=== PATIENT | female | born 1935 | race Caucasian/White ===

== ENCOUNTER 2016-06-10 08:15 | Outpatient (RCR) | payer MEDICARE, OTHER, MEDICAID ==
[2016-06-09 17:21] LABS: BASOPHILS # (AUTO) 0.1 10^3/uL (0.0-0.1); BASOPHILS % (AUTO) 1 % (0-10); EOSINOPHILS # (AUTO) 0.3 10^3/uL (0.0-0.3); EOSINOPHILS % (AUTO) 3 % (0-10); LYMPHOCYTES # (AUTO) 2.1 X 10^3 (1.0-4.0); LYMPHOCYTES % (AUTO) 23 % (12-44); MEAN CORPUSCULAR HEMOGLOBIN 28 PG (25-34); MEAN CORPUSCULAR HGB CONC 32 G/DL (32-36); MEAN CORPUSCULAR VOLUME 88 FL (80-99); MEAN PLATELET VOLUME 8.9 FL (7.4-10.4); MONOCYTES # (AUTO) 0.8 X 10^3 (0.0-1.0); MONOCYTES % (AUTO) 9 % (0-12); NEUTROPHILS % (AUTO) 65 % (42-75); PLATELET COUNT 265 10^3/uL (130-400); RED BLOOD COUNT 4.13 10^6/uL (4.35-5.85); RED CELL DISTRIBUTION WIDTH 15.7 % (10.0-14.5); WHITE BLOOD COUNT 9.3 10^3/uL (4.3-11.0)
[2016-06-09 17:41] LABS: ALBUMIN 4.2 G/DL (3.2-4.5); BILIRUBIN,TOTAL 0.3 MG/DL (0.1-1.0); CALCIUM 10.3 MG/DL (8.5-10.1); CREATININE SERUM 1.36 MG/DL (0.60-1.30); POTASSIUM 4.1 MMOL/L (3.6-5.0)
--- NOTE | 2016-06-09 18:28 | Diagnostic Imaging Report ---
Portable AP and lateral views of the chest. INDICATION: Cough and fever. COMPARISON: 04/25/2016. FINDINGS: Compared to 04/25/2016 exam, there is resolution of right perihilar infiltrate. There is however infiltrate along the lingula obscuring portion of the left cardiac border with associated small left effusion. The heart size is borderline enlarged. No pneumothorax. IMPRESSION: There is a small left pleural effusion with mild infiltrate along the lingula. Dictated by: Dictated on workstation # [id number]
[~2016-06-10 08:15] MED LIST: ACET325T49 PO; ALBU2.5V4 NEB; AMBIEN 12.5 MG; AMLO10TA2 PO; AMLO10TA4 PO; ATOR10TA66 PO; B CO PO; B&C/1TAB2 PO; BENZ100C23 PO; BETH25TA PO; BUDE10.2 IH; CALC-654 PO; CALC-80 PO; CALC1TAB PO; CARB1TAB44 PO; CARBIDOPA; CETI10TA17 PO; CLOP75TA28 PO; CLOP75TA69 PO; CLPD75T; CMBV14.7IN; CTRZ10T; CYAN10006 PO; DABI150C5 PO; DABI75CA3 PO; DCS100C PO; DGX.125T; DIAZ-345 PO; DIAZ5TAB3 PO; DIAZ5TAB49; DIGO125T PO; DIGO125T6 PO; DIGO250T96 PO; DULO30CA48 PO; EZET10TA5; FISH1200; FLUT16SP22 NS; FLUT16SP22 NSEACH; FRSM40T; FURO40TA4 PO; GABA-488 PO; GBPN100C PO; GBPN300C; GFN600TCR; GLIM4TAB PO; HYDR1TAB; INSA10V; INSASP10V; INSU100I13 SQ; INSU100I29 SQ; INSU100V16 SQ; INSU3CAR SQ; IPRA3AMP IH; ISOS30TA3 PO; KCL10CCR; LACT20SO2 PO; LANOXIN; LEVADOPA; LEVO500T69 PO; LEVO750T39 PO; LEVO750T9 PO; LEVO75TA6 PO; LISI-556 PO; LVT.1T; LVT.1T PO; METF500T4 PO; METFOR850T PO; METO-272 PO; METO-274 PO; MMT17NA NS; MNTL10T; MNTL10T PO; MONT10TA24 PO; MTF500T PO; MTP25TSR; MULT-974 PO; NITR-65 PO; NITR1PAT62 TD; NORVASC; OMEG-160 PO; OMEG1CAP2 PO; ONDA8TAB12 PO; OX05NA15; OXC10TCR PO; PANT40SU PO; PANT40TA3 PO; PEG250PW PO; PGLT30T; PNT40TEC; PNT40TEC PO; POLY1DRO OP; POTA10CA43 PO; PROP15DR OU; PROSTAT PO; ROPI1TAB; ROPI1TAB PO; ROSU10TA12; ROSU5TAB PO; ROTI1PAT11 TD; ROTI1PAT12 TD; RPGL2T; RPN.25T; SENN-75 PO; SENN1TAB66 PO; SITA100T; SODI30SP2 NS; SUVO10TA2 PO; TRAM50TA2 PO; TRM50T PO; WHEA730P PO; WRF3T; ZLP10T PO; ZOLP12.5 PO; ZOLP12.546 PO; ZOLP5TAB7 PO; [UNRECOGNIZED DRUG - CODE]; [UNRECOGNIZED DRUG - CODE] PO
[2016-06-10 08:20] LABS: BILIRUBIN,URINE NEGATIVE (NEGATIVE); KETONES,URINE NEGATIVE (NEGATIVE); LEUKOCYTE ESTERASE ,URINE NEGATIVE (NEGATIVE); NITRITE,URINE NEGATIVE (NEGATIVE); PH,URINE 8 (5-9); PROTEIN,URINE NEGATIVE (NEGATIVE); UROBILINOGEN,URINE NORMAL (NORMAL)
[2016-06-10 08:39] LABS: SQUAMOUS EPITHELIAL CELL,UR 0-2 /HPF
[2016-06-11] MEDS ORDERED: METO-272 PO (12:44)
[2016-06-11] MEDS ORDERED: MULT1TAB69 PO (12:44)
[2016-06-11] MEDS ORDERED: PANT40TA3 PO (12:44)
[2016-06-11] MEDS ORDERED: DIAZ5TAB3 PO (12:44)
[2016-06-11] MEDS ORDERED: ZOLP5TAB7 PO (12:44)
[2016-06-11] MEDS ORDERED: MONT10TA24 PO (12:44)
[2016-06-11] MEDS ORDERED: SENN1TAB6 PO (12:44)
[2016-06-11] MEDS ORDERED: DOXY100C2 PO (12:44)
[2016-06-11] MEDS ORDERED: POTA10CA68 PO (12:44)
[2016-06-11] MEDS ORDERED: INSU100I23 SQ (12:44)
[2016-06-11] MEDS ORDERED: DOCU100C37 PO (12:44)
[2016-06-16] MEDS ORDERED: LISI10TA2 PO (08:26)
[2016-06-16] MEDS ORDERED: HYDR-3812 PO (09:08)
[2016-06-16] MEDS ORDERED: DIAZ5TAB3 PO (09:08)
[2016-06-16] MEDS ORDERED: CITA10TA7 PO (09:08)
[2016-06-16] MEDS ORDERED: ZOLP5TAB7 PO (09:08)
[2016-06-16] MEDS ORDERED: NYST1000 PO (09:08)
[2016-07-05] MEDS ORDERED: DIAZ5TAB3 PO ×2 (10:25)
[2016-07-05] MEDS ORDERED: ZOLP5TAB PO ×2 (10:25)
[2016-07-06] MEDS ORDERED: ZOLP5TAB7 PO (09:06)
[2016-07-06] MEDS ORDERED: METF1000 PO (09:06)
[2016-07-06] MEDS ORDERED: OMEG-160 PO (09:06)
[2016-07-06] MEDS ORDERED: LISI10TA2 PO (09:06)
[2016-07-06] MEDS ORDERED: SENN-140 PO (09:06)
[2016-07-06] MEDS ORDERED: CITA10TA7 PO (09:06)
[2016-07-08] MEDS ORDERED: ALBU1.25 IH (10:39)
[2016-07-08] MEDS ORDERED: ZOLP5TAB PO (10:39)
[2016-07-08] MEDS ORDERED: DIAZ5TAB3 PO (10:39)
[2016-07-08] MEDS ORDERED: LEVO500T2 PO (10:43)
[2016-09-15] MEDS ORDERED: INSU100V SQ (09:15)
[2016-09-15] MEDS ORDERED: DIAZ5TAB3 PO (09:15)
[2016-09-15] MEDS ORDERED: CALC-1 PO (09:15)
[2016-09-15] MEDS ORDERED: INSU100V5 SQ (09:15)
[2016-09-15] MEDS ORDERED: MULT-619 PO (09:15)
[2016-09-15] MEDS ORDERED: FLUT16SP22 NSEACH (09:15)
[2016-09-15] MEDS ORDERED: AMLO10TA2 PO (09:15)
[2016-09-15] MEDS ORDERED: ZOLP5TAB7 PO (09:15)
[2016-09-15] MEDS ORDERED: POTA10TA10 PO (09:15)
[2016-09-17] MEDS ORDERED: LEVO750T9 PO (10:46)
== END 2016-09-07 | disposition home or self-care (01) ==
LOC: LAB 08:15 → EDSTATUS 06-11 22:39
PROVIDERS: ATTEND Family Medicine
DX: R50.9 Fever, unspecified (principal); R05 Cough
CPT/HCPCS: 36415; 71020; 80053; 81000; 83880; 85025; 86308

== ENCOUNTER 2016-06-11 08:43 | Inpatient (IN) | payer MEDICARE, OTHER, MEDICAID ==
[~2016-06-11] VITALS: Ht 165.1 cm; Wt 81.2 kg
[2016-06-11] MEDS ORDERED: ACETAMINOPHEN 500 MG TAB (TYLENOL) PO ONE (09:15)
[2016-06-11 09:25] LABS: BASOPHILS # (AUTO) 0.1 10^3/uL (0.0-0.1); BASOPHILS % (AUTO) 0 % (0-10); EOSINOPHILS # (AUTO) 0.2 10^3/uL (0.0-0.3); EOSINOPHILS % (AUTO) 2 % (0-10); LYMPHOCYTES # (AUTO) 1.4 X 10^3 (1.0-4.0); LYMPHOCYTES % (AUTO) 11 % (12-44); MEAN CORPUSCULAR HEMOGLOBIN 28 PG (25-34); MEAN CORPUSCULAR HGB CONC 32 G/DL (32-36); MEAN CORPUSCULAR VOLUME 87 FL (80-99); MEAN PLATELET VOLUME 9.6 FL (7.4-10.4); MONOCYTES % (AUTO) 8 % (0-12); NEUTROPHILS # (AUTO) 9.8 X 10^3 (1.8-7.8); NEUTROPHILS % (AUTO) 79 % (42-75); PLATELET COUNT 222 10^3/uL (130-400); RED BLOOD COUNT 3.57 10^6/uL (4.35-5.85); RED CELL DISTRIBUTION WIDTH 15.8 % (10.0-14.5); WHITE BLOOD COUNT 12.4 10^3/uL (4.3-11.0)
[2016-06-11 09:38] LABS: ALBUMIN 3.5 G/DL (3.2-4.5); BILIRUBIN,TOTAL 0.9 MG/DL (0.1-1.0); CALCIUM 9.8 MG/DL (8.5-10.1); CREATININE SERUM 1.5 MG/DL (0.60-1.30); POTASSIUM 3.9 MMOL/L (3.6-5.0); TOTAL PROTEIN 6.3 G/DL (6.4-8.2)
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
--- NOTE | 2016-06-11 10:02 | Diagnostic Imaging Report ---
Indication: Cough. Comparison: 06/09/16. Findings: Allowing for differences in technique (portable versus PA and lateral on prior exam) there appears to be increased hazy opacities in the right medial lung base. Left basilar opacities are similar. Probable trace left pleural effusion is unchanged. No pneumothorax. Stable cardiomegaly with atherosclerotic aorta. IMPRESSION: 1. Increased right perihilar opacities with persistent left basilar opacities. Findings may relate to infectious process in appropriate setting. Alternatively aspiration may have a similar appearance. 2. Trace left pleural effusion is stable. Dictated by: Dictated on workstation # [id number]
[2016-06-11] MEDS ORDERED: cefTRIAXone INJECTION 1,000 MG in NORMAL SALINE (BAXTER MINI) 50 ML IV ONE (10:45)
[2016-06-11] MEDS ORDERED: BISACODYL 10 MG SUPP (DULCOLAX) PR PRN (11:15)
[2016-06-11] MEDS ORDERED: ONDANSETRON 4 MG/2 ML (SDV) Z0FRAN IVP PRN (11:15)
[2016-06-11] MEDS ORDERED: HYDROcodone/APAP 5 MG/325 MG (LORTAB) TAB PO PRN (11:15)
[2016-06-11] MEDS ORDERED: ONDANSETRON 4 MG (ZOFRAN) ORAL DISSOLVE TAB PO PRN (11:15)
[2016-06-11] MEDS ORDERED: ALPRAZolam 0.25 MG (XANAX) TAB PO PRN (11:15)
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
[2016-06-11] MEDS ORDERED: RT-ALBUTEROL/IPRATROPIUM 3 ML (DUONEB) VIAL INH PRN (12:15)
[2016-06-11] MEDS: MEROPENEM 500 MG in NORMAL SALINE (BAXTER MINI) 100 ML IV SCH ×2 (12:24→17:43)
[2016-06-11] MEDS ORDERED: POTA10CA68 PO (12:44)
[2016-06-11] MEDS ORDERED: DOXY100C2 PO (12:44)
[2016-06-11] MEDS ORDERED: INSU100I23 SQ (12:44)
[2016-06-11] MEDS ORDERED: DIAZ5TAB3 PO (12:44)
[2016-06-11] MEDS ORDERED: MONT10TA24 PO (12:44)
[2016-06-11] MEDS ORDERED: DOCU100C37 PO (12:44)
[2016-06-11] MEDS ORDERED: SENN1TAB6 PO (12:44)
[2016-06-11] MEDS ORDERED: ZOLP5TAB7 PO (12:44)
[2016-06-11] MEDS ORDERED: PANT40TA3 PO (12:44)
[2016-06-11] MEDS ORDERED: METO-272 PO (12:44)
[2016-06-11] MEDS ORDERED: MULT1TAB69 PO (12:44)
[2016-06-11] MEDS: GABAPENTIN 300 MG (NEURONTIN) CAP PO SCH ×2 (14:52→22:44)
[2016-06-11] MEDS: BENZONATATE 100 MG (TESSALON) CAPSULE PO SCH ×2 (14:52→22:44)
[2016-06-11] MEDS: inSUlin ASPART (NovoLOG) 1 UNIT/0.01 ML (CHARGE PER UNIT) SC SCH ×2 (15:01→22:48)
[2016-06-11] MEDS ORDERED: CATHETER FLUSH 10 ML SYR IV PRN (15:15)
[2016-06-11] MEDS: ACETAMINOPHEN 500 MG TAB (TYLENOL) PO PRN ×2 (15:27→19:20)
[2016-06-11 16:02] VITALS: BP 106/64
[2016-06-11] MEDS ORDERED: OMEGA PO SCH (17:00)
[2016-06-11] MEDS ORDERED: FATTY ACIDS PO SCH (17:00)
[2016-06-11] MEDS ORDERED: FISH OIL CA PO SCH (17:00)
[2016-06-11] MEDS ORDERED: [UNRECOGNIZED DRUG - OTHER] PO SCH (17:00)
[2016-06-11] MEDS: DOCUSATE SODIUM 100 MG (COLACE) CAP PO SCH (17:42)
[2016-06-11] MEDS: metFORMIN 500 MG (GLUCOPHAGE) TAB PO SCH (17:42)
[2016-06-11] MEDS: CALCIUM CARB + VIT D 600 MG (CALCARB + D) TAB PO SCH (17:42)
[2016-06-11] MEDS: OMEGA 3 (FISH OIL) 1000 MG CAP PO SCH ×2 (17:42→22:44)
[2016-06-11] MEDS: KCL 10 MEQ TAB (MICRO K) PO SCH (17:42)
[2016-06-11] MEDS ORDERED: PATIENT MAY USE OWN MED,SINGLE MED PO SCH (18:45)
[2016-06-11 20:10] LABS: BILIRUBIN,URINE NEGATIVE (NEGATIVE); KETONES,URINE NEGATIVE (NEGATIVE); LEUKOCYTE ESTERASE ,URINE 2+ (NEGATIVE); NITRITE,URINE NEGATIVE (NEGATIVE); PH,URINE 5 (5-9); PROTEIN,URINE 2+ (NEGATIVE); UROBILINOGEN,URINE NORMAL (NORMAL)
[2016-06-11] MEDS ORDERED: inSUlin DETERMIR 1 UNIT/0.01 ML (LEVEMIR) CHARGE PER UNIT SQ SCH (21:00)
[2016-06-11] MEDS ORDERED: NON-FORMULARY MEDICATION 1 EA EA (Cetirizine HCl 10 MG) PO SCH (21:00)
[2016-06-11] MEDS ORDERED: NON-FORMULARY MEDICATION 1 EA EA (Zolpidem Tartrate 5 MG) PO SCH (21:00)
[2016-06-11] MEDS ORDERED: metFORMIN 500 MG (GLUCOPHAGE) TAB PO SCH (21:00)
[2016-06-11] MEDS ORDERED: NON-FORMULARY MEDICATION 1 EA EA (Potassium Chloride (Klor-Con Sprinkle) 10 MEQ) PO SCH (21:00)
[2016-06-11] MEDS: DABIGATRAN 75 MG (PRADAXA) CAPSULE PO SCH (22:44)
[2016-06-11] MEDS: CLOPIDOGREL 75 MG (PLAVIX) TABLET PO SCH (22:44)
[2016-06-11] MEDS: LORATADINE (CLARITIN) 10 MG TAB PO SCH (22:44)
[2016-06-11] MEDS: DIAZEPAM 5 MG (VALIUM) TABLET PO SCH (22:44)
[2016-06-11] MEDS: ZOLPIDEM 5 MG (AMBIEN) TAB PO SCH (22:44)
[2016-06-11] MEDS: NEUPRO 6 MG/24 HR TP SCH (22:50)
[2016-06-11] MEDS: [UNRECOGNIZED DRUG - REMARK] TP SCH (22:50)
[2016-06-11] MEDS: CATHETER FLUSH 10 ML SYR IV SCH (22:54)
[2016-06-12] VITALS: BP 166/56
[2016-06-12] MEDS: MEROPENEM 500 MG in NORMAL SALINE (BAXTER MINI) 100 ML IV SCH ×4 (00:27→21:46)
[2016-06-12 03:48] VITALS: BP 145/65
[2016-06-12 04:40] LABS: BASOPHILS # (AUTO) 0.1 10^3/uL (0.0-0.1); BASOPHILS % (AUTO) 0 % (0-10); EOSINOPHILS # (AUTO) 0.6 10^3/uL (0.0-0.3); EOSINOPHILS % (AUTO) 5 % (0-10); LYMPHOCYTES # (AUTO) 1.2 X 10^3 (1.0-4.0); LYMPHOCYTES % (AUTO) 10 % (12-44); MEAN CORPUSCULAR HEMOGLOBIN 28 PG (25-34); MEAN CORPUSCULAR HGB CONC 32 G/DL (32-36); MEAN CORPUSCULAR VOLUME 88 FL (80-99); MEAN PLATELET VOLUME 9.7 FL (7.4-10.4); MONOCYTES # (AUTO) 0.8 X 10^3 (0.0-1.0); MONOCYTES % (AUTO) 6 % (0-12); NEUTROPHILS # (AUTO) 9.5 X 10^3 (1.8-7.8); NEUTROPHILS % (AUTO) 79 % (42-75); PLATELET COUNT 222 10^3/uL (130-400); RED BLOOD COUNT 3.69 10^6/uL (4.35-5.85); RED CELL DISTRIBUTION WIDTH 16.2 % (10.0-14.5); WHITE BLOOD COUNT 12.1 10^3/uL (4.3-11.0)
[2016-06-12 05:03] LABS: ALBUMIN 3.4 G/DL (3.2-4.5); BILIRUBIN,TOTAL 0.7 MG/DL (0.1-1.0); CALCIUM 10.1 MG/DL (8.5-10.1); CREATININE SERUM 1.5 MG/DL (0.60-1.30); TOTAL PROTEIN 6.7 G/DL (6.4-8.2)
[2016-06-12] MEDS: inSUlin ASPART (NovoLOG) 1 UNIT/0.01 ML (CHARGE PER UNIT) SC SCH ×4 (06:31→21:00)
[2016-06-12] MEDS: CATHETER FLUSH 10 ML SYR IV SCH ×3 (06:31→21:49)
[2016-06-12] MEDS: BENZONATATE 100 MG (TESSALON) CAPSULE PO SCH ×3 (06:32→21:53)
[2016-06-12] MEDS: amLODIPine 10 MG (NORVASC) TAB PO SCH (06:32)
[2016-06-12] MEDS: lisINopril 5 MG (PRINIVIL) TABLET PO SCH (06:32)
[2016-06-12] MEDS: DIGOXIN 0.125 MG (LANOXIN) TAB PO SCH (06:32)
[2016-06-12] MEDS: GLIMEPIRIDE 4 MG (AMARYL) TAB PO SCH (06:32)
[2016-06-12] MEDS: metFORMIN 500 MG (GLUCOPHAGE) TAB PO SCH ×2 (06:32→17:38)
[2016-06-12] MEDS: LEVOTHYROXINE 75 MCG (LEVOTHROID) TABLET PO SCH (06:32)
[2016-06-12] MEDS: KCL 10 MEQ TAB (MICRO K) PO SCH ×3 (06:32→17:38)
[2016-06-12 08:00] VITALS: BP 122/57
[2016-06-12] MEDS: FUROSEMIDE 40 MG (LASIX) TAB PO SCH ×2 (08:14→12:19)
[2016-06-12] MEDS: DABIGATRAN 75 MG (PRADAXA) CAPSULE PO SCH ×2 (08:14→21:53)
[2016-06-12] MEDS: CYANOCOBALAMIN 500 MCG TAB (VITAMIN B-12) PO SCH (08:14)
[2016-06-12] MEDS: meTOproloL SUCCINATE 50 MG (TOPROL XL) TAB PO SCH (08:14)
[2016-06-12] MEDS: SENNA W/DOCUSATE (SENOKOT S) TABLET PO SCH (08:15)
[2016-06-12] MEDS ORDERED: NON-FORMULARY MEDICATION 1 EA EA (Insulin Detemir (Levemir Flextouch) 10 UNIT) SQ SCH (09:00)
[2016-06-12] MEDS ORDERED: NON-FORMULARY MEDICATION 1 EA EA (Cyanocobalamin (Vitamin B-12) (Vitamin B-12) 1,000 MCG) PO SCH (09:00)
--- NOTE | 2016-06-12 10:44 | Physician Query-Sepsis ---
Physician Query-Sepsis Query to Physician: The documentation in this patient's medical record requires additional clarification to accurately capture the patient's diagnosis (es), treatment, acuity, and/or severity of illness per CMS guidelines. Criteria, any TWO of the following with an infectious OR noninfectious etiology: * Temp= <96.8 or >100.4 * HR= >90 bpm * RR= >20/min or PaCO2<32 mmHG * WBC= <4000 or >12,000; or >10% bands PATIENT DATA: DATE/TIME: 06/11/16 TEMP: 101.2 PULSE: 94 RESP: 18 B/P: 121/53 WBC: 12.4 LACTIC ACID: 2.0 OTHER: Blood Culture Organism: (Negative or inconclusive blood cultures do not preclude a diagnosis of septicemia or Sepsis in patients with clinical evidence of the condition.) Choose one of the below Dx: Sepsis=2 or more SIRS criteria with an identified source or suspected source of infection Severe Sepsis=Sepsis associated with organ dysfunction, hypoperfusion or hypotension. (Manifestations may include lactic acidosis, oliguria, and acute alteration in mental status.) Septic Shock=Acute circulatory failure unexplained by other cause: SBP <90 or MAP <65 or reduction in SBP 40 mmHg from baseline despite adequate volume resuscitation or Lactate Level >=4 mmol/L. Patients who require inotropic or vasopressor support despite adequate fluid replacement are in septic shock. Septicemia=Systemic disease associated with the presence of pathological microorganisms or toxins in the blood. Bacteremia=Per ICD-9 guidelines, Bacteremia indicates the presence of bacteria in the blood, but DOES NOT infer the bacterium are pathological or has resulted in any systemic illness needing treatment Please indicate if no sepsis, none of the above, not correct physician/provider. PHYSICIAN RESPONSE: Choose one of the diagnosis: Sepsis Physician Note: If you have questions please contact: Dental Coordinator:Mackenzie Arrington CCS,CCDS Ext:[phone] Thank you for your time and cooperation. Clinical Eeo Officer/Dental Coordinator This is a permanent part of the medical record MACKENZIE ARRINGTON Jun 12, 2016 10:44 DARNELL HIRSCH DO Jun 12, 2016 12:04
--- NOTE | 2016-06-12 10:47 | Physician Query-General Query ---
Physician Query-General Query to Physician: Is patient's acute renal failure related to sepsis, unspecified or other etiology? PHYSICIAN RESPONSE: Based on the clinical findings in the record, please respond to the query above on this document as an addendum. Possible, probable, or questionable diagnosis can be coded for INPATIENTS ONLY. Physician Response: Physician Response due to sepsis If you have questions please contact: Official Court Reporter:Mackenzie Arrington [facility],CCDS Ext:[phone] Thank you for your time and cooperation. Clinical Probation Officer/Official Court Reporter This is a permanent part of the medical record MACKENZIE ARRINGTON Jun 12, 2016 10:47 DARNELL HIRSCH DO Jun 12, 2016 12:04
--- NOTE | 2016-06-12 11:19 | Progress Note-Hospitalist ---
Progress Note HPI/CC on Admission CC: Fever w/weakness HPI: This is an 81-year-old white female with a past medical history of multiple cardiac events requiring resuscitation and subsequent multiple cardiac stent placements by Dr. Gandara the presents to the emergency room after failed doxycycline empiric antibiotic for bronchitis given by Dr. Martell her primary care provider. She began running a fever up to 102 at home prompting the ER visit due to shortness of breath. Chest x-ray did show fullness of the hilar region consistent with infiltrate. 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 Her creatinine is 1.5 increased from her usual baseline of 1.3 and elevated BNP will require consultation with cardiology Dr. Gandara. Currently she reports "everything hurts" and "everything is just going terribly for her" and I will try to support her in anyway possible. Progress Notes/Assess & Plan Date Seen 06/12/16 Admission Dx/Process Facility acquired pneumonia high risk for gram-negative resistant organism in a patient with ESBL positive status requiring meropenem empiric tx Severe CAD with prior cardiac resuscitation and multiple cardiac stents placed by Dr. Gandara Overall debility with poor prognosis long-term palliative care consultation multiple times Acute renal failure on chronic renal insufficiency Leukocytosis Fever Depression Atrial fibrillation on anticoagulation of Pradaxa Diagonsis/Assessment & Plan Pt doing well but very debilitated overall Multiple hospitalizations indicated end stage organ failure Checked meds and labs Very weak and frail AFVSS, Pleasant, O x 3, frail, vidal, weak Irr Irr, CTAB no rales noted No edema Laboratory Tests 06/12/16 04:10 Assessment: Facility acquired pneumonia w/sepsis high risk for gram-negative resistant organism in a patient with ESBL positive status requiring Meropenem empiric tx Severe CAD with prior cardiac resuscitation and multiple cardiac stents placed by Dr. Gandara Overall debility with poor prognosis long-term palliative care consultation multiple times Acute renal failure on chronic renal insufficiency Leukocytosis Fever Depression Atrial fibrillation on anticoagulation of Pradaxa Plan: Meropenem empirically Nebs treatments Check labs Consult cardiology Reconcile all home meds and resume Palliative care consult Prognosis poor long-term so palliative care consultation will ensue [place] on Wednesday DARNELL HIRSCH DO Jun 12, 2016 11:19
[2016-06-12] MEDS: OMEGA 3 (FISH OIL) 1000 MG CAP PO SCH ×3 (12:19→21:54)
[2016-06-12] MEDS: MULTIVIT W/MINERALS TAB (THERAGRAN M) PO SCH (12:19)
[2016-06-12] MEDS: CALCIUM CARB + VIT D 600 MG (CALCARB + D) TAB PO SCH ×2 (12:19→17:38)
[2016-06-12] MEDS: DOCUSATE SODIUM 100 MG (COLACE) CAP PO SCH ×2 (12:19→17:38)
[2016-06-12 12:39] VITALS: BP 132/71
[2016-06-12] MEDS: GABAPENTIN 300 MG (NEURONTIN) CAP PO SCH ×2 (13:47→21:54)
[2016-06-12 16:06] VITALS: BP 129/73
[2016-06-12 20:24] VITALS: BP 153/69
[2016-06-12] MEDS ORDERED: inSUlin ASPART (NovoLOG) 1 UNIT/0.01 ML (CHARGE PER UNIT) SC ONE (21:00)
[2016-06-12] MEDS: LORATADINE (CLARITIN) 10 MG TAB PO SCH (21:53)
[2016-06-12] MEDS: ZOLPIDEM 5 MG (AMBIEN) TAB PO SCH (21:54)
[2016-06-12] MEDS: CLOPIDOGREL 75 MG (PLAVIX) TABLET PO SCH (21:54)
[2016-06-12] MEDS: DIAZEPAM 5 MG (VALIUM) TABLET PO SCH (21:54)
[2016-06-12] MEDS: inSUlin DETERMIR 1 UNIT/0.01 ML (LEVEMIR) CHARGE PER UNIT SQ SCH (21:56)
[2016-06-12] MEDS: NEUPRO 6 MG/24 HR TP SCH (21:57)
[2016-06-12] MEDS: [UNRECOGNIZED DRUG - REMARK] TP SCH (22:07)
[2016-06-13] VITALS: BP 144/69
[2016-06-13 06:07] VITALS: BP 191/77
[2016-06-13] MEDS: MEROPENEM 500 MG in NORMAL SALINE (BAXTER MINI) 100 ML IV SCH ×3 (06:48→21:28)
[2016-06-13] MEDS: amLODIPine 10 MG (NORVASC) TAB PO SCH (06:51)
[2016-06-13] MEDS: inSUlin ASPART (NovoLOG) 1 UNIT/0.01 ML (CHARGE PER UNIT) SC SCH ×4 (06:52→21:28)
[2016-06-13] MEDS: KCL 10 MEQ TAB (MICRO K) PO SCH ×3 (06:52→17:44)
[2016-06-13] MEDS: GLIMEPIRIDE 4 MG (AMARYL) TAB PO SCH (06:52)
[2016-06-13] MEDS: metFORMIN 500 MG (GLUCOPHAGE) TAB PO SCH ×2 (06:52→17:44)
[2016-06-13] MEDS: lisINopril 5 MG (PRINIVIL) TABLET PO SCH (06:52)
[2016-06-13] MEDS: LEVOTHYROXINE 75 MCG (LEVOTHROID) TABLET PO SCH (06:52)
[2016-06-13] MEDS: BENZONATATE 100 MG (TESSALON) CAPSULE PO SCH ×3 (06:52→20:59)
[2016-06-13] MEDS: DIGOXIN 0.125 MG (LANOXIN) TAB PO SCH (06:52)
[2016-06-13] MEDS: CATHETER FLUSH 10 ML SYR IV SCH ×3 (06:53→21:28)
[2016-06-13 08:01] VITALS: BP 136/82
[2016-06-13] MEDS: SENNA W/DOCUSATE (SENOKOT S) TABLET PO SCH (08:35)
[2016-06-13] MEDS: FUROSEMIDE 40 MG (LASIX) TAB PO SCH ×2 (08:35→12:20)
[2016-06-13] MEDS: CYANOCOBALAMIN 500 MCG TAB (VITAMIN B-12) PO SCH (08:35)
[2016-06-13] MEDS: DABIGATRAN 75 MG (PRADAXA) CAPSULE PO SCH ×2 (08:36→20:59)
[2016-06-13] MEDS: meTOproloL SUCCINATE 50 MG (TOPROL XL) TAB PO SCH (08:36)
[2016-06-13 11:34] VITALS: BP 168/74
--- NOTE | 2016-06-13 11:55 | Consultation-Cardiology ---
HPI-Cardiology Cardiology Consultation Date of Consultation 06/13/16 Date of Admission Indication: coronary artery disease HPI 81-year-old lady with history of coronary artery disease, had sudden cardiac with ventricular tachycardia after ST elevation myocardial infarction in May 2015. Patient failed outpatient antibiotic treatment, continue to have fever. Admitted for pneumonia, started on aggressive antibiotic. She has extensive cardiac history I was called for evaluation. She has been seeing and followed by Dr. Gandara, denied any chest pain, admit having debilities generalized weakness and shortness of breath. No palpitation, no syncope or near syncopal episodes. No claudications. Home Medications & Allergies Allergies: Coded Allergies: iodine (Verified Allergy, Severe, BLISTERS, 12/13/13) neomycin (Verified Allergy, Severe, SWELLING, PAIN, RASH, ITCHING, 12/13/13 ) THIS WAS ADMINISTERED AN EAR DROP, EARS AND HEAD SWELLED AND TURNED RED CAUSING PAIN AND RASH WITH ITCHING cephalexin (Unverified Allergy, Mild, 08/19/08) phenylalanine (Verified Allergy, Mild, 04/25/16) pregabalin (Verified Allergy, Mild, SWELLING AND WEIGHT GAIN, 12/13/13) brompheniramine (Verified Allergy, Unknown, VISION PROBLEMS, 12/13/13) dextromethorphan (Verified Allergy, Unknown, 03/30/06) penicillin G (Verified Allergy, Unknown, RASH, 12/13/13) phenylpropanolamine (Verified Allergy, Unknown, 03/30/06) pseudoephedrine (Verified Allergy, Unknown, 03/30/06) simvastatin (Verified Allergy, Unknown, EXTREME WEAKNESS AND PAIN IN LEGS , 12/13/13) sulfamethoxazole (Verified Allergy, Unknown, 03/03/16) thimerosal (Verified Allergy, Unknown, RASH WITH PAIN AND ITCHING, 12/13/13 ) trimethoprim (Verified Allergy, Unknown, 03/03/16) codeine (Verified Adverse Reaction, Mild, TRIPLE VISION, 06/05/15) hydrocodone (Verified Adverse Reaction, Mild, VISION PROBLEMS, 06/05/15) Uncoded Allergies: TAPE (Allergy, Unknown, RASH, 12/13/13) Home Medication List Reviewed: Yes [id number] Hx Patient Social History Marital Status: Employed/Student: retired Alcohol Use: Denies Use Recreational Drug Use: No Smoking Status: Never a Smoker Recent Foreign Travel: No Recent Infectious Disease Expo: No Recent Hopitalizations: No Physical Abuse Screen: No Sexual Abuse: No (t) Immunizations Up To Date Tetanus Booster (TDap): Unknown Date of Pneumonia Vaccine: Mar 06, 2016 Date of Influenza Vaccine: Mar 06, 2016 Past Medical History past medical history as discussed below Family Medical History Family History: 19 FATHER Alcoholism Arthritis Cardiovascular disease Completed stroke Myocardial infarction 19 MOTHER FH: cancer (MOTHER WAS 1 OF 7 ALL DIAGNOSED WITH CANCER EXCEPT FOR MOTHER) Arthritis (AUNTS AND UNCLES WELL) Dementia G8 BROTHER Alcoholism (2 OF HER 4 BROTHERS) Cardiovascular disease Cataracts Colon cancer Deafness or hearing loss Glaucoma Hypercholesterolemia Hypertension Infertility Prostate cancer Thyroid disease Relation not specified for: FH: alcohol abuse Kidney disease Neoplasm Constitutional: see HPI fever malaise weakness EENTM: no symptoms reported see HPI Respiratory: see HPI cough dyspnea on exertion orthopnea short of breath Cardiovascular: No no symptoms reported, see HPINo chest pain, edemaNo Hx of Intervention, No palpitations, No syncope, No vascular heart diseas, No other Gastrointestinal: no symptoms reported see HPI Genitourinary: no symptoms reported see HPI Musculoskeletal: see HPI joint pain muscle stiffness muscle weakness Skin: no symptoms reported see HPI Psychiatric/Neurological: No Symptoms Reported See HPI Depressed Reviewed Test Results Reviewed Test Results Lab Laboratory Tests Test 06/12/16 12:02 06/12/16 15:19 06/12/16 20:38 06/13/16 05:39 Range/Units Glucometer 254 H 283 H 423 *H 395 H 70-110 MG/DL Test 06/13/16 10:30 Range/Units Glucometer 230 H 70-110 MG/DL Physical Exam Vital Signs Vital Sign - Last 12Hours 06/11/16 08:45 Temp 101.2 Pulse 94 Resp 18 B/P 121/53 Pulse Ox 94 O2 Delivery Nasal Cannula O2 Flow Rate 3 Capillary Refill : Less Than 3 Seconds General Appearance: WD/WN Moderate Distress Eyes: Bilateral Eye EOMI, Bilateral Eye Normal Inspection, Bilateral Eye PERRL HEENT: PERRL/EOMI TMs Normal Normal ENT Inspection Pharynx Normal Neck: Full Range of Motion Normal Inspection Non Tender Supple Respiratory: Chest Non Tender Crackles Decreased Breath Sounds Inspiration Cardiovascular: Normal Peripheral Pulses Systolic Murmur Gallop/S3 Irregularly Irregular Gastrointestinal: Normal Bowel Sounds No Organomegaly No Pulsatile Mass Non Tender Soft Back: Normal Inspection No CVA Tenderness No Vertebral Tenderness Extremity: Normal Inspection Normal Range of Motion Non Tender No Calf Tenderness Pedal Edema Neurologic/Psychiatric: Alert Oriented x3 No Motor/Sensory Deficits Skin: Normal Color Warm/Dry Lymphatic: No Adenopathy A/P-Cardiology Admission Diagnosis Pneumonia Sepsis Coronary artery disease Hypertension Hyperlipidemia Diabetes mellitus Assessment/Plan Pneumonia with gram-negative resistant organism, started on meropenem, managed by primary care physician Sepsis, secondary to above. Treated with meropenem. Generalized weakness and debility CAD. Last card cath on 06-03-[address] Lucero: MARYANA done to the mid LAD with a Resolute 2.25 x 26mm stent; left cx without significant disease; RCA - severe prox stenosis with ROMA 3 flow; LVEF 10-15%. Prior cardiac catheterization was in August 2007 and it showed that previous sites of cutting balloon angioplasty in the mid and distal left anterior descending artery were widely patent and free of significant disease; a new 70% stenosis in a terminal obtuse marginal artery which was successfully stented with Taxus 3 x 12-mm stent; severe mid- vessel disease of the right coronary, but right coronary artery is not ideally suited to intervention because of a small vessel caliber. has been managed by Dr. Gandara. History of sudden cardiac with ventricular tachycardia during her myocardial infarction, resuscitated. Persistent atrial fibrillation, rate is controlled. Maintained on Pradaxa and Plavix. Followed and managed by Dr. Gandara History of intermittent gastrointestinal bleeding. She has had removal of a polyp and hemorrhoidectomy by Dr. Mo in 2011 with cessation of bleeding since. Currently tolerating Plavix and Pradaxa. Multiple cerebrovascular accidents in the past, generalized weakness. Multiple medication intolerances. History of hypertension. Continue current medication monitor blood pressure History of hyperlipidemia, intolerant to statin in the past. Diabetes mellitus, followed and managed by primary care physician Hypothyroidism, followed and managed by primary care physician Degenerative joint disease and backache. Clinical Quality Measures DVT/VTE Risk/Contraindication: Risk Factor Score Per Nursin RFS Level Per Nursing on Admit: 4+=Very High KAITLIN GREWAL MD Jun 13, 2016 11:55
[2016-06-13] MEDS: DOCUSATE SODIUM 100 MG (COLACE) CAP PO SCH ×2 (12:20→18:07)
[2016-06-13] MEDS: CALCIUM CARB + VIT D 600 MG (CALCARB + D) TAB PO SCH ×2 (12:20→17:43)
[2016-06-13] MEDS: MULTIVIT W/MINERALS TAB (THERAGRAN M) PO SCH (12:20)
[2016-06-13] MEDS: OMEGA 3 (FISH OIL) 1000 MG CAP PO SCH ×3 (12:20→20:59)
--- NOTE | 2016-06-13 12:23 | Progress Note-Hospitalist ---
Subjective HPI/CC On Admission CC: Fever w/weakness HPI: This is an 81-year-old white female with a past medical history of multiple cardiac events requiring resuscitation and subsequent multiple cardiac stent placements by Dr. Gandara the presents to the emergency room after failed doxycycline empiric antibiotic for bronchitis given by Dr. Martell her primary care provider. She began running a fever up to 102 at home prompting the ER visit due to shortness of breath. Chest x-ray did show fullness of the hilar region consistent with infiltrate. 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 Her creatinine is 1.5 increased from her usual baseline of 1.3 and elevated BNP will require consultation with cardiology Dr. Gandara. Currently she reports "everything hurts" and "everything is just going terribly for her" and I will try to support her in anyway possible. Date Seen 06/13/16 Subjective/Events-last exam Gracy is very tearful today. Not eating well complains of a sore throat. On exam she does have oral thrush. sHe just seems tired Review of Systems Pulmonary: Dyspnea Neurological: : Weakness Objective Exam Vital Signs Vital Sign - Last 12Hours 06/11/16 08:45 Temp 101.2 Pulse 94 Resp 18 B/P 121/53 Pulse Ox 94 O2 Delivery Nasal Cannula O2 Flow Rate 3 Capillary Refill : Less Than 3 Seconds General Appearance: Anxious Neck: Supple Respiratory: Lungs Clear Cardiovascular: Systolic Murmur Irregularly Irregular Gastrointestinal: Soft Extremity: No Calf Tenderness Neurologic/Psychiatric: Alert Depressed Affect Assessment/Plan Assessment and Plan Assess & Plan/Chief Complaint Facility acquired pneumonia w/sepsis high risk for gram-negative resistant organism in a patient with ESBL positive status requiring Meropenem empiric tx- no sputum available Severe CAD with prior cardiac resuscitation and multiple cardiac stents placed by Dr. Gandara-on Plavix Overall debility with poor prognosis long-term palliative care consultation multiple times Acute renal failure on chronic renal insufficiency Leukocytosis Fever Depression-consider low-dose Celexa Atrial fibrillation on anticoagulation of Pradaxa oral thrush type II diabetes out of controll Plan: Meropenem empirically Nebs treatments Check labs Consult cardiology Reconcile all home meds and resume Palliative care consult Prognosis poor long-term so palliative care consultation will ensue [place] on Wednesday start NURYS Sharpe MD Jun 13, 2016 12:22
[2016-06-13] MEDS: NYSTATIN ORAL SUSP 5 ML UDC PO SCH ×3 (13:11→23:57)
[2016-06-13] MEDS: GABAPENTIN 300 MG (NEURONTIN) CAP PO SCH ×2 (13:11→20:59)
[2016-06-13 16:05] VITALS: BP 133/77
[2016-06-13 19:52] VITALS: BP 166/65
[2016-06-13] MEDS: LORATADINE (CLARITIN) 10 MG TAB PO SCH (20:59)
[2016-06-13] MEDS: inSUlin DETERMIR 1 UNIT/0.01 ML (LEVEMIR) CHARGE PER UNIT SQ SCH (20:59)
[2016-06-13] MEDS: CLOPIDOGREL 75 MG (PLAVIX) TABLET PO SCH (20:59)
[2016-06-13] MEDS: NEUPRO 6 MG/24 HR TP SCH (20:59)
[2016-06-13] MEDS: ZOLPIDEM 5 MG (AMBIEN) TAB PO SCH (20:59)
[2016-06-13] MEDS: DIAZEPAM 5 MG (VALIUM) TABLET PO SCH (20:59)
[2016-06-13] MEDS: [UNRECOGNIZED DRUG - REMARK] TP SCH (21:00)
[2016-06-14] VITALS: BP 172/74
[2016-06-14 04:49] LABS: BASOPHILS % (AUTO) 1 % (0-10); EOSINOPHILS # (AUTO) 0.6 10^3/uL (0.0-0.3); EOSINOPHILS % (AUTO) 9 % (0-10); LYMPHOCYTES # (AUTO) 1.3 X 10^3 (1.0-4.0); LYMPHOCYTES % (AUTO) 19 % (12-44); MEAN CORPUSCULAR HEMOGLOBIN 28 PG (25-34); MEAN CORPUSCULAR HGB CONC 32 G/DL (32-36); MEAN CORPUSCULAR VOLUME 88 FL (80-99); MEAN PLATELET VOLUME 9.3 FL (7.4-10.4); MONOCYTES # (AUTO) 0.5 X 10^3 (0.0-1.0); MONOCYTES % (AUTO) 8 % (0-12); NEUTROPHILS # (AUTO) 4.1 X 10^3 (1.8-7.8); NEUTROPHILS % (AUTO) 63 % (42-75); PLATELET COUNT 248 10^3/uL (130-400); RED BLOOD COUNT 3.35 10^6/uL (4.35-5.85); RED CELL DISTRIBUTION WIDTH 15.6 % (10.0-14.5); WHITE BLOOD COUNT 6.5 10^3/uL (4.3-11.0)
[2016-06-14 04:50] VITALS: BP 145/63
[2016-06-14] MEDS: NYSTATIN ORAL SUSP 5 ML UDC PO SCH ×3 (05:10→18:30)
[2016-06-14] MEDS: DIGOXIN 0.125 MG (LANOXIN) TAB PO SCH (05:10)
[2016-06-14] MEDS: MEROPENEM 500 MG in NORMAL SALINE (BAXTER MINI) 100 ML IV SCH ×3 (05:10→22:03)
[2016-06-14] MEDS: lisINopril 5 MG (PRINIVIL) TABLET PO SCH (05:10)
[2016-06-14] MEDS: BENZONATATE 100 MG (TESSALON) CAPSULE PO SCH ×3 (05:10→21:13)
[2016-06-14] MEDS: LEVOTHYROXINE 75 MCG (LEVOTHROID) TABLET PO SCH (05:10)
[2016-06-14] MEDS: amLODIPine 10 MG (NORVASC) TAB PO SCH (05:10)
[2016-06-14 05:12] LABS: ALBUMIN 2.9 G/DL (3.2-4.5); BILIRUBIN,TOTAL 0.4 MG/DL (0.1-1.0); CALCIUM 9.3 MG/DL (8.5-10.1); CREATININE SERUM 1.01 MG/DL (0.60-1.30); POTASSIUM 4.4 MMOL/L (3.6-5.0); TOTAL PROTEIN 5.8 G/DL (6.4-8.2)
[2016-06-14] MEDS: inSUlin ASPART (NovoLOG) 1 UNIT/0.01 ML (CHARGE PER UNIT) SC SCH ×4 (06:00→21:13)
[2016-06-14] MEDS: CATHETER FLUSH 10 ML SYR IV SCH ×3 (06:15→22:03)
[2016-06-14] MEDS: GLIMEPIRIDE 4 MG (AMARYL) TAB PO SCH (06:15)
[2016-06-14] MEDS: KCL 10 MEQ TAB (MICRO K) PO SCH ×3 (06:15→16:17)
[2016-06-14] MEDS: metFORMIN 500 MG (GLUCOPHAGE) TAB PO SCH ×2 (06:15→16:17)
[2016-06-14 08:00] VITALS: BP 175/70
[2016-06-14] MEDS: DABIGATRAN 75 MG (PRADAXA) CAPSULE PO SCH ×2 (08:41→21:14)
[2016-06-14] MEDS: SENNA W/DOCUSATE (SENOKOT S) TABLET PO SCH (08:41)
[2016-06-14] MEDS: FUROSEMIDE 40 MG (LASIX) TAB PO SCH ×2 (08:41→13:00)
[2016-06-14] MEDS: CYANOCOBALAMIN 500 MCG TAB (VITAMIN B-12) PO SCH (08:42)
[2016-06-14] MEDS: meTOproloL SUCCINATE 50 MG (TOPROL XL) TAB PO SCH (08:42)
--- NOTE | 2016-06-14 10:11 | Cardiology Progress Note ---
Subjective Subjective/Events-last exam patient is sitting in a chair, feeling better, denied any chest pain Review of Systems General: No Chills, No Night Sweats, No Fatigue, No Malaise, No Appetite, No Other HEENT: No Head Aches, No Visual Changes, No Eye Pain, No Ear Pain, No Dysphasia , No Sinus Congestion, No Post Nasal Drip, No Sore Throat, No Other Pulmonary: DyspneaNo Cough, No Pleuritic Chest Pain, No Other Cardiovascular: No: Chest Pain, Edema, Lt Headedness, Orthopnea, Other, Palpitations, Paroxysmal Noc. Dyspnea Objective-Cardiology Exam Last Set of Vital Signs Vital Signs 06/14/16 08:00 Temp 97.2 Pulse 73 Resp 20 B/P 175/70 O2 Delivery NIV/CPAP Capillary Refill : Less Than 3 Seconds I&O Intake and Output 06/14/16 00:00 Intake Total 2720 ml Output Total 950 ml Balance 1770 ml Intake Oral 2420 ml IV Total 300 ml Output Urine Total 950 ml # Voids 4 # Urine Diapers 3 # Bowel Movements 1 General: Alert, Oriented X3, Cooperative, No Acute Distress HEENT: Atraumatic, PERRLA Neck: Supple, No JVD, No Thyromegaly Lungs: Clear to Auscultation, Normal Air Movement Heart: Regular Rate, Normal S1, Normal S2, No Murmurs Abdomen: Normal Bowel Sounds, Soft, No Tenderness, No Hepatosplenomegaly, No Masses Extremities: No Clubbing, No Cyanosis, No Edema, Normal Pulses, No Tenderness/ Swelling Skin: No Rashes, No Breakdown, No Significant Lesion Neuro: Normal Gait, Normal Speech, Strength at 5/5 X4 Ext, Normal Tone, Sensation Intact Psych/Mental Status: Mental Status NL, Mood NL Results Lab Laboratory Tests 06/14/16 04:15 A/P-Cardiology Admission Diagnosis Pneumonia Sepsis Coronary artery disease Hypertension Hyperlipidemia Diabetes mellitus Assessment/Plan Pneumonia with gram-negative resistant organism, started on meropenem, managed by primary care physician Generalized weakness and debility CAD. Last card cath on 06-03-[address] Lucero: MARYANA done to the mid LAD with a Resolute 2.25 x 26mm stent; left cx without significant disease; RCA - severe prox stenosis with ROMA 3 flow; LVEF 10-15%. Prior cardiac catheterization was in August 2007 and it showed that previous sites of cutting balloon angioplasty in the mid and distal left anterior descending artery were widely patent and free of significant disease; a new 70% stenosis in a terminal obtuse marginal artery which was successfully stented with Taxus 3 x 12-mm stent; severe mid- vessel disease of the right coronary, but right coronary artery is not ideally suited to intervention because of a small vessel caliber. has been managed by Dr. Gandara. History of sudden cardiac with ventricular tachycardia during her myocardial infarction, resuscitated. Persistent atrial fibrillation, rate is controlled. Maintained on Pradaxa and Plavix. Followed and managed by Dr. Gandara History of intermittent gastrointestinal bleeding. She has had removal of a polyp and hemorrhoidectomy by Dr. Mo in 2011 with cessation of bleeding since. Currently tolerating Plavix and Pradaxa. Multiple cerebrovascular accidents in the past, generalized weakness. Multiple medication intolerances. History of hypertension. Continue current medication monitor blood pressure History of hyperlipidemia, intolerant to statin in the past. Diabetes mellitus, followed and managed by primary care physician Hypothyroidism, followed and managed by primary care physician Degenerative joint disease and backache. Clinical Quality Measures DVT/VTE Risk/Contraindication: Risk Factor Score Per Nursin RFS Level Per Nursing on Admit: 4+=Very High KAITLIN GREWAL MD Jun 14, 2016 10:11
[2016-06-14 12:00] VITALS: BP 147/69
[2016-06-14] MEDS: DOCUSATE SODIUM 100 MG (COLACE) CAP PO SCH ×2 (12:59→17:30)
[2016-06-14] MEDS: MULTIVIT W/MINERALS TAB (THERAGRAN M) PO SCH (13:00)
[2016-06-14] MEDS: CALCIUM CARB + VIT D 600 MG (CALCARB + D) TAB PO SCH ×2 (13:00→16:17)
[2016-06-14] MEDS: OMEGA 3 (FISH OIL) 1000 MG CAP PO SCH ×3 (13:01→21:15)
--- NOTE | 2016-06-14 13:05 | Progress Note-Hospitalist ---
Subjective HPI/CC On Admission CC: Fever w/weakness HPI: This is an 81-year-old white female with a past medical history of multiple cardiac events requiring resuscitation and subsequent multiple cardiac stent placements by Dr. Gandara the presents to the emergency room after failed doxycycline empiric antibiotic for bronchitis given by Dr. Martell her primary care provider. She began running a fever up to 102 at home prompting the ER visit due to shortness of breath. Chest x-ray did show fullness of the hilar region consistent with infiltrate. 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 Her creatinine is 1.5 increased from her usual baseline of 1.3 and elevated BNP will require consultation with cardiology Dr. Gandara. Currently she reports "everything hurts" and "everything is just going terribly for her" and I will try to support her in anyway possible. Date Seen 06/14/16 Subjective/Events-last exam patient is much more cheerful today. she ate a good breakfast. family is visiting and I suspect that that has helped her a lot. We discussed going to the skilled nursing to continue physical therapy and getting stronger. She is looking forward to walking with her walker today. Review of Systems Pulmonary: Dyspnea Neurological: : Weakness Objective Exam Vital Signs Vital Sign - Last 12Hours 06/11/16 08:45 Temp 101.2 Pulse 94 Resp 18 B/P 121/53 Pulse Ox 94 O2 Delivery Nasal Cannula O2 Flow Rate 3 Capillary Refill : Less Than 3 Seconds General Appearance: Chronically ill HEENT: Normal ENT Inspection Respiratory: Lungs Clear Normal Breath Sounds No Accessory Muscle Use Cardiovascular: Regular Rate, Rhythm Systolic Murmur Gastrointestinal: No Organomegaly Non Tender Soft Results/Procedures Lab Laboratory Tests 06/14/16 04:15 Assessment/Plan Assessment and Plan Assess & Plan/Chief Complaint Facility acquired pneumonia w/sepsis high risk for gram-negative resistant organism in a patient with ESBL positive status requiring Meropenem empiric tx- no sputum available Severe CAD with prior cardiac resuscitation and multiple cardiac stents placed by Dr. Gandara-on Plavix Overall debility with poor prognosis long-term palliative care consultation multiple times Acute renal failure on chronic renal insufficiency Leukocytosis Fever Depression-started on low-dose Celexa Atrial fibrillation on anticoagulation of Pradaxa oral thrush type II diabetes out of control insomnia anemia-stable Plan: Meropenem empirically-recheck chest x-ray today Nebs treatments Check labs Consult cardiology Reconcile all home meds and resume Palliative care consult Prognosis poor long-term so palliative care consultation will ensue [place] on Wednesday start nystatin Will stop the combination of Ambien and Valium to decrease fall risk at night- and decrease the Valium to 2.5 mg. Would be optimal to discontinue this completely and hopefully after starting Celexa her sleep patterns will improve NURYS AMEZQUITA MD Jun 14, 2016 1:04 pm
--- NOTE | 2016-06-14 13:54 | Diagnostic Imaging Report ---
Indication: Followup pneumonia Comparison: 06/11/2016 Findings: Two views of the chest are obtained. The heart size is enlarged but unchanged. There is no pulmonary vascular congestion. There is no pneumothorax or pleural fluid suspected. There is patchy increased density in the medial right lung base concerning for residual right infrahilar infiltrate. There is minimal airspace disease also again seen at the left lung base, similar to the prior study. The upper lungs remain clear. Impression: Improved right perihilar infiltrate. There is minimal persistent infiltrate within the medial right middle lobe. Minimal persistent left basilar infiltrate, as well. No significant new abnormality is demonstrated. Dictated by: Dictated on workstation # [id number]
[2016-06-14] MEDS: GABAPENTIN 300 MG (NEURONTIN) CAP PO SCH ×2 (14:40→21:15)
[2016-06-14 16:00] VITALS: BP 145/63
[2016-06-14 20:00] VITALS: BP 179/74
[2016-06-14] MEDS: [UNRECOGNIZED DRUG - REMARK] TP SCH (21:10)
[2016-06-14] MEDS: inSUlin DETERMIR 1 UNIT/0.01 ML (LEVEMIR) CHARGE PER UNIT SQ SCH (21:12)
[2016-06-14] MEDS: LORATADINE (CLARITIN) 10 MG TAB PO SCH (21:13)
[2016-06-14] MEDS: DIAZEPAM 5 MG (VALIUM) TABLET PO SCH (21:14)
[2016-06-14] MEDS: CLOPIDOGREL 75 MG (PLAVIX) TABLET PO SCH (21:16)
[2016-06-14] MEDS: NEUPRO 6 MG/24 HR TP SCH (21:17)
[2016-06-15] VITALS: BP 179/77
[2016-06-15] MEDS: NYSTATIN ORAL SUSP 5 ML UDC PO SCH ×5 (00:37→23:41)
[2016-06-15 04:00] VITALS: BP 187/80
[2016-06-15] MEDS: inSUlin ASPART (NovoLOG) 1 UNIT/0.01 ML (CHARGE PER UNIT) SC SCH ×4 (06:00→21:56)
[2016-06-15] MEDS: amLODIPine 10 MG (NORVASC) TAB PO SCH (06:41)
[2016-06-15] MEDS: CATHETER FLUSH 10 ML SYR IV SCH ×3 (06:41→21:57)
[2016-06-15] MEDS: MEROPENEM 500 MG in NORMAL SALINE (BAXTER MINI) 100 ML IV SCH ×3 (06:41→21:57)
[2016-06-15] MEDS: KCL 10 MEQ TAB (MICRO K) PO SCH ×3 (06:41→17:25)
[2016-06-15] MEDS: LEVOTHYROXINE 75 MCG (LEVOTHROID) TABLET PO SCH (06:41)
[2016-06-15] MEDS: DIGOXIN 0.125 MG (LANOXIN) TAB PO SCH (06:42)
[2016-06-15] MEDS: lisINopril 5 MG (PRINIVIL) TABLET PO SCH (06:42)
[2016-06-15] MEDS: BENZONATATE 100 MG (TESSALON) CAPSULE PO SCH ×3 (06:42→21:54)
--- NOTE | 2016-06-15 07:44 | Physician Query-Heart Failure ---
Physician Query-Heart Failure Query to Physician: Provider's Document Request-Please contact veneer jointer returner listed on document for more information. Dear Provider, We need your assistance to accurately capture the severity of the patients heart failure. Physician participation is requested in all cases of juvenile detention officer uncertainty to minimize errors in code assignment and to avoid compliance issues. Please select the type of heart failure the patient has below. Clinical Findings: Pro-BNP 967.1 Treatment given: 40mg Lasix PHYSICIAN RESPONSE: Please refer to Dr Gandara Type of Heart Failure: Type of Heart Failure: Not correct physician (*Indicated correct physician*) If you have questions please contact: International Sales Representative:Mackenzie Arrington CCS,CCDS Ext:[phone] Thank you for your time and cooperation. Clinical Brush Fabrication Supervisor/International Sales Representative This is a permanent part of the medical record MACKENZIE ARRINGTON Jun 15, 2016 07:44 KAITLIN GREWAL MD Jun 15, 2016 09:40
--- NOTE | 2016-06-15 08:22 | Progress Note-Cardiology ---
Cardiology SOAP Progress Note Subjective: In bed. Family x1 at the bedside. She states she feels better this morning, but reports she did not sleep well last night. No c/o CP, palpitations, syncope or near syncope. Feels breathing has improved. Reports occ productive cough. Objective: I&O/Vital Signs Vital Sign - Last 12Hours 06/15/16 06/15/16 06/15/16 06/15/16 00:00 01:00 04:00 07:00 Temp 96.6 97.5 Pulse 62 64 62 55 Resp 18 18 B/P 179/77 187/80 Pulse Ox 94 95 O2 Delivery NIV/CPAP NIV/CPAP 06/15/16 06/15/16 08:13 08:43 Temp 97.8 Pulse 53 Resp 16 B/P 166/72 Pulse Ox 94 94 O2 Delivery NIV/CPAP O2 Flow Rate 3.00 Intake and Output 06/15/16 00:00 Intake Total 2055 ml Output Total 1200 ml Balance 855 ml Weight (Pounds): 179 Weight (Ounces): 0.0 Weight (Calculated Kilograms): 81.971507 Constitutional: AAO x 3 Respiratory: chest expansion is symmetric chest is bilaterally symmetric other (diminished bases bilat) Cardiovascular: irregularly irregularNo JVD, S1 and S2 systolic murmur Gastrointestional: No tender, soft round Extremities: No significant edema Neurologic/Psychiatric: grossly intact Results/Procedures: Labs Laboratory Tests 06/14/16 11:51: Glucometer 196H 06/14/16 15:46: Glucometer 313H 06/14/16 20:46: Glucometer 320H 06/15/16 06:21: Glucometer 130H Microbiology 06/11/16 Blood Culture - Preliminary, Resulted No growth 06/11/16 Influenza Types A,B Antigen (LUCHO) - Final, Complete 06/11/16 Urine Culture - Final, Complete Staph, Coag Neg (Contemporary Or Modern Dancer) A/P: Assessment: Pneumonia with gram-negative resistant organism, started on meropenem, managed by primary care physician Generalized weakness and debility CAD. Last card cath on 06-03-[address] Lucero: MARYANA done to the mid LAD with a Resolute 2.25 x 26mm stent; left cx without significant disease; RCA - severe prox stenosis with ROMA 3 flow; LVEF 10-15%. Prior cardiac catheterization was in August 2007 and it showed that previous sites of cutting balloon angioplasty in the mid and distal left anterior descending artery were widely patent and free of significant disease; a new 70% stenosis in a terminal obtuse marginal artery which was successfully stented with Taxus 3 x 12-mm stent; severe mid- vessel disease of the right coronary, but right coronary artery is not ideally suited to intervention because of a small vessel caliber. 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 Persistent atrial fibrillation, rate is controlled Chronic anticoagulation with Pradaxa History of intermittent gastrointestinal bleeding. She has had removal of a polyp and hemorrhoidectomy by Dr. Mo in 2011 with cessation of bleeding since. Currently tolerating Plavix and Pradaxa. Multiple cerebrovascular accidents in the past, generalized weakness. Multiple medication intolerances. History of hypertension History of hyperlipidemia, intolerant to statin in the past. Diabetes mellitus, followed and managed by primary care physician Hypothyroidism, followed and managed by primary care physician Degenerative joint disease and backache. Plan: Continue current regimen Cardiac status clinically stable Monitor lab Blood pressure not well controlled - increase Lisinopril to 10mg daily Will defer her request for sleeping pill to medical services Physician Assessment Physician Assessment Lungs: good bilat air entry Cor: reg A&R * As documented in our note above * Complex management due to multiple comorbidities * I spoke with her and answered questions JEÚSS HUTCHINSON Jun 15, 2016 08:22 DERRICK CASTILLO MD FACP [facility] CCDS Jun 15, 2016 09:52
[2016-06-15] MEDS ORDERED: lisINopril 5 MG (PRINIVIL) TABLET PO NR (08:30)
[2016-06-15 08:43] VITALS: BP 166/72
[2016-06-15] MEDS: FUROSEMIDE 40 MG (LASIX) TAB PO SCH ×2 (08:53→11:31)
[2016-06-15] MEDS: GLIMEPIRIDE 4 MG (AMARYL) TAB PO SCH (08:53)
[2016-06-15] MEDS: CYANOCOBALAMIN 500 MCG TAB (VITAMIN B-12) PO SCH (08:53)
[2016-06-15] MEDS: DABIGATRAN 75 MG (PRADAXA) CAPSULE PO SCH ×2 (08:53→21:53)
[2016-06-15] MEDS: SENNA W/DOCUSATE (SENOKOT S) TABLET PO SCH (08:53)
[2016-06-15] MEDS: meTOproloL SUCCINATE 50 MG (TOPROL XL) TAB PO SCH (08:53)
[2016-06-15] MEDS: metFORMIN 500 MG (GLUCOPHAGE) TAB PO SCH ×2 (08:53→17:30)
--- NOTE | 2016-06-15 09:36 | Progress Note-Hospitalist ---
Progress Note HPI/CC on Admission CC: Fever w/weakness HPI: This is an 81-year-old white female with a past medical history of multiple cardiac events requiring resuscitation and subsequent multiple cardiac stent placements by Dr. Gandara the presents to the emergency room after failed doxycycline empiric antibiotic for bronchitis given by Dr. Martell her primary care provider. She began running a fever up to 102 at home prompting the ER visit due to shortness of breath. Chest x-ray did show fullness of the hilar region consistent with infiltrate. 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 Her creatinine is 1.5 increased from her usual baseline of 1.3 and elevated BNP will require consultation with cardiology Dr. Gandara. Currently she reports "everything hurts" and "everything is just going terribly for her" and I will try to support her in anyway possible. Progress Notes/Assess & Plan Date Seen 06/15/16 Admission Dx/Process Facility acquired pneumonia high risk for gram-negative resistant organism in a patient with ESBL positive status requiring meropenem empiric tx Severe CAD with prior cardiac resuscitation and multiple cardiac stents placed by Dr. Gandara Overall debility with poor prognosis long-term palliative care consultation multiple times Acute renal failure on chronic renal insufficiency Leukocytosis Fever Depression Atrial fibrillation on anticoagulation of Pradaxa Diagonsis/Assessment & Plan Pt doing well but very debilitated overall Multiple hospitalizations indicated end stage organ failure Checked meds and labs Very weak and frail Wants her sleeping pills back since Dr Whittington stopped due to falls at night at high risk for hip fx AFVSS, Pleasant, O x 3, frail, vidal, weak, slightly improved from previous Irr Irr, CTAB no rales noted No edema Assessment: Facility acquired pneumonia w/sepsis high risk for gram-negative resistant organism in a patient with ESBL positive status requiring Meropenem empiric tx Severe CAD with prior cardiac resuscitation and multiple cardiac stents placed by Dr. Gandara Overall debility with poor prognosis long-term palliative care consultation multiple times Acute renal failure on chronic renal insufficiency Leukocytosis Fever Depression Atrial fibrillation on anticoagulation of Pradaxa Plan: Meropenem empirically Neb treatments Check labs Consult cardiology Reconciled all home meds and resume Palliative care consult Prognosis poor long-term so palliative care consultation will ensue [facility] on Wednesday DARNELL HIRSCH DO Jun 15, 2016 09:36
--- NOTE | 2016-06-15 10:33 | Physician Query-Heart Failure ---
Physician Query-Heart Failure Query to Physician: Provider's Document Request-Please contact senior grant writer listed on document for more information. Dear Provider, We need your assistance to accurately capture the severity of the patients heart failure. Physician participation is requested in all cases of armature balancer uncertainty to minimize errors in code assignment and to avoid compliance issues. Please select the type of heart failure the patient has below. Clinical Findings: Pro-BNP 967.1 Treatment given: 40 mg lasix Type of Heart Failure: Type of Heart Failure: Diastolic HF Status: Chronic If you have questions please contact: Pie Maker:Mackenzie Arrington [facility],CCDS Ext:[phone] Thank you for your time and cooperation. Clinical Order Editor/Pie Maker This is a permanent part of the medical record MACKENZIE ARRINGTON Jun 15, 2016 10:33 DERRICK CASTILLO MD [facility]S Jun 16, 2016 15:14
[2016-06-15] MEDS: OMEGA 3 (FISH OIL) 1000 MG CAP PO SCH ×3 (11:31→21:54)
[2016-06-15] MEDS: CALCIUM CARB + VIT D 600 MG (CALCARB + D) TAB PO SCH ×2 (11:31→17:25)
[2016-06-15] MEDS: DOCUSATE SODIUM 100 MG (COLACE) CAP PO SCH ×2 (11:31→17:25)
[2016-06-15] MEDS: MULTIVIT W/MINERALS TAB (THERAGRAN M) PO SCH (11:31)
[2016-06-15 12:24] VITALS: BP 132/92
[2016-06-15] MEDS: GABAPENTIN 300 MG (NEURONTIN) CAP PO SCH ×2 (14:43→21:54)
[2016-06-15 16:55] VITALS: BP 137/69
[2016-06-15 20:00] VITALS: BP 175/85
[2016-06-15] MEDS: LORATADINE (CLARITIN) 10 MG TAB PO SCH (21:54)
[2016-06-15] MEDS: NEUPRO 6 MG/24 HR TP SCH (21:55)
[2016-06-15] MEDS: [UNRECOGNIZED DRUG - REMARK] TP SCH (21:55)
[2016-06-15] MEDS: DIAZEPAM 5 MG (VALIUM) TABLET PO SCH (21:55)
[2016-06-15] MEDS: CLOPIDOGREL 75 MG (PLAVIX) TABLET PO SCH (21:55)
[2016-06-15] MEDS: inSUlin DETERMIR 1 UNIT/0.01 ML (LEVEMIR) CHARGE PER UNIT SQ SCH (21:57)
[2016-06-16 00:05] VITALS: BP 127/62
[2016-06-16 04:05] VITALS: BP 131/57
[2016-06-16] MEDS ORDERED: lisINopril 10 MG (PRINIVIL) TAB PO SCH (06:00)
[2016-06-16] MEDS: inSUlin ASPART (NovoLOG) 1 UNIT/0.01 ML (CHARGE PER UNIT) SC SCH ×2 (06:00→11:47)
[2016-06-16] MEDS: BENZONATATE 100 MG (TESSALON) CAPSULE PO SCH (06:22)
[2016-06-16] MEDS: amLODIPine 10 MG (NORVASC) TAB PO SCH (06:22)
[2016-06-16] MEDS: NYSTATIN ORAL SUSP 5 ML UDC PO SCH (06:22)
[2016-06-16] MEDS: CATHETER FLUSH 10 ML SYR IV SCH (06:22)
[2016-06-16] MEDS: KCL 10 MEQ TAB (MICRO K) PO SCH (06:22)
[2016-06-16] MEDS: DIGOXIN 0.125 MG (LANOXIN) TAB PO SCH (06:22)
[2016-06-16] MEDS: MEROPENEM 500 MG in NORMAL SALINE (BAXTER MINI) 100 ML IV SCH (06:22)
[2016-06-16] MEDS: LEVOTHYROXINE 75 MCG (LEVOTHROID) TABLET PO SCH (06:23)
[2016-06-16 06:30] LABS: RED BLOOD COUNT 3.27 10^6/uL (4.35-5.85); RED CELL DISTRIBUTION WIDTH 15.3 % (10.0-14.5)
[2016-06-16 06:44] LABS: CALCIUM 9.9 MG/DL (8.5-10.1); CREATININE SERUM 1.16 MG/DL (0.60-1.30); POTASSIUM 4.5 MMOL/L (3.6-5.0)
[2016-06-16 08:02] VITALS: BP 153/70
--- NOTE | 2016-06-16 08:23 | Progress Note-Cardiology ---
Cardiology SOAP Progress Note Subjective: No new c/o. CPAP in place. Objective: I&O/Vital Signs Vital Sign - Last 12Hours 06/16/16 06/16/16 06/16/16 06/16/16 04:05 07:10 08:02 09:00 Temp 98.1 95.8 Pulse 57 50 Resp 18 16 B/P 131/57 153/70 Pulse Ox 98 92 99 95 O2 Delivery NIV/CPAP NIV/CPAP Room Air O2 Flow Rate 3.50 3.50 3.50 06/16/16 11:57 Pulse 50 Resp 16 B/P 153/70 Pulse Ox 95 O2 Flow Rate 3.50 Intake and Output 06/16/16 00:00 Intake Total 1470 ml Output Total 1875 ml Balance -405 ml Weight (Pounds): 179 Weight (Ounces): 0.0 Weight (Calculated Kilograms): 81.437057 Constitutional: AAO x 3 Respiratory: chest expansion is symmetric chest is bilaterally symmetric other (diminished bases bilat) Cardiovascular: irregularly irregularNo JVD, S1 and S2 systolic murmur Gastrointestional: No tender, soft round Extremities: No significant edema Neurologic/Psychiatric: grossly intact Results/Procedures: Labs Laboratory Tests 06/15/16 16:41: Glucometer 416*H 06/15/16 21:17: Glucometer 272H 06/16/16 05:57: Anion Gap 8, BUN/Creatinine Ratio 22, Blood Urea Nitrogen 26H, Calcium Level 9.9 , Carbon Dioxide Level 30, Chloride Level 104, Creatinine 1.16, Estimat Glomerular Filtration Rate 45, Glucose Level 112H, Hematocrit 29L, Hemoglobin 9.0L, Mean Corpuscular Hemoglobin 28, Mean Corpuscular Hemoglobin Concent 31L, Mean Corpuscular Volume 88, Mean Platelet Volume 9.0, Platelet Count 318, Potassium Level 4.5, Red Blood Count 3.27L, Red Cell Distribution Width 15.3H, Sodium Level 142, White Blood Count 6.0 Microbiology 06/11/16 Blood Culture - Preliminary, Resulted No growth 06/11/16 Influenza Types A,B Antigen (LUCHO) - Final, Complete 06/11/16 Urine Culture - Final, Complete Staph, Coag Neg (Siderographist) A/P: Assessment: Pneumonia with gram-negative resistant organism, started on meropenem, managed by primary care physician Generalized weakness and debility CAD. Last card cath on 06-03-[address] Lucero: MARYANA done to the mid LAD with a Resolute 2.25 x 26mm stent; left cx without significant disease; RCA - severe prox stenosis with ROMA 3 flow; LVEF 10-15%. Prior cardiac catheterization was in August 2007 and it showed that previous sites of cutting balloon angioplasty in the mid and distal left anterior descending artery were widely patent and free of significant disease; a new 70% stenosis in a terminal obtuse marginal artery which was successfully stented with Taxus 3 x 12-mm stent; severe mid- vessel disease of the right coronary, but right coronary artery is not ideally suited to intervention because of a small vessel caliber. 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 Persistent atrial fibrillation, rate is controlled Chronic anticoagulation with Pradaxa History of intermittent gastrointestinal bleeding. She has had removal of a polyp and hemorrhoidectomy by Dr. Mo in 2011 with cessation of bleeding since. Currently tolerating Plavix and Pradaxa. Multiple cerebrovascular accidents in the past, generalized weakness. Multiple medication intolerances. History of hypertension History of hyperlipidemia, intolerant to statin in the past. Diabetes mellitus, followed and managed by primary care physician Hypothyroidism, followed and managed by primary care physician Degenerative joint disease and backache. Chronic diastolic CHF; EF 60% on echo of Feb 2016 Plan: Continue current regimen Cardiac status clinically stable Plan is to discharge to [facility] today Out pt f/u JESÚS HUTCHINSON Jun 16, 2016 08:23 DERRICK CASTILLO MD FACP [facility] CCDS Jun 16, 2016 15:19 Cardiac status clinically stable Plan is to discharge to [facility] today Out pt f/u JESÚS HUTCHINSON Jun 16, 2016 08:23
[2016-06-16] MEDS ORDERED: LISI10TA2 PO (08:26)
[2016-06-16] MEDS: GLIMEPIRIDE 4 MG (AMARYL) TAB PO SCH (09:01)
[2016-06-16] MEDS: metFORMIN 500 MG (GLUCOPHAGE) TAB PO SCH (09:01)
[2016-06-16] MEDS: FUROSEMIDE 40 MG (LASIX) TAB PO SCH (09:02)
[2016-06-16] MEDS: meTOproloL SUCCINATE 50 MG (TOPROL XL) TAB PO SCH (09:02)
[2016-06-16] MEDS: SENNA W/DOCUSATE (SENOKOT S) TABLET PO SCH (09:02)
[2016-06-16] MEDS ORDERED: HYDR-3812 PO (09:08)
[2016-06-16] MEDS ORDERED: DIAZ5TAB3 PO (09:08)
[2016-06-16] MEDS ORDERED: NYST1000 PO (09:08)
[2016-06-16] MEDS ORDERED: ZOLP5TAB7 PO (09:08)
[2016-06-16] MEDS ORDERED: CITA10TA7 PO (09:08)
--- NOTE | 2016-06-16 09:10 | Discharge Inst-Skilled Nursing ---
Discharge Inst-Skilled NF Patient Instructions Patient Problems: Debility Pneumonia s/p Meropenem treatment CAD Goal: Strengthen and return to independent living Consult/Follow Up/Orders Follow Up Appt.: Dr Martell in 2 weeks Skilled NF Admit to: [facility] Certification ([facility]) I certify that SNF services are required to be given on an inpatient basis because of the above named patient's need for shelter care on a continuing basis for the conditions(s) for which he/she was receiving inpatient hospital services prior to his/her transfer to the SNF. Snf Facility Order: Nursing Services, Chemical Process Project Engineer-Evaluate & Treat, Physical Therapy-Evaluate & Treat, Speech Language-Evaluate & Treat Discharge Diet: Low Sodium Diet, ADA Diet, Cardiac Diet Daily Activity as Tolerated: Yes New & Resume Previous Orders Sarahi Mcclelland Jun 16, 2016 09:09 SARAHI MCCLELLAND DO Jun 16, 2016 09:10
--- NOTE | 2016-06-16 09:11 | Discharge Summary-Hospitalist ---
Diagnosis/Chief Complaint Date of Admission Jun 11, 2016 at 10:46 Date of Discharge Discharge Date: Jun 16, 2016 Admission Diagnosis Facility acquired pneumonia high risk for gram-negative resistant organism in a patient with ESBL positive status requiring meropenem empiric tx Severe CAD with prior cardiac resuscitation and multiple cardiac stents placed by Dr. Gandara Overall debility with poor prognosis long-term palliative care consultation multiple times Acute renal failure on chronic renal insufficiency Leukocytosis Fever Depression Atrial fibrillation on anticoagulation of Pradaxa Discharge Diagnosis Assessment: Facility acquired pneumonia w/sepsis high risk for gram-negative resistant organism in a patient with ESBL positive status requiring Meropenem empiric tx Severe CAD with prior cardiac resuscitation and multiple cardiac stents placed by Dr. Gandara Overall debility with poor prognosis long-term palliative care consultation multiple times Acute renal failure on chronic renal insufficiency Leukocytosis Fever Depression Atrial fibrillation on anticoagulation of Pradaxa Pt doing well but very debilitated overall Multiple hospitalizations indicated end stage organ failure Checked meds and labs Very weak and frail Wants her sleeping pills back since Dr Whittington stopped due to falls at night at high risk for hip fx AFVSS, Pleasant, O x 3, frail, vidal, weak, slightly improved from previous Irr Irr, CTAB no rales noted No edema Assessment: Facility acquired pneumonia w/sepsis high risk for gram-negative resistant organism in a patient with ESBL positive status requiring Meropenem empiric tx Severe CAD with prior cardiac resuscitation and multiple cardiac stents placed by Dr. Gandara Overall debility with poor prognosis long-term palliative care consultation multiple times Acute renal failure on chronic renal insufficiency Leukocytosis Fever Depression Atrial fibrillation on anticoagulation of Pradaxa Plan: Meropenem empirically Neb treatments Check labs Consult cardiology Reconciled all home meds and resume Palliative care consult Prognosis poor long-term so palliative care consultation will ensue NH on Wednesday Reason Hospital Visit/Course CC: Fever w/weakness HPI: This is an 81-year-old white female with a past medical history of multiple cardiac events requiring resuscitation and subsequent multiple cardiac stent placements by Dr. Gandara the presents to the emergency room after failed doxycycline empiric antibiotic for bronchitis given by Dr. Martell her primary care provider. She began running a fever up to 102 at home prompting the ER visit due to shortness of breath. Chest x-ray did show fullness of the hilar region consistent with infiltrate. 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 Her creatinine is 1.5 increased from her usual baseline of 1.3 and elevated BNP will require consultation with cardiology Dr. Gandara. Currently she reports "everything hurts" and "everything is just going terribly for her" and I will try to support her in anyway possible. Hospital course: Patient had a uneventful hospital course and she was admitted from the emergency room due to fever and shortness of breath found to have findings consistent with pneumonia and due to her multiple allergies listed in severe comorbidities she required meropenem empirically and did not obtain a sputum due to lack of production. Overall her prognosis is remained very poor for the past one year since multiple hospitalizations due to end-stage coronary artery disease prior resuscitation 2 and overall debility that is required retirement placement multiple times over last 6 months and she always regains enough strength to return home then has another hospitalization in the cycle begins again. She was found to have completed the meropenem treatment and was reluctant but agreed to go to retirement via [facility] and all home medications were evaluated by cardiology and internal medicine adjustments were made and she insisted on maintaining on Ambien and Valium due to the severity of her sleep difficulties and considering her poor prognosis and she is a hospice candidate I felt the benefits outweighed the risk and will place patient on fall risk but help her rest at night with the request was granted and follow-up with Dr. Martell her primary care provider in one week was prudent. Overall her prognosis is extremely poor I recommend hospice but she had declined once again even though palliative care consultation was performed. Discharge Summary Discharge Physical Examination Allergies: Coded Allergies: iodine (Verified Allergy, Severe, BLISTERS, 12/13/13) neomycin (Verified Allergy, Severe, SWELLING, PAIN, RASH, ITCHING, 12/13/13 ) THIS WAS ADMINISTERED AN EAR DROP, EARS AND HEAD SWELLED AND TURNED RED CAUSING PAIN AND RASH WITH ITCHING cephalexin (Unverified Allergy, Mild, 08/19/08) phenylalanine (Verified Allergy, Mild, 04/25/16) pregabalin (Verified Allergy, Mild, SWELLING AND WEIGHT GAIN, 12/13/13) brompheniramine (Verified Allergy, Unknown, VISION PROBLEMS, 12/13/13) dextromethorphan (Verified Allergy, Unknown, 03/30/06) penicillin G (Verified Allergy, Unknown, RASH, 12/13/13) phenylpropanolamine (Verified Allergy, Unknown, 03/30/06) pseudoephedrine (Verified Allergy, Unknown, 03/30/06) simvastatin (Verified Allergy, Unknown, EXTREME WEAKNESS AND PAIN IN LEGS , 12/13/13) sulfamethoxazole (Verified Allergy, Unknown, 03/03/16) thimerosal (Verified Allergy, Unknown, RASH WITH PAIN AND ITCHING, 12/13/13 ) trimethoprim (Verified Allergy, Unknown, 03/03/16) codeine (Verified Adverse Reaction, Mild, TRIPLE VISION, 06/05/15) hydrocodone (Verified Adverse Reaction, Mild, VISION PROBLEMS, 06/05/15) Uncoded Allergies: TAPE (Allergy, Unknown, RASH, 12/13/13) Vitals & I&Os Vital Signs Date Time Temp Pulse Resp B/P Pulse Ox O2 Delivery O2 Flow Rate FiO2 06/16/16 11:57 50 16 153/70 95 3.50 06/16/16 09:00 Room Air 06/16/16 08:02 95.8 Hospital Course Labs (last 24 hrs) Microbiology 06/11/16 Blood Culture - Final, Complete No growth 06/11/16 Influenza Types A,B Antigen (LUCHO) - Final, Complete 06/11/16 Urine Culture - Final, Complete Staph, Coag Neg (Ice Cream Van Vendor) Pending Labs Discharge Home Medications: Active Scripts Active Citalopram HBr (Citalopram Hydrobromide) 10 Mg Tablet 10 Mg PO DAILY 30 Days Hydrocodon -Acetaminophen 5-325 (Hydrocodone/Acetaminophen) 1 Each Tablet 1 Tab PO Q4H PRN Nystatin 100,000 Unit/1 Ml Oral.susp 5 Ml PO Q6HR 7 Days Zolpidem Tartrate 5 Mg Tablet 5 Mg PO HS MAY TAKE AN ADDITIONAL TABLET IF NEEDED Diazepam 5 Mg Tablet 5 Mg PO HS MAY TAKE 1 ADDITIONAL TABLET NEEDED THROUGHOUT THE DAY Lisinopril 10 Mg Tablet 10 Mg PO DAILY@0600 Reported Humalog Kwikpen (Insulin Lispro) 100 Unit/1 Ml Insuln.pen SQ SLIDING/SCALE DOES NOT INJECT IF BLOOD SUGAR IS BELOW 200 201-250 3 UNITS 251-300 5 UNITS 301-350 7 UNITS 351-400 9 UNITS Multivitamins (Multivitamin) 1 Each Tablet 1 Tab PO DAILY@1200 Docusate Sodium 100 Mg Capsule 100 Mg PO BID@1200,1730 Metoprolol Succinate 50 Mg Tab.er.24h 100 Mg PO DAILY TAKES 2 (50 MG) TABLETS Klor-Con Sprinkle (Potassium Chloride) 10 Meq Capsule.er 10 Meq PO TID Docusate Sodium-Senna Tablet (Sennosides/Docusate Sodium) 1 Each Tablet 1 Tab PO DAILY Acetaminophen 325 Mg Tablet 650 Mg PO Q6H PRN Benzonatate 100 Mg Capsule 100 Mg PO TID@0600,1400,2000 Norvasc (Amlodipine Besylate) 10 Mg Tablet 10 Mg PO DAILY@0600 Levemir Flextouch (Insulin Detemir) 100 Unit/1 Ml Insuln.pen 10 Unit SQ DAILY Calcium 500 + D Tablet (Calcium Carbonate/Vitamin D3) 1 Each Tablet 1 Tab PO 1200,1700 Digoxin 125 Mcg Tablet 125 Mcg PO DAILY@0600 [place] 30 Capsule ([place]-3 Fatty Acids/Fish Oil) 1 Each Capsule 1 Cap PO TID@ 1200,1700,2000 Pradaxa (Dabigatran Etexilate Mesylate) 75 Mg Capsule 75 Mg PO BID Clopidogrel (Clopidogrel Bisulfate) 75 Mg Tablet 75 Mg PO HS Metformin HCl 500 Mg Tablet 1,000 Mg PO BID TAKES 2 (500MG) TABLETS Gabapentin 300 Mg Capsule 300 Mg PO 1400,2000 Vitamin B-12 (Cyanocobalamin (Vitamin B-12)) 1,000 Mcg Tablet 1,000 Mcg PO DAILY Neupro (Rotigotine) 1 Each Patch.td24 1 Patch TD HS Glimepiride 4 Mg Tablet 8 Mg PO DAILY TAKES 2 (4MG) TABLETS Levothyroxine Sodium 75 Mcg Tablet 75 Mcg PO DAILY@0600 Cetirizine HCl 10 Mg Tablet 10 Mg PO HS Furosemide 40 Mg Tablet 40 Mg PO 0800,1200 Instructions to patient/family Please see electonic discharge instructions given to patient. Clinical Quality Measures DVT/VTE Risk/Contraindication: Risk Factor Score Per Nursin RFS Level Per Nursing on Admit: 4+=Very High Copy Copies To 1: NISHI MARTELL MD, MINDI DO Jun 16, 2016 09:11
[2016-06-16] MEDS: DABIGATRAN 75 MG (PRADAXA) CAPSULE PO SCH (09:14)
[2016-06-16] MEDS: CYANOCOBALAMIN 500 MCG TAB (VITAMIN B-12) PO SCH (09:18)
[2016-06-16 11:57] VITALS: BP 153/70
[2016-07-08] MEDS ORDERED: DIAZ5TAB3 PO (10:39)
[2016-07-08] MEDS ORDERED: ALBU1.25 IH (10:39)
[2016-07-08] MEDS ORDERED: ZOLP5TAB PO (10:39)
[2016-07-08] MEDS ORDERED: LEVO500T2 PO (10:43)
[2016-09-15] MEDS ORDERED: ZOLP5TAB7 PO (09:15)
[2016-09-15] MEDS ORDERED: MULT-619 PO (09:15)
[2016-09-15] MEDS ORDERED: INSU100V5 SQ (09:15)
[2016-09-15] MEDS ORDERED: AMLO10TA2 PO (09:15)
[2016-09-15] MEDS ORDERED: INSU100V SQ (09:15)
[2016-09-15] MEDS ORDERED: FLUT16SP22 NSEACH (09:15)
[2016-09-15] MEDS ORDERED: CALC-1 PO (09:15)
[2016-09-15] MEDS ORDERED: POTA10TA10 PO (09:15)
[2016-09-15] MEDS ORDERED: DIAZ5TAB3 PO (09:15)
[2016-09-17] MEDS ORDERED: LEVO750T9 PO (10:46)
== END 2016-06-16 13:09 | DRG 871 ==
LOC: EDUNIT# 08:43 → ER 08:45 → 4TH 10:46
PROVIDERS: ADMIT Internal Medicine; ATTEND Internal Medicine
DX: A41.9 Sepsis, unspecified organism (principal); R65.20 Severe sepsis without septic shock; J44.0 Chronic obstructive pulmonary disease with (acute) lower respiratory infection; J15.6 Pneumonia due to other Gram-negative bacteria; N17.9 Acute kidney failure, unspecified; I25.5 Ischemic cardiomyopathy; I25.10 Atherosclerotic heart disease of native coronary artery without angina pectoris; Z66 Do not resuscitate; I13.0 Hypertensive heart and chronic kidney disease with heart failure and stage 1 through stage 4 chronic kidney disease, or unspecified chronic kidney disease; I50.32 Chronic diastolic (congestive) heart failure; B37.0 Candidal stomatitis; N18.9 Chronic kidney disease, unspecified; I48.1 Persistent atrial fibrillation; E11.40 Type 2 diabetes mellitus with diabetic neuropathy, unspecified; E11.51 Type 2 diabetes mellitus with diabetic peripheral angiopathy without gangrene; E11.649 Type 2 diabetes mellitus with hypoglycemia without coma; F32.9 Major depressive disorder, single episode, unspecified; F41.9 Anxiety disorder, unspecified; J45.909 Unspecified asthma, uncomplicated; G47.30 Sleep apnea, unspecified; I25.2 Old myocardial infarction; I27.2 Other secondary pulmonary hypertension; E03.9 Hypothyroidism, unspecified; G20 Parkinson's disease; I69.398 Other sequelae of cerebral infarction; R26.89 Other abnormalities of gait and mobility; E78.5 Hyperlipidemia, unspecified; Z95.5 Presence of coronary angioplasty implant and graft; Z79.01 Long term (current) use of anticoagulants; Z79.84 Long term (current) use of oral hypoglycemic drugs
CPT/HCPCS: 36415; 71010; 71020; 80048; 80053; 81000; 82962; 83605; 83880; 85025; 85027; 87040; 87088; 87804; 94760; 96365

== ENCOUNTER 2016-07-04 16:03 | Inpatient (IN) | payer MEDICARE, OTHER, MEDICAID ==
[~2016-07-04] VITALS: Ht 165.1 cm; Wt 84.6 kg
[~2016-07-04 16:03] MED LIST changes: +CITA10TA7 PO; +DOCU100C37 PO; +DOXY100C2 PO; +HYDR-3812 PO; +INSU100I23 SQ; +LISI10TA2 PO; +MULT1TAB69 PO; +NYST1000 PO; +POTA10CA68 PO; +SENN1TAB6 PO
[2016-07-04] MEDS ORDERED: RT-ALBUTEROL SULF 2.5 MG/3 ML PRE-MIX VIAL INH STA (16:12)
[2016-07-04] MEDS ORDERED: RT-ALBUTEROL/IPRATROPIUM 3 ML (DUONEB) VIAL ONE (16:13)
[2016-07-04] MEDS ORDERED: RT-ALBUTEROL SULF 2.5 MG/3 ML PRE-MIX VIAL ONE (16:13)
[2016-07-04] MEDS ORDERED: ACETAMINOPHEN 500 MG TAB (TYLENOL) PO PRN (16:15)
[2016-07-04] MEDS ORDERED: RT-ALBUTEROL/IPRATROPIUM 3 ML (DUONEB) VIAL INH ONE (16:15)
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
[2016-07-04 16:26] LABS: BASOPHILS # (AUTO) 0.1 10^3/uL (0.0-0.1); BASOPHILS % (AUTO) 1 % (0-10); EOSINOPHILS # (AUTO) 0.8 10^3/uL (0.0-0.3); EOSINOPHILS % (AUTO) 8 % (0-10); LYMPHOCYTES # (AUTO) 1.7 X 10^3 (1.0-4.0); LYMPHOCYTES % (AUTO) 16 % (12-44); MEAN CORPUSCULAR HEMOGLOBIN 28 PG (25-34); MEAN CORPUSCULAR HGB CONC 31 G/DL (32-36); MEAN CORPUSCULAR VOLUME 88 FL (80-99); MEAN PLATELET VOLUME 8.9 FL (7.4-10.4); MONOCYTES % (AUTO) 10 % (0-12); NEUTROPHILS % (AUTO) 66 % (42-75); PLATELET COUNT 237 10^3/uL (130-400); RED BLOOD COUNT 3.41 10^6/uL (4.35-5.85); RED CELL DISTRIBUTION WIDTH 16.4 % (10.0-14.5); WHITE BLOOD COUNT 10.5 10^3/uL (4.3-11.0)
[2016-07-04 16:36] LABS: INR 1.3 (0.8-1.4); PROTHROMBIN TIME PATIENT 15.5 SEC (12.2-14.7)
[2016-07-04 16:39] LABS: ABG BASE EXCESS 4.9 MMOL/L (-2.5-2.5); ABG HCO3 30 MMOL/L (23-27); ABG OXYGEN SATURATION 100 % (94-100); ABG PCO2 50 MMHG (35-45); ABG PO2 205 MMHG (79-93); ABG TCO2 31.3 MMOL/L (21.0-31.0)
[2016-07-04 16:40] LABS: ALLENS TEST YES-POS; PATIENT TEMP 101.5
[2016-07-04 16:46] LABS: ALBUMIN 3.5 G/DL (3.2-4.5); BILIRUBIN,TOTAL 0.4 MG/DL (0.1-1.0); CALCIUM 9.5 MG/DL (8.5-10.1); CREATININE SERUM 1.34 MG/DL (0.60-1.30); POTASSIUM 4.1 MMOL/L (3.6-5.0); TOTAL PROTEIN 6.3 G/DL (6.4-8.2)
[2016-07-04 16:52] LABS: BILIRUBIN,URINE NEGATIVE (NEGATIVE); KETONES,URINE NEGATIVE (NEGATIVE); LEUKOCYTE ESTERASE ,URINE NEGATIVE (NEGATIVE); NITRITE,URINE NEGATIVE (NEGATIVE); PH,URINE 8 (5-9); PROTEIN,URINE NEGATIVE (NEGATIVE); UROBILINOGEN,URINE NORMAL (NORMAL)
--- NOTE | 2016-07-04 16:56 | Diagnostic Imaging Report ---
EXAM: CHEST 1 VIEW, AP/PA ONLY INDICATION: Respiratory distress. COMPARISON: Chest radiographs, 06/14/2016. FINDINGS: Diffuse interstitial airspace opacities throughout the right lung. Left lung is relatively clear. Heart size upper limits of normal. Normal pulmonary vascularity. Calcified aorta. Probable small right pleural effusion. IMPRESSION: Interval progression of diffuse interstitial and airspace opacities throughout the right lung. Probable small right pleural effusion. Dictated by: Dictated on workstation # [id number]
[2016-07-04 16:58] LABS: SQUAMOUS EPITHELIAL CELL,UR RARE /HPF
[2016-07-04] MEDS ORDERED: LEVOFLOXACIN 750 MG/150 ML IV 150 ML IV STA (18:08)
[2016-07-04 19:00] VITALS: BP 124/58
[2016-07-04] MEDS: NS IV 1000 ML 1,000 ML IV SCH (19:30)
[2016-07-04] MEDS ORDERED: NS IV 1000 ML 1,000 ML ONE (20:09)
[2016-07-04] MEDS ORDERED: ZOLPIDEM 5 MG (AMBIEN) TAB PO PRN (20:15)
[2016-07-04] MEDS ORDERED: LEVOTHYROXINE 75 MCG (LEVOTHROID) TABLET PO ONE (20:15)
[2016-07-04] MEDS: RT-ALBUTEROL/IPRATROPIUM 3 ML (DUONEB) VIAL INH SCH (20:43)
[2016-07-04] MEDS ORDERED: inSUlin DETERMIR 1 UNIT/0.01 ML (LEVEMIR) CHARGE PER UNIT SQ SCH (21:00)
[2016-07-04] MEDS ORDERED: VANCOMYCIN 1 GM/NS 250 ML IVPB IV SCH ×2 (21:45)
[2016-07-04] MEDS ORDERED: LEVOFLOXACIN 750 MG/150 ML D5W (PRE-MIX) IV SCH (22:00)
[2016-07-04] MEDS ORDERED: MEROPENEM 500 MG/NS 100 ML IVPB IV SCH ×2 (22:00)
[2016-07-04] MEDS: DABIGATRAN 75 MG (PRADAXA) CAPSULE PO SCH (22:17)
[2016-07-04] MEDS ORDERED: NS (IVPB) 100 ML ONE (23:17)
[2016-07-04] MEDS ORDERED: MEROPENEM 500 MG VIAL (MERREM) IV ONE (23:17)
[2016-07-04] MEDS: MEROPENEM 500 MG/NS 100 ML IVPB IV SCH ×2 (23:26)
[2016-07-05] VITALS: BP 127/75
[2016-07-05] MEDS: RT-ALBUTEROL/IPRATROPIUM 3 ML (DUONEB) VIAL INH SCH ×4 (01:50→20:12)
[2016-07-05 04:00] VITALS: BP 134/65
[2016-07-05] MEDS ORDERED: NS (IVPB) 100 ML ONE (04:33)
[2016-07-05] MEDS ORDERED: MEROPENEM 500 MG VIAL (MERREM) IV ONE (04:33)
[2016-07-05] MEDS: MEROPENEM 500 MG/NS 100 ML IVPB IV SCH ×2 (04:37)
[2016-07-05 04:39] LABS: BASOPHILS % (AUTO) 0 % (0-10); EOSINOPHILS # (AUTO) 0.8 10^3/uL (0.0-0.3); EOSINOPHILS % (AUTO) 11 % (0-10); LYMPHOCYTES # (AUTO) 1.3 X 10^3 (1.0-4.0); LYMPHOCYTES % (AUTO) 16 % (12-44); MEAN CORPUSCULAR HEMOGLOBIN 27 PG (25-34); MEAN CORPUSCULAR HGB CONC 31 G/DL (32-36); MEAN CORPUSCULAR VOLUME 88 FL (80-99); MEAN PLATELET VOLUME 9.2 FL (7.4-10.4); MONOCYTES # (AUTO) 0.8 X 10^3 (0.0-1.0); MONOCYTES % (AUTO) 10 % (0-12); NEUTROPHILS # (AUTO) 4.9 X 10^3 (1.8-7.8); NEUTROPHILS % (AUTO) 63 % (42-75); PLATELET COUNT 209 10^3/uL (130-400); RED BLOOD COUNT 3.18 10^6/uL (4.35-5.85); RED CELL DISTRIBUTION WIDTH 16.3 % (10.0-14.5); WHITE BLOOD COUNT 7.8 10^3/uL (4.3-11.0)
[2016-07-05 05:03] LABS: BILIRUBIN,TOTAL 0.5 MG/DL (0.1-1.0); CALCIUM 8.8 MG/DL (8.5-10.1); CREATININE SERUM 1.15 MG/DL (0.60-1.30); TOTAL PROTEIN 5.6 G/DL (6.4-8.2)
[2016-07-05] MEDS: inSUlin (REGULAR) HUMAN 1 UNIT/0.01 ML (CHARGE PER UNIT) SC SCH ×4 (06:00→22:09)
[2016-07-05] MEDS: PANTOPRAZOLE 40 MG (PROTONIX) TAB PO SCH (06:11)
[2016-07-05] MEDS ORDERED: GLIMEPIRIDE 4 MG (AMARYL) TAB PO SCH (06:30)
[2016-07-05] MEDS ORDERED: CATHETER FLUSH 10 ML SYR IV PRN (07:45)
[2016-07-05 08:00] VITALS: BP 136/74
[2016-07-05] MEDS ORDERED: lisINopril 10 MG (PRINIVIL) TAB PO SCH (09:00)
[2016-07-05] MEDS: CLOPIDOGREL 75 MG (PLAVIX) TABLET PO SCH (10:15)
[2016-07-05] MEDS: DABIGATRAN 75 MG (PRADAXA) CAPSULE PO SCH ×2 (10:15→21:03)
[2016-07-05] MEDS: VANCOMYCIN INJECTION 1,250 MG in NS (IVPB) 250 ML IV SCH (10:16)
[2016-07-05] MEDS ORDERED: DIAZ5TAB3 PO ×2 (10:25)
[2016-07-05] MEDS ORDERED: ZOLP5TAB PO ×2 (10:25)
[2016-07-05 12:00] VITALS: BP 167/85
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
[2016-07-05] MEDS: MEROPENEM 500 MG in NS (IVPB) 100 ML IV SCH ×2 (13:30→21:03)
[2016-07-05] MEDS: ACETAMINOPHEN 325 MG TABLET/CAPLET (TYLENOL) PO PRN (15:03)
[2016-07-05] MEDS ORDERED: PATIENT MAY USE OWN MED,SINGLE MED PO SCH (16:00)
[2016-07-05] MEDS: DOCUSATE SODIUM 100 MG (COLACE) CAP PO SCH (16:36)
[2016-07-05] MEDS: metFORMIN 500 MG (GLUCOPHAGE) TAB PO SCH (16:36)
[2016-07-05] MEDS: ROTIGOTINE 6 MG TP SCH (16:38)
[2016-07-05] MEDS: [UNRECOGNIZED DRUG - REMARK] TP SCH (16:41)
[2016-07-05 16:50] VITALS: BP 154/69
[2016-07-05 20:00] VITALS: BP 156/69
[2016-07-05] MEDS ORDERED: CLOPIDOGREL 75 MG (PLAVIX) TABLET PO SCH (21:00)
[2016-07-05] MEDS: ZOLPIDEM 5 MG (AMBIEN) TAB PO SCH (21:03)
[2016-07-05] MEDS: NS IV 1000 ML 1,000 ML IV SCH (21:06)
[2016-07-05] MEDS: inSUlin DETERMIR 1 UNIT/0.01 ML (LEVEMIR) CHARGE PER UNIT SQ SCH (22:09)
[2016-07-06] VITALS (7 sets, daily range): BP systolic 131–176; BP diastolic 54–77
[2016-07-06] MEDS: ACETAMINOPHEN 325 MG TABLET/CAPLET (TYLENOL) PO PRN ×4 (00:55→23:45)
[2016-07-06] MEDS: RT-ALBUTEROL/IPRATROPIUM 3 ML (DUONEB) VIAL INH SCH ×4 (03:01→21:11)
[2016-07-06] MEDS: MEROPENEM 500 MG in NS (IVPB) 100 ML IV SCH ×3 (05:00→20:30)
[2016-07-06] MEDS: inSUlin (REGULAR) HUMAN 1 UNIT/0.01 ML (CHARGE PER UNIT) SC SCH ×4 (06:00→21:03)
[2016-07-06] MEDS: GLIMEPIRIDE 4 MG (AMARYL) TAB PO SCH (06:42)
[2016-07-06] MEDS: lisINopril 10 MG (PRINIVIL) TAB PO SCH (06:42)
[2016-07-06] MEDS: PANTOPRAZOLE 40 MG (PROTONIX) TAB PO SCH (06:43)
[2016-07-06] MEDS: metFORMIN 500 MG (GLUCOPHAGE) TAB PO SCH ×2 (06:43→16:31)
[2016-07-06] MEDS: CLOPIDOGREL 75 MG (PLAVIX) TABLET PO SCH (08:23)
[2016-07-06] MEDS: amLODIPine 10 MG (NORVASC) TAB PO SCH (08:23)
[2016-07-06] MEDS: DABIGATRAN 75 MG (PRADAXA) CAPSULE PO SCH ×2 (08:23→20:30)
[2016-07-06] MEDS: DIGOXIN 0.125 MG (LANOXIN) TAB PO SCH (08:23)
[2016-07-06] MEDS: meTOprolol SUCCINATE 100 MG (TOPROL XL) TAB PO SCH (08:23)
[2016-07-06] MEDS: FUROSEMIDE 40 MG (LASIX) TAB PO SCH ×2 (08:23→12:39)
[2016-07-06] MEDS ORDERED: TROUGH ORDER-PHARMACY XX NR (09:00)
[2016-07-06] MEDS ORDERED: SENNA W/DOCUSATE (SENOKOT S) TABLET PO SCH (09:00)
[2016-07-06] MEDS ORDERED: ZOLP5TAB7 PO (09:06)
[2016-07-06] MEDS ORDERED: CITA10TA7 PO (09:06)
[2016-07-06] MEDS ORDERED: OMEG-160 PO (09:06)
[2016-07-06] MEDS ORDERED: SENN-140 PO (09:06)
[2016-07-06] MEDS ORDERED: LISI10TA2 PO (09:06)
[2016-07-06] MEDS ORDERED: METF1000 PO (09:06)
--- NOTE | 2016-07-06 09:36 | Progress Note-Hospitalist ---
Progress Note HPI/CC on Admission the patient is a frail 81-year-old white female snf resident transferred due to reported low oxygen levels and reports of increased shortness of breath. She has low voice volume due to her frailty Parkinson's disease and multiple medical problems. She is wearing BiPAP and history was difficult to obtain. She currently denies pain is feeling less short of breath. She is maintaining sats reporting no shortness of breath as long as she is on BiPAP. She has had a nonproductive cough too weak to produce sputum. She has had some chills denies night sweats and has felt feverish. She had had a recent admission for pneumonia. There is a past history for ESBL positivity and history of multiple medication including antibiotic allergies. She does tolerate meropenem which is been initiated on this admission as well as past admissions. She was discharged roughly 3 weeks ago from our institution for an admission for right sided pneumonia. X-ray in our emergency room revealed a dense right-sided infiltrate. Past medical history is significant for ischemic heart disease multiple drug-eluting stents the last over a year ago per Dr. GANDARA and a history of sudden cardiac around ST elevation [place]. She has a history of Parkinson's disease and her primary Care providers Dr. Malika Martell. Progress Notes/Assess & Plan Date Seen 07/06/16 Diagonsis/Assessment & Plan Patient not feeling well overall that this is been an ongoing issue for the patient Complains of lower back pain and only has Tylenol for the pain so will start hydrocodone Patient becoming more more debilitated each and every hospital admission Will place palliative consultation since she in reality is definitely a hospice patient No fever, vital signs stable, frail, more debilitated than previous in a chronically ill debilitated woman Irregular irregular rhythm, clear to auscultation bilaterally but distant breath sounds in the bases Trace edema lower extremities Assessment: Facility acquired pneumonia right sided w/sepsis high risk for gram-negative resistant organism in a patient with ESBL positive status requiring Meropenem empiric tx Severe CAD with prior cardiac resuscitation and multiple cardiac stents placed by Dr. Gandara Overall debility with poor prognosis long-term palliative care consultation multiple times Acute renal failure on chronic renal insufficiency Leukocytosis Fever Depression Atrial fibrillation on anticoagulation of Pradaxa Plan: Continue IV antibiotics Palliative care consult due to the poor prognosis and recurrent hospitalizations Hydrocodone for pain Oxygen Nebulizers DARNELL HIRSCH DO Jul 06, 2016 09:36
[2016-07-06] MEDS ORDERED: HYDROcodone/APAP 5 MG/325 MG (LORTAB) TAB PO PRN (09:45)
[2016-07-06] MEDS: VANCOMYCIN INJECTION 1,250 MG in NS (IVPB) 250 ML IV SCH (10:35)
[2016-07-06] MEDS: MULTIVIT W/MINERALS TAB (THERAGRAN M) PO SCH (12:39)
[2016-07-06] MEDS: DOCUSATE SODIUM 100 MG (COLACE) CAP PO SCH ×2 (12:39→16:31)
[2016-07-06] MEDS: NS IV 1000 ML 1,000 ML IV SCH (13:45)
[2016-07-06] MEDS: ZOLPIDEM 5 MG (AMBIEN) TAB PO SCH (20:30)
[2016-07-06] MEDS: ROTIGOTINE 6 MG TP SCH (20:32)
[2016-07-06] MEDS: [UNRECOGNIZED DRUG - REMARK] TP SCH (20:33)
[2016-07-06] MEDS ORDERED: LEVOFLOXACIN 750 MG/150 ML D5W (PRE-MIX) IV SCH (21:00)
[2016-07-06] MEDS: inSUlin DETERMIR 1 UNIT/0.01 ML (LEVEMIR) CHARGE PER UNIT SQ SCH (21:06)
[2016-07-07] MEDS: ONDANSETRON 4 MG/2 ML (SDV) Z0FRAN IVP PRN ×2 (00:27→10:27)
[2016-07-07] MEDS: NS IV 1000 ML 1,000 ML IV SCH (01:04)
[2016-07-07] MEDS: RT-ALBUTEROL/IPRATROPIUM 3 ML (DUONEB) VIAL INH SCH ×4 (02:55→21:19)
[2016-07-07] MEDS: MEROPENEM 500 MG in NS (IVPB) 100 ML IV SCH ×3 (04:11→20:05)
[2016-07-07 05:37] VITALS: BP 150/62
[2016-07-07] MEDS: GLIMEPIRIDE 4 MG (AMARYL) TAB PO SCH (05:41)
[2016-07-07] MEDS: metFORMIN 500 MG (GLUCOPHAGE) TAB PO SCH ×2 (05:42→17:28)
[2016-07-07] MEDS: lisINopril 10 MG (PRINIVIL) TAB PO SCH (05:42)
[2016-07-07] MEDS: PANTOPRAZOLE 40 MG (PROTONIX) TAB PO SCH (05:42)
[2016-07-07] MEDS: inSUlin (REGULAR) HUMAN 1 UNIT/0.01 ML (CHARGE PER UNIT) SC SCH ×4 (05:48→20:06)
[2016-07-07 08:00] VITALS: BP 153/52
[2016-07-07] MEDS: meTOprolol SUCCINATE 100 MG (TOPROL XL) TAB PO SCH (09:10)
[2016-07-07] MEDS: DABIGATRAN 75 MG (PRADAXA) CAPSULE PO SCH ×2 (09:10→20:04)
[2016-07-07] MEDS: DIGOXIN 0.125 MG (LANOXIN) TAB PO SCH (09:10)
[2016-07-07] MEDS: amLODIPine 10 MG (NORVASC) TAB PO SCH (09:10)
[2016-07-07] MEDS: CLOPIDOGREL 75 MG (PLAVIX) TABLET PO SCH (09:10)
[2016-07-07] MEDS: FUROSEMIDE 40 MG (LASIX) TAB PO SCH ×2 (09:10→11:58)
[2016-07-07] MEDS: SENNOSIDES 8.6 MG (SENOKOT) TAB PO SCH (09:10)
[2016-07-07] MEDS: VANCOMYCIN INJECTION 1,250 MG in NS (IVPB) 250 ML IV SCH (10:02)
--- NOTE | 2016-07-07 10:19 | Progress Note-Hospitalist ---
Subjective HPI/CC On Admission the patient is a frail 81-year-old white female residential resident transferred due to reported low oxygen levels and reports of increased shortness of breath. She has low voice volume due to her frailty Parkinson's disease and multiple medical problems. She is wearing BiPAP and history was difficult to obtain. She currently denies pain is feeling less short of breath. She is maintaining sats reporting no shortness of breath as long as she is on BiPAP. She has had a nonproductive cough too weak to produce sputum. She has had some chills denies night sweats and has felt feverish. She had had a recent admission for pneumonia. There is a past history for ESBL positivity and history of multiple medication including antibiotic allergies. She does tolerate meropenem which is been initiated on this admission as well as past admissions. She was discharged roughly 3 weeks ago from our institution for an admission for right sided pneumonia. X-ray in our emergency room revealed a dense right-sided infiltrate. Past medical history is significant for ischemic heart disease multiple drug-eluting stents the last over a year ago per Dr. CASTILLO and a history of sudden cardiac around ST elevation [place]. She has a history of Parkinson's disease and her primary Care providers Dr. Malika Martell. Date Seen 07/07/16 Subjective/Events-last exam patient is awake and alert requested diazepam the resumed for her restless legs that she had difficulty with last night. She reports mild nonproductive cough and denies pain currently. Objective Exam Vital Signs Vital Sign - Last 12Hours 07/04/16 16:37 FiO2 40 Capillary Refill : Less Than 3 Seconds General Appearance: No Apparent Distress Chronically ill Respiratory: Chest Non Tender Other (chest surprisingly clear anteriorly she has diminished breath sounds on the right posteriorly with rales and scattered rhonchi bilaterally. No wheezing is noted.) Cardiovascular: No JVD Irregularly Irregular Other (soft apical murmur is noted.) Extremity: Other (3+ bilateral lower extremity edema is noted there is no erythema or ulceration noted. Calves are nontender.) Neurologic/Psychiatric: Alert Depressed Affect Assessment/Plan Assessment and Plan Assess & Plan/Chief Complaint 1. Dense right lobar pneumonia will continue meropenem but discontinue vancomycin patient is clinically improving. 2. Ischemic cardiomyopathy BUN/creatinine ratio is decreasing and she is developing increasing peripheral edema with increased oral intake will DC IV fluids and continue diuretic therapy. There is no evidence to suggest decompensating heart failure but will continue to monitor. 3. Anemia of chronic disease BERTRAND IBARRA MD Jul 07, 2016 10:19
[2016-07-07] MEDS: MULTIVIT W/MINERALS TAB (THERAGRAN M) PO SCH (11:58)
[2016-07-07] MEDS: DOCUSATE SODIUM 100 MG (COLACE) CAP PO SCH ×2 (11:58→17:28)
[2016-07-07 16:00] VITALS: BP 148/72
[2016-07-07] MEDS: inSUlin DETERMIR 1 UNIT/0.01 ML (LEVEMIR) CHARGE PER UNIT SQ SCH (20:05)
[2016-07-07] MEDS: [UNRECOGNIZED DRUG - REMARK] TP SCH (20:05)
[2016-07-07] MEDS: ROTIGOTINE 6 MG TP SCH (20:05)
[2016-07-07] MEDS ORDERED: DIAZEPAM 5 MG (VALIUM) TABLET PO SCH (21:00)
[2016-07-08] VITALS: BP 168/71
[2016-07-08] MEDS: ACETAMINOPHEN 325 MG TABLET/CAPLET (TYLENOL) PO PRN (00:17)
[2016-07-08] MEDS: RT-ALBUTEROL/IPRATROPIUM 3 ML (DUONEB) VIAL INH SCH ×3 (03:02→15:01)
[2016-07-08] MEDS: MEROPENEM 500 MG in NS (IVPB) 100 ML IV SCH ×2 (04:42→13:13)
[2016-07-08] MEDS: inSUlin (REGULAR) HUMAN 1 UNIT/0.01 ML (CHARGE PER UNIT) SC SCH ×3 (05:51→14:30)
[2016-07-08] MEDS: lisINopril 10 MG (PRINIVIL) TAB PO SCH (06:12)
[2016-07-08] MEDS: GLIMEPIRIDE 4 MG (AMARYL) TAB PO SCH (06:12)
[2016-07-08] MEDS: metFORMIN 500 MG (GLUCOPHAGE) TAB PO SCH (06:12)
[2016-07-08] MEDS: PANTOPRAZOLE 40 MG (PROTONIX) TAB PO SCH (06:12)
[2016-07-08 06:16] VITALS: BP 182/76
[2016-07-08 08:00] VITALS: BP 144/62
[2016-07-08] MEDS: DABIGATRAN 75 MG (PRADAXA) CAPSULE PO SCH (09:45)
[2016-07-08] MEDS: DIGOXIN 0.125 MG (LANOXIN) TAB PO SCH (09:45)
[2016-07-08] MEDS: CLOPIDOGREL 75 MG (PLAVIX) TABLET PO SCH (09:45)
[2016-07-08] MEDS: meTOprolol SUCCINATE 100 MG (TOPROL XL) TAB PO SCH (09:46)
[2016-07-08] MEDS: SENNOSIDES 8.6 MG (SENOKOT) TAB PO SCH (09:46)
[2016-07-08] MEDS: amLODIPine 10 MG (NORVASC) TAB PO SCH (09:46)
[2016-07-08] MEDS: FUROSEMIDE 40 MG (LASIX) TAB PO SCH ×2 (09:46→11:28)
--- NOTE | 2016-07-08 10:22 | Discharge Summary-Hospitalist ---
Diagnosis/Chief Complaint Date of Admission Jul 04, 2016 at 18:05 Date of Discharge Admission Diagnosis 1. Right lobar pneumonia in a frail elderly female with Parkinson's disease and ischemic heart disease. Prognosis poor continue DO NOT RESUSCITATE status. Continue meropenem and vancomycin for healthcare associated status in an individual who is known to be ESBL positive in the past. 2. History of coronary artery disease and chronic atrial fibrillation we'll have to continue Pradaxa and Plavix considering drug eluding stent history for GI prophylaxis PPI therapy has been initiated. This combination will suffice for DVT prophylaxis there is a relative contraindication to SCDs Discharge Diagnosis Recurrent pneumonia ESBL positive End-stage CAD Ischemic cardiomyopathy Severe debility with end-of-life status Patient not feeling well overall that this is been an ongoing issue for the patient Complains of lower back pain and only has Tylenol for the pain so will start hydrocodone Patient becoming more more debilitated each and every hospital admission Will place palliative consultation since she in reality is definitely a hospice patient No fever, vital signs stable, frail, more debilitated than previous in a chronically ill debilitated woman Irregular irregular rhythm, clear to auscultation bilaterally but distant breath sounds in the bases Trace edema lower extremities Assessment: Facility acquired pneumonia right sided w/sepsis high risk for gram-negative resistant organism in a patient with ESBL positive status requiring Meropenem empiric tx Severe CAD with prior cardiac resuscitation and multiple cardiac stents placed by Dr. Gandara Overall debility with poor prognosis long-term palliative care consultation multiple times Acute renal failure on chronic renal insufficiency Leukocytosis Fever Depression Atrial fibrillation on anticoagulation of Pradaxa Plan: Continue IV antibiotics Palliative care consult due to the poor prognosis and recurrent hospitalizations Hydrocodone for pain Oxygen Nebulizers Reason Hospital Visit/Course the patient is a frail 81-year-old white female half-way resident transferred due to reported low oxygen levels and reports of increased shortness of breath. She has low voice volume due to her frailty Parkinson's disease and multiple medical problems. She is wearing BiPAP and history was difficult to obtain. She currently denies pain is feeling less short of breath. She is maintaining sats reporting no shortness of breath as long as she is on BiPAP. She has had a nonproductive cough too weak to produce sputum. She has had some chills denies night sweats and has felt feverish. She had had a recent admission for pneumonia. There is a past history for ESBL positivity and history of multiple medication including antibiotic allergies. She does tolerate meropenem which is been initiated on this admission as well as past admissions. She was discharged roughly 3 weeks ago from our institution for an admission for right sided pneumonia. X-ray in our emergency room revealed a dense right-sided infiltrate. Past medical history is significant for ischemic heart disease multiple drug-eluting stents the last over a year ago per Dr. GANDARA and a history of sudden cardiac around ST elevation [place]. She has a history of Parkinson's disease and her primary Care providers Dr. Malika Martell. Notes from 07/08/16: Chart Review: Vitals stable except continued low grade fever and elevated BP Patient Interview: Pt was fatigued during visit. Pt states that she does not use O2 regularly at home. Physical exam stable. Pt denies having pain. Pt states that her BMs are slow. Pt states that she does not want to DC until her pneumonia is completely resolved. Dr. Hirsch discusses the difficulty of treating pts recurrent pneumonia, and informs her that she may not fully recover to previous strength due to decreasing baseline from recurrent pneumonias. Pt states that she is able to ambulate from bed to her chair, but feels very weak. Pt states that she has spoken with family regarding current medical state and wishes that her son could be with her to help her make decisions. Pt would like medical staff to contact her son and discuss pt's medical state and plans for future. no fever, vital stable, pleasant, flat affect, depressed, oriented 3, tearful Irregular rate and rhythm decreased breath sounds in the bases No edema Plan: Continue antibiotics Pt will consider hospice Contact pt's son per pt's request Contact Dr. Martell, PCP Scribed by Manuel Jefferson under the direct supervision of Dr. Hirsch. Hospital course: Patient had a lengthy hospital course this patient is a hospice patient as was discussed many hospitalizations before and she remains DO NOT RESUSCITATE but I did confer with Dr. Martell her primary care provider again at day of discharge and I did speak with the patient encouraging her to sign up for hospice because futility is apparent if aggressive treatment continues and she appears to be miserable and we have no ability to turn this around for her and improve her quality of life other than comfort care focus. She will be discharged back on skilled to the half-way today we will try to support her in any way possible but she definitely has a hospice candidate and should strongly consider that. Discharge Summary Discharge Physical Examination Allergies: Coded Allergies: iodine (Verified Allergy, Severe, BLISTERS, 12/13/13) neomycin (Verified Allergy, Severe, SWELLING, PAIN, RASH, ITCHING, 12/13/13 ) THIS WAS ADMINISTERED AN EAR DROP, EARS AND HEAD SWELLED AND TURNED RED CAUSING PAIN AND RASH WITH ITCHING cephalexin (Unverified Allergy, Mild, 08/19/08) phenylalanine (Verified Allergy, Mild, 04/25/16) pregabalin (Verified Allergy, Mild, SWELLING AND WEIGHT GAIN, 12/13/13) brompheniramine (Verified Allergy, Unknown, VISION PROBLEMS, 12/13/13) dextromethorphan (Verified Allergy, Unknown, 03/30/06) penicillin G (Verified Allergy, Unknown, RASH, 12/13/13) phenylpropanolamine (Verified Allergy, Unknown, 03/30/06) pseudoephedrine (Verified Allergy, Unknown, 03/30/06) simvastatin (Verified Allergy, Unknown, EXTREME WEAKNESS AND PAIN IN LEGS , 12/13/13) sulfamethoxazole (Verified Allergy, Unknown, 03/03/16) thimerosal (Verified Allergy, Unknown, RASH WITH PAIN AND ITCHING, 12/13/13 ) trimethoprim (Verified Allergy, Unknown, 03/03/16) codeine (Verified Adverse Reaction, Mild, TRIPLE VISION, 06/05/15) hydrocodone (Verified Adverse Reaction, Mild, VISION PROBLEMS, 06/05/15) Uncoded Allergies: TAPE (Allergy, Unknown, RASH, 12/13/13) Vitals & I&Os Vital Signs Date Time Temp Pulse Resp B/P Pulse Ox O2 Delivery O2 Flow Rate FiO2 07/08/16 09:00 Nasal Cannula 2.00 07/08/16 08:38 92 07/08/16 06:16 70 182/76 07/08/16 00:17 100.5 07/08/16 00:00 16 07/06/16 09:00 40 Hospital Course Labs (last 24 hrs) Laboratory Tests 07/07/16 14:38: Glucometer 140H 07/07/16 19:46: Glucometer 201H 07/08/16 05:39: Glucometer 56*L 07/08/16 10:19: Glucometer 135H Microbiology 07/04/16 Blood Culture - Preliminary, Resulted Staph, Coag Neg ([employer] [facility]) 07/04/16 Influenza Types A,B Antigen ([facility]) - Final, Complete Pending Labs Laboratory Tests 07/08/16 05:39: Glucometer 56 07/08/16 10:19: Glucometer 135 Discharge Home Medications: Active Scripts Active Levaquin (Levofloxacin) 500 Mg Tablet 500 Mg PO DAILY Albuterol Sulfate 1.25 Mg/3 Ml Vial.neb 1.25 Mg IH TID 14 Days Ambien (Zolpidem Tartrate) 5 Mg Tablet 5 Mg PO HS Diazepam 5 Mg Tablet 5 Mg PO HS Reported Lisinopril 10 Mg Tablet 10 Mg PO DAILY Citalopram HBr (Citalopram Hydrobromide) 10 Mg Tablet 10 Mg PO DAILY Zolpidem Tartrate 5 Mg Tablet 5 Mg PO HS PRN Senna (Sennosides) 8.6 Mg Tablet 8.6 Mg PO DAILY Fish Oil 1,000 mg Softgel ([place]-3/Dha/Epa/Fish Oil) 1 Each Capsule 1,000 Mg PO 1200,1700,2000 Metformin HCl 1,000 Mg Tablet 1,000 Mg PO BID@0800,1700 Humalog Kwikpen (Insulin Lispro) 100 Unit/1 Ml Insuln.pen SQ SLIDING/SCALE DOES NOT INJECT IF BLOOD SUGAR IS BELOW 200 201-250 3 UNITS 251-300 5 UNITS 301-350 7 UNITS 351-400 9 UNITS Multivitamins (Multivitamin) 1 Each Tablet 1 Tab PO DAILY@1200 Docusate Sodium 100 Mg Capsule 100 Mg PO BID@1200,1730 Metoprolol Succinate 50 Mg Tab.er.24h 100 Mg PO DAILY TAKES 2 (50 MG) TABLETS Klor-Con Sprinkle (Potassium Chloride) 10 Meq Capsule.er 10 Meq PO TID@0800,1400 ,2000 Acetaminophen 325 Mg Tablet 650 Mg PO Q6H PRN Benzonatate 100 Mg Capsule 100 Mg PO TID@0800,1400,2000 Norvasc (Amlodipine Besylate) 10 Mg Tablet 10 Mg PO DAILY Calcium 500 + D Tablet (Calcium Carbonate/Vitamin D3) 1 Each Tablet 1 Tab PO 1200,1700 Digoxin 125 Mcg Tablet 125 Mcg PO DAILY@0800 Pradaxa (Dabigatran Etexilate Mesylate) 75 Mg Capsule 75 Mg PO BID Clopidogrel (Clopidogrel Bisulfate) 75 Mg Tablet 75 Mg PO HS Gabapentin 300 Mg Capsule 300 Mg PO 1400,2000 Vitamin B-12 (Cyanocobalamin (Vitamin B-12)) 1,000 Mcg Tablet 1,000 Mcg PO DAILY @1200 Neupro (Rotigotine) 1 Each Patch.td24 1 Patch TD HS Glimepiride 4 Mg Tablet 8 Mg PO DAILY TAKES 2 (4MG) TABLETS Levothyroxine Sodium 75 Mcg Tablet 75 Mcg PO DAILY@0600 Cetirizine HCl 10 Mg Tablet 10 Mg PO HS Furosemide 40 Mg Tablet 40 Mg PO 0800,1200 Instructions to patient/family Please see electonic discharge instructions given to patient. Clinical Quality Measures DVT/VTE Risk/Contraindication: Risk Factor Score Per Nursin RFS Level Per Nursing on Admit: 4+=Very High DARNELL HIRSCH DO Jul 08, 2016 10:22
[2016-07-08] MEDS ORDERED: ALBU1.25 IH (10:39)
[2016-07-08] MEDS ORDERED: DIAZ5TAB3 PO (10:39)
[2016-07-08] MEDS ORDERED: ZOLP5TAB PO (10:39)
--- NOTE | 2016-07-08 10:41 | Discharge Inst-Skilled Nursing ---
Discharge [facility]-Skilled NF Chief Complaint the patient is a frail 81-year-old white female fdc resident transferred due to reported low oxygen levels and reports of increased shortness of breath. She has low voice volume due to her frailty Parkinson's disease and multiple medical problems. She is wearing BiPAP and history was difficult to obtain. She currently denies pain is feeling less short of breath. She is maintaining sats reporting no shortness of breath as long as she is on BiPAP. She has had a nonproductive cough too weak to produce sputum. She has had some chills denies night sweats and has felt feverish. She had had a recent admission for pneumonia. There is a past history for ESBL positivity and history of multiple medication including antibiotic allergies. She does tolerate meropenem which is been initiated on this admission as well as past admissions. She was discharged roughly 3 weeks ago from our institution for an admission for right sided pneumonia. X-ray in our emergency room revealed a dense right-sided infiltrate. Past medical history is significant for ischemic heart disease multiple drug-eluting stents the last over a year ago per Dr. CASTILLO and a history of sudden cardiac around ST elevation GA. She has a history of Parkinson's disease and her primary Care providers Dr. Malika Martell. Notes from 07/08/16: Chart Review: Vitals stable except continued low grade fever and elevated BP Patient Interview: Pt was fatigued during visit. Pt states that she does not use O2 regularly at home. Physical exam stable. Pt denies having pain. Pt states that her BMs are slow. Pt states that she does not want to DC until her pneumonia is completely resolved. Dr. Hirsch discusses the difficulty of treating pts recurrent pneumonia, and informs her that she may not fully recover to previous strength due to decreasing baseline from recurrent pneumonias. Pt states that she is able to ambulate from bed to her chair, but feels very weak. Pt states that she has spoken with family regarding current medical state and wishes that her son could be with her to help her make decisions. Pt would like medical staff to contact her son and discuss pt's medical state and plans for future. Plan: Continue antibiotics Pt will consider hospice Contact pt's son per pt's request Contact Dr. Martell, PCP Scribed by Manuel Jefferson under the direct supervision of Dr. Hirsch. Patient Instructions Patient Problems: Recurrent pneumonia End stage CAD w/cardiomyopathy Goal: Stablize but Hospice is recommended Consult/Follow Up/Orders Follow Up Appt.: Dr Malika Martell to discuss Hospice enrollment Skilled NF Admit to: [facility] Certification (SNF) I certify that SNF services are required to be given on an inpatient basis because of the above named patient's need for retirement care on a continuing basis for the conditions(s) for which he/she was receiving inpatient hospital services prior to his/her transfer to the SNF. [facility] Facility Order: Nursing Services, Meter Calibrator-Evaluate & Treat, Physical Therapy-Evaluate & Treat, Speech Language-Evaluate & Treat Discharge Diet: ADA Diet, Cardiac Diet Daily Activity as Tolerated: Yes New & Resume Previous Orders Sarahi Hirsch Jul 08, 2016 10:40 SARAHI HIRSCH DO Jul 08, 2016 10:41
[2016-07-08] MEDS ORDERED: LEVO500T2 PO (10:43)
[2016-07-08] MEDS: DOCUSATE SODIUM 100 MG (COLACE) CAP PO SCH (11:27)
[2016-07-08] MEDS: MULTIVIT W/MINERALS TAB (THERAGRAN M) PO SCH (11:28)
--- NOTE | 2016-07-08 15:35 | Physician Query-General Query ---
Physician Query-General Query to Physician: Dear Provider; Admit Date: 06/30/16 Discharge Date: 07/08/16 The medical record reflects the following clinical scenario: History/Risk factors: 06/30/16: acute respiratory failure with hypoxia Clinical Findings: 06/30/16: desaturations into the upper 90 on 100% O2, respirations 26 Treatment: 06/30/16: patient placed on Bipap, DuoNeb/Albuterol Question: Do you agree with the impression of acute respiratory failure with hypoxia per ER physician Dr Ray? Please document a response in Progress Notes or Discharge Summary. 1. Yes ___ 2. No ___ 3. Other, with explanation of clinical findings 4. Clinically undetermined, no explanation for clinical findings Please remember a lack of response to the above will prompt a phone page by CDI/ coding staff. In responding to this query, please exercise your independent professional judgment. The purpose of this communication is to more accurately reflect the complexity of your patients condition. The fact that a question is asked does not imply that any particular answer is desired or expected. Thank you for your timely response to this clarification. PHYSICIAN RESPONSE: Based on the clinical findings in the record, please respond to the query above on this document as an addendum. Possible, probable, or questionable diagnosis can be coded for INPATIENTS ONLY. Physician Response: Physician Response NOT MY PATIENT THIS SHOULD GO TO DR. HIRSCH If you have questions please contact: [employer]: Ext: Thank you for your time and cooperation. Clinical Brokerage Office Manager/[employer] This is a permanent part of the medical record MANJIT GARCIA Jul 08, 2016 15:35 NUNO FENTON MD Jul 14, 2016 18:31
--- NOTE | 2016-07-20 08:07 | Physician Query ---
PQ-Present on Admission Admission/Discharge Admission Date: Jul 04, 2016 at 18:05 Discharge Date: Jul 08, 2016 at 15:47 Question: [Sepsis] was documented in [ progress note 07/06/16 - 2 days after admit]. Can you specify if this condition was present on admission? Please document a response below. Condition was Present on Admit: Yes Please remember a lack of response to the above will prompt a phone page by CDI/ coding staff. In responding to this query, please exercise your independent professional judgment. The purpose of this communication is to more accurately reflect the complexity of your patients condition. The fact that a question is asked does not imply that any particular answer is desired or expected. Thank you for your timely response to this clarification. Requestors name: [ ] Phone # [ ] THIS PHYSICIAN QUERY FORM IS A PERMANENT PART OF THE MEDICAL RECORD MANJIT GARCIA Jul 20, 2016 08:07 DARNELL HIRSCH DO Jul 21, 2016 07:43
[2016-09-15] MEDS ORDERED: MULT-619 PO (09:15)
[2016-09-15] MEDS ORDERED: AMLO10TA2 PO (09:15)
[2016-09-15] MEDS ORDERED: FLUT16SP22 NSEACH (09:15)
[2016-09-15] MEDS ORDERED: POTA10TA10 PO (09:15)
[2016-09-15] MEDS ORDERED: ZOLP5TAB7 PO (09:15)
[2016-09-15] MEDS ORDERED: INSU100V5 SQ (09:15)
[2016-09-15] MEDS ORDERED: CALC-1 PO (09:15)
[2016-09-15] MEDS ORDERED: DIAZ5TAB3 PO (09:15)
[2016-09-15] MEDS ORDERED: INSU100V SQ (09:15)
[2016-09-17] MEDS ORDERED: LEVO750T9 PO (10:46)
== END 2016-07-08 15:47 | DRG 871 ==
LOC: EDUNIT# 16:03 → ER 16:04 → 4TH 18:05
PROVIDERS: ADMIT Internal Medicine; ATTEND Internal Medicine
DX: A41.9 Sepsis, unspecified organism (principal); J44.0 Chronic obstructive pulmonary disease with (acute) lower respiratory infection; J18.9 Pneumonia, unspecified organism; J96.01 Acute respiratory failure with hypoxia; N17.9 Acute kidney failure, unspecified; I13.0 Hypertensive heart and chronic kidney disease with heart failure and stage 1 through stage 4 chronic kidney disease, or unspecified chronic kidney disease; I50.9 Heart failure, unspecified; N18.9 Chronic kidney disease, unspecified; E11.40 Type 2 diabetes mellitus with diabetic neuropathy, unspecified; G20 Parkinson's disease; Z66 Do not resuscitate; I25.10 Atherosclerotic heart disease of native coronary artery without angina pectoris; I27.2 Other secondary pulmonary hypertension; I48.2 Chronic atrial fibrillation; R54 Age-related physical debility; E03.9 Hypothyroidism, unspecified; E78.5 Hyperlipidemia, unspecified; K21.9 Gastro-esophageal reflux disease without esophagitis; F32.9 Major depressive disorder, single episode, unspecified; G25.81 Restless legs syndrome; D63.8 Anemia in other chronic diseases classified elsewhere; I25.5 Ischemic cardiomyopathy; Z95.5 Presence of coronary angioplasty implant and graft
CPT/HCPCS: 36415; 51702; 71010; 80053; 80202; 81000; 82805; 82962; 83605; 85025; 85610; 85730; 87040; 87804; 94640; 94660; 94760; 96374

== ENCOUNTER 2016-11-09 12:28 | Emergency (ER) | payer MEDICARE, OTHER, MEDICAID ==
[~2016-11-09] VITALS: Ht 165.1 cm; Wt 86.2 kg
[~2016-11-09 12:28] MED LIST changes: +ALBU1.25 IH; +CALC-1 PO; +INSU100V SQ; +INSU100V5 SQ; +LEVO500T2 PO; +METF1000 PO; +MULT-619 PO; +POTA10TA10 PO; +SENN-140 PO; +ZOLP5TAB PO
--- NOTE | 2016-11-09 15:02 | Diagnostic Imaging Report ---
Three views of the right shoulder. INDICATION: Chronic right shoulder pain. FINDINGS: There is no fracture, dislocation, or radiopaque foreign body seen. There is subchondral sclerosis and inferior osteophytes seen in the glenohumeral joint. The acromioclavicular joint demonstrates no significant degenerative changes. IMPRESSION: Right glenohumeral joint osteoarthritis. Dictated by: Dictated on workstation # [id number]
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
[2016-11-09] MEDS ORDERED: ACETAMINOPHEN 500 MG TAB (TYLENOL) PO STA (15:16)
--- NOTE | 2016-11-09 15:19 | Diagnostic Imaging Report ---
Three views of the left foot. INDICATION: Pain and bruising in the left great toe. FINDINGS: There is degenerative osteoarthritic changes in the interphalangeal and MTP joint of the left great toe. There is suboptimal evaluation of the tarsometatarsal joints on the AP projection. No fracture, dislocation or radiopaque foreign body is identified. IMPRESSION: Degenerative changes. No fracture seen. Dictated by: Dictated on workstation # [id number]
[2016-11-09 15:58] VITALS: BP 148/78
== END 2016-11-09 15:58 | disposition home or self-care (01) ==
LOC: EDUNIT# 12:28 → ER 12:32
DX: S93.502A Unspecified sprain of left great toe, initial encounter (principal); M25.512 Pain in left shoulder; J44.9 Chronic obstructive pulmonary disease, unspecified; I11.0 Hypertensive heart disease with heart failure; I50.9 Heart failure, unspecified; I25.2 Old myocardial infarction; E78.00 Pure hypercholesterolemia, unspecified; E11.9 Type 2 diabetes mellitus without complications; E03.9 Hypothyroidism, unspecified; F41.8 Other specified anxiety disorders; I25.10 Atherosclerotic heart disease of native coronary artery without angina pectoris; Z86.73 Personal history of transient ischemic attack (TIA), and cerebral infarction without residual deficits; Z87.39 Personal history of other diseases of the musculoskeletal system and connective tissue; Z79.82 Long term (current) use of aspirin; Z79.84 Long term (current) use of oral hypoglycemic drugs; Z95.5 Presence of coronary angioplasty implant and graft; Z98.890 Other specified postprocedural states; W18.30XA Fall on same level, unspecified, initial encounter; Y92.002 Bathroom of unspecified non-institutional (private) residence as the place of occurrence of the external cause; Y93.E1 Activity, personal bathing and showering
CPT/HCPCS: 73030; 73630; 99283

== ENCOUNTER → 2016-11-12 | Emergency (ER) | payer MEDICARE, OTHER, MEDICAID ==
[~2016-11-12] VITALS: Ht 157.5 cm; Wt 122.5 kg
[2016-11-12 09:52] LABS: BASOPHILS % (AUTO) 1 % (0-10); EOSINOPHILS # (AUTO) 0.3 10^3/uL (0.0-0.3); EOSINOPHILS % (AUTO) 4 % (0-10); LYMPHOCYTES # (AUTO) 2.1 X 10^3 (1.0-4.0); LYMPHOCYTES % (AUTO) 26 % (12-44); MEAN CORPUSCULAR HEMOGLOBIN 27 PG (25-34); MEAN CORPUSCULAR HGB CONC 30 G/DL (32-36); MEAN CORPUSCULAR VOLUME 89 FL (80-99); MEAN PLATELET VOLUME 9.3 FL (7.4-10.4); MONOCYTES # (AUTO) 0.9 X 10^3 (0.0-1.0); MONOCYTES % (AUTO) 11 % (0-12); NEUTROPHILS % (AUTO) 60 % (42-75); PLATELET COUNT 290 10^3/uL (130-400); RED BLOOD COUNT 3.98 10^6/uL (4.35-5.85); RED CELL DISTRIBUTION WIDTH 16.3 % (10.0-14.5); WHITE BLOOD COUNT 8.4 10^3/uL (4.3-11.0)
[2016-11-12 10:04] LABS: ALBUMIN 3.9 GM/DL (3.2-4.5); BILIRUBIN,TOTAL 0.3 MG/DL (0.1-1.0); CALCIUM 11.8 MG/DL (8.5-10.1); CREATININE SERUM 1.35 MG/DL (0.60-1.30); ICTERUS 0.4 (-100-1.9); POTASSIUM 4.3 MMOL/L (3.6-5.0); TOTAL PROTEIN 7.5 GM/DL (6.4-8.2)
[2016-11-12 10:40] LABS: BILIRUBIN,URINE NEGATIVE (NEGATIVE); KETONES,URINE NEGATIVE (NEGATIVE); LEUKOCYTE ESTERASE ,URINE NEGATIVE (NEGATIVE); NITRITE,URINE NEGATIVE (NEGATIVE); PH,URINE 6.5 (5-9); PROTEIN,URINE 1+ (NEGATIVE); UROBILINOGEN,URINE NORMAL (NORMAL)
[2016-11-12 10:51] LABS: SQUAMOUS EPITHELIAL CELL,UR RARE /HPF
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
--- NOTE | 2016-11-12 11:16 | Diagnostic Imaging Report ---
EXAMINATION: Portable upright radiograph of the chest. INDICATION: Hypoxia. FINDINGS: The heart is moderately enlarged. There is slight vascular congestion. No effusion or pneumothorax is seen. There is prominence of the left hilum similar to prior exams. IMPRESSION: Cardiomegaly with slight pulmonary vascular congestion. Dictated by: Dictated on workstation # [id number]
--- NOTE | 2016-11-12 11:44 | Diagnostic Imaging Report ---
EXAM: Supine view of the abdomen. INDICATION: Abdominal pain. FINDINGS: There is a moderate to large amount of fecal material in the colon. No dilated small bowel loops are seen. Prominent splenic artery calcification is seen. Phleboliths in the pelvis are also noted. IMPRESSION: A moderate to large amount of fecal material in the colon and rectum. Dictated by: Dictated on workstation # [id number]
[2016-11-12 12:40] VITALS: BP 159/81
== END | disposition home or self-care (01) ==
LOC: EDUNIT# 09:17 → ER 09:20
DX: K59.00 Constipation, unspecified (principal); I48.91 Unspecified atrial fibrillation; I25.10 Atherosclerotic heart disease of native coronary artery without angina pectoris; I25.2 Old myocardial infarction; E78.00 Pure hypercholesterolemia, unspecified; I10 Essential (primary) hypertension; K21.9 Gastro-esophageal reflux disease without esophagitis; E11.40 Type 2 diabetes mellitus with diabetic neuropathy, unspecified; E03.9 Hypothyroidism, unspecified; F41.9 Anxiety disorder, unspecified; F32.9 Major depressive disorder, single episode, unspecified; Z95.5 Presence of coronary angioplasty implant and graft; Z79.4 Long term (current) use of insulin; Z79.84 Long term (current) use of oral hypoglycemic drugs; Z98.51 Tubal ligation status; Z87.19 Personal history of other diseases of the digestive system; Z90.710 Acquired absence of both cervix and uterus; Z90.49 Acquired absence of other specified parts of digestive tract; Z86.73 Personal history of transient ischemic attack (TIA), and cerebral infarction without residual deficits
CPT/HCPCS: 36415; 71010; 74000; 80053; 81000; 85025; 93005

== ENCOUNTER → 2016-12-29 | Outpatient (CLI) | payer MEDICARE, OTHER, MEDICAID ==
[2016-12-29 15:59] LABS: CALCIUM 10.3 MG/DL (8.5-10.1); CREATININE SERUM 2.02 MG/DL (0.60-1.30); POTASSIUM 5.2 MMOL/L (3.6-5.0)
--- NOTE | 2016-12-29 16:49 | Diagnostic Imaging Report ---
PA and lateral views of the chest. INDICATION: Pneumonia. Cough. There is a small opacity adjacent to the left cardiac border seen on the frontal view. This is suggestive of a mild infiltrates or atelectasis along the lingula. The right lung is clear. The heart size is mildly enlarged. No effusion or pneumothorax. Mediastinum and jg appear unremarkable. IMPRESSION: Opacity along the left cardiac border is probably related to mild infiltrates or atelectasis. Cardiomegaly. Dictated by: Dictated on workstation # [id number]
== END ==
LOC: RAD 15:05
PROVIDERS: ATTEND Family Medicine
DX: I51.7 Cardiomegaly (principal); R05 Cough
CPT/HCPCS: 36415; 71020; 80048

== ENCOUNTER 2017-05-17 18:01 | Emergency (ER) | payer OTHER ==
[~2017-05-17] VITALS: Ht 160 cm; Wt 81.6 kg
[~2017-05-17 18:01] MED LIST changes: +BENZ-36 PO; -BENZ100C23 PO; -METO-274 PO; +METO-370 PO; +METO-395 PO
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
[2017-05-17 18:28] LABS: BASOPHILS # (AUTO) 0.1 10^3/uL (0.0-0.1); BASOPHILS % (AUTO) 1 % (0-10); EOSINOPHILS # (AUTO) 0.1 10^3/uL (0.0-0.3); EOSINOPHILS % (AUTO) 2 % (0-10); LYMPHOCYTES % (AUTO) 26 % (12-44); MEAN CORPUSCULAR HEMOGLOBIN 26 PG (25-34); MEAN CORPUSCULAR HGB CONC 31 G/DL (32-36); MEAN CORPUSCULAR VOLUME 84 FL (80-99); MONOCYTES # (AUTO) 0.7 X 10^3 (0.0-1.0); MONOCYTES % (AUTO) 9 % (0-12); NEUTROPHILS # (AUTO) 4.9 X 10^3 (1.8-7.8); NEUTROPHILS % (AUTO) 63 % (42-75); PLATELET COUNT 331 10^3/uL (130-400); RED BLOOD COUNT 3.73 10^6/uL (4.35-5.85); RED CELL DISTRIBUTION WIDTH 16.1 % (10.0-14.5); WHITE BLOOD COUNT 7.8 10^3/uL (4.3-11.0)
[2017-05-17] MEDS ORDERED: RT-ALBUTEROL/IPRATROPIUM 3 ML (DUONEB) VIAL INH ONE (18:30)
[2017-05-17] MEDS ORDERED: morphine INJ 10 MG/ML 1ML (SYR OR VIAL) IVP ONE (18:30)
[2017-05-17] MEDS ORDERED: IBUPROFEN TABLET 200 MG TAB PO ONE (18:45)
--- NOTE | 2017-05-17 18:46 | Diagnostic Imaging Report ---
INDICATION: Cough and fever COMPARISON: 12/29/16 FINDINGS: Single view of the chest demonstrates infiltrate in the left suprahilar region, right base. Questionable trace effusion seen left costophrenic angle. The heart is prominent without overt pulmonary edema. There is no pneumothorax. IMPRESSION: Right basilar and left suprahilar infiltrate. Followup recommended. Dictated by: Dictated on workstation # [id number]
[2017-05-17 18:50] LABS: ALBUMIN 3.5 GM/DL (3.2-4.5); BILIRUBIN,TOTAL 0.3 MG/DL (0.1-1.0); CALCIUM 9.6 MG/DL (8.5-10.1); CREATININE SERUM 1.26 MG/DL (0.60-1.30); POTASSIUM 4.5 MMOL/L (3.6-5.0); TOTAL PROTEIN 6.6 GM/DL (6.4-8.2)
[2017-05-17] MEDS ORDERED: LEVO500T2 PO (19:39)
[2017-05-17] MEDS ORDERED: LEVOFLOXACIN 750 MG/150 ML IV 150 ML IV ONE (19:45)
[2017-05-17 21:39] VITALS: BP 136/43
== END 2017-05-17 21:39 ==
LOC: EDUNIT# 18:01 → ER 18:02
DX: J18.9 Pneumonia, unspecified organism (principal); A41.9 Sepsis, unspecified organism; I11.0 Hypertensive heart disease with heart failure; I50.84 End stage heart failure; I27.9 Pulmonary heart disease, unspecified; J44.9 Chronic obstructive pulmonary disease, unspecified; G47.30 Sleep apnea, unspecified; I48.91 Unspecified atrial fibrillation; I25.10 Atherosclerotic heart disease of native coronary artery without angina pectoris; I25.2 Old myocardial infarction; E78.00 Pure hypercholesterolemia, unspecified; I73.9 Peripheral vascular disease, unspecified; G20 Parkinson's disease; K21.9 Gastro-esophageal reflux disease without esophagitis; E11.40 Type 2 diabetes mellitus with diabetic neuropathy, unspecified; F41.9 Anxiety disorder, unspecified; F32.9 Major depressive disorder, single episode, unspecified; E03.9 Hypothyroidism, unspecified; Z82.49 Family history of ischemic heart disease and other diseases of the circulatory system; Z86.010 Personal history of colon polyps; Z87.19 Personal history of other diseases of the digestive system; Z86.73 Personal history of transient ischemic attack (TIA), and cerebral infarction without residual deficits; Z87.01 Personal history of pneumonia (recurrent); Z79.4 Long term (current) use of insulin; Z90.49 Acquired absence of other specified parts of digestive tract; Z95.5 Presence of coronary angioplasty implant and graft; Z90.710 Acquired absence of both cervix and uterus; Z98.51 Tubal ligation status
CPT/HCPCS: 36415; 71010; 80053; 83605; 83880; 85025; 87040; 87804; 94640

== ENCOUNTER 2017-05-22 18:44 | Inpatient (IN) | payer MEDICARE, MEDICAID ==
[~2017-05-22] VITALS: Ht 167.6 cm; Wt 89.5 kg
[2017-05-22] VITALS (9 sets, daily range): BP systolic 128–145; BP diastolic 47–54
[~2017-05-22 18:44] MED LIST changes: +ACHD5005 PO; -HYDR-3812 PO
[2017-05-22] MEDS ORDERED: MEROPENEM 1,000 MG in NS (IVPB) 100 ML IV ONE (19:00)
[2017-05-22] MEDS ORDERED: NS IV 1000 ML 2,449.41 ML IV PRN (19:00)
[2017-05-22] MEDS ORDERED: RT-ALBUTEROL SULF 2.5 MG/3 ML PRE-MIX VIAL INH STA (19:04)
[2017-05-22] MEDS ORDERED: RT-IPRATROPIUM (ATROVENT) 0.5MG/2.5ML AMP IH ONE ×2 (19:04→19:15)
[2017-05-22] MEDS ORDERED: RT-ALBUTEROL SULF 2.5 MG/3 ML PRE-MIX VIAL INH ONE (19:04)
[2017-05-22 19:09] LABS: BASOPHILS % (AUTO) 0 % (0-10); EOSINOPHILS % (AUTO) 0 % (0-10); HEMATOCRIT 31 % (35-52); LYMPHOCYTES # (AUTO) 0.4 X 10^3 (1.0-4.0); LYMPHOCYTES % (AUTO) 6 % (12-44); MEAN CORPUSCULAR HEMOGLOBIN 27 PG (25-34); MEAN CORPUSCULAR HGB CONC 32 G/DL (32-36); MEAN CORPUSCULAR VOLUME 83 FL (80-99); MEAN PLATELET VOLUME 9.3 FL (7.4-10.4); MONOCYTES # (AUTO) 0.1 X 10^3 (0.0-1.0); MONOCYTES % (AUTO) 1 % (0-12); NEUTROPHILS # (AUTO) 6.2 X 10^3 (1.8-7.8); NEUTROPHILS % (AUTO) 92 % (42-75); PLATELET COUNT 326 10^3/uL (130-400); RED BLOOD COUNT 3.77 10^6/uL (4.35-5.85); RED CELL DISTRIBUTION WIDTH 16.7 % (10.0-14.5); WHITE BLOOD COUNT 6.8 10^3/uL (4.3-11.0)
[2017-05-22] MEDS ORDERED: methylPREDNISolone 125 MG (Solu-MEDROL) VIAL IVP ONE (19:15)
[2017-05-22 19:22] LABS: INR 1.9 (0.8-1.4); PROTHROMBIN TIME PATIENT 21.8 SEC (12.2-14.7)
[2017-05-22 19:33] LABS: ALBUMIN 3.5 GM/DL (3.2-4.5); BILIRUBIN,TOTAL 0.6 MG/DL (0.1-1.0); CALCIUM 9.3 MG/DL (8.5-10.1); CREATININE SERUM 1.65 MG/DL (0.60-1.30); POTASSIUM 5.8 MMOL/L (3.6-5.0); TOTAL PROTEIN 7.2 GM/DL (6.4-8.2)
[2017-05-22 19:36] LABS: ANISOCYTOSIS SLIGHT; BAND NEUTROPHILS 2 %; BASOPHILS % (MANUAL) 0 %; ELLIPT/OVALOCYTES SLIGHT; EOSINOPHILS % (MANUAL) 0 %; LYMPHOCYTES % (MANUAL) 6 %; MONOCYTES % (MANUAL) 0 %; NEUTROPHILS % (MANUAL) 92 %
[2017-05-22 19:37] LABS: SPHEROCYTES SLIGHT
--- NOTE | 2017-05-22 19:41 | Diagnostic Imaging Report ---
INDICATION: Pneumonia. COMPARISON: 05/17/17. EXAMINATION: Single view of the chest was obtained. FINDINGS: Increasing bilateral pulmonary infiltrates, most pronounced now in the bases, left greater than right. There is small effusion in the left costophrenic angle. The heart is prominent without overt pulmonary edema. There is no pneumothorax. IMPRESSION: 1. Worsening bilateral pulmonary infiltrates. 2. New effusion left base. Dictated by: Dictated on workstation # [id number]
[2017-05-22] MEDS ORDERED: inSUlin (REGULAR) HUMAN 1 UNIT/0.01 ML (CHARGE PER UNIT) IV ONE (19:45)
[2017-05-22] MEDS ORDERED: NS IV 1000 ML 1,000 ML IV ONE (19:57)
[2017-05-22] MEDS ORDERED: ACETAMINOPHEN 500 MG TAB (TYLENOL) PO ONE (21:00)
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
[2017-05-22] MEDS ORDERED: ONDANSETRON 4 MG/2 ML (SDV) Z0FRAN IV PRN (22:15)
[2017-05-22] MEDS ORDERED: LEVOFLOXACIN 750 MG/D5W 150 ML (PRE-MIX) IV SCH (22:15)
[2017-05-22] MEDS: NS IV 1000 ML 1,000 ML IV SCH (22:29)
[2017-05-22] MEDS ORDERED: RT-ALBUTEROL/IPRATROPIUM 3 ML (DUONEB) VIAL INH PRN (22:30)
[2017-05-23] VITALS (31 sets, daily range): BP systolic 112–192; BP diastolic 50–104
[2017-05-23] MEDS: inSUlin ASPART (NovoLOG) 1 UNIT/0.01 ML (CHARGE PER UNIT) SC SCH ×7 (01:28→23:14)
[2017-05-23] MEDS: RT-ALBUTEROL/IPRATROPIUM 3 ML (DUONEB) VIAL INH SCH ×6 (01:44→21:51)
[2017-05-23] MEDS ORDERED: MEROPENEM 1 GM/NS 100 ML IVPB IV SCH ×2 (03:00)
[2017-05-23 04:12] LABS: BILIRUBIN,TOTAL 0.4 MG/DL (0.1-1.0); CALCIUM 8.4 MG/DL (8.5-10.1); CREATININE SERUM 1.41 MG/DL (0.60-1.30); PHOSPHORUS 3.9 MG/DL (2.3-4.7); POTASSIUM 4.5 MMOL/L (3.6-5.0)
[2017-05-23 05:00] LABS: ABG BASE EXCESS 2.1 MMOL/L (-2.5-2.5); ABG OXYGEN SATURATION 99 % (94-100); ABG PCO2 41 MMHG (35-45); ABG PH 7.42 (7.37-7.43); ABG PO2 103 MMHG (79-93); ABG TCO2 27.5 MMOL/L (21.0-31.0)
[2017-05-23 05:04] LABS: ALLENS TEST YES-POS; INSPIRED O2 50%; VENTILATOR NO
[2017-05-23] MEDS: POTASSIUM CL 10MEQ/50ML IVPB 50 ML IV SCH (05:05)
[2017-05-23] MEDS: MAGNESIUM 1 GM/100 ML IVPB 100 ML IV SCH (05:05)
[2017-05-23] MEDS: KCL 20 MEQ TAB (K-DUR) PO SCH (05:05)
[2017-05-23 05:40] LABS: BASOPHILS % (AUTO) 0 % (0-10); EOSINOPHILS % (AUTO) 0 % (0-10); HEMATOCRIT 27 % (35-52); HEMOGLOBIN 8.2 G/DL (11.5-16.0); LYMPHOCYTES # (AUTO) 0.7 X 10^3 (1.0-4.0); LYMPHOCYTES % (AUTO) 14 % (12-44); MEAN CORPUSCULAR HEMOGLOBIN 26 PG (25-34); MEAN CORPUSCULAR HGB CONC 31 G/DL (32-36); MEAN CORPUSCULAR VOLUME 83 FL (80-99); MEAN PLATELET VOLUME 9.1 FL (7.4-10.4); MONOCYTES # (AUTO) 0.3 X 10^3 (0.0-1.0); MONOCYTES % (AUTO) 6 % (0-12); NEUTROPHILS # (AUTO) 3.7 X 10^3 (1.8-7.8); NEUTROPHILS % (AUTO) 80 % (42-75); PLATELET COUNT 276 10^3/uL (130-400); RED CELL DISTRIBUTION WIDTH 16.6 % (10.0-14.5); WHITE BLOOD COUNT 4.6 10^3/uL (4.3-11.0)
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
[2017-05-23] MEDS ORDERED: CLOP75TA69 PO (08:01)
[2017-05-23] MEDS ORDERED: PROP15DR OP (08:10)
[2017-05-23] MEDS ORDERED: DOCU-143 PO (08:10)
[2017-05-23] MEDS ORDERED: AMLO10TA4 PO (08:10)
[2017-05-23] MEDS ORDERED: MORP20SY PO (08:29)
[2017-05-23] MEDS ORDERED: DIAZ5TAB PO (08:29)
[2017-05-23] MEDS ORDERED: ONDN4T PO (08:29)
[2017-05-23] MEDS ORDERED: SERT50TA2 PO (08:29)
[2017-05-23] MEDS ORDERED: HYOMAX SL (08:29)
[2017-05-23] MEDS ORDERED: POLY17PO6 PO (08:29)
[2017-05-23] MEDS ORDERED: ALBU2.5V4 NEB (08:29)
[2017-05-23] MEDS ORDERED: IPRA3AMP IH (08:29)
[2017-05-23] MEDS ORDERED: FURO-125 PO (08:29)
[2017-05-23] MEDS: NS IV 1000 ML 1,000 ML IV SCH ×3 (08:54→23:43)
--- NOTE | 2017-05-23 10:29 | Diagnostic Imaging Report ---
EXAMINATION: Chest radiograph, portable AP view. DATE: 05/23/2017 at 0540 hours. INDICATION: 82-year-old female, pneumonia, respiratory failure. History of COPD. COMPARISON: 05/22/2017. FINDINGS: Stable overall appearance of the cardiomediastinal silhouette. There are aortic calcifications. There is no identified pneumothorax. There is unchanged nonspecific left basilar airspace consolidation. There are additional multifocal alveolar and interstitial opacities within both lungs which are essentially unchanged. IMPRESSION: 1. Grossly unchanged nonspecific multifocal lung consolidation. Dictated by: Dictated on workstation # [id number]
[2017-05-23] MEDS: ACETAMINOPHEN 325 MG TABLET/CAPLET (TYLENOL) PO PRN ×2 (11:23→20:21)
[2017-05-23] MEDS: MEROPENEM 500 MG/NS 100 ML IVPB IV SCH ×6 (11:24→23:15)
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
--- NOTE | 2017-05-23 13:14 | Consultation-Cardiology ---
HPI-Cardiology Cardiology Consultation: Date of Consultation 05/23/17 Time Seen by Provider: 13:30 Date of Admission Attending Physician Sarahi Mcclelland DO Admitting Physician Malika Martell MD Consulting Physician DERRICK CASTILLO MD, MA, FACP, FACC, FSCAI, CCDS HPI: Chief Complaint: Shortness of breath, malaise 82 yo woman with multiple, multisystem comorbidities that are listed below who had been on Hospice care, but rescinded Hospice to seek care for increasing malaise and shortness of breath. Denies specific chest pain. Does have gen body pains, chronic, including the torso. Has chronic, variable leg swelling. Does not report palp or syncope Review of Systems-Cardiology Review of Systems Constitutional: malaise, No weight loss, No weight gain Eyes: No vision change Ears/Nose/Throat: No ear discharge, No nasal drainage, No recent hearing loss Respiratory: As described under HPI Cardiovascular: As described under HPI Gastrointestinal: No diarrhea, No nausea, No vomiting Genitourinary: No dysuria, No hematuria : No Musculoskeletal: back pain (chroni), joint pain (chronic) Skin: No rash, No ulcerations Psychiatric/Neurological: No focal weakness, No syncope Hematologic: No bleeding abnormalities AED-Rdlzgj-Xszitt Hx Patient Social History Alcohol Use: Denies Use Recreational Drug Use: No Smoking Status: Former Smoker 2nd Hand Smoke Exposure: No Recent Foreign Travel: No Recent Infectious Disease Expo: No Physical Abuse Screen: No Sexual Abuse: No (t) Immunizations Up To Date Tetanus Booster (TDap): Unknown Date of Pneumonia Vaccine: Mar 06, 2016 Date of Influenza Vaccine: Feb 21, 2017 Past Medical History PMH As described under Assessment. Family Medical History Family Medical History: Does not report fam h/o early CAD or SCD Family History: Alcoholism 19 FATHER G8 BROTHER (2 OF HER 4 BROTHERS) Arthritis 19 FATHER 19 MOTHER (AUNTS AND UNCLES WELL) Cardiovascular disease 19 FATHER G8 BROTHER Cataracts G8 BROTHER Colon cancer G8 BROTHER Completed stroke 19 FATHER Deafness or hearing loss G8 BROTHER Dementia 19 MOTHER FH: alcohol abuse FH: cancer 19 MOTHER (MOTHER WAS 1 OF 7 ALL DIAGNOSED WITH CANCER EXCEPT FOR MOTHER) Glaucoma G8 BROTHER Hypercholesterolemia G8 BROTHER Hypertension G8 BROTHER Infertility G8 BROTHER Kidney disease Myocardial infarction 19 FATHER Neoplasm Prostate cancer G8 BROTHER Thyroid disease G8 BROTHER Allergies and Home Medications Allergies Coded Allergies: iodine (Verified Allergy, Severe, BLISTERS, 12/13/13) neomycin (Verified Allergy, Severe, SWELLING, PAIN, RASH, ITCHING, 12/13/13 ) THIS WAS ADMINISTERED AN EAR DROP, EARS AND HEAD SWELLED AND TURNED RED CAUSING PAIN AND RASH WITH ITCHING cephalexin (Unverified Allergy, Mild, 08/19/08) phenylalanine (Verified Allergy, Mild, 04/25/16) pregabalin (Verified Allergy, Mild, SWELLING AND WEIGHT GAIN, 12/13/13) brompheniramine (Verified Allergy, Unknown, VISION PROBLEMS, 12/13/13) dextromethorphan (Verified Allergy, Unknown, 03/30/06) penicillin G (Verified Allergy, Unknown, RASH, 12/13/13) phenylpropanolamine (Verified Allergy, Unknown, 03/30/06) pseudoephedrine (Verified Allergy, Unknown, 03/30/06) simvastatin (Verified Allergy, Unknown, EXTREME WEAKNESS AND PAIN IN LEGS , 12/13/13) sulfamethoxazole (Verified Allergy, Unknown, 03/03/16) thimerosal (Verified Allergy, Unknown, RASH WITH PAIN AND ITCHING, 12/13/13 ) trimethoprim (Verified Allergy, Unknown, 03/03/16) codeine (Verified Adverse Reaction, Mild, TRIPLE VISION, 06/05/15) hydrocodone (Verified Adverse Reaction, Mild, VISION PROBLEMS, 06/05/15) Uncoded Allergies: TAPE (Allergy, Unknown, RASH, 12/13/13) Home Medications Acetaminophen 325 Mg Tablet, 650 MG PO Q6H PRN for PAIN, (Reported) Albuterol Sulfate 2.5 Mg/3 Ml Vial.neb, 2.5 MG IH Q4H, (Reported) Amlodipine Besylate 10 Mg Tablet, 10 MG PO DAILY, (Reported) Calcium Carbonate/Vitamin D3 1 Each Tablet, 1 TAB PO BID, (Reported) Cetirizine HCl 10 Mg Tablet, 10 MG PO HS, (Reported) Citalopram Hydrobromide 10 Mg Tablet, 10 MG PO DAILY, (Reported) Clopidogrel Bisulfate 75 Mg Tablet, 75 MG PO HS, (Reported) Cyanocobalamin (Vitamin B-12) 1,000 Mcg Tablet, 1,000 MCG PO DAILY, (Reported) Dabigatran Etexilate Mesylate 75 Mg Capsule, 75 MG PO BID, (Reported) Diazepam 5 Mg Tablet, 5 MG PO HS, (Reported) Diazepam 5 Mg Tablet, 5 MG PO HS, (Reported) Digoxin 125 Mcg Tablet, 125 MCG PO DAILY@0800, (Reported) Docusate Sodium 100 Mg Capsule, 100 MG PO BID, (Reported) Docusate Sodium 100 Mg Capsule, 100 MG PO BID PRN for CONSTIPATION-1ST LINE, ( Reported) Fluticasone Propionate 16 Gm [place].susp, 2 SPRAYS NSEACH DAILY, (Reported) Furosemide 40 Mg Tablet, 40 MG PO DAILY, (Reported) Furosemide 20 Mg Tablet, 20 MG PO DAILY, (Reported) Gabapentin 300 Mg Capsule, 300 MG PO BID, (Reported) Glimepiride 4 Mg Tablet, 8 MG PO DAILY, (Reported) TAKES 2 (4MG) TABLETS Insulin Determir 1,000 Units/10 Ml Soln, 10 UNITS SQ DAILY, (Reported) Insulin Lispro 100 Unit/1 Ml Vial, SQ SLIDING/SCALE, (Reported) 201-250 3 UNITS 251-300 5 UNITS 301-350 7 UNITS 351-400 9 UNITS Ipratropium/Albuterol Sulfate 3 Ml Ampul.neb, 3 ML IH Q4H PRN for SHORTNESS OF BREATH, (Reported) Levothyroxine Sodium 75 Mcg Tablet, 75 MCG PO DAILY@0600, (Reported) Lisinopril 10 Mg Tablet, 10 MG PO DAILY, (Reported) Metformin HCl 1,000 Mg Tablet, 1,000 MG PO BID, (Reported) Metoprolol Succinate 50 Mg Tab.er.24h, 100 MG PO BID, (Reported) Morphine Sulfate 20 Mg/1 Ml Syringe, 0.5 ML PO Q15M PRN for AIR HUNGER, ( Reported) Multivitamins,Therapeutic 1 Each Tablet, 1 TAB PO DAILY, (Reported) Ondansetron HCl 4 Mg Tab, 4 MG PO Q6H PRN for NAUSEA/VOMITING-1ST LINE, ( Reported) Polyethylene Glycol 3350 17 Gm Powd.pack, 17 GM PO DAILY, (Reported) Potassium Chloride 10 Meq Tablet.er, 10 MEQ PO BID, (Reported) Propylene Glycol/Peg 400 15 Ml Drops, 15 ML OP DAILY, (Reported) Rotigotine 1 Each Patch.td24, 1 PATCH TD HS, (Reported) 6MG/24HR Sennosides 8.6 Mg Tablet, 8.6 MG PO DAILY, (Reported) Sertraline HCl 50 Mg Tablet, 50 MG PO DAILY, (Reported) Zolpidem Tartrate 5 Mg Tablet, 5 MG PO HS, (Reported) Zolpidem Tartrate 5 Mg Tablet, 5 MG PO HS PRN for INSOMNIA, (Reported) [Hyomax] , 0.125 MG SL Q2H PRN for SECRETIONS, (Reported) Physical Exam-Cardiology Physical Exam Vital Signs/I&O Vital Sign - Last 12Hours 05/23/17 05/23/17 05/23/17 05/23/17 03:00 03:47 04:00 04:00 Temp 98.0 Pulse 57 58 55 Resp 15 26 20 B/P (MAP) 133/78 (96) 145/96 (112) Pulse Ox 96 96 96 96 O2 Delivery NIV Bilevel NIV Bilevel NIV Bilevel O2 Flow Rate 50.00 50.00 50.00 FiO2 50 05/23/17 05/23/17 05/23/17 05/23/17 05:00 06:00 06:41 07:00 Pulse 66 57 61 60 Resp 30 23 22 B/P (MAP) 146/93 (110) 151/74 (99) Pulse Ox 96 97 98 O2 Delivery NIV Bilevel NIV Bilevel O2 Flow Rate 50.00 50.00 40.00 05/23/17 05/23/17 05/23/17 05/23/17 07:00 07:57 08:00 08:00 Pulse 60 65 65 Resp 15 23 17 B/P (MAP) 140/83 (102) 147/66 (93) Pulse Ox 96 97 97 96 O2 Delivery NIV Bilevel High Flow N/C NIV Bilevel O2 Flow Rate 50.00 30.00 6.00 FiO2 50 05/23/17 05/23/17 05/23/17 05/23/17 09:00 09:43 10:00 11:00 Pulse 68 72 67 Resp 21 24 21 B/P (MAP) 112/62 (79) 124/104 (111) 182/59 (100) Pulse Ox 92 91 91 91 O2 Delivery High Flow N/C Nasal Cannula High Flow N/C High Flow N/C O2 Flow Rate 6.00 6.00 6.00 6.00 05/23/17 05/23/17 05/23/17 05/23/17 12:00 12:00 13:00 13:00 Pulse 69 61 61 Resp 11 15 B/P (MAP) 176/78 (110) 169/73 (105) Pulse Ox 91 96 96 O2 Delivery High Flow N/C High Flow N/C High Flow N/C O2 Flow Rate 6.00 6.00 6.00 05/23/17 14:16 Pulse 63 Resp 24 Pulse Ox 94 O2 Flow Rate 30.00 Intake and Output 05/23/17 00:00 Intake Total 1050 ml Balance 1050 ml Capillary Refill : Less Than 3 Seconds Constitutional: AAO x 3, well-developed, well-nourished, other (appears weak and tired ) HEENT: PERRL, EOMI, hearing is well preserved, No xanthelasmas are seen Neck: carotid pulses are 2 + bilaterally, with good upstrokes Respiratory: No accessory muscle use, other (fair bilat air entry; diminshed at the bases) Cardiovascular: regular rate-rhythm, S1 and S2, systolic murmur (faint TRICIA at card base) Gastrointestinal: No tender, soft, No guarding, No rebound, audible bowel sounds Extremities: No clubbing, No cyanosis, No significant edema Neurologic/Psychiatric: other (appears alert and oriented and is able to move all limbs equally) Skin: No rash on exposed areas, No ulcerations on exposed areas Data Review Labs Laboratory Tests 05/22/17 18:50: Glucometer 418*H 05/22/17 18:55: White Blood Count 6.8, Red Blood Count 3.77L, Hemoglobin 10.0L, Hematocrit 31L, Mean Corpuscular Volume 83, Mean Corpuscular Hemoglobin 27, Mean Corpuscular Hemoglobin Concent 32, Red Cell Distribution Width 16.7H, Platelet Count 326, Mean Platelet Volume 9.3, Neutrophils (%) (Auto) 92H, Lymphocytes (%) (Auto) 6L , Monocytes (%) (Auto) 1, Eosinophils (%) (Auto) 0, Basophils (%) (Auto) 0, Neutrophils # (Auto) 6.2, Lymphocytes # (Auto) 0.4L, Monocytes # (Auto) 0.1, Eosinophils # (Auto) 0.0, Basophils # (Auto) 0.0, Neutrophils % (Manual) 92, Lymphocytes % (Manual) 6, Monocytes % (Manual) 0, Eosinophils % (Manual) 0, Basophils % (Manual) 0, Band Neutrophils 2, Anisocytosis SLIGHT, Spherocytes SLIGHT, Elliptocytes SLIGHT, Prothrombin Time 21.8H, INR Comment 1.9H, Activated Partial Thromboplast Time 117*H, Sodium Level 138, Potassium Level 5.8H, Chloride Level 97L, Carbon Dioxide Level 23, Anion Gap 18H, Blood Urea Nitrogen 44H, Creatinine 1.65H, Estimat Glomerular Filtration Rate 30, BUN/ Creatinine Ratio 27, Glucose Level 465*H, Lactic Acid Level 2.59*H, Calcium Level 9.3, Total Bilirubin 0.6, Aspartate Amino Transf (AST/SGOT) 23, Alanine Aminotransferase (ALT/SGPT) 11, Alkaline Phosphatase 69, C-Reactive Protein High Sensitivity > 15.00H, B-Type Natriuretic Peptide 876.3H, Total Protein 7.2 , Albumin 3.5, Digoxin Level 1.24 05/22/17 18:58: 05/22/17 20:44: Lactic Acid Level 3.94*H 05/22/17 21:03: Glucometer 324H 05/22/17 23:17: Glucometer 261H 05/23/17 03:41: Sodium Level 140, Potassium Level 4.5, Chloride Level 104, Carbon Dioxide Level 21, Anion Gap 15H, Blood Urea Nitrogen 47H, Creatinine 1.41H, Estimat Glomerular Filtration Rate 36, BUN/Creatinine Ratio 33, Glucose Level 216H, Lactic Acid Level 2.20*H, Calcium Level 8.4L, Phosphorus Level 3.9, Magnesium Level 2.0, Total Bilirubin 0.4, Aspartate Amino Transf (AST/SGOT) 17, Alanine Aminotransferase (ALT/SGPT) 8, Alkaline Phosphatase 56, Total Protein 6.0L, Albumin 3.0L 05/23/17 04:55: Blood Gas Puncture Site RIGHT RADIAL, Blood Gas Patient Temperature 98.0, Arterial Blood pH 7.42, Arterial Blood Partial Pressure CO2 41, Arterial Blood Partial Pressure O2 103H, Arterial Blood HCO3 26, Arterial Blood Total CO2 27.5 , Arterial Blood Oxygen Saturation 99, Arterial Blood Base Excess 2.1, Felipe Test YES-POS, Blood Gas Ventilator Setting NO, Blood Gas Inspired Oxygen 50% 05/23/17 05:21: White Blood Count 4.6, Red Blood Count 3.20L, Hemoglobin 8.2L, Hematocrit 27L, Mean Corpuscular Volume 83, Mean Corpuscular Hemoglobin 26, Mean Corpuscular Hemoglobin Concent 31L, Red Cell Distribution Width 16.6H, Platelet Count 276, Mean Platelet Volume 9.1, Neutrophils (%) (Auto) 80H, Lymphocytes (%) (Auto) 14 , Monocytes (%) (Auto) 6, Eosinophils (%) (Auto) 0, Basophils (%) (Auto) 0, Neutrophils # (Auto) 3.7, Lymphocytes # (Auto) 0.7L, Monocytes # (Auto) 0.3, Eosinophils # (Auto) 0.0, Basophils # (Auto) 0.0 05/23/17 08:01: Lactic Acid Level 1.36 05/23/17 08:50: Glucometer 61L 05/23/17 11:29: Glucometer 84 Microbiology 05/22/17 Blood Culture - Preliminary, Resulted No growth Laboratory Tests 05/22/17 18:55 05/23/17 03:41 05/23/17 05:21 A/P-Cardiology Assessment/Admission Diagnosis Pneumonia with septicemia Spontaneous coagulopathy on 05/22/17, probably on account of nutritional deficiencies H/o recurrent URI and UTI, being managed by her pcp Sleep apnea being treated with C-PAP therapy (14 cm H2O). Post Ventricular Fibrillation Arrest due to acute myocardial infarction with anterior ST elevation, Cardiogenic shock, on 06/01/15 CAD. Last card cath on 06-01-[address] Lucero: MARYANA done to the mid LAD with a Resolute 2.25 x 26mm stent; left cx without significant disease; RCA - severe prox stenosis with ROMA 3 flow; LVEF 10-15% per cardiac cath by Dr. Lucero. Prior cardiac catheterization was in August 2007 and it showed that previous sites of cutting balloon angioplasty in the mid and distal left anterior descending artery were widely patent and free of significant disease; a new 70% stenosis in a terminal obtuse marginal artery which was successfully stented with Taxus 3 x 12-mm stent; severe mid-vessel disease of the right coronary, but right coronary artery is not ideally suited to intervention because of a small vessel caliber. Ac NSTEMI in late Feb 2017, treated conservatively per patient request Chronic diast/systolic CHF - clinically compensated Chronic anemia, managed by pcp PAF On dabigatran for stroke prophylaxis and clopidogrel for CAD and cor stenting done in May 2015. Therefore, is not suitable for continuing aspirin therapy ( because of markedly increased risk of bleeding if all three agents are to be continued) Pulmonary hypertension. Pulmonary artery systolic pressure was estimated to be 80 millimeters of mercury on echocardiogram of January 2012. This is probably related to chronic diastolic congestive heart failure. Repeat echof 10/27/13 showed LVEF 60%, mod TR, mild MR and AI and PASP 50-55 mmHg (improved compared to Jan 2012). Most recent echo of 03/04/16 showed LVEF 60%, mitral annular calcification without evidence of significant valvular stenosis. Mild MR and TR. PASP approx 35-40mmHg History of intermittent gastrointestinal bleeding. She has had removal of a polyp and hemorrhoidectomy by Dr. Mo in 2011 with cessation of bleeding since Intolerance to statins Multiple cerebrovascular accidents, the last one of which was a probable cerebellar stroke in 2011 which resulted in poor balance Multiple medication intolerances. H/o hypertension Degenerative joint disease and backache Hypothyroidism being treated with thyroid replacement therapy. Maturity onset diabetes mellitus. Mild to mod carotid arterial disease on ultrasonography of 01/28/16 Chronic nocturnal leg cramps WISHES TO BE MANAGED CONSERVATIVELY ONLY Discussion and Recomendations * Multiple comorbidities render management complex * Treat with Vit K to treat coagulopathy suspected to be due to nutritional def * Continue stroke prophylaxis with dabigatran (low dose, in consideration of low dose and impaired renal function) * Continue aspirin because of CAD * Monitor labs, including dig level * Reduce if fluid rate to reduce risk of decomp CHF Clinical Quality Measures DVT/VTE Risk/Contraindication: Risk Factor Score Per Nursin RFS Level Per Nursing on Admit: 4+=Very High DERRICK CASTILLO MD FACP FAC CCDS May 23, 2017 13:14
[2017-05-23] MEDS ORDERED: VITAMIN K 1 MG/ML ORAL SOLN 1 ML SYRINGE PO NR (14:45)
[2017-05-23] MEDS ORDERED: ASPIRIN 81 MG CHEW (CHILDREN'S ASA) PO NR (14:45)
[2017-05-23] MEDS: DABIGATRAN 75 MG (PRADAXA) CAPSULE PO SCH (18:50)
[2017-05-23] MEDS: GABAPENTIN 300 MG (NEURONTIN) CAP PO SCH (18:50)
[2017-05-23] MEDS: meTOprolol SUCCINATE 100 MG (TOPROL XL) TAB PO SCH (18:50)
[2017-05-23] MEDS: DOCUSATE SODIUM 100 MG (COLACE) CAP PO SCH (18:51)
[2017-05-23] MEDS: ZOLPIDEM 5 MG (AMBIEN) TAB PO SCH (18:51)
[2017-05-23] MEDS: DIAZEPAM 5 MG (VALIUM) TABLET PO SCH (18:51)
[2017-05-23] MEDS: KCL 10 MEQ TAB (MICRO K) PO SCH (18:54)
[2017-05-24] VITALS (32 sets, daily range): BP systolic 134–177; BP diastolic 48–81
[2017-05-24] MEDS: RT-ALBUTEROL/IPRATROPIUM 3 ML (DUONEB) VIAL INH SCH ×6 (02:32→21:47)
[2017-05-24] MEDS: inSUlin ASPART (NovoLOG) 1 UNIT/0.01 ML (CHARGE PER UNIT) SC SCH ×5 (03:54→20:13)
[2017-05-24 04:48] LABS: BASOPHILS % (AUTO) 0 % (0-10); EOSINOPHILS # (AUTO) 0.1 10^3/uL (0.0-0.3); EOSINOPHILS % (AUTO) 1 % (0-10); HEMATOCRIT 24 % (35-52); HEMOGLOBIN 7.7 G/DL (11.5-16.0); LYMPHOCYTES % (AUTO) 18 % (12-44); MEAN CORPUSCULAR HEMOGLOBIN 26 PG (25-34); MEAN CORPUSCULAR HGB CONC 32 G/DL (32-36); MEAN CORPUSCULAR VOLUME 83 FL (80-99); MEAN PLATELET VOLUME 9.1 FL (7.4-10.4); MONOCYTES # (AUTO) 0.3 X 10^3 (0.0-1.0); MONOCYTES % (AUTO) 6 % (0-12); NEUTROPHILS # (AUTO) 4.2 X 10^3 (1.8-7.8); NEUTROPHILS % (AUTO) 75 % (42-75); PLATELET COUNT 325 10^3/uL (130-400); RED BLOOD COUNT 2.93 10^6/uL (4.35-5.85); RED CELL DISTRIBUTION WIDTH 16.3 % (10.0-14.5); WHITE BLOOD COUNT 5.6 10^3/uL (4.3-11.0)
[2017-05-24 05:12] LABS: BUN/CREATININE RATIO 36; CALCIUM 8.3 MG/DL (8.5-10.1); CARBON DIOXIDE 22 MMOL/L (21-32); CHLORIDE 109 MMOL/L (98-107); CREATININE SERUM 0.87 MG/DL (0.60-1.30); GFR ESTIMATED > 60; GLUCOSE 125 MG/DL (70-105); PHOSPHORUS 2.3 MG/DL (2.3-4.7); POTASSIUM 4.3 MMOL/L (3.6-5.0); SODIUM 142 MMOL/L (135-145)
[2017-05-24] MEDS: POTASSIUM CL 10MEQ/50ML IVPB 50 ML IV SCH (05:14)
[2017-05-24] MEDS: MAGNESIUM 1 GM/100 ML IVPB 100 ML IV SCH (05:15)
[2017-05-24] MEDS: KCL 20 MEQ TAB (K-DUR) PO SCH (05:15)
[2017-05-24] MEDS ORDERED: NS (IVPB) 100 ML ONE (05:17)
[2017-05-24] MEDS: LEVOTHYROXINE 75 MCG (LEVOTHROID) TABLET PO SCH (05:18)
[2017-05-24 05:20] LABS: DIGOXIN 0.69 NG/ML (0.80-2.00)
[2017-05-24] MEDS: MEROPENEM 500 MG/NS 100 ML IVPB IV SCH ×6 (05:25→18:53)
[2017-05-24] MEDS: ACETAMINOPHEN 325 MG TABLET/CAPLET (TYLENOL) PO PRN ×2 (05:46→19:44)
[2017-05-24] MEDS: GABAPENTIN 300 MG (NEURONTIN) CAP PO SCH ×2 (08:48→21:07)
[2017-05-24] MEDS: amLODIPine 10 MG (NORVASC) TAB PO SCH (08:48)
[2017-05-24] MEDS: DIGOXIN 0.125 MG (LANOXIN) TAB PO SCH (08:48)
[2017-05-24] MEDS: meTOprolol SUCCINATE 100 MG (TOPROL XL) TAB PO SCH ×2 (08:48→21:07)
[2017-05-24] MEDS: ASPIRIN 81 MG CHEW (CHILDREN'S ASA) PO SCH (08:48)
[2017-05-24] MEDS: DABIGATRAN 75 MG (PRADAXA) CAPSULE PO SCH ×2 (08:48→21:07)
[2017-05-24] MEDS: DOCUSATE SODIUM 100 MG (COLACE) CAP PO SCH ×2 (08:48→21:07)
[2017-05-24] MEDS: lisINopril 10 MG (PRINIVIL) TAB PO SCH (08:48)
[2017-05-24] MEDS: KCL 10 MEQ TAB (MICRO K) PO SCH ×2 (08:48→21:07)
[2017-05-24] MEDS: SENNOSIDES 8.6 MG (SENOKOT) TAB PO SCH (08:48)
--- NOTE | 2017-05-24 09:22 | Diagnostic Imaging Report ---
EXAMINATION: Portable chest compared to prior study from 05/23/2017. INDICATION: Pneumonia and respiratory failure. COPD, exacerbation. FINDINGS: Marked enlargement of the cardiac silhouette is not significantly changed. There is persistent dense retrocardiac consolidation. There is progressive alveolar opacification demonstrated throughout the right lung. There also are continued diffusely abnormal interstitial opacities. There is no pneumothorax. IMPRESSION: 1. Persistent cardiomegaly. 2. Continued dense retrocardiac consolidation with air bronchograms. There also are progressive interstitial and alveolar opacities throughout both lungs. While the findings may reflect a progressive pneumonia, superimposed pulmonary edema would also be a consideration. Dictated by: Dictated on workstation # [id number]
[2017-05-24] MEDS: FLUTICASONE NASAL SPRAY (FLONASE) 16 GM BTL NS SCH (09:52)
--- NOTE | 2017-05-24 13:13 | Progress Note-Hospitalist ---
Progress Note HPI/CC on Admission CC: Bilateral pneumonia and volume overload with ARF in Hospice patient HPI: This is an 82-year-old white female with very complex medical problems for the last several years most recent was 3 years ago when major cardiac complications occur resulting in multiple stents placed and has been in heart failure and pneumonia hospitalizations multiple times since that time. She most recently resided in [facility] on hospice but revoked her hospice last night to seek care for this acute illness. She reports that her shortness of breath and wheezing worsened to the point she decided she needed to go to the ER even though she was placed on Levaquin and appropriate medication by Dr. Martell her primary care provider. I spoke with Dr. Martell who has talked her multiple times about end-of-life care but still continues to seek definitive care to help prolong her life even though her quality of life in a [facility] is not ideal she reports. She is been in and out of the [facility] back and forth from home many times the last couple years. She refuses to go to [facility] where her primary care provider retains hospital privileges so she is always hospitalized on the hospitalist service to [facility]. She was found to have congestive heart failure, pneumonia, acute renal failure and just overall significant decline so she was admitted placed on appropriate antibiotics cardiology was consulted and is maintained in the ICU at this current time. Progress Notes/Assess & Plan Date Seen 05/24/17 Time Seen by Provider: 13:00 Admission Dx/Process Assessment: Bilateral pneumonia with sepsis Volume overload with history of congestive heart failure Chronic atrial fibrillation on anticoagulations for stroke prophylaxis Chronic insomnia Acute on chronic renal insufficiency Chronic debility requiring [facility] placement and hospice of which she is revoked hospice to enable her to be admitted to hospital diabetes mellitus Chronic iron deficiency anemia with anemia of chronic disease Diagonsis/Assessment & Plan Patient requiring BiPAP now and appears to have worsened breath sounds on exam today Hemoglobin low at 7.7 Cardiology appreciated but not much can be modified Checked meds and labs Overall severe decline No fever, chronically ill, very debilitated, BiPAP intact, can't communicate well, worsened Irregular irregular rhythm Coarse breath sounds all swanson supine exam only on BiPAP No edema Laboratory Tests 05/24/17 03:45 Assessment: Bilateral pneumonia with sepsis Volume overload with history of congestive heart failure Chronic atrial fibrillation on anticoagulations for stroke prophylaxis Chronic insomnia Acute on chronic renal insufficiency Chronic debility requiring [facility] placement and hospice of which she is revoked hospice to enable her to be admitted to hospital diabetes mellitus Chronic iron deficiency anemia with anemia of chronic disease Plan: Empiric antibiotics of meropenem due to ESBL in the past Nebulas treatments Oxygen DO NOT RESUSCITATE Patient continues to be a hospice candidate Monitor creatinine Reconcile all home meds 18 BiPAP status but patient has more and more declined as the days passed and prognosis is extremely poor DARNELL HIRSCH DO May 24, 2017 13:13
--- NOTE | 2017-05-24 13:26 | Progress Note-Cardiology ---
Cardiology SOAP Progress Note Subjective: Tired, somnolent. Does not describe any symptoms Objective: I&O/Vital Signs Vital Sign - Last 12Hours 05/24/17 05/24/17 05/24/17 05/24/17 02:00 02:32 03:00 03:40 Pulse 58 53 48 Resp 37 17 20 B/P (MAP) 150/76 (100) 134/61 (85) Pulse Ox 96 94 95 95 O2 Delivery NIV Bilevel NIV Bilevel NIV Bilevel O2 Flow Rate 30.00 30.00 30.00 FiO2 50 05/24/17 05/24/17 05/24/17 05/24/17 03:50 04:00 05:00 06:00 Pulse 59 60 57 61 Resp 20 10 16 21 B/P (MAP) 145/49 (81) 155/53 (87) 162/61 (94) Pulse Ox 95 95 94 92 O2 Delivery High Flow N/C High Flow N/C High Flow N/C High Flow N/C O2 Flow Rate 6.00 6.00 6.00 6.00 05/24/17 05/24/17 05/24/17 05/24/17 06:59 07:00 07:00 08:00 Temp 97.7 Pulse 63 64 Resp 28 B/P (MAP) 169/56 (93) Pulse Ox 93 93 O2 Delivery Nasal Cannula High Flow N/C O2 Flow Rate 6.00 6.00 05/24/17 05/24/17 05/24/17 05/24/17 08:00 08:00 09:00 10:00 Pulse 60 64 60 Resp 29 21 29 B/P (MAP) 174/57 (96) 177/72 (107) 164/60 (94) Pulse Ox 93 92 91 O2 Delivery High Flow N/C Nasal Cannula High Flow N/C High Flow N/C O2 Flow Rate 6.00 4.00 6.00 6.00 05/24/17 05/24/17 05/24/17 05/24/17 10:13 11:00 12:00 12:18 Temp 98.3 Pulse 68 Resp 23 B/P (MAP) 162/60 (94) Pulse Ox 91 92 O2 Delivery Nasal Cannula High Flow N/C NIV Bilevel NIV Bilevel O2 Flow Rate 6.00 6.00 30.00 FiO2 30 Intake and Output 05/24/17 00:00 Intake Total 2150 ml Output Total 900 ml Balance 1250 ml Weight (Pounds): 193 Weight (Ounces): 0.3 Weight (Calculated Kilograms): 87.163093 Constitutional: No apparent distress, well-developed, well-nourished, other ( appears weak and tired ) Respiratory: No accessory muscle use, other (fair bilat air entry; diminshed at the bases) Cardiovascular: regular rate-rhythm, S1 and S2, systolic murmur (faint TRICIA at card base) Gastrointestional: No tender, soft, No guarding, No rebound, audible bowel sounds Extremities: No clubbing, No cyanosis, No significant edema Neurologic/Psychiatric: other (appears alert and oriented and is able to move all limbs equally) Skin: No rash on exposed areas, No ulcerations on exposed areas Results/Procedures: Labs Laboratory Tests 05/23/17 15:31: Glucometer 129H 05/23/17 20:15: Glucometer 170H 05/23/17 23:14: Glucometer 141H 05/24/17 03:44: Glucometer 126H 05/24/17 03:45: White Blood Count 5.6, Red Blood Count 2.93L, Hemoglobin 7.7L, Hematocrit 24L, Mean Corpuscular Volume 83, Mean Corpuscular Hemoglobin 26, Mean Corpuscular Hemoglobin Concent 32, Red Cell Distribution Width 16.3H, Platelet Count 325, Mean Platelet Volume 9.1, Neutrophils (%) (Auto) 75, Lymphocytes (%) (Auto) 18, Monocytes (%) (Auto) 6, Eosinophils (%) (Auto) 1, Basophils (%) (Auto) 0, Neutrophils # (Auto) 4.2, Lymphocytes # (Auto) 1.0, Monocytes # (Auto) 0.3, Eosinophils # (Auto) 0.1, Basophils # (Auto) 0.0, Sodium Level 142, Potassium Level 4.3, Chloride Level 109H, Carbon Dioxide Level 22, Anion Gap 11, Blood Urea Nitrogen 31H, Creatinine 0.87, Estimat Glomerular Filtration Rate > 60, BUN /Creatinine Ratio 36, Glucose Level 125H, Calcium Level 8.3L, Phosphorus Level 2.3, Magnesium Level 2.0, Digoxin Level 0.69L 1/1/18 08:51: Glucometer 136H 05/24/17 12:05: Glucometer 244H Microbiology 05/22/17 Blood Culture - Preliminary, Resulted No growth 05/22/17 MRSA Screen - Final, Complete MRSA not isolated Laboratory Tests 05/22/17 18:55 05/23/17 03:41 05/23/17 05:21 05/24/17 03:45 A/P: Assessment: Pneumonia with septicemia Spontaneous coagulopathy on 05/22/17, probably on account of nutritional deficiencies Worsening chronic anemia, etiology undetermined, managed by Dr Mcclelland H/o recurrent URI and UTI, being managed by her pcp Sleep apnea being treated with C-PAP therapy (14 cm H2O). Post Ventricular Fibrillation Arrest due to acute myocardial infarction with anterior ST elevation, Cardiogenic shock, on 06/01/15 CAD. Last card cath on 06-01-[address] Lucero: MARYANA done to the mid LAD with a Resolute 2.25 x 26mm stent; left cx without significant disease; RCA - severe prox stenosis with ROMA 3 flow; LVEF 10-15% per cardiac cath by Dr. Lucero. Prior cardiac catheterization was in August 2007 and it showed that previous sites of cutting balloon angioplasty in the mid and distal left anterior descending artery were widely patent and free of significant disease; a new 70% stenosis in a terminal obtuse marginal artery which was successfully stented with Taxus 3 x 12-mm stent; severe mid-vessel disease of the right coronary, but right coronary artery is not ideally suited to intervention because of a small vessel caliber. Ac NSTEMI in late Feb 2017, treated conservatively per patient request Chronic diast/systolic CHF - clinically compensated PAF On dabigatran for stroke prophylaxis and clopidogrel for CAD and cor stenting done in May 2015. Therefore, is not suitable for continuing aspirin therapy ( because of markedly increased risk of bleeding if all three agents are to be continued) Pulmonary hypertension. Pulmonary artery systolic pressure was estimated to be 80 millimeters of mercury on echocardiogram of January 2012. This is probably related to chronic diastolic congestive heart failure. Repeat echof 10/27/13 showed LVEF 60%, mod TR, mild MR and AI and PASP 50-55 mmHg (improved compared to Jan 2012). Most recent echo of 03/04/16 showed LVEF 60%, mitral annular calcification without evidence of significant valvular stenosis. Mild MR and TR. PASP approx 35-40mmHg History of intermittent gastrointestinal bleeding. She has had removal of a polyp and hemorrhoidectomy by Dr. Mo in 2012 with cessation of bleeding since Intolerance to statins Multiple cerebrovascular accidents, the last one of which was a probable cerebellar stroke in 2011 which resulted in poor balance Multiple medication intolerances. H/o hypertension Degenerative joint disease and backache Hypothyroidism being treated with thyroid replacement therapy. Maturity onset diabetes mellitus. Mild to mod carotid arterial disease on ultrasonography of 01/28/16 Chronic nocturnal leg cramps WISHES TO BE MANAGED CONSERVATIVELY ONLY Plan: * Multiple comorbidities render management complex * Repeat Vit K to treat coagulopathy suspected to be due to nutritional def * Continue stroke prophylaxis with dabigatran (low dose, in consideration of low dose and impaired renal function) * Continue aspirin because of CAD * Monitor labs, including dig level * Consider blood transfusion if H/H drop further DERRICK CASTILLO MD FACP FACC CCDS May 24, 2017 13:26
[2017-05-24] MEDS ORDERED: VITAMIN K 1 MG/ML ORAL SOLN 1 ML SYRINGE PO NR (13:30)
[2017-05-24] MEDS: NS IV 1000 ML 1,000 ML IV SCH (15:05)
[2017-05-24] MEDS ORDERED: HYDROcodone/APAP 7.5 MG/325 MG (LORTAB, LORCET PLUS) TABLET PO ONE (16:52)
[2017-05-24] MEDS ORDERED: NS W/KCL 20 MEQ/L 1,000 ML IV ONE (16:52)
[2017-05-24] MEDS: DIAZEPAM 5 MG (VALIUM) TABLET PO SCH (21:07)
[2017-05-24] MEDS: ZOLPIDEM 5 MG (AMBIEN) TAB PO SCH (21:07)
[2017-05-25] VITALS (26 sets, daily range): BP systolic 125–196; BP diastolic 55–88
[2017-05-25] MEDS: MEROPENEM 500 MG/NS 100 ML IVPB IV SCH ×8 (00:15→18:00)
[2017-05-25] MEDS: inSUlin ASPART (NovoLOG) 1 UNIT/0.01 ML (CHARGE PER UNIT) SC SCH ×6 (00:17→20:22)
[2017-05-25] MEDS: RT-ALBUTEROL/IPRATROPIUM 3 ML (DUONEB) VIAL INH SCH ×8 (01:25→21:47)
[2017-05-25 05:38] LABS: BASOPHILS % (AUTO) 1 % (0-10); EOSINOPHILS # (AUTO) 0.1 10^3/uL (0.0-0.3); EOSINOPHILS % (AUTO) 2 % (0-10); HEMATOCRIT 28 % (35-52); HEMOGLOBIN 8.8 G/DL (11.5-16.0); LYMPHOCYTES # (AUTO) 1.3 X 10^3 (1.0-4.0); LYMPHOCYTES % (AUTO) 21 % (12-44); MEAN CORPUSCULAR HEMOGLOBIN 26 PG (25-34); MEAN CORPUSCULAR HGB CONC 31 G/DL (32-36); MEAN CORPUSCULAR VOLUME 82 FL (80-99); MEAN PLATELET VOLUME 9.2 FL (7.4-10.4); MONOCYTES # (AUTO) 0.4 X 10^3 (0.0-1.0); MONOCYTES % (AUTO) 7 % (0-12); NEUTROPHILS # (AUTO) 4.2 X 10^3 (1.8-7.8); NEUTROPHILS % (AUTO) 70 % (42-75); PLATELET COUNT 326 10^3/uL (130-400); RED BLOOD COUNT 3.43 10^6/uL (4.35-5.85); RED CELL DISTRIBUTION WIDTH 17.1 % (10.0-14.5)
[2017-05-25 05:58] LABS: BUN/CREATININE RATIO 23; CALCIUM 8.7 MG/DL (8.5-10.1); CARBON DIOXIDE 22 MMOL/L (21-32); CHLORIDE 112 MMOL/L (98-107); CREATININE SERUM 0.79 MG/DL (0.60-1.30); GFR ESTIMATED > 60; GLUCOSE 119 MG/DL (70-105); MAGNESIUM 2.4 MG/DL (1.8-2.4); PHOSPHORUS 1.7 MG/DL (2.3-4.7); POTASSIUM 5.5 MMOL/L (3.6-5.0); SODIUM 143 MMOL/L (135-145)
[2017-05-25] MEDS: MAGNESIUM 1 GM/100 ML IVPB 100 ML IV SCH (06:00)
[2017-05-25] MEDS: KCL 20 MEQ TAB (K-DUR) PO SCH (06:00)
[2017-05-25] MEDS: POTASSIUM CL 10MEQ/50ML IVPB 50 ML IV SCH (06:00)
[2017-05-25] MEDS: LEVOTHYROXINE 75 MCG (LEVOTHROID) TABLET PO SCH (06:48)
[2017-05-25] MEDS: KCL 10 MEQ TAB (MICRO K) PO SCH (07:36)
[2017-05-25] MEDS: NS IV 1000 ML 1,000 ML IV SCH (07:51)
--- NOTE | 2017-05-25 08:02 | Diagnostic Imaging Report ---
INDICATION: Pneumonia followup. EXAMINATION: Chest, 05/25/2017. Comparison made to 05/24/2017. FINDINGS: Cardiomegaly is seen. Pulmonary vasculature congested but improved. Edema throughout both lungs also improving. There is an infiltrate at the left lung base with adjacent pleural effusion. IMPRESSION: 1. Persistent left base infiltrate and effusion. Remaining chest demonstrates some improvement with improving pulmonary edema noted. Dictated by: Dictated on workstation # [id number]
[2017-05-25] MEDS: lisINopril 10 MG (PRINIVIL) TAB PO SCH (08:06)
[2017-05-25] MEDS: amLODIPine 10 MG (NORVASC) TAB PO SCH (08:07)
[2017-05-25] MEDS: ASPIRIN 81 MG CHEW (CHILDREN'S ASA) PO SCH (08:07)
[2017-05-25] MEDS: DABIGATRAN 75 MG (PRADAXA) CAPSULE PO SCH ×2 (08:07→20:23)
[2017-05-25] MEDS: meTOprolol SUCCINATE 100 MG (TOPROL XL) TAB PO SCH ×2 (08:07→20:23)
[2017-05-25] MEDS: GABAPENTIN 300 MG (NEURONTIN) CAP PO SCH ×2 (08:07→20:22)
[2017-05-25] MEDS: DIGOXIN 0.125 MG (LANOXIN) TAB PO SCH (08:08)
[2017-05-25] MEDS: FLUTICASONE NASAL SPRAY (FLONASE) 16 GM BTL NS SCH (08:09)
[2017-05-25] MEDS: DOCUSATE SODIUM 100 MG (COLACE) CAP PO SCH ×2 (08:09→20:23)
[2017-05-25] MEDS: SENNOSIDES 8.6 MG (SENOKOT) TAB PO SCH (08:09)
--- NOTE | 2017-05-25 08:40 | Pulmonary Progress Note ---
Subjective Time Seen by Provider: 08:38 Subjective/Events-last exam pt is doing better. Exam Exam Vital Signs Date Time Temp Pulse Resp B/P (MAP) Pulse Ox O2 Delivery O2 Flow Rate FiO2 05/25/17 08:30 68 31 93 30.00 05/25/17 08:15 NIV Bilevel 30.00 05/25/17 08:10 97.7 High Flow N/C 7.00 05/25/17 07:00 64 05/25/17 07:00 High Flow N/C 6.00 05/25/17 06:28 56 17 93 30.00 05/25/17 06:00 54 21 165/58 (93) 94 NIV Bilevel 30.00 05/25/17 05:00 61 27 159/66 (97) 93 NIV Bilevel 30.00 05/25/17 04:45 63 31 93 30.00 05/25/17 04:00 98.1 54 32 155/61 (92) 94 NIV Bilevel 30.00 05/25/17 04:00 NIV Bilevel 30 05/25/17 03:00 58 36 144/66 (92) 95 NIV Bilevel 30.00 05/25/17 02:00 50 22 143/75 (97) 94 NIV Bilevel 30.00 05/25/17 01:25 51 22 95 30.00 05/25/17 01:00 54 05/25/17 01:00 54 23 143/67 (92) 95 NIV Bilevel 30.00 05/25/17 00:00 NIV Bilevel 30 05/25/17 00:00 96.9 53 18 146/60 (88) 92 NIV Bilevel 30.00 05/24/17 23:58 89 18 91 30.00 05/24/17 23:00 59 25 149/66 (93) 94 NIV Bilevel 30.00 05/24/17 22:00 62 30 166/81 (109) 92 NIV Bilevel 30.00 05/24/17 21:47 67 33 92 30.00 05/24/17 21:00 68 35 158/66 (96) 92 NIV Bilevel 30.00 05/24/17 20:00 NIV Bilevel 30 05/24/17 20:00 98.0 66 29 153/69 (97) 92 NIV Bilevel 30.00 05/24/17 19:34 64 35 92 30.00 05/24/17 19:00 62 25 142/48 (79) 93 NIV Bilevel 30.00 05/24/17 19:00 62 05/24/17 18:32 59 24 94 30.00 05/24/17 18:00 59 23 151/77 (101) 94 NIV Bilevel 30.00 05/24/17 17:00 51 20 157/53 (87) 95 NIV Bilevel 30.00 05/24/17 16:29 49 21 95 30.00 05/24/17 16:00 NIV Bilevel 30 05/24/17 16:00 55 20 159/63 (95) 93 NIV Bilevel 30.00 05/24/17 15:00 60 22 148/67 (94) 94 NIV Bilevel 30.00 05/24/17 14:43 68 26 93 30.00 05/24/17 14:00 59 21 152/57 (88) 94 NIV Bilevel 30.00 05/24/17 13:00 67 05/24/17 13:00 67 21 159/54 (89) 94 NIV Bilevel 30.00 05/24/17 12:18 98.3 NIV Bilevel 30.00 05/24/17 12:00 68 22 166/56 (92) 92 High Flow N/C 6.00 05/24/17 12:00 NIV Bilevel 30 05/24/17 11:00 68 23 162/60 (94) 92 High Flow N/C 6.00 05/24/17 10:13 91 Nasal Cannula 6.00 05/24/17 10:00 60 29 164/60 (94) 91 High Flow N/C 6.00 05/24/17 09:00 64 21 177/72 (107) 92 High Flow N/C 6.00 I & O 05/25/17 07:00 Intake Total 1998 ml Output Total 1900 ml Balance 98 ml General Appearance: No Apparent Distress, WD/WN, Chronically ill, Other ( appearing more declined and thinner since last assessed) HEENT: PERRL/EOMI, Normal ENT Inspection, Pharynx Normal Neck: Full Range of Motion, Normal Inspection, Non Tender, Supple, Carotid Bruit Respiratory: Chest Non Tender, No Accessory Muscle Use, No Respiratory Distress , Crackles, Decreased Breath Sounds Cardiovascular: No Edema, No Gallop, No JVD, No Murmur, Normal Peripheral Pulses, Irregularly Irregular, Tachycardia Capillary Refill: Less Than 3 Seconds Peripheral Pulses: 2+ Radial Pulses (R) Extremity: Normal Capillary Refill, Normal Inspection, Normal Range of Motion, Non Tender, No Calf Tenderness, No Pedal Edema Neurologic/Psychiatric: Alert, Oriented x3, No Motor/Sensory Deficits, Depressed Affect Skin: Normal Color, Warm/Dry Lymphatic: No Adenopathy Results Lab Laboratory Tests 05/24/17 03:45 05/25/17 04:55 Assessment/Plan Assessment/Plan Acute Respiratory failure with pulmonary edema -BiPAP -PT is a DNR Pneumonia - resolving - No leukocytosis and no fevers Metabolic lactic acidosis -IVF -Monitor for pulmonary edema Morbid obesity 233 Clinical Quality Measures DVT/VTE Risk/Contraindication: Risk Factor Score Per Nursin RFS Level Per Nursing on Admit: 4+=Very High FREDERICK SEN DO May 25, 2017 08:40
[2017-05-25] MEDS: methylPREDNISolone 40 MG/ML (Solu-MEDROL) VIAL IV SCH ×3 (09:35→20:36)
[2017-05-25] MEDS ORDERED: RT-ALBUTEROL/IPRATROPIUM 3 ML (DUONEB) VIAL INH SCH ×3 (10:30→14:15)
--- NOTE | 2017-05-25 11:00 | Physical Therapy Progress Note ---
Therapy Progress Note RT present to trial vapotherm from Bipap. Patient SAO2 on vapotherm 85/35 at 90 %. Per RT, Bipap will be placed after patient eats. Patient was on hospice at [facility] and revoked Hospice due to respiratory failure. 1 visit PREETI OVALLE PT May 25, 2017 11:00
[2017-05-25] MEDS ORDERED: PROP10DR3 OU (12:00)
[2017-05-25] MEDS ORDERED: METO100T12 PO (12:00)
[2017-05-25] MEDS ORDERED: ACET-2267 PO (12:00)
[2017-05-25] MEDS ORDERED: HYOS-19 SL (12:00)
--- NOTE | 2017-05-25 13:23 | Progress Note-Cardiology ---
Cardiology SOAP Progress Note Subjective: On BiPAP at the time of this exam Does not report cp or palp. Has malaise and shortness of breath Objective: I&O/Vital Signs Vital Sign - Last 12Hours 05/25/17 05/25/17 05/25/17 05/25/17 01:25 02:00 03:00 04:00 Pulse 51 50 58 Resp 22 22 36 B/P (MAP) 143/75 (97) 144/66 (92) Pulse Ox 95 94 95 O2 Delivery NIV Bilevel NIV Bilevel NIV Bilevel O2 Flow Rate 30.00 30.00 30.00 FiO2 30 05/25/17 05/25/17 05/25/17 05/25/17 04:00 04:45 05:00 06:00 Temp 98.1 Pulse 54 63 61 54 Resp 32 31 27 21 B/P (MAP) 155/61 (92) 159/66 (97) 165/58 (93) Pulse Ox 94 93 93 94 O2 Delivery NIV Bilevel NIV Bilevel NIV Bilevel O2 Flow Rate 30.00 30.00 30.00 30.00 05/25/17 05/25/17 05/25/17 05/25/17 06:28 07:00 07:00 07:00 Pulse 56 64 66 Resp 17 15 B/P (MAP) 166/66 (99) Pulse Ox 93 92 O2 Delivery High Flow N/C High Flow N/C O2 Flow Rate 30.00 6.00 6.00 05/25/17 05/25/17 05/25/17 05/25/17 08:00 08:10 08:15 08:30 Temp 97.7 Pulse 70 68 Resp 29 31 B/P (MAP) 196/88 (124) Pulse Ox 90 93 O2 Delivery High Flow N/C High Flow N/C NIV Bilevel O2 Flow Rate 6.00 7.00 30.00 30.00 05/25/17 05/25/17 05/25/17 05/25/17 09:00 10:09 10:28 10:56 Pulse 86 68 69 Resp 29 27 B/P (MAP) 175/58 (97) Pulse Ox 93 93 O2 Delivery NIV Bilevel Vapotherm O2 Flow Rate 30.00 30.00 85.00 35.00 FiO2 30 1/2/18 1/2/18 1/2/18 10:56 11:59 12:42 Temp 97.9 Pulse 67 Resp 25 Pulse Ox 92 92 O2 Delivery Vapotherm NIV Bilevel O2 Flow Rate 35.00 30.00 30.00 FiO2 85 Intake and Output 05/25/17 00:00 Intake Total 1782 ml Output Total 900 ml Balance 882 ml Weight (Pounds): 191 Weight (Ounces): 8.0 Weight (Calculated Kilograms): 86.344457 Constitutional: well-developed, well-nourished, other (appears weak and tired ) Respiratory: No accessory muscle use, other (fair bilat air entry; diminshed at the bases) Cardiovascular: regular rate-rhythm, S1 and S2, systolic murmur (faint TRICIA at card base) Gastrointestional: No tender, soft, No guarding, No rebound, audible bowel sounds Extremities: No clubbing, No cyanosis, No significant edema Neurologic/Psychiatric: other (appears alert and oriented and is able to move all limbs equally) Skin: No rash on exposed areas, No ulcerations on exposed areas Results/Procedures: Labs Laboratory Tests 05/24/17 17:55: Glucometer 172H 05/24/17 20:05: Glucometer 189H 05/25/17 00:13: Glucometer 192H 05/25/17 00:40: Lactic Acid Level 0.89 05/25/17 04:14: Glucometer 119H 05/25/17 04:55: White Blood Count 6.0, Red Blood Count 3.43L, Hemoglobin 8.8L, Hematocrit 28L, Mean Corpuscular Volume 82, Mean Corpuscular Hemoglobin 26, Mean Corpuscular Hemoglobin Concent 31L, Red Cell Distribution Width 17.1H, Platelet Count 326, Mean Platelet Volume 9.2, Neutrophils (%) (Auto) 70, Lymphocytes (%) (Auto) 21, Monocytes (%) (Auto) 7, Eosinophils (%) (Auto) 2, Basophils (%) (Auto) 1, Neutrophils # (Auto) 4.2, Lymphocytes # (Auto) 1.3, Monocytes # (Auto) 0.4, Eosinophils # (Auto) 0.1, Basophils # (Auto) 0.0, Sodium Level 143, Potassium Level 5.5H, Chloride Level 112H, Carbon Dioxide Level 22, Anion Gap 9, Blood Urea Nitrogen 18, Creatinine 0.79, Estimat Glomerular Filtration Rate > 60, BUN/ Creatinine Ratio 23, Glucose Level 119H, Calcium Level 8.7, Phosphorus Level 1.7L, Magnesium Level 2.4 05/25/17 07:49: Glucometer 137H 05/25/17 09:50: B-Type Natriuretic Peptide 629.8H 05/25/17 11:46: Glucometer 251H Microbiology 05/22/17 Blood Culture - Preliminary, Resulted No growth 05/22/17 MRSA Screen - Final, Complete MRSA not isolated Laboratory Tests 05/24/17 03:45 05/25/17 04:55 A/P: Assessment: Pneumonia with septicemia Spontaneous coagulopathy on 05/22/17, probably on account of nutritional deficiencies Chronic anemia, etiology undetermined, managed by Dr Stas Beck mildly elevated on 05/24/17 H/o recurrent URI and UTI, being managed by her pcp Sleep apnea being treated with C-PAP therapy (14 cm H2O). Post Ventricular Fibrillation Arrest due to acute myocardial infarction with anterior ST elevation, Cardiogenic shock, on 06/01/15 CAD. Last card cath on 06-01-[address] Lucero: MARYANA done to the mid LAD with a Resolute 2.25 x 26mm stent; left cx without significant disease; RCA - severe prox stenosis with ROMA 3 flow; LVEF 10-15% per cardiac cath by Dr. Lucero. Prior cardiac catheterization was in August 2007 and it showed that previous sites of cutting balloon angioplasty in the mid and distal left anterior descending artery were widely patent and free of significant disease; a new 70% stenosis in a terminal obtuse marginal artery which was successfully stented with Taxus 3 x 12-mm stent; severe mid-vessel disease of the right coronary, but right coronary artery is not ideally suited to intervention because of a small vessel caliber. Ac NSTEMI in late Feb 2017, treated conservatively per patient request Chronic diast/systolic CHF - clinically compensated PAF On dabigatran for stroke prophylaxis and clopidogrel for CAD and cor stenting done in May 2015. Therefore, is not suitable for continuing aspirin therapy ( because of markedly increased risk of bleeding if all three agents are to be continued) Pulmonary hypertension. Pulmonary artery systolic pressure was estimated to be 80 millimeters of mercury on echocardiogram of January 2012. This is probably related to chronic diastolic congestive heart failure. Repeat echof 10/27/13 showed LVEF 60%, mod TR, mild MR and AI and PASP 50-55 mmHg (improved compared to Jan 2012). Most recent echo of 03/04/16 showed LVEF 60%, mitral annular calcification without evidence of significant valvular stenosis. Mild MR and TR. PASP approx 35-40mmHg History of intermittent gastrointestinal bleeding. She has had removal of a polyp and hemorrhoidectomy by Dr. Mo in 2011 with cessation of bleeding since Intolerance to statins Multiple cerebrovascular accidents, the last one of which was a probable cerebellar stroke in 2011 which resulted in poor balance Multiple medication intolerances. H/o hypertension Degenerative joint disease and backache Hypothyroidism being treated with thyroid replacement therapy. Maturity onset diabetes mellitus. Mild to mod carotid arterial disease on ultrasonography of 01/28/16 Chronic nocturnal leg cramps WISHES TO BE MANAGED CONSERVATIVELY ONLY Plan: * Multiple comorbidities render management complex * Stop supplemental K * Monitor labs, including dig DERRICK Garduno MD FACP FACC CCDS May 25, 2017 13:23
--- NOTE | 2017-05-25 14:16 | Occupational Therapy Eval ---
OT Evaluation-General/PLF Medical Diagnosis Admission Date May 22, 2017 at 21:09 Medical Diagnosis: respiratory failure, pneumonia, COPD exacerbation Onset Date: May 22, 2017 Therapy Diagnosis Therapy Diagnosis: decr self care, weakness, edema, decr activ tolerance Height/Weight Height (Feet): 5 Height (Inches): 6.00 Weight (Pounds): 191 Weight (Ounces): 8.0 Precautions Precautions/Isolations: Contact Isolation, Fall Prevention, Standard Precautions Safety Interventions: None Comments ESBL Referral Physician: Taylor Referral Reason: Evaluation/Treatment Medical History Pertinent Medical History: Atrial Fib, Arthritis, CAD, COPD, CVA, DM, GERD, Heart Failure, HTN, Hypothroidism, CT, Neuropathy, Parkinson's, PVD Additional Medical History Coronary stent. Asthma, pneumonia, sleep apnea. Carotid disease. Chronic edema. CVA with poor balance. TIA. GI bleed, hiatal hernia. Restless legs. Chronic back pain/sciatica. Anxiety, depression, sleep difficulties Current History Was on hospice at [facility] but went off to treat respiratory failure Reviewed History: Yes Social History Home: Skilled Nursing ([facility]) ADL-Prior Level of Function ADL PLOF Comments Pt reported that she was able to manage her basic self care needs at the [facility] DME/Equipment Comments Unknown equipment OT Current Status Subjective Pt seen in room, in bed, agreeable to OT. No pain mentioned Appearance Alert. Pt was anxious about nursing getting a hold of her son and her doctor and nursing reassured her. Labored breathing, on BiPap Mental Status/Objective Attachments: Central Line, Gordon Catheter, IV, Oxygen (BiPap), Telemetry Current Upper Extremity ROM Grossly functional but limited by edema Upper Extremity Strength Grossly functional but limited by edema. Edema: Significant edema both UEs. R arm elevated on second pillow ADL-Treatment ADL-Current Pt needed help to get a drink of water - nursing unhooked BiPap briefly so she could drink. Has not been up yet Functional [place] Measure 0=Not Assessed/NA 4=Minimal Assistance 1=Total Assistance 5=Supervision or Setup 2=Maximal Assistance 6=Modified [place] 3=Moderate Assistance 7=Complete IndependenceIRFPAI Quality Coding Scale 6 Independent with activity with or without an assistive device 5 Patient requires set up or clean up by helper. Patient completes activity by themselves 4 Supervision or touching assist (CGA). [place] provide cues , steadying assist 3 The helper provides less than half the effort to complete the activity 2 The helper provides more than half the effort to complete the activity 1 Dependent. The helper does all the effort to complete an activity 7 Patient refused to complete or attempt activity 9 The patient did not perform the activity before the current illness or injury 88 Not attempted due to Medical conditions or safety concerns Education OT Patient Education: Purpose of tx/functional activities, Rehab process Teaching Recipient: Patient Teaching Methods: Discussion Response to Teaching: Verbalize Understanding OT Photogrammetric Compilation Specialist Goals Mcc Goals Time Frame: Jun 01, 2017 Eating (FIM): 5 Grooming(FIM): 5 Upper Body Dressing(FIM): 4 Lower Body Dressing(FIM): 3 Toileting(FIM): 3 Toilet/Commode Transfer(FIM): 3 Decrease edema as measured by increased functional use bilat UEs Additional Goals: 2-Verbalize Understanding, 3-ImproveStrength/Cindy 1=Demonstrate adherence to instructed precautions during ADL tasks. 2=Patient will verbalize/demonstrate understanding of assistive devices/ modifications for ADL. 3=Patient will improve strength/tolerance for activity to enable patient to perform ADL's. OT Education/Plan Problem List/Assessment Assessment: Decreased Activ Tolerance, Decreased UE Strength, Edema, Impaired Self-Care Skills Pt would benefit from skilled OT to increase her independence in basic self care and to decrease edema in UEs to help with ADLs. Discharge Recommendations Plan/Recommendations: Continue POC Treatment Plan/Plan of Care Treatment,Training & Education: Yes Patient would benefit from OT for education, treatment and training to promote independence in ADL's, mobility, safety and/or upper extremity function for ADL' s. Plan of Care: ADL Retraining, Functional Mobility, UE Funct Exercise/Act, UE Neuromus Re-Ed/Coord, OTHER (edema management as tolerated) Treatment Duration: Jun 01, 2017 Frequency: 5 times per week Estimated Hrs Per Day: .5 hour per day Agreement: Yes Rehab Potential: Guarded Time/GCodes Start Time: 13:45 Stop Time: 13:55 Total Time Billed (hr/min): 10 Billed Treatment Time visit, 10 minutes evaluation moderate intensity DICKSON SHERIFF OT May 25, 2017 14:15
[2017-05-25] MEDS ORDERED: PATIENT MAY USE OWN MED,SINGLE MED PO SCH (16:15)
[2017-05-25] MEDS: ROTIGOTINE TD SCH (20:22)
[2017-05-25] MEDS: DIAZEPAM 5 MG (VALIUM) TABLET PO SCH (20:22)
[2017-05-25] MEDS: ZOLPIDEM 5 MG (AMBIEN) TAB PO SCH (20:23)
[2017-05-25] MEDS: [UNRECOGNIZED DRUG - REMARK] TP SCH (20:23)
[2017-05-26] MEDS: RT-ALBUTEROL/IPRATROPIUM 3 ML (DUONEB) VIAL INH SCH ×11 (00:09→23:15)
[2017-05-26] MEDS: inSUlin ASPART (NovoLOG) 1 UNIT/0.01 ML (CHARGE PER UNIT) SC SCH ×6 (00:25→20:08)
[2017-05-26] MEDS: MEROPENEM 500 MG/NS 100 ML IVPB IV SCH ×4 (00:25→05:04)
[2017-05-26 00:41] VITALS: BP 169/76
[2017-05-26] MEDS: NS IV 1000 ML 1,000 ML IV SCH (00:59)
[2017-05-26] MEDS: methylPREDNISolone 40 MG/ML (Solu-MEDROL) VIAL IV SCH ×4 (03:35→20:08)
[2017-05-26 04:20] VITALS: BP 151/77
[2017-05-26] MEDS: LEVOTHYROXINE 75 MCG (LEVOTHROID) TABLET PO SCH (05:03)
[2017-05-26] MEDS ORDERED: FUROSEMIDE 40 MG/4 ML INJ (LASIX) IVP NR (07:30)
--- NOTE | 2017-05-26 07:54 | Pulmonary Progress Note ---
Subjective Time Seen by Provider: 07:54 Subjective/Events-last exam Pt sounds coarse and wheezy Exam Exam Vital Signs Date Time Temp Pulse Resp B/P (MAP) Pulse Ox O2 Delivery O2 Flow Rate FiO2 05/26/17 07:05 91 Vapotherm 25.00 70 05/26/17 04:20 97.8 68 20 151/77 (101) 97 NIV Bilevel 40.00 12.00 05/26/17 04:07 43 17 95 40.00 05/26/17 02:20 55 18 95 40.00 05/26/17 00:41 97.5 67 16 169/76 (107) 97 NIV Bilevel 40.00 12.00 05/26/17 00:09 60 18 94 40.00 05/25/17 21:49 57 18 93 40.00 05/25/17 20:36 77 33 92 40.00 05/25/17 20:29 98.1 64 18 125/85 (98) 94 Vapotherm 70.00 25.00 05/25/17 20:00 Vapotherm 25.00 70 05/25/17 18:41 93 Vapotherm 25.00 70 05/25/17 17:30 99.4 63 18 179/70 (106) 95 Vapotherm 70.00 25.00 05/25/17 16:40 Vapotherm 25.00 70 05/25/17 16:00 71 19 154/57 (89) 94 Vapotherm 70.00 25.00 05/25/17 15:06 95 Vapotherm 25.00 70 05/25/17 15:00 65 25 155/56 (89) 94 Vapotherm 70.00 25.00 05/25/17 14:52 63 24 95 30.00 05/25/17 14:00 68 28 154/58 (90) 94 NIV Bilevel 30.00 05/25/17 13:00 68 05/25/17 13:00 69 29 169/71 (103) 93 NIV Bilevel 30.00 05/25/17 12:42 67 25 92 30.00 05/25/17 12:15 NIV Bilevel 30 05/25/17 12:00 72 23 166/55 (92) 90 NIV Bilevel 30.00 05/25/17 11:59 97.9 NIV Bilevel 30.00 05/25/17 11:00 69 19 180/67 (104) 91 Vapotherm 85.00 35.00 05/25/17 10:56 92 Vapotherm 35.00 85 05/25/17 10:56 Vapotherm 85.00 35.00 05/25/17 10:28 69 27 93 30.00 05/25/17 10:09 68 30 05/25/17 10:00 59 25 156/57 (90) 92 NIV Bilevel 30.00 05/25/17 09:00 86 29 175/58 (97) 93 NIV Bilevel 30.00 05/25/17 08:30 68 31 93 30.00 05/25/17 08:15 NIV Bilevel 30.00 05/25/17 08:10 97.7 High Flow N/C 7.00 05/25/17 08:00 Nasal Cannula 6.00 05/25/17 08:00 70 29 196/88 (124) 90 High Flow N/C 6.00 I & O 05/26/17 07:00 Intake Total 1738 ml Output Total 2175 ml Balance -437 ml General Appearance: No Apparent Distress, WD/WN, Chronically ill, Other ( appearing more declined and thinner since last assessed) HEENT: PERRL/EOMI, Normal ENT Inspection, Pharynx Normal Neck: Full Range of Motion, Normal Inspection, Non Tender, Supple, Carotid Bruit Respiratory: Chest Non Tender, No Accessory Muscle Use, No Respiratory Distress , Crackles, Decreased Breath Sounds, Wheezing Cardiovascular: No Edema, No Gallop, No JVD, No Murmur, Normal Peripheral Pulses, Irregularly Irregular, Tachycardia Capillary Refill: Less Than 3 Seconds Peripheral Pulses: 2+ Radial Pulses (R) Extremity: Normal Capillary Refill, Normal Inspection, Normal Range of Motion, Non Tender, No Calf Tenderness, No Pedal Edema Neurologic/Psychiatric: Alert, Oriented x3, No Motor/Sensory Deficits, Depressed Affect Skin: Normal Color, Warm/Dry Lymphatic: No Adenopathy Results Lab Laboratory Tests 05/25/17 04:55 Assessment/Plan Assessment/Plan Acute Respiratory failure with pulmonary edema -BiPAP -PT is a DNR -Solumedrol -Hep lock IVF and give lasix -repeat labs and BNP -Titrate oxygen Pneumonia - resolving -D/c Merrem. No leukocytosis and no fevers Metabolic lactic acidosis- improved -IVF -- stop -Monitor for pulmonary edema Morbid obesity 233 Clinical Quality Measures DVT/VTE Risk/Contraindication: Risk Factor Score Per Nursin RFS Level Per Nursing on Admit: 4+=Very High FREDERICK SEN DO May 26, 2017 07:54
[2017-05-26 08:00] VITALS: BP 148/73
[2017-05-26 08:28] LABS: BASOPHILS % (AUTO) 0 % (0-10); EOSINOPHILS % (AUTO) 0 % (0-10); HEMATOCRIT 29 % (35-52); HEMOGLOBIN 9.1 G/DL (11.5-16.0); LYMPHOCYTES # (AUTO) 0.7 X 10^3 (1.0-4.0); LYMPHOCYTES % (AUTO) 8 % (12-44); MEAN CORPUSCULAR HEMOGLOBIN 26 PG (25-34); MEAN CORPUSCULAR HGB CONC 31 G/DL (32-36); MEAN CORPUSCULAR VOLUME 82 FL (80-99); MEAN PLATELET VOLUME 8.6 FL (7.4-10.4); MONOCYTES # (AUTO) 0.3 X 10^3 (0.0-1.0); MONOCYTES % (AUTO) 3 % (0-12); NEUTROPHILS # (AUTO) 7.7 X 10^3 (1.8-7.8); NEUTROPHILS % (AUTO) 88 % (42-75); PLATELET COUNT 381 10^3/uL (130-400); RED BLOOD COUNT 3.54 10^6/uL (4.35-5.85); RED CELL DISTRIBUTION WIDTH 16.9 % (10.0-14.5); WHITE BLOOD COUNT 8.7 10^3/uL (4.3-11.0)
--- NOTE | 2017-05-26 08:44 | Physical Therapy Evaluation ---
PT Evaluation-General Medical Diagnosis Admission Date May 22, 2017 at 21:09 Medical Diagnosis: respiratory failure, pneumonia, COPD exacerbation Onset Date: May 22, 2017 Therapy Diagnosis Therapy Diagnosis: impaired mobility, strength, endurance Height/Weight Height (Feet): 5 Height (Inches): 6.00 Weight (Pounds): 187 Weight (Ounces): 4.0 Precautions Precautions/Isolations: Contact Isolation, Fall Prevention, Standard Precautions Weight Bear Status Right Lower Extremity: Right Weight Bearing/Tolerated Left Lower Extremity: Left Weight Bearing/Tolerated Referral Physician: Taylor Reason for Referral: Evaluation/Treatment Medical History Pertinent Medical History: Atrial Fib, Arthritis, CAD, COPD, CVA, DM, GERD, Heart Failure, HTN, Hypothroidism, MD, Neuropathy, Parkinson's, PVD Additional Medical History went to ER with resp failure Reviewed History: Yes Social History Home: [facility] Prior/Core FIM Prior Level of Function Functional [place] Measure 0=Not Assessed/NA 4=Minimal Assistance 1=Total Assistance 5=Supervision or Setup 2=Maximal Assistance 6=Modified [place] 3=Moderate Assistance 7=Complete [place] Bed Mobility: 4 Transfers (B,C,W/C) (FIM): 4 Gait: 4 Unknown of exact premorbid mobility but patient states that she was ambulating with a rolling walker but mostly used a wheelchair during the day PT Evaluation-Current Subjective Patient in bed pre tx, agrees to PT, states she has pain in her bottom. After treatment she no longer had pain and was advised to call nursing when her bottom hurt so they could turn her. Pt/Family Goals to be more independent at home Objective Patient Orientation: Person, Place Attachments: Oxygen, Gordon Catheter, IV ROM/Strength ROM Lower Extremities WNL Strength Lower Extremities right lower extremity (hip flexion 3-/5, knee flexion 3+/5, knee extension 3+/5 , dorsiflexion 3+/5), left lower extremity (hip flexion 3-/5, knee flexion 3+/5 , knee extension 3+/5, dorsiflexion 3+/5) Neuromuscular (Tone, Coordination, Reflexes) NT Sensory Vision: Functional Hearing: Functional Sensation Right Lower Extremit: Intact Sensation Left Lower Extremity: Intact Sensation Lower Extremities Patient states that she does have intermittent numbness and tingling in her legs but she seemed to have intact light touch sensation Transfers Functional [place] Measure 0=Not Assessed/NA 4=Minimal Assistance 1=Total Assistance 5=Supervision or Setup 2=Maximal Assistance 6=Modified [place] 3=Moderate Assistance 7=Complete [place] Transfers (B, C, W/C) (FIM): 2 Scootin Rollin Supine to/from Sit: 2 Sit to/from Stand: 3 Patient performs bed mobility with max assist for the most part and sit to stand with mod assist, needs cues for hand positioning and safety. Patient was able to sit at the edge of the bed for about 10 min Balance Sitting Static: Fair Sitting Dynamic: Fair Treatment supine ankle pumps x20, heel slides x10 Assessment/Needs Patient has impaired mobility, strength, endurance, general debility Rehab Potential: Fair PT Short Term Goals Short Term Goals Time Frame: Jun 02, 2017 Transfers (B,C,W/C) (FIM): 4 Gait (FIM): 1 Gait Distance Comment: 20' Gait Level of Assist: 4 Gait Assistive Device: FWW PT Plan Problem List Problem List: Activity Tolerance, Functional Strength, Safety, Balance, Gait, Transfer, Bed Mobility, ROM Treatment/Plan Treatment Plan: Continue Plan of Care Treatment Plan: Bed Mobility, Education, Functional Activity Cindy, Functional Strength, Gait, Safety, Therapeutic Exercise, Transfers Treatment Duration: Jun 02, 2017 Frequency: 6 times per week Estimated Hrs Per Day: .25 hour per day (15-30') Patient and/or Family Agrees t: Yes Safety Risks/Education Patient Education: Transfer Techniques, Correct Positioning, Safety Issues Teaching Recipient: Patient Teaching Methods: Demonstration, Discussion Response to Teaching: Reinforcement Needed Discharge Recommendations Plan Patient will perform bed mobility and transfer training, balance and endurance training, functional strengthening, stair training, gait training, and education , to improve functional mobility and independence at home. Time/GCodes Time In: 817 Time Out: 845 Total Billed Treatment Time: 27 Total Billed Treatment 1 visit [facility] 27' ARLENE POLK PT May 26, 2017 08:44
[2017-05-26 08:48] LABS: BUN/CREATININE RATIO 27; CALCIUM 9.1 MG/DL (8.5-10.1); CARBON DIOXIDE 23 MMOL/L (21-32); CHLORIDE 113 MMOL/L (98-107); CREATININE SERUM 0.75 MG/DL (0.60-1.30); GFR ESTIMATED > 60; GLUCOSE 202 MG/DL (70-105); MAGNESIUM 2.3 MG/DL (1.8-2.4); PHOSPHORUS 2.3 MG/DL (2.3-4.7); POTASSIUM 4.6 MMOL/L (3.6-5.0); SODIUM 145 MMOL/L (135-145)
--- NOTE | 2017-05-26 08:50 | Diagnostic Imaging Report ---
INDICATION: Pneumonia, respiratory failure, COPD. COMPARISON: 05/25/2017. FINDINGS: There is left lower lobe consolidation and air bronchograms, unchanged. Bilateral pleural effusions, greater left than right, are unchanged. Cardiomegaly is unchanged. Some prominence of the vascularity and perihilar infiltration are unchanged. IMPRESSION: No interval change in cardiomegaly and bilateral pleural/parenchymal opacities. Dictated by: Dictated on workstation # [id number]
[2017-05-26 08:55] LABS: ANISOCYTOSIS SLIGHT; BAND NEUTROPHILS 3 %; BASOPHILS % (MANUAL) 1 %; ELLIPT/OVALOCYTES SLIGHT; EOSINOPHILS % (MANUAL) 0 %; LYMPHOCYTES % (MANUAL) 5 %; METAMYELOCYTES % 1 %; MONOCYTES % (MANUAL) 0 %; MYELOCYTES % 1 %; NEUTROPHILS % (MANUAL) 89 %; POLYCHROMASIA SLIGHT
[2017-05-26] MEDS: lisINopril 10 MG (PRINIVIL) TAB PO SCH (08:55)
[2017-05-26] MEDS: ASPIRIN 81 MG CHEW (CHILDREN'S ASA) PO SCH (08:55)
[2017-05-26] MEDS: amLODIPine 10 MG (NORVASC) TAB PO SCH (08:55)
[2017-05-26] MEDS: GABAPENTIN 300 MG (NEURONTIN) CAP PO SCH ×2 (08:55→20:08)
[2017-05-26] MEDS: SENNOSIDES 8.6 MG (SENOKOT) TAB PO SCH (08:55)
[2017-05-26] MEDS: DOCUSATE SODIUM 100 MG (COLACE) CAP PO SCH ×2 (08:55→20:08)
[2017-05-26] MEDS: meTOprolol SUCCINATE 100 MG (TOPROL XL) TAB PO SCH (08:55)
[2017-05-26] MEDS: DABIGATRAN 75 MG (PRADAXA) CAPSULE PO SCH ×2 (08:55→20:08)
[2017-05-26] MEDS: DIGOXIN 0.125 MG (LANOXIN) TAB PO SCH (08:55)
[2017-05-26] MEDS: FLUTICASONE NASAL SPRAY (FLONASE) 16 GM BTL NS SCH (08:56)
[2017-05-26] MEDS ORDERED: predniSONE 10 MG TAB PO SCH (09:00)
--- NOTE | 2017-05-26 10:18 | Progress Note-Cardiology ---
Cardiology SOAP Progress Note Subjective: Sitting up in bed. Remains on Vapo-therm. Lethargic this morning. Opens eyes to voice and touch. Drifts back to sleep. No c/o pain. States she feels tired this morning. Objective: I&O/Vital Signs Vital Sign - Last 12Hours 05/26/17 05/26/17 05/26/17 05/26/17 02:20 04:07 04:20 07:05 Temp 97.8 Pulse 55 43 68 Resp 18 17 20 B/P (MAP) 151/77 (101) Pulse Ox 95 95 97 91 O2 Delivery NIV Bilevel Vapotherm O2 Flow Rate 40.00 40.00 40.00 25.00 12.00 FiO2 70 05/26/17 05/26/17 05/26/17 05/26/17 08:00 08:00 08:35 10:16 Temp 98.2 Pulse 57 Resp 22 B/P (MAP) 148/73 (98) Pulse Ox 97 90 88 O2 Delivery Vapotherm NIV Bilevel Vapotherm Vapotherm O2 Flow Rate 25.00 40.00 25.00 25.00 12.00 FiO2 70 70 70 05/26/17 05/26/17 12:00 12:58 Temp 98.0 Pulse 68 Resp 20 B/P (MAP) 135/82 (99) Pulse Ox 97 89 O2 Delivery NIV Bilevel Vapotherm O2 Flow Rate 40.00 25.00 12.00 FiO2 70 Intake and Output 05/26/17 00:00 Intake Total 600 ml Output Total 1875 ml Balance -1275 ml Weight (Pounds): 187 Weight (Ounces): 4.0 Weight (Calculated Kilograms): 84.256390 Constitutional: well-developed, well-nourished, other (appears weak and tired ) Respiratory: No accessory muscle use, other (fair bilat air entry; diminshed at the bases) Cardiovascular: regular rate-rhythm, S1 and S2, systolic murmur (faint TRICIA at card base) Gastrointestional: No tender, soft, No guarding, No rebound, audible bowel sounds Extremities: No clubbing, No cyanosis, No significant edema Neurologic/Psychiatric: other (appears alert and oriented and is able to move all limbs equally) Skin: No rash on exposed areas, No ulcerations on exposed areas Results/Procedures: Labs Laboratory Tests 05/25/17 16:11: Glucometer 269H 05/25/17 20:16: Glucometer 304H 05/26/17 00:18: Glucometer 302H 05/26/17 04:12: Glucometer 240H 05/26/17 08:20: White Blood Count 8.7, Red Blood Count 3.54L, Hemoglobin 9.1L, Hematocrit 29L, Mean Corpuscular Volume 82, Mean Corpuscular Hemoglobin 26, Mean Corpuscular Hemoglobin Concent 31L, Red Cell Distribution Width 16.9H, Platelet Count 381, Mean Platelet Volume 8.6, Neutrophils (%) (Auto) 88H, Lymphocytes (%) (Auto) 8L , Monocytes (%) (Auto) 3, Eosinophils (%) (Auto) 0, Basophils (%) (Auto) 0, Neutrophils # (Auto) 7.7, Lymphocytes # (Auto) 0.7L, Monocytes # (Auto) 0.3, Eosinophils # (Auto) 0.0, Basophils # (Auto) 0.0, Neutrophils % (Manual) 89, Lymphocytes % (Manual) 5, Monocytes % (Manual) 0, Eosinophils % (Manual) 0, Basophils % (Manual) 1, Metamyelocytes % 1, Myelocytes % 1, Band Neutrophils 3, Polychromasia SLIGHT, Anisocytosis SLIGHT, Elliptocytes SLIGHT, Sodium Level 145 , Potassium Level 4.6, Chloride Level 113H, Carbon Dioxide Level 23, Anion Gap 9 , Blood Urea Nitrogen 20H, Creatinine 0.75, Estimat Glomerular Filtration Rate > 60, BUN/Creatinine Ratio 27, Glucose Level 202H, Calcium Level 9.1, Phosphorus Level 2.3, Magnesium Level 2.3, B-Type Natriuretic Peptide 1056.6H 05/26/17 08:52: Glucometer 424*H 05/26/17 11:50: Glucometer 316H Microbiology 05/22/17 Blood Culture - Preliminary, Resulted No growth 05/22/17 MRSA Screen - Final, Complete MRSA not isolated A/P: Assessment: Pneumonia with septicemia Spontaneous coagulopathy on 05/22/17, probably on account of nutritional deficiencies Chronic anemia, etiology undetermined, managed by Dr Stas Beck mildly elevated on 05/24/17 H/o recurrent URI and UTI, being managed by her pcp Sleep apnea being treated with C-PAP therapy (14 cm H2O). Post Ventricular Fibrillation Arrest due to acute myocardial infarction with anterior ST elevation, Cardiogenic shock, on 06/01/15 CAD. Last card cath on 06-01-[address] Lucero: MARYANA done to the mid LAD with a Resolute 2.25 x 26mm stent; left cx without significant disease; RCA - severe prox stenosis with ROMA 3 flow; LVEF 10-15% per cardiac cath by Dr. Lucero. Prior cardiac catheterization was in August 2007 and it showed that previous sites of cutting balloon angioplasty in the mid and distal left anterior descending artery were widely patent and free of significant disease; a new 70% stenosis in a terminal obtuse marginal artery which was successfully stented with Taxus 3 x 12-mm stent; severe mid-vessel disease of the right coronary, but right coronary artery is not ideally suited to intervention because of a small vessel caliber. Ac NSTEMI in late Feb 2017, treated conservatively per patient request Chronic diast/systolic CHF - clinically compensated PAF On dabigatran for stroke prophylaxis and clopidogrel for CAD and cor stenting done in May 2015. Therefore, is not suitable for continuing aspirin therapy ( because of markedly increased risk of bleeding if all three agents are to be continued) Pulmonary hypertension. Pulmonary artery systolic pressure was estimated to be 80 millimeters of mercury on echocardiogram of January 2012. This is probably related to chronic diastolic congestive heart failure. Repeat echof 10/27/13 showed LVEF 60%, mod TR, mild MR and AI and PASP 50-55 mmHg (improved compared to Jan 2012). Most recent echo of 03/04/16 showed LVEF 60%, mitral annular calcification without evidence of significant valvular stenosis. Mild MR and TR. PASP approx 35-40mmHg History of intermittent gastrointestinal bleeding. She has had removal of a polyp and hemorrhoidectomy by Dr. Mo in 2011 with cessation of bleeding since Intolerance to statins Multiple cerebrovascular accidents, the last one of which was a probable cerebellar stroke in 2012 which resulted in poor balance Multiple medication intolerances. H/o hypertension Degenerative joint disease and backache Hypothyroidism being treated with thyroid replacement therapy. Maturity onset diabetes mellitus. Mild to mod carotid arterial disease on ultrasonography of 01/28/16 Chronic nocturnal leg cramps WISHES TO BE MANAGED CONSERVATIVELY ONLY Plan: * Multiple comorbidities render management complex * Monitor labs, including dig level Physician Assessment Physician Assessment More alert than before. Reports gen malaise and weakness and some shortness of breath. No cp or palp or syncope Lungs: fair air entry, diminished at the bases Cor: reg Ext: mild edema or upper ext A&R * As documented in our note above that I updated (italics) and as noted below * Continue current card regimen * Prognosis guarded to poor * Monitor labs JESÚS HUTCHINSON PATTERN ILLUSTRATOR May 26, 2017 10:18 DERRICK CASTILLO MD FACP FAC CCDS May 26, 2017 13:19
[2017-05-26 12:00] VITALS: BP 135/82
--- NOTE | 2017-05-26 12:03 | Progress Note-Hospitalist ---
Progress Note HPI/CC on Admission CC: Bilateral pneumonia and volume overload with ARF in Hospice patient HPI: This is an 82-year-old white female with very complex medical problems for the last several years most recent was 3 years ago when major cardiac complications occur resulting in multiple stents placed and has been in heart failure and pneumonia hospitalizations multiple times since that time. She most recently resided in [facility] on hospice but revoked her hospice last night to seek care for this acute illness. She reports that her shortness of breath and wheezing worsened to the point she decided she needed to go to the ER even though she was placed on Levaquin and appropriate medication by Dr. Martell her primary care provider. I spoke with Dr. Martell who has talked her multiple times about end-of-life care but still continues to seek definitive care to help prolong her life even though her quality of life in a us[facility] is not ideal she reports. She is been in and out of the [facility] back and forth from home many times the last couple years. She refuses to go to [facility] where her primary care provider retains hospital privileges so she is always hospitalized on the hospitalist service to [facility]. She was found to have congestive heart failure, pneumonia, acute renal failure and just overall significant decline so she was admitted placed on appropriate antibiotics cardiology was consulted and is maintained in the ICU at this current time. Progress Notes/Assess & Plan Date Seen 05/26/17 Time Seen by Provider: 11:30 Admission Dx/Process Assessment: Bilateral pneumonia with sepsis Volume overload with history of congestive heart failure Chronic atrial fibrillation on anticoagulations for stroke prophylaxis Chronic insomnia Acute on chronic renal insufficiency Chronic debility requiring [facility] placement and hospice of which she is revoked hospice to enable her to be admitted to hospital diabetes mellitus Chronic iron deficiency anemia with anemia of chronic disease Diagonsis/Assessment & Plan Dr Vazquez restarted IV steroids Checked meds and labs Overall severe decline Eating and had a small BM Overall poor prognosis No fever, chronically ill, very debilitated, BiPAP intact, can't communicate well, worsened Irregular irregular rhythm Coarse breath sounds all [place]anson supine exam only on BiPAP No edema Laboratory Tests 05/26/17 08:20 Assessment: Bilateral pneumonia with sepsis Volume overload with history of congestive heart failure Chronic atrial fibrillation on anticoagulations for stroke prophylaxis Chronic insomnia Acute on chronic renal insufficiency Chronic debility requiring [facility] placement and hospice of which she is revoked hospice to enable her to be admitted to hospital diabetes mellitus Chronic iron deficiency anemia with anemia of chronic disease Plan: Empiric antibiotics of meropenem due to ESBL in the past Nebulas treatments Oxygen DO NOT RESUSCITATE Patient continues to be a hospice candidate Monitor creatinine Reconcile all home meds BiPAP status at times but patient has more and more declined as the days passed and prognosis is extremely poor DARNELL HISRCH DO May 26, 2017 12:03
--- NOTE | 2017-05-26 14:27 | Occupational Ther Daily Note ---
OT Current Status-Daily Note Subjective Pt lying in bed and alert. Pt's son in room. Pt agreed to therapy. Vapotherm 25L. Mental Status/Objective Patient Orientation: Person, Place, Time, Situation Functional [place] Measure 0=Not Assessed/NA 4=Minimal Assistance 1=Total Assistance 5=Supervision or Setup 2=Maximal Assistance 6=Modified [place] 3=Moderate Assistance 7=Complete [place] Other Treatment Pt completed 6 UE exercises without resistance, 3 sets 5 reps each. Increased time for recovery between sets. Pt tolerated well. Pt did stated that the exercises tired her out. After therapy, nrsg in room. Call light/phone in reach. All needs met in room. OT Short Term Goals Short Term Goals Transfers (B,C,W/C) (FIM): 4 1=Demonstrate adherence to instructed precautions during ADL tasks. 2=Patient will verbalize/demonstrate understanding of assistive devices/ modifications for ADL. 3=Patient will improve strength/tolerance for activity to enable patient to perform ADL's. OT Care Home Goals Care Home Goals Time Frame: Jun 01, 2017 Eating (FIM): 5 Grooming(FIM): 5 Upper Body Dressing(FIM): 4 Lower Body Dressing(FIM): 3 Toileting(FIM): 3 Toilet/Commode Transfer(FIM): 3 Decrease edema as measured by increased functional use bilat UEs Additional Goals: 2-Verbalize Understanding, 3-ImproveStrength/Cindy 1=Demonstrate adherence to instructed precautions during ADL tasks. 2=Patient will verbalize/demonstrate understanding of assistive devices/ modifications for ADL. 3=Patient will improve strength/tolerance for activity to enable patient to perform ADL's. OT Education/Plan Problem List/Assessment Pt would benefit from skilled OT to increase her independence in basic self care and to decrease edema in UEs to help with ADLs. Discharge Recommendations Plan/Recommendations: Continue POC Treatment Plan/Plan of Care Patient would benefit from OT for education, treatment and training to promote independence in ADL's, mobility, safety and/or upper extremity function for ADL' s. Plan of Care: ADL Retraining, Functional Mobility, UE Funct Exercise/Act, UE Neuromus Re-Ed/Coord, OTHER (edema management as tolerated) Treatment Duration: Jun 01, 2017 Frequency: 5 times per week Estimated Hrs Per Day: .5 hour per day Agreement: Yes Rehab Potential: Fair Time/GCodes Start Time: 14:00 Stop Time: 14:17 Total Time Billed (hr/min): 17 Billed Treatment Time 1 visit-EX 1 (17 min) LEONA SOLANO May 26, 2017 14:27
[2017-05-26 16:00] VITALS: BP 147/60
[2017-05-26 19:47] VITALS: BP 160/68
[2017-05-26] MEDS: ROTIGOTINE TD SCH (20:07)
[2017-05-26] MEDS: DIAZEPAM 5 MG (VALIUM) TABLET PO SCH (20:08)
[2017-05-26] MEDS: [UNRECOGNIZED DRUG - REMARK] TP SCH (20:08)
[2017-05-26] MEDS: ZOLPIDEM 5 MG (AMBIEN) TAB PO SCH (20:08)
[2017-05-27] VITALS: BP 149/71
[2017-05-27] MEDS: RT-ALBUTEROL/IPRATROPIUM 3 ML (DUONEB) VIAL INH SCH ×4 (00:08→06:15)
[2017-05-27] MEDS: inSUlin ASPART (NovoLOG) 1 UNIT/0.01 ML (CHARGE PER UNIT) SC SCH ×4 (00:10→12:39)
[2017-05-27] MEDS: methylPREDNISolone 40 MG/ML (Solu-MEDROL) VIAL IV SCH ×3 (02:20→12:39)
[2017-05-27 04:00] VITALS: BP 148/55
[2017-05-27 06:21] LABS: BASOPHILS % (AUTO) 0 % (0-10); EOSINOPHILS % (AUTO) 0 % (0-10); HEMATOCRIT 28 % (35-52); LYMPHOCYTES # (AUTO) 0.7 X 10^3 (1.0-4.0); LYMPHOCYTES % (AUTO) 6 % (12-44); MEAN CORPUSCULAR HEMOGLOBIN 26 PG (25-34); MEAN CORPUSCULAR HGB CONC 32 G/DL (32-36); MEAN CORPUSCULAR VOLUME 82 FL (80-99); MEAN PLATELET VOLUME 8.7 FL (7.4-10.4); MONOCYTES # (AUTO) 0.4 X 10^3 (0.0-1.0); MONOCYTES % (AUTO) 3 % (0-12); NEUTROPHILS # (AUTO) 10.2 X 10^3 (1.8-7.8); NEUTROPHILS % (AUTO) 90 % (42-75); PLATELET COUNT 423 10^3/uL (130-400); RED BLOOD COUNT 3.47 10^6/uL (4.35-5.85); RED CELL DISTRIBUTION WIDTH 16.9 % (10.0-14.5); WHITE BLOOD COUNT 11.3 10^3/uL (4.3-11.0)
[2017-05-27] MEDS: LEVOTHYROXINE 75 MCG (LEVOTHROID) TABLET PO SCH (06:29)
[2017-05-27 06:41] LABS: BUN/CREATININE RATIO 34; CALCIUM 9.1 MG/DL (8.5-10.1); CARBON DIOXIDE 22 MMOL/L (21-32); CHLORIDE 108 MMOL/L (98-107); CREATININE SERUM 0.77 MG/DL (0.60-1.30); GFR ESTIMATED > 60; GLUCOSE 191 MG/DL (70-105); MAGNESIUM 2.3 MG/DL (1.8-2.4); PHOSPHORUS 2.5 MG/DL (2.3-4.7); POTASSIUM 4.8 MMOL/L (3.6-5.0); SODIUM 141 MMOL/L (135-145)
[2017-05-27 06:51] LABS: DIGOXIN 0.61 NG/ML (0.80-2.00)
--- NOTE | 2017-05-27 07:07 | Diagnostic Imaging Report ---
Indication: Respiratory failure Portable chest 5:35 AM There is a small left pleural effusion. There may be some left basilar infiltrate or atelectasis. Right lung is clear. Impression: Left effusion with some residual left basilar infiltrate or atelectasis. No significant change compared to the previous day. Dictated by: Dictated on workstation # [id number]
--- NOTE | 2017-05-27 07:09 | Pulmonary Progress Note ---
Subjective Time Seen by Provider: 07:07 Subjective/Events-last exam Pt is doing much better today. No complications noted. Exam Exam Vital Signs Date Time Temp Pulse Resp B/P (MAP) Pulse Ox O2 Delivery O2 Flow Rate FiO2 05/27/17 06:19 93 Vapotherm 20.00 35 05/27/17 04:00 96.0 59 18 148/55 (86) 97 NIV Bilevel 30.00 05/27/17 03:47 65 13 96 35.00 05/27/17 01:59 59 27 95 40.00 05/27/17 00:08 77 18 97 40.00 05/27/17 00:00 98.8 61 18 149/71 (97) 97 NIV Bilevel 40.00 05/26/17 21:21 68 22 95 40.00 05/26/17 20:00 Vapotherm 20.00 60 05/26/17 19:47 98.1 89 20 160/68 (98) 93 NIV Bilevel 60.00 20.00 05/26/17 18:44 95 Vapotherm 20.00 60 05/26/17 16:00 97.8 54 16 147/60 (89) 96 NIV Bilevel 60.00 20.00 05/26/17 15:15 96 Vapotherm 25.00 70 05/26/17 12:58 89 Vapotherm 25.00 70 05/26/17 12:00 98.0 68 20 135/82 (99) 97 NIV Bilevel 40.00 12.00 05/26/17 10:16 88 Vapotherm 25.00 70 05/26/17 08:35 90 Vapotherm 25.00 70 05/26/17 08:00 98.2 57 22 148/73 (98) 97 NIV Bilevel 40.00 12.00 05/26/17 08:00 Vapotherm 25.00 70 I & O 05/27/17 07:00 Intake Total 2040 ml Output Total 1525 ml Balance 515 ml General Appearance: No Apparent Distress, WD/WN, Chronically ill, Other ( appearing more declined and thinner since last assessed) HEENT: PERRL/EOMI, Normal ENT Inspection, Pharynx Normal Neck: Full Range of Motion, Normal Inspection, Non Tender, Supple, Carotid Bruit Respiratory: Chest Non Tender, No Accessory Muscle Use, No Respiratory Distress , Crackles, Decreased Breath Sounds, Wheezing Cardiovascular: No Edema, No Gallop, No JVD, No Murmur, Normal Peripheral Pulses, Irregularly Irregular, Tachycardia Capillary Refill: Less Than 3 Seconds Peripheral Pulses: 2+ Radial Pulses (R) Extremity: Normal Capillary Refill, Normal Inspection, Normal Range of Motion, Non Tender, No Calf Tenderness, No Pedal Edema Neurologic/Psychiatric: Alert, Oriented x3, No Motor/Sensory Deficits, Depressed Affect Skin: Normal Color, Warm/Dry Lymphatic: No Adenopathy Results Lab Laboratory Tests 05/26/17 08:20 05/27/17 06:02 Assessment/Plan Assessment/Plan Acute Respiratory failure with pulmonary edema -BiPAP PRN -PT is a DNR -Solumedrol -Titrate oxygen -Cont Lasix Pneumonia - resolving -D/c Merrem. No leukocytosis and no fevers Metabolic lactic acidosis- improved -IVF -- stop -Monitor for pulmonary edema Morbid obesity Pt is doing much better today. Continue to wean oxygen and I am going to repeat Lasix X 1. 232 Clinical Quality Measures DVT/VTE Risk/Contraindication: Risk Factor Score Per Nursin RFS Level Per Nursing on Admit: 4+=Very High FREDERICK SEN DO May 27, 2017 07:09
[2017-05-27] MEDS ORDERED: FUROSEMIDE 40 MG/4 ML INJ (LASIX) IVP NR (07:15)
[2017-05-27 07:32] VITALS: BP 157/61
--- NOTE | 2017-05-27 08:56 | Progress Note-Cardiology ---
Cardiology SOAP Progress Note Subjective: More alert this morning. Smiling and talkative. No c/o CP. Feels breathing is much better today. Objective: I&O/Vital Signs Vital Sign - Last 12Hours 05/27/17 05/27/17 05/27/17 05/27/17 03:47 04:00 06:19 07:32 Temp 96.0 97.2 Pulse 65 59 98 Resp 13 18 22 B/P (MAP) 148/55 (86) 157/61 (93) Pulse Ox 96 97 93 95 O2 Delivery NIV Bilevel Vapotherm NIV Bilevel O2 Flow Rate 35.00 30.00 20.00 35.00 20.00 FiO2 35 05/27/17 05/27/17 05/27/17 05/27/17 08:00 08:20 08:22 10:44 Pulse 68 Pulse Ox 92 92 92 92 O2 Delivery Nasal Cannula Nasal Cannula Nasal Cannula O2 Flow Rate 5.00 5.00 5.00 FiO2 88 05/27/17 12:00 Temp 97.0 Pulse 64 Resp 20 B/P (MAP) 187/67 (107) Pulse Ox 96 O2 Delivery Nasal Cannula O2 Flow Rate 5.00 Intake and Output 05/27/17 00:00 Intake Total 1540 ml Output Total 1525 ml Balance 15 ml Weight (Pounds): 197 Weight (Ounces): 4.2 Weight (Calculated Kilograms): 89.637433 Constitutional: well-developed, well-nourished, other (appears weak and tired ) Respiratory: No accessory muscle use, other (fair bilat air entry; diminshed at the bases) Cardiovascular: regular rate-rhythm, S1 and S2, systolic murmur (faint TRICIA at card base) Gastrointestional: No tender, soft, No guarding, No rebound, audible bowel sounds Extremities: No clubbing, No cyanosis, no lower extremity edema bilateral, No significant edema Neurologic/Psychiatric: grossly intact Skin: No rash on exposed areas, No ulcerations on exposed areas Results/Procedures: Labs Laboratory Tests 05/26/17 16:12: Glucometer 307H 05/26/17 19:59: Glucometer 365H 05/27/17 00:03: Glucometer 325H 05/27/17 04:32: Glucometer 199H 05/27/17 06:02: White Blood Count 11.3H, Red Blood Count 3.47L, Hemoglobin 9.0L, Hematocrit 28L , Mean Corpuscular Volume 82, Mean Corpuscular Hemoglobin 26, Mean Corpuscular Hemoglobin Concent 32, Red Cell Distribution Width 16.9H, Platelet Count 423H, Mean Platelet Volume 8.7, Neutrophils (%) (Auto) 90H, Lymphocytes (%) (Auto) 6L , Monocytes (%) (Auto) 3, Eosinophils (%) (Auto) 0, Basophils (%) (Auto) 0, Neutrophils # (Auto) 10.2H, Lymphocytes # (Auto) 0.7L, Monocytes # (Auto) 0.4, Eosinophils # (Auto) 0.0, Basophils # (Auto) 0.0, Sodium Level 141, Potassium Level 4.8, Chloride Level 108H, Carbon Dioxide Level 22, Anion Gap 11, Blood Urea Nitrogen 26H, Creatinine 0.77, Estimat Glomerular Filtration Rate > 60, BUN /Creatinine Ratio 34, Glucose Level 191H, Calcium Level 9.1, Phosphorus Level 2.5, Magnesium Level 2.3, Digoxin Level 0.61L 05/27/17 07:37: Glucometer 181H 05/27/17 12:24: Glucometer 372H Microbiology 05/22/17 Blood Culture - Preliminary, Resulted No growth 05/22/17 MRSA Screen - Final, Complete MRSA not isolated Laboratory Tests 05/26/17 08:20 05/27/17 06:02 Procedures NAME: ANIA AGUIRRE REC#: [id number] PT STATUS: ADM IN : 1935 PHYSICIAN: FREDERICK SEN DO ADMIT DATE: 05/22/17 Signed Date of Exam: 05/27/17 CHEST 1 VIEW, AP/PA ONLY Indication: Respiratory failure Portable chest 5:35 AM There is a small left pleural effusion. There may be some left basilar infiltrate or atelectasis. Right lung is clear. Impression: Left effusion with some residual left basilar infiltrate or atelectasis. No significant change compared to the previous day. Dictated by: Dictated on workstation # [id number] Dict: 05/27/17 07 Trans: 05/27/17 07 Interpreted by: ANNE MIX MD Electronically signed by: ANNE MIX MD 05/27/17 0705 A/P: Assessment: Pneumonia with septicemia Spontaneous coagulopathy on 05/22/17, probably on account of nutritional deficiencies Chronic anemia, etiology undetermined, managed by Dr Stas Beck mildly elevated on 05/24/17 H/o recurrent URI and UTI, being managed by her pcp Sleep apnea being treated with C-PAP therapy (14 cm H2O). Post Ventricular Fibrillation Arrest due to acute myocardial infarction with anterior ST elevation, Cardiogenic shock, on 06/01/15 CAD. Last card cath on 06-01-[address] Lucero: MARYANA done to the mid LAD with a Resolute 2.25 x 26mm stent; left cx without significant disease; RCA - severe prox stenosis with ROMA 3 flow; LVEF 10-15% per cardiac cath by Dr. Lucero. Prior cardiac catheterization was in August 2007 and it showed that previous sites of cutting balloon angioplasty in the mid and distal left anterior descending artery were widely patent and free of significant disease; a new 70% stenosis in a terminal obtuse marginal artery which was successfully stented with Taxus 3 x 12-mm stent; severe mid-vessel disease of the right coronary, but right coronary artery is not ideally suited to intervention because of a small vessel caliber. Ac NSTEMI in late Feb 2017, treated conservatively per patient request Chronic diast/systolic CHF - clinically compensated PAF On dabigatran for stroke prophylaxis and clopidogrel for CAD and cor stenting done in May 2015. Therefore, is not suitable for continuing aspirin therapy ( because of markedly increased risk of bleeding if all three agents are to be continued) Pulmonary hypertension. Pulmonary artery systolic pressure was estimated to be 80 millimeters of mercury on echocardiogram of January 2012. This is probably related to chronic diastolic congestive heart failure. Repeat echof 10/27/13 showed LVEF 60%, mod TR, mild MR and AI and PASP 50-55 mmHg (improved compared to Jan 2012). Most recent echo of 03/04/16 showed LVEF 60%, mitral annular calcification without evidence of significant valvular stenosis. Mild MR and TR. PASP approx 35-40mmHg History of intermittent gastrointestinal bleeding. She has had removal of a polyp and hemorrhoidectomy by Dr. Mo in 2011 with cessation of bleeding since Intolerance to statins Multiple cerebrovascular accidents, the last one of which was a probable cerebellar stroke in 2011 which resulted in poor balance Multiple medication intolerances. H/o hypertension Degenerative joint disease and backache Hypothyroidism being treated with thyroid replacement therapy. Maturity onset diabetes mellitus. Mild to mod carotid arterial disease on ultrasonography of 01/28/16 Chronic nocturnal leg cramps WISHES TO BE MANAGED CONSERVATIVELY ONLY Plan: * Multiple comorbidities making management complex * IV Lasix given today per pulmonary services * Continue current medication regimen * Monitor lab Physician Assessment Physician Assessment Sitting in chair. Notes improvement of symptoms. Reports gen malaise and weakness and some shortness of breath. No cp or palp or syncope Lungs: fair air entry, diminished at the bases Cor: reg Ext: mild edema or upper ext A&R * As documented in our note above that I updated (italics) and as noted below * Continue current card regimen * Prognosis guarded * Monitor labs JESÚS HUTCHINSON May 27, 2017 08:56 DERRICK CASTILLO MD FACP FAC CCDS May 27, 2017 15:37
[2017-05-27] MEDS ORDERED: meTOprolol SUCCINATE 100 MG (TOPROL XL) TAB PO SCH (09:00)
[2017-05-27] MEDS: SENNOSIDES 8.6 MG (SENOKOT) TAB PO SCH (09:24)
[2017-05-27] MEDS: lisINopril 10 MG (PRINIVIL) TAB PO SCH (09:24)
[2017-05-27] MEDS: DABIGATRAN 75 MG (PRADAXA) CAPSULE PO SCH (09:24)
[2017-05-27] MEDS: GABAPENTIN 300 MG (NEURONTIN) CAP PO SCH (09:24)
[2017-05-27] MEDS: DOCUSATE SODIUM 100 MG (COLACE) CAP PO SCH (09:24)
[2017-05-27] MEDS: amLODIPine 10 MG (NORVASC) TAB PO SCH (09:24)
[2017-05-27] MEDS: ASPIRIN 81 MG CHEW (CHILDREN'S ASA) PO SCH (09:24)
[2017-05-27] MEDS: DIGOXIN 0.125 MG (LANOXIN) TAB PO SCH (09:24)
[2017-05-27] MEDS: FLUTICASONE NASAL SPRAY (FLONASE) 16 GM BTL NS SCH (09:31)
[2017-05-27] MEDS ORDERED: RT-ALBUTEROL/IPRATROPIUM 3 ML (DUONEB) VIAL INH SCH (10:00)
--- NOTE | 2017-05-27 10:47 | Physical Therapy Daily Note ---
PT Daily Note-Current Subjective Patient agrees to PT. Pain Numeric Pain Scale: 0-No Pain Location: No Pain Reported Mental Status Patient Orientation: Normal For Age Attachments: Oxygen, Gordon Catheter Transfers Functional [place] Measure 0=Not Assessed/NA 4=Minimal Assistance 1=Total Assistance 5=Supervision or Setup 2=Maximal Assistance 6=Modified [place] 3=Moderate Assistance 7=Complete IndependenceIRFPAI Quality Coding Scale 6 Independent with activity with or without an assistive device 5 Patient requires set up or clean up by helper. Patient completes activity by themselves 4 Supervision or touching assist (CGA). [place] provide cues , steadying assist 3 The helper provides less than half the effort to complete the activity 2 The helper provides more than half the effort to complete the activity 1 Dependent. The helper does all the effort to complete an activity 7 Patient refused to complete or attempt activity 9 The patient did not perform the activity before the current illness or injury 88 Not attempted due to Medical conditions or safety concerns Transfers (B, C, W/C) (FIM): 4 Scootin Rollin Supine to/from Sit: 5 Sit to/from Stand: 4 Bed to/from Chair: 4 CGA with use of gait belt for safety x 3 sets with patient improving with each attempt Weight Bearing Right Lower Extremity: Right Weight Bearing/Tolerated Left Lower Extremity: Left Weight Bearing/Tolerated Gait Training Gait (FIM): 1 Distance (FIM): 1=up to 49 ft Distance: 8' Gait Level of Assist: 4 Gait Persons Needed: 1 Gait Assistive Device: FWW shuffle gait sequence Exercises Seated Therapy Exercises: Ankle pumps, Long arc quads Seated Reps: 15 Assessment Patient requires time to complete all functional tasks. Patient is up in recliner with needs met. PT Short Term Goals Short Term Goals Time Frame: Jun 02, 2017 Transfers (B,C,W/C) (FIM): 4 Gait (FIM): 1 Gait Distance Comment: 20' Gait Level of Assist: 4 Gait Assistive Device: FWW PT Plan Treatment/Plan Treatment Plan: Continue Plan of Care Treatment Plan: Bed Mobility, Education, Functional Activity Cindy, Functional Strength, Gait, Safety, Therapeutic Exercise, Transfers Treatment Duration: Jun 02, 2017 Frequency: 6 times per week Estimated Hrs Per Day: .25 hour per day (15-30') Patient and/or Family Agrees t: Yes Time/GCodes Time In: 920 Time Out: 943 Total Billed Treatment Time: 23 Total Billed Treatment 1 visit FA x 2 23 min PREETI OVALLE PT May 27, 2017 10:47
--- NOTE | 2017-05-27 10:52 | Occupational Ther Daily Note ---
OT Current Status-Daily Note Subjective Pt alert, sitting in recliner. Pt agreed to therapy. No c/o pain at this time. Pt on O2 at 5L. Mental Status/Objective Patient Orientation: Person, Place, Time, Situation Functional [place] Measure 0=Not Assessed/NA 4=Minimal Assistance 1=Total Assistance 5=Supervision or Setup 2=Maximal Assistance 6=Modified [place] 3=Moderate Assistance 7=Complete [place] Attachments: Gordon Catheter, Oxygen ADL-Treatment Pt agreed to sponge bath. After set up, pt able to complete upper body bathing and donned/doffed hospital gown. Pt unable to reach to feet to wash or don/ doff socks. Pt then required mod A to stand and assist to cleanse corinna area and buttocks. Pt unable to stay in standing for long and melted to chair slowly. Chair moved closer to bed for a stand pivot transfer. Nrsg in room and assisted with transfer for safety. Mod A to max A for stand pivot transfer x2, pt's legs shuffled, unable to straighten legs during transfer and began to melt though was able to get to EOB. Assist x2 to go from supine to sitting EOB then to supine. Assist to scoot up in bed. After therapy, pt lying in bed on R side, respiratory with pt in room. All needs met in room. Bathing (FIM): 3 Bathing Location: L Arm, R Arm, L Upper Leg, R Upper Leg, Chest, Abdomen Lower Body Dressing (FIM): 2 OT Short Term Goals Short Term Goals Transfers (B,C,W/C) (FIM): 4 1=Demonstrate adherence to instructed precautions during ADL tasks. 2=Patient will verbalize/demonstrate understanding of assistive devices/ modifications for ADL. 3=Patient will improve strength/tolerance for activity to enable patient to perform ADL's. OT Intermediate Goals Intermediate Goals Time Frame: Jun 01, 2017 Eating (FIM): 5 Grooming(FIM): 5 Upper Body Dressing(FIM): 4 Lower Body Dressing(FIM): 3 Toileting(FIM): 3 Toilet/Commode Transfer(FIM): 3 Decrease edema as measured by increased functional use bilat UEs Additional Goals: 2-Verbalize Understanding, 3-ImproveStrength/Cindy 1=Demonstrate adherence to instructed precautions during ADL tasks. 2=Patient will verbalize/demonstrate understanding of assistive devices/ modifications for ADL. 3=Patient will improve strength/tolerance for activity to enable patient to perform ADL's. OT Education/Plan Problem List/Assessment Pt would benefit from skilled OT to increase her independence in basic self care and to decrease edema in UEs to help with ADLs. Discharge Recommendations Plan/Recommendations: Continue POC Treatment Plan/Plan of Care Patient would benefit from OT for education, treatment and training to promote independence in ADL's, mobility, safety and/or upper extremity function for ADL' s. Plan of Care: ADL Retraining, Functional Mobility, UE Funct Exercise/Act, UE Neuromus Re-Ed/Coord, OTHER (edema management as tolerated) Treatment Duration: Jun 01, 2017 Frequency: 5 times per week Estimated Hrs Per Day: .5 hour per day Agreement: Yes Rehab Potential: Fair Time/GCodes Start Time: 09:54 Stop Time: 10:00 Total Time Billed (hr/min): 44 Billed Treatment Time 1 visit-ADL 3 (44 min) LEONA SOLANO May 27, 2017 10:52
[2017-05-27] MEDS ORDERED: PRED10TA22 PO (11:35)
[2017-05-27] MEDS ORDERED: ASPI-999 PO (11:35)
--- NOTE | 2017-05-27 11:38 | Discharge Summary-Hospitalist ---
Diagnosis/Chief Complaint Date of Admission May 22, 2017 at 21:09 Date of Discharge Discharge Date: May 27, 2017 Admission Diagnosis Assessment: Bilateral pneumonia with sepsis Volume overload with history of congestive heart failure Chronic atrial fibrillation on anticoagulations for stroke prophylaxis Chronic insomnia Acute on chronic renal insufficiency Chronic debility requiring prison placement and hospice of which she is revoked hospice to enable her to be admitted to hospital diabetes mellitus Chronic iron deficiency anemia with anemia of chronic disease Discharge Diagnosis Assessment: Bilateral pneumonia with sepsis Volume overload with history of congestive heart failure Chronic atrial fibrillation on anticoagulations for stroke prophylaxis Chronic insomnia Acute on chronic renal insufficiency Chronic debility requiring prison placement and hospice of which she is revoked hospice to enable her to be admitted to hospital diabetes mellitus Chronic iron deficiency anemia with anemia of chronic disease Plan: Empiric antibiotics of meropenem due to ESBL in the past Nebulas treatments Oxygen DO NOT RESUSCITATE Patient continues to be a hospice candidate Monitor creatinine Reconcile all home meds BiPAP status at times but patient has more and more declined as the days passed and prognosis is extremely poor Discharge Summary Discharge Physical Examination Allergies: Coded Allergies: iodine (Verified Allergy, Severe, BLISTERS, 12/13/13) neomycin (Verified Allergy, Severe, SWELLING, PAIN, RASH, ITCHING, 12/13/13 ) THIS WAS ADMINISTERED AN EAR DROP, EARS AND HEAD SWELLED AND TURNED RED CAUSING PAIN AND RASH WITH ITCHING cephalexin (Unverified Allergy, Mild, 08/19/08) phenylalanine (Verified Allergy, Mild, 04/25/16) pregabalin (Verified Allergy, Mild, SWELLING AND WEIGHT GAIN, 12/13/13) brompheniramine (Verified Allergy, Unknown, VISION PROBLEMS, 12/13/13) dextromethorphan (Verified Allergy, Unknown, 03/30/06) penicillin G (Verified Allergy, Unknown, RASH, 12/13/13) phenylpropanolamine (Verified Allergy, Unknown, 03/30/06) pseudoephedrine (Verified Allergy, Unknown, 03/30/06) simvastatin (Verified Allergy, Unknown, EXTREME WEAKNESS AND PAIN IN LEGS , 12/13/13) sulfamethoxazole (Verified Allergy, Unknown, 03/03/16) thimerosal (Verified Allergy, Unknown, RASH WITH PAIN AND ITCHING, 12/13/13 ) trimethoprim (Verified Allergy, Unknown, 03/03/16) codeine (Verified Adverse Reaction, Mild, TRIPLE VISION, 06/05/15) hydrocodone (Verified Adverse Reaction, Mild, VISION PROBLEMS, 06/05/15) Uncoded Allergies: TAPE (Allergy, Unknown, RASH, 12/13/13) Vitals & I&Os Vital Signs Date Time Temp Pulse Resp B/P (MAP) Pulse Ox O2 Delivery O2 Flow Rate FiO2 05/27/17 10:44 92 Nasal Cannula 5.00 05/27/17 08:22 68 05/27/17 07:32 97.2 22 157/61 (93) 05/27/17 06:19 35 Hospital Course Note from 05/27/17: Patient ready to go to prison and hospice reinstated. Breathing well and everything we can modify and improve has been done so I recommend maintain DO NOT RESUSCITATE status and go back to the prison on hospice. I did update her primary care provider Dr. Martell. Patient overall ready for discharge but poor prognosis remains and she appears to be very frail and very significantly declined since last seen. Hospital course: Patient had a standard hospital course admitted for empiric antibiotics for bilateral pneumonia and fluid overload. Cardiology was consulted along with pulmonology and aggressive care ensued since she had revoked hospice to be admitted for treatment of acute illness that had failed Levaquin. Meropenem was initiated due to ESBL status in the past and labs remained stable but overall prognosis is extremely poor and I foresee imminent within the next 3 months. Labs (last 24 hrs) Laboratory Tests 05/26/17 11:50: Glucometer 316H 05/26/17 16:12: Glucometer 307H 05/26/17 19:59: Glucometer 365H 05/27/17 00:03: Glucometer 325H 05/27/17 04:32: Glucometer 199H 05/27/17 06:02: White Blood Count 11.3H, Red Blood Count 3.47L, Hemoglobin 9.0L, Hematocrit 28L , Mean Corpuscular Volume 82, Mean Corpuscular Hemoglobin 26, Mean Corpuscular Hemoglobin Concent 32, Red Cell Distribution Width 16.9H, Platelet Count 423H, Mean Platelet Volume 8.7, Neutrophils (%) (Auto) 90H, Lymphocytes (%) (Auto) 6L , Monocytes (%) (Auto) 3, Eosinophils (%) (Auto) 0, Basophils (%) (Auto) 0, Neutrophils # (Auto) 10.2H, Lymphocytes # (Auto) 0.7L, Monocytes # (Auto) 0.4, Eosinophils # (Auto) 0.0, Basophils # (Auto) 0.0, Sodium Level 141, Potassium Level 4.8, Chloride Level 108H, Carbon Dioxide Level 22, Anion Gap 11, Blood Urea Nitrogen 26H, Creatinine 0.77, Estimat Glomerular Filtration Rate > 60, BUN /Creatinine Ratio 34, Glucose Level 191H, Calcium Level 9.1, Phosphorus Level 2.5, Magnesium Level 2.3, Digoxin Level 0.61L 05/27/17 07:37: Glucometer 181H Microbiology 05/22/17 Blood Culture - Preliminary, Resulted No growth 05/22/17 MRSA Screen - Final, Complete MRSA not isolated Pending Labs Laboratory Tests 05/27/17 04:32: Glucometer 199 05/27/17 06:02: White Blood Count 11.3, Red Blood Count 3.47, Hemoglobin 9.0, Hematocrit 28, Mean Corpuscular Volume 82, Mean Corpuscular Hemoglobin 26, Mean Corpuscular Hemoglobin Concent 32, Red Cell Distribution Width 16.9, Platelet Count 423, Mean Platelet Volume 8.7, Neutrophils (%) (Auto) 90, Lymphocytes (%) (Auto) 6, Monocytes (%) (Auto) 3, Eosinophils (%) (Auto) 0, Basophils (%) (Auto) 0, Neutrophils # (Auto) 10.2, Lymphocytes # (Auto) 0.7, Monocytes # (Auto) 0.4, Eosinophils # (Auto) 0.0, Basophils # (Auto) 0.0, Sodium Level 141, Potassium Level 4.8, Chloride Level 108, Carbon Dioxide Level 22, Anion Gap 11, Blood Urea Nitrogen 26, Creatinine 0.77, Estimat Glomerular Filtration Rate > 60, BUN/ Creatinine Ratio 34, Glucose Level 191, Calcium Level 9.1, Phosphorus Level 2.5 , Magnesium Level 2.3, Digoxin Level 0.61 05/27/17 07:37: Glucometer 181 Discharge Home Medications: Active Scripts Active Prednisone 10 Mg Tab.ds.pk 10 Mg PO DAILY Take 6 tabs(60mg)daily,decrease by 1 tab(10MG)daily. Aspirin 81 Mg Tab.chew 81 Mg PO DAILY 30 Days Reported Tylenol Extra Strength (Acetaminophen) 500 Mg Tablet 500 Mg PO Q4H PRN Hyoscyamine Sulfate 0.125 Mg Tab.subl 0.125 Mg SL Q2H PRN Systane Balance (Propylene Glycol) 10 Ml Drops 1 Drop OU HS Metoprolol Tartrate 100 Mg Tablet 100 Mg PO BID Albuterol Sulfate 2.5 Mg/3 Ml Vial.neb 2.5 Mg NEB Q4H Zofran (Ondansetron HCl) 4 Mg Tab 4 Mg PO Q6H PRN Lasix (Furosemide) 20 Mg Tablet 20 Mg PO 1600 Morphine Sulfate 20 Mg/1 Ml Syringe 0.5 Ml PO Q15M PRN Iprat-Albut 0.5-3(2.5) mg/3 ml (Ipratropium/Albuterol Sulfate) 3 Ml Ampul.neb 3 Ml IH Q4H PRN Miralax (Polyethylene Glycol 3350) 17 Gm Powd.pack 17 Gm PO DAILY PRN Zoloft (Sertraline HCl) 50 Mg Tablet 50 Mg PO DAILY Colace (Docusate Sodium) 100 Mg Capsule 100 Mg PO BID PRN Plavix (Clopidogrel Bisulfate) 75 Mg Tablet 75 Mg PO HS Humalog (Insulin Lispro) 100 Unit/1 Ml Vial SQ TID 201-250 = 3 UNITS 251-300 = 5 UNITS 301-350 = 7 UNITS 351-400 = 9 UNITS Potassium Chloride 10 Meq Tablet.er 10 Meq PO BID Amlodipine Besylate 10 Mg Tablet 10 Mg PO DAILY Diazepam 5 Mg Tablet 5 Mg PO HS Zolpidem Tartrate 5 Mg Tablet 5 Mg PO HS Fluticasone Propionate 16 Gm [place].susp 2 Sprays NSEACH DAILY PRN Levemir (Insulin Determir) 1,000 Units/10 Ml Soln 8 Units SQ BID Lisinopril 10 Mg Tablet 10 Mg PO DAILY Metformin HCl 1,000 Mg Tablet 1,000 Mg PO BID Acetaminophen 325 Mg Tablet 650 Mg PO Q4H PRN Digoxin 125 Mcg Tablet 125 Mcg PO DAILY@0800 Pradaxa (Dabigatran Etexilate Mesylate) 75 Mg Capsule 75 Mg PO BID Gabapentin 300 Mg Capsule 300 Mg PO BID Neupro (Rotigotine) 1 Each Patch.td24 1 Patch TD HS 6MG/24HR Glimepiride 4 Mg Tablet 8 Mg PO DAILY TAKES 2 (4MG) TABLETS Levothyroxine Sodium 75 Mcg Tablet 75 Mcg PO 1000 Cetirizine HCl 10 Mg Tablet 10 Mg PO HS PRN Furosemide 40 Mg Tablet 40 Mg PO DAILY Instructions to patient/family Please see electronic discharge instructions given to patient. Clinical Quality Measures DVT/VTE Risk/Contraindication: Risk Factor Score Per Nursin RFS Level Per Nursing on Admit: 4+=Very High DARNELL HIRSCH DO May 27, 2017 11:38
[2017-05-27 12:00] VITALS: BP 187/67
[2017-05-27 15:20] VITALS: BP 187/67
== END 2017-05-27 15:20 | disposition hospice, inpatient (51) | DRG 871 ==
LOC: EDUNIT# 18:44 → ER 18:45 → ICU 21:09 → 4TH 05-25 17:12
PROVIDERS: ADMIT Internal Medicine; ATTEND Internal Medicine
DX: A41.9 Sepsis, unspecified organism (principal); J18.9 Pneumonia, unspecified organism; J96.00 Acute respiratory failure, unspecified whether with hypoxia or hypercapnia; N28.9 Disorder of kidney and ureter, unspecified; J44.0 Chronic obstructive pulmonary disease with (acute) lower respiratory infection; J44.1 Chronic obstructive pulmonary disease with (acute) exacerbation; I13.0 Hypertensive heart and chronic kidney disease with heart failure and stage 1 through stage 4 chronic kidney disease, or unspecified chronic kidney disease; I50.42 Chronic combined systolic (congestive) and diastolic (congestive) heart failure; Z66 Do not resuscitate; N18.9 Chronic kidney disease, unspecified; E87.2 Acidosis; E87.70 Fluid overload, unspecified; I48.0 Paroxysmal atrial fibrillation; D50.9 Iron deficiency anemia, unspecified; D63.8 Anemia in other chronic diseases classified elsewhere; E66.01 Morbid (severe) obesity due to excess calories; I25.10 Atherosclerotic heart disease of native coronary artery without angina pectoris; E11.65 Type 2 diabetes mellitus with hyperglycemia; E11.51 Type 2 diabetes mellitus with diabetic peripheral angiopathy without gangrene; E11.40 Type 2 diabetes mellitus with diabetic neuropathy, unspecified; I25.2 Old myocardial infarction; G47.30 Sleep apnea, unspecified; E78.00 Pure hypercholesterolemia, unspecified; E03.9 Hypothyroidism, unspecified; G20 Parkinson's disease; I69.998 Other sequelae following unspecified cerebrovascular disease; Z87.891 Personal history of nicotine dependence; Z95.5 Presence of coronary angioplasty implant and graft; Z68.30 Body mass index [BMI] 30.0-30.9, adult; I27.20 Pulmonary hypertension, unspecified
CPT/HCPCS: 36415; 71010; 71045; 80048; 80053; 80162; 82805; 82962; 83605; 83735; 83880; 84100; 84145; 85007; 85025; 85027; 85610; 85730; 86141; 87040; 87081; 93005; 94640; 94660; 94664; 94760; 96361; 96365; 96375

== ENCOUNTER 2017-07-26 16:01 | Emergency (ER) | payer MEDICARE, MEDICAID ==
[~2017-07-26] VITALS: Ht 172.7 cm; Wt 86.2 kg
[~2017-07-26 16:01] MED LIST changes: +ACET-2267 PO; +ASPI-999 PO; +DIAZ5TAB PO; +DIGO-20 PO; -DIGO125T6 PO; +DOCU-143 PO; +FURO-125 PO; +HYOMAX SL; +HYOS-19 SL; +METO100T12 PO; +MORP20SY PO; +ONDN4T PO; +POLY17PO6 PO; +PRED10TA22 PO; +PROP10DR3 OU; +PROP15DR OP; +SERT50TA2 PO
--- OUTSIDE RECORDS SUMMARY | 2017-07-26 16:12 | XMS REPORT | CCD ---
Author Author Betty Blackman Organization [facility] Address [address] [place] [address] Phone Care Team Providers Care Customer Service Consultant Name Role Phone PP Unavailable CCM Unavailable Summary Purpose Interface Exchange Insurance Providers Payer name Policy type / Coverage type Covered democrat ID Effective Begin Date Effective End Date WPS Medicare Part B Medicare Part B [id number] 2017 Unknown Cigna Medicare Part B [id number] 2017 Unknown [employer] - Primary Medicare Part B [id number] 2017 Unknown Family history Brother Diagnosis Age At Onset Colon cancer Unknown Mother Diagnosis Age At Onset No Family Disease Entered N/A Father Diagnosis Age At Onset Hypertension Unknown Stroke Unknown Heart Attack Unknown Daughter Diagnosis Age At Onset Breast cancer Unknown Diabetes mellitus Type 2 Unknown Son Diagnosis Age At Onset Diabetes mellitus Type 2 Unknown Hypertension Unknown Social History No Social History data Allergies, Adverse Reactions, Alerts Allergies, Adverse Reactions, Alerts data not found Past Medical History Illness Codes Condition Status Onset Date Resolved Date Essential (primary) hypertension ICD-9: 401.1 ICD-10: I10 Active 06/04/2017 Unknown Weakness ICD-9: 780.79 ICD-10: R53.1 Active 06/04/2017 Unknown Problems Condition Codes Effective Dates Condition Status Essential (primary) hypertension ICD-9: 401.1 ICD-10: I10 06/04/2017 Active Weakness ICD-9: 780.79 ICD-10: R53.1 06/04/2017 Active Medications Medication Codes Instructions Start Date Stop Date Status Fill Instructions diazepam 5 mg tablet RxNorm: 539907 1 Tablet(s) PO QHS as needed 06/14/2017 09/11/2017 Active diazepam 5 mg tablet RxNorm: 740035 1 Tablet(s) PO QHS as needed 06/09/2017 06/13/2017 Inactive Medication Administered No Medication Administered data Immunizations No Immunization data Assessments Condition Codes Effective Dates Essential (primary) hypertension ICD-10: I10 ICD-9: 401.1 06/04/2017 Weakness ICD-10: R53.1 ICD-9: 780.79 06/04/2017 Reason For Visit Reason For Visit Effective Dates Notes gait abnormality 06/04/2017 Results No Results data Review of Systems System Result Effective Dates Constitutional No recent illness 2017 Constitutional No chills 06/04/2017 Constitutional No diaphoresis 06/04/2017 Constitutional No fever 06/04/2017 Eyes No eye erythema 06/04/2017 Ears/Nose/Throat/Neck No nasal discharge 06/04/2017 Ears/Nose/Throat/Neck No nasal allergies 06/04/2017 Cardiovascular No chest pain/pressure 04/2018 Respiratory No cough 06/04/2017 Respiratory No dyspnea 06/04/2017 Gastrointestinal No abdominal pain 2017 Gastrointestinal No constipation 2017 Gastrointestinal No diarrhea 06/04/2017 Gastrointestinal No vomiting 06/04/2017 Gastrointestinal No nausea 06/04/2017 Musculoskeletal arthralgia(s) 06/04/2017 Dermatologic No rash 06/04/2017 Neurologic No alteration of consciousness 06/04/2017 Physical Exam Exam Name System Name Item Name Status Result Effective Dates Notes Full Exam - General 1994 Constitutional general appearance Overall: well developed 06/04/2017 None Full Exam - General 1994 Constitutional general appearance Overall: in no acute distress 06/04/2017 None Full Exam - General 1994 Constitutional general appearance Overall: well nourished 06/04/2017 None Full Exam - General 1994 Eyes conjunctiva /eyelids Overall: conjunctiva clear 06/04/2017 None Full Exam - General 1994 Eyes conjunctiva /eyelids Overall: cornea clear 06/04/2017 None Full Exam - General 1994 Eyes conjunctiva /eyelids Overall: eyelids normal 06/04/2017 None Full Exam - General 1994 Eyes pupils and irises Overall: pupils equal, round, reactive to light and accomodation 06/04/2017 None Full Exam - General 1994 Ears/Nose/Throat otoscopic exam External auditory canal: partial cerumen occlusion 06/04/2017 None Full Exam - General 1994 Ears/Nose/Throat otoscopic exam Overall: tympanic membranes clear 06/04/2017 None Full Exam - General 1994 Ears/Nose/Throat lips/teeth/gingiva Overall: benign lips 06/04/2017 None Full Exam - General 1994 Ears/Nose/Throat oral cavity/pharynx/larynx Overall: oral mucosa clear 06/04/2017 None Full Exam - General 1994 Respiratory respiratory effort/rhythm Overall: normal rate 06/04/2017 None Full Exam - General 1994 Respiratory respiratory effort/rhythm Overall: no retractions 06/04/2017 None Full Exam - General 1994 Respiratory auscultation Diffuse: diminished 06/04/2017 None Full Exam - General 1994 Cardiovascular auscultation of heart Rate: regular rate 06/04/2017 None Full Exam - General 1994 Abdomen abdominal exam Overall: normal bowel sounds 06/04/2017 None Full Exam - General 1994 Abdomen abdominal exam Overall: no tenderness 06/04/2017 None Full Exam - General 1994 Musculoskeletal head and neck Overall: head atraumatic 06/04/2017 None Full Exam - General 1994 Psychiatric orientation/consciousness Overall: oriented to person, place and time 06/04/2017 None Full Exam - General 1994 Psychiatric mood and affect Overall: normal mood and affect 06/04/2017 None Full Exam - General 1994 Neurologic cranial nerves Overall: crainial nerves 2 - 12 grossly intact 06/04/2017 None Procedures No Procedures data Vital Signs Date Vital 06/04/2017 Blood Pressure 1: 134/86 Code : 8480-6 Heart Rate 1: 86 bpm Height: SpO2: 96% Weight: Functional Status No Functional Status data History of Present Illness Symptom Name Status Result Effective Date Notes gait abnormality Onset and Resolution ongoing 06/04/2017 None gait abnormality Pertinent Findings motor weakness 06/04/2017 None wheezing Quality intermittent 06/04/2017 None wheezing Pertinent Findings Denies chills 06/04/2017 None wheezing Pertinent Findings Denies cough 06/04/2017 None Advance Directives No Advance Directive data Encounters Encounter Performer Location Codes Date OFFICE VISIT, NEW - LEVEL 3 Diagnosis: Essential (primary) hypertension[ICD10: I10] Diagnosis: Weakness[ICD10: R53.1] [facility] CPT-4: 51379 06/04/2017 Plan of Care Planned Activity Notes Codes Status Date Visit Plan: Hypertension - well controlled - continue with current medications, continue with no added salt diet. Pt has been encouraged to exercise daily. The pt has been advised to call the office if there are any acute concerns about change in blood pressure readings at home. Weakness - ongoing - pt is to continue with PT and notify clinic with any changes or concerns. 06/04/2017 Appointment: Betty Blackman WPtel: [facility] [id number] New Patient 06/04/2017 Patient Education: Patient Medication Summary Completed 06/04/2017 Instructions Comment . Hypertension - well controlled - continue with current medications, continue with no added salt diet. Pt has been encouraged to exercise daily. The pt has been advised to call the office if there are any acute concerns about change in blood pressure readings at home. Weakness - ongoing - pt is to continue with PT and notify clinic with any changes or concerns.
--- OUTSIDE RECORDS SUMMARY | 2017-07-26 16:19 | XMS REPORT | CCD ---
Author Author Betty Blackman Organization [facility] Address [address] [place] [address] Phone Care Team Providers Care Movie Extra Name Role Phone PP Unavailable CCM Unavailable Summary Purpose Interface Exchange Insurance Providers Payer name Policy type / Coverage type Covered republican ID Effective Begin Date Effective End Date WPS Medicare Part B Medicare Part B [id number] 2017 Unknown Cigna Medicare Part B [id number] 2017 Unknown [employer] - Primary Medicare Part B [id number] 2017 Unknown Family history Brother Diagnosis Age [...] Fill Instructions diazepam 5 mg tablet RxNorm: 672655 1 Tablet(s) PO QHS as needed 06/14/2017 09/11/2017 Active diazepam 5 mg tablet RxNorm: 306800 1 Tablet(s) PO QHS as needed 06/09/2017 [...] Weakness[ICD10: R53.1] [facility] CPT-4: 71212 06/04/2017 Plan of Care Planned Activity Notes Codes Status Date Appointment: Betty Blackman WPtel: [address] [place], [place] [id number] New Patient 06/04/2017 Patient Education: Patient Medication Summary Completed 06/04/2017 Instructions No Instructions
[2017-07-26 16:39] LABS: BASOPHILS # (AUTO) 0.1 10^3/uL (0.0-0.1); BASOPHILS % (AUTO) 1 % (0-10); EOSINOPHILS # (AUTO) 0.4 10^3/uL (0.0-0.3); EOSINOPHILS % (AUTO) 4 % (0-10); HEMATOCRIT 29 % (35-52); HEMOGLOBIN 8.9 G/DL (11.5-16.0); LYMPHOCYTES # (AUTO) 1.9 X 10^3 (1.0-4.0); LYMPHOCYTES % (AUTO) 20 % (12-44); MEAN CORPUSCULAR HEMOGLOBIN 24 PG (25-34); MEAN CORPUSCULAR HGB CONC 31 G/DL (32-36); MEAN CORPUSCULAR VOLUME 79 FL (80-99); MEAN PLATELET VOLUME 8.5 FL (7.4-10.4); MONOCYTES # (AUTO) 0.7 X 10^3 (0.0-1.0); MONOCYTES % (AUTO) 7 % (0-12); NEUTROPHILS # (AUTO) 6.8 X 10^3 (1.8-7.8); NEUTROPHILS % (AUTO) 69 % (42-75); PLATELET COUNT 293 10^3/uL (130-400); RED BLOOD COUNT 3.65 10^6/uL (4.35-5.85); RED CELL DISTRIBUTION WIDTH 18.5 % (10.0-14.5); WHITE BLOOD COUNT 9.9 10^3/uL (4.3-11.0)
[2017-07-26 16:48] LABS: INR 1.8 (0.8-1.4); PROTHROMBIN TIME PATIENT 20.5 SEC (12.2-14.7)
[2017-07-26 16:48] LABS: BILIRUBIN,URINE NEGATIVE (NEGATIVE); CLARITY,URINE CLEAR; COLOR,URINE YELLOW; GLUCOSE, URINE (UA) 2+ (NEGATIVE); KETONES,URINE NEGATIVE (NEGATIVE); LEUKOCYTE ESTERASE ,URINE 1+ (NEGATIVE); NITRITE,URINE NEGATIVE (NEGATIVE); PH,URINE 6 (5-9); PROTEIN,URINE 1+ (NEGATIVE); UROBILINOGEN,URINE NORMAL (NORMAL)
[2017-07-26 16:57] LABS: ALANINE AMINOTRANSFERASE < 6 U/L (0-55); ALBUMIN 3.7 GM/DL (3.2-4.5); ALKALINE PHOSPHATASE 71 U/L (40-136); BILIRUBIN,TOTAL 0.6 MG/DL (0.1-1.0); BUN/CREATININE RATIO 13; CALCIUM 9.4 MG/DL (8.5-10.1); CARBON DIOXIDE 28 MMOL/L (21-32); CHLORIDE 105 MMOL/L (98-107); CREATININE SERUM 1.06 MG/DL (0.60-1.30); GFR ESTIMATED 50; GLUCOSE 184 MG/DL (70-105); POTASSIUM 4.1 MMOL/L (3.6-5.0); SODIUM 141 MMOL/L (135-145); TOTAL PROTEIN 6.9 GM/DL (6.4-8.2)
--- NOTE | 2017-07-26 17:08 | Diagnostic Imaging Report ---
INDICATION: Fever and cough. COMPARISON: 07/26/2017 FINDINGS: Single frontal radiographic view of the chest was obtained and demonstrates interval development of alveolar airspace disease in the right base. There has been interval improved aeration of the left base. Small left effusion however remains. There is no large effusion on the right. No pneumothorax is seen on either side. Cardiac silhouette is mildly enlarged. Pulmonary vasculature however is within normal limits. Bony structures show no gross acute abnormalities. IMPRESSION: 1. Interval development of infiltrate in the right base. 2. Improved aeration of the left base, but with small residual pleural effusion. Dictated by: Dictated on workstation # [id number]
[2017-07-26 17:09] LABS: BACTERIA,URINE TRACE /HPF; RBC,URINE RARE /HPF; WBC,URINE 0-2 /HPF
[2017-07-26 17:10] LABS: AMORPHOUS SEDIMENT,UR FEW AMOR URATES /LPF
[2017-07-26] MEDS ORDERED: RT-ALBUTEROL/IPRATROPIUM 3 ML (DUONEB) VIAL INH ONE (17:15)
[2017-07-26] MEDS ORDERED: DOXYCYCLINE INJECTION 100 MG in NS (IVPB) 100 ML IV ONE (17:15)
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
[2017-07-26] MEDS ORDERED: DOXY100T2 PO (17:39)
[2017-07-26 18:20] VITALS: BP 144/72
== END 2017-07-26 18:20 | disposition home or self-care (01) ==
LOC: EDUNIT# 16:01 → ER 16:02
DX: J44.0 Chronic obstructive pulmonary disease with (acute) lower respiratory infection (principal); J18.1 Lobar pneumonia, unspecified organism; F41.9 Anxiety disorder, unspecified; F32.9 Major depressive disorder, single episode, unspecified; G47.30 Sleep apnea, unspecified; E03.9 Hypothyroidism, unspecified; E11.40 Type 2 diabetes mellitus with diabetic neuropathy, unspecified; I10 Essential (primary) hypertension; K21.9 Gastro-esophageal reflux disease without esophagitis; G20 Parkinson's disease; I48.91 Unspecified atrial fibrillation; I25.10 Atherosclerotic heart disease of native coronary artery without angina pectoris; I25.2 Old myocardial infarction; E78.00 Pure hypercholesterolemia, unspecified; Z86.73 Personal history of transient ischemic attack (TIA), and cerebral infarction without residual deficits; Z87.19 Personal history of other diseases of the digestive system; Z90.710 Acquired absence of both cervix and uterus; Z87.01 Personal history of pneumonia (recurrent); Z90.49 Acquired absence of other specified parts of digestive tract; Z95.5 Presence of coronary angioplasty implant and graft; Z98.51 Tubal ligation status; Z79.52 Long term (current) use of systemic steroids; Z79.4 Long term (current) use of insulin; Z79.82 Long term (current) use of aspirin; Z91.041 Radiographic dye allergy status; Z88.1 Allergy status to other antibiotic agents; Z88.5 Allergy status to narcotic agent; Z88.6 Allergy status to analgesic agent; Z88.0 Allergy status to penicillin; Z88.8 Allergy status to other drugs, medicaments and biological substances
CPT/HCPCS: 36415; 71045; 80053; 81000; 83605; 85025; 85610; 85730; 87040; 87804; 94640

== ENCOUNTER 2017-10-11 08:12 | Inpatient (IN) | payer MEDICARE, OTHER, MEDICAID ==
[2017-10-11] VITALS (8 sets, daily range): BP systolic 112–148; BP diastolic 48–78
[~2017-10-11] VITALS: Ht 165.1 cm; Wt 84.5 kg
[~2017-10-11 08:12] MED LIST changes: +ASPI-983 PO; +DOXY100T2 PO; +GABA600T2 PO; +GUAI600T43 PO; +MELA5TAB21 PO; -METF1000 PO; +METF10002 PO; -METF500T4 PO; +METF500T5 PO; +MORP100S3 SL
[2017-10-11] MEDS ORDERED: NS IV 1000 ML 1,000 ML IV SCH (08:20)
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
[2017-10-11] MEDS ORDERED: fentaNYL INJECTION 100 MCG/2 ML AMP IVP ONE (08:30)
[2017-10-11] MEDS ORDERED: LEVOFLOXACIN IV 750 MG/150 ML (LEVAQUIN) BAG IV ONE (08:30)
[2017-10-11] MEDS ORDERED: RT-ALBUTEROL/IPRATROPIUM 3 ML (DUONEB) VIAL INH ONE (08:30)
[2017-10-11 08:32] LABS: BASOPHILS # (AUTO) 0.1 10^3/uL (0.0-0.1); BASOPHILS % (AUTO) 1 % (0-10); EOSINOPHILS # (AUTO) 0.2 10^3/uL (0.0-0.3); EOSINOPHILS % (AUTO) 3 % (0-10); HEMATOCRIT 34 % (35-52); HEMOGLOBIN 10.5 G/DL (11.5-16.0); LYMPHOCYTES % (AUTO) 25 % (12-44); MEAN CORPUSCULAR HEMOGLOBIN 26 PG (25-34); MEAN CORPUSCULAR HGB CONC 31 G/DL (32-36); MEAN CORPUSCULAR VOLUME 82 FL (80-99); MEAN PLATELET VOLUME 8.8 FL (7.4-10.4); MONOCYTES # (AUTO) 0.8 X 10^3 (0.0-1.0); MONOCYTES % (AUTO) 11 % (0-12); NEUTROPHILS # (AUTO) 4.7 X 10^3 (1.8-7.8); NEUTROPHILS % (AUTO) 61 % (42-75); PLATELET COUNT 221 10^3/uL (130-400); RED BLOOD COUNT 4.07 10^6/uL (4.35-5.85); RED CELL DISTRIBUTION WIDTH 22.4 % (10.0-14.5); WHITE BLOOD COUNT 7.8 10^3/uL (4.3-11.0)
[2017-10-11] MEDS ORDERED: ATROPINE INJECTION 1 MG/1 ML SDV IJ STA (08:33)
[2017-10-11] MEDS ORDERED: ATROPINE INJ 0.4 MG/ML SDV ONE (08:36)
[2017-10-11 08:42] LABS: ABG BASE EXCESS 4.9 MMOL/L (-2.5-2.5); ABG OXYGEN SATURATION 93 % (94-100); ABG PCO2 42 MMHG (35-45); ABG PH 7.45 (7.37-7.43); ABG PO2 60 MMHG (79-93); ABG TCO2 30.6 MMOL/L (21.0-31.0)
[2017-10-11] MEDS ORDERED: ATROPINE INJ 0.4 MG/ML SDV IV ONE (08:45)
[2017-10-11 08:48] LABS: INR 1.4 (0.8-1.4); PROTHROMBIN TIME PATIENT 16.8 SEC (12.2-14.7)
[2017-10-11 08:51] LABS: ALKALINE PHOSPHATASE 71 U/L (40-136); BILIRUBIN,TOTAL 0.8 MG/DL (0.1-1.0); BUN/CREATININE RATIO 13; CALCIUM 9.4 MG/DL (8.5-10.1); CARBON DIOXIDE 28 MMOL/L (21-32); CHLORIDE 101 MMOL/L (98-107); CREATININE SERUM 1.27 MG/DL (0.60-1.30); GFR ESTIMATED 40; GLUCOSE 170 MG/DL (70-105); MAGNESIUM 1.7 MG/DL (1.8-2.4); POTASSIUM 3.7 MMOL/L (3.6-5.0); SODIUM 140 MMOL/L (135-145)
[2017-10-11 08:52] LABS: ALANINE AMINOTRANSFERASE < 6 U/L (0-55); ALBUMIN 3.7 GM/DL (3.2-4.5); TOTAL PROTEIN 6.6 GM/DL (6.4-8.2)
[2017-10-11 08:55] LABS: ALLENS TEST YES-POS; INSPIRED O2 4L; PATIENT TEMP 95.8; VENTILATOR NO
--- NOTE | 2017-10-11 09:09 | Diagnostic Imaging Report ---
INDICATION: General malaise. TECHNIQUE: A frontal chest was obtained at 0858 hours. COMPARISON: 09/12/2017. FINDINGS: There is cardiomegaly and mild central vascular congestion. There is some infiltrate in the right lung base which may represent pneumonia. The right pleural effusion seen on the prior study, however, has resolved. There is no pneumothorax. There is no significant left-sided effusion. IMPRESSION: Resolution of the bilateral pleural effusions compared with 09/12/2017. There is prominent cardiomegaly, however, with mild central vascular congestion. There is some alveolar infiltrate in the right lung base which may represent pneumonia. Followup is recommended. Dictated by: Dictated on workstation # [id number]
[2017-10-11] MEDS ORDERED: MAGNESIUM OXIDE (MAG-OX)400 MG TAB PO ONE (09:30)
[2017-10-11] MEDS ORDERED: MENT118G TP (11:54)
[2017-10-11] MEDS ORDERED: MELA5CAP PO (11:54)
[2017-10-11] MEDS ORDERED: GABA-488 PO (11:54)
[2017-10-11] MEDS ORDERED: LOPE-134 PO (11:54)
[2017-10-11] MEDS ORDERED: GABA600T2 PO (11:54)
[2017-10-11] MEDS ORDERED: ONDANSETRON 4 MG/2 ML (SDV) Z0FRAN IVP PRN (12:00)
[2017-10-11] MEDS: 1/2 NS W/KCL 20 MEQ/L 1,000 ML IV SCH ×2 (12:31→22:23)
[2017-10-11] MEDS ORDERED: GABAPENTIN 300 MG (NEURONTIN) CAP PO SCH (13:00)
[2017-10-11] MEDS ORDERED: RT-ALBUTEROL/IPRATROPIUM 3 ML (DUONEB) VIAL ONE (13:31)
[2017-10-11] MEDS: RT-ALBUTEROL/IPRATROPIUM 3 ML (DUONEB) VIAL INH SCH ×6 (13:37→23:57)
[2017-10-11] MEDS ORDERED: FUROSEMIDE 40 MG/4 ML INJ (LASIX) IVP NR (13:45)
[2017-10-11] MEDS ORDERED: FUROSEMIDE 40 MG/4 ML INJ (LASIX) IVP ONE (14:00)
[2017-10-11] MEDS: ACETAMINOPHEN 500 MG TAB (TYLENOL) PO PRN (14:02)
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
[2017-10-11] MEDS ORDERED: NON-FORMULARY MEDICATION 1 EA EA (Cetirizine HCl 10 MG) PO PRN (16:00)
[2017-10-11] MEDS ORDERED: ACETAMINOPHEN 325 MG TABLET/CAPLET (TYLENOL) PO PRN (16:00)
[2017-10-11] MEDS ORDERED: NON-FORMULARY MEDICATION 1 EA EA (Polyethylene Glycol 3350 (Miralax) 17 GM) PO PRN (16:00)
[2017-10-11] MEDS ORDERED: FLUTICASONE NASAL SPRAY (FLONASE) 16 GM BTL NS PRN (16:00)
[2017-10-11] MEDS ORDERED: FAMOTIDINE 20MG/2ML IV (PEPCID) IVP ONE (16:15)
[2017-10-11] MEDS ORDERED: raNItidine 50 MG/2 ML INJ (ZANTAC) IV NR (16:15)
[2017-10-11] MEDS ORDERED: LORATADINE (CLARITIN) 10 MG TAB PO PRN (16:30)
[2017-10-11] MEDS ORDERED: POLYETHYLENE GLYCOL 17 GM (MIRALAX) PACK PO PRN (16:30)
[2017-10-11] MEDS: inSUlin ASPART (NovoLOG) 1 UNIT/0.01 ML (CHARGE PER UNIT) SC SCH ×2 (17:00→22:16)
[2017-10-11] MEDS ORDERED: PATIENT MAY USE OWN MED,SINGLE MED PO SCH (20:00)
[2017-10-11] MEDS ORDERED: NON-FORMULARY MEDICATION 1 EA EA (Propylene Glycol (Systane Balance) 1 DROP) OU SCH (21:00)
[2017-10-11] MEDS ORDERED: inSUlin DETERMIR 1000 UNITS/10 ML VIAL (LEVEMIR) SQ SCH (21:00)
[2017-10-11] MEDS ORDERED: NON-FORMULARY MEDICATION 1 EA EA (Diazepam 5 MG) PO SCH (21:00)
[2017-10-11] MEDS ORDERED: DABIGATRAN ETEXILATE MESYLATE 75 MG PO SCH (21:00)
[2017-10-11] MEDS ORDERED: inSUlin DETERMIR 1 UNIT/0.01 ML (LEVEMIR) CHARGE PER UNIT SQ SCH (21:00)
[2017-10-11] MEDS: SERTRALINE 50 MG (ZOLOFT) TABLET PO SCH (22:14)
[2017-10-11] MEDS: inSUlin DETERMIR 1 UNIT/0.01 ML (LEVEMIR) CHARGE PER UNIT SQ SCH (22:15)
[2017-10-11] MEDS: MAGNESIUM OXIDE (MAG-OX)400 MG TAB PO SCH (22:15)
[2017-10-11] MEDS: ARTIFICAL TEARS 0.4 ML UNIT DOSE (REFRESH PLUS) OU SCH (22:15)
[2017-10-11] MEDS: DABIGATRAN 75 MG (PRADAXA) CAPSULE PO SCH (22:15)
[2017-10-11] MEDS: FAMOTIDINE 20 MG (PEPCID) TABLET PO SCH (22:15)
[2017-10-11] MEDS: GABAPENTIN 600 MG (NEURONTIN) TAB PO SCH ×2 (22:21→22:27)
[2017-10-11] MEDS: NEUPRO 6 MG/24 HR TD SCH (22:22)
[2017-10-11] MEDS: DIAZEPAM 5 MG (VALIUM) TABLET PO SCH (22:24)
[2017-10-11] MEDS: meTOprolol TARTRATE 50 MG (LOPRESSOR) TAB PO SCH (22:24)
[2017-10-12] VITALS (7 sets, daily range): BP systolic 130–170; BP diastolic 62–74
[2017-10-12] MEDS: 1/2 NS W/KCL 20 MEQ/L 1,000 ML IV SCH ×2 (01:12→14:35)
[2017-10-12] MEDS: RT-ALBUTEROL/IPRATROPIUM 3 ML (DUONEB) VIAL INH SCH ×7 (02:00→21:40)
[2017-10-12] MEDS: inSUlin ASPART (NovoLOG) 1 UNIT/0.01 ML (CHARGE PER UNIT) SC SCH ×4 (05:17→23:02)
[2017-10-12] MEDS: LEVOTHYROXINE 75 MCG (LEVOTHROID) TABLET PO SCH (06:02)
[2017-10-12 06:15] LABS: BASOPHILS % (AUTO) 0 % (0-10); EOSINOPHILS # (AUTO) 0.2 10^3/uL (0.0-0.3); EOSINOPHILS % (AUTO) 2 % (0-10); HEMATOCRIT 30 % (35-52); HEMOGLOBIN 9.8 G/DL (11.5-16.0); LYMPHOCYTES # (AUTO) 1.1 X 10^3 (1.0-4.0); LYMPHOCYTES % (AUTO) 12 % (12-44); MEAN CORPUSCULAR HEMOGLOBIN 26 PG (25-34); MEAN CORPUSCULAR HGB CONC 32 G/DL (32-36); MEAN CORPUSCULAR VOLUME 82 FL (80-99); MEAN PLATELET VOLUME 9.2 FL (7.4-10.4); MONOCYTES % (AUTO) 11 % (0-12); NEUTROPHILS # (AUTO) 6.7 X 10^3 (1.8-7.8); NEUTROPHILS % (AUTO) 75 % (42-75); PLATELET COUNT 211 10^3/uL (130-400); RED BLOOD COUNT 3.73 10^6/uL (4.35-5.85); RED CELL DISTRIBUTION WIDTH 22.7 % (10.0-14.5)
[2017-10-12 06:34] LABS: CREATININE SERUM 1.1 MG/DL (0.60-1.30); MAGNESIUM 1.8 MG/DL (1.8-2.4); POTASSIUM 4.2 MMOL/L (3.6-5.0)
[2017-10-12] MEDS ORDERED: RT-ALBUTEROL/IPRATROPIUM 3 ML (DUONEB) VIAL INH PRN (07:00)
--- NOTE | 2017-10-12 08:32 | Progress Note ---
Subjective Date Seen by Provider: October 12, 2017 Time Seen by Provider: 08:32 Subjective/Events-last exam PT REPORTS THAT SHE HAD A ROUGH NIGHT LAST NIGHT AND DID NOT SLEEP WELL, SHE STATES THAT SHE HAD TROUBLE DUE TO THE CPAP, IT WAS REALLY NOISY. SHE DOES REPORTS THAT SHE IS BREATHING BETTER, SHE IS ON NASAL CANNULA THIS MORNING AND IS FEELING A LOT LESS TROUBLE WITH HER BREATHING TODAY COMPARED TO YESTERDAY. Review of Systems General: Fatigue, Malaise HEENT: No Head Aches Pulmonary: Dyspnea; No Cough Cardiovascular: No: Chest Pain, Palpitations Gastrointestinal: No: Nausea, Abdominal Pain Genitourinary: Frequency Neurological: Weakness; No: Confusion Focused Exam Lactate Level 10/11/17 08:20: Lactic Acid Level 1.39 Objective Exam Last Set of Vital Signs Vital Signs Date Time Temp Pulse Resp B/P (MAP) Pulse Ox O2 Delivery O2 Flow Rate FiO2 10/12/17 08:03 100.8 73 17 157/62 (93) 97 NIV Bilevel 24.00 12.00 10/12/17 06:39 24 Capillary Refill : Less Than 3 Seconds I&O Intake and Output 10/12/17 00:00 Intake Total 2060 ml Output Total 1150 ml Balance 910 ml Intake Oral 410 ml IV Total 1650 ml Output Urine Total 1150 ml Daily Weight Change No General: Alert, Oriented X3, Cooperative Neck: Supple Lungs: Other (FAINT CRACKLES IN BASES, ) Heart: Regular Rate Abdomen: Normal Bowel Sounds, Soft, No Tenderness Psych/Mental Status: Mental Status NL, Mood NL Results Lab Laboratory Tests 10/11/17 08:36: Blood Gas Puncture Site LT BRACH, Blood Gas Patient Temperature 95.8, Arterial Blood pH 7.45H, Arterial Blood Partial Pressure CO2 42, Arterial Blood Partial Pressure O2 60L, Arterial Blood HCO3 29H, Arterial Blood Total CO2 30.6, Arterial Blood Oxygen Saturation 93L, Arterial Blood Base Excess 4.9H, Felipe Test YES-POS, Blood Gas Ventilator Setting NO, Blood Gas Inspired Oxygen 4L 10/11/17 16:34: Glucometer 170H 10/11/17 20:46: Glucometer 266H 10/12/17 05:11: Glucometer 154H 10/12/17 05:58: White Blood Count 9.0, Red Blood Count 3.73L, Hemoglobin 9.8L, Hematocrit 30L, Mean Corpuscular Volume 82, Mean Corpuscular Hemoglobin 26, Mean Corpuscular Hemoglobin Concent 32, Red Cell Distribution Width 22.7H, Platelet Count 211, Mean Platelet Volume 9.2, Neutrophils (%) (Auto) 75, Lymphocytes (%) (Auto) 12, Monocytes (%) (Auto) 11, Eosinophils (%) (Auto) 2, Basophils (%) (Auto) 0, Neutrophils # (Auto) 6.7, Lymphocytes # (Auto) 1.1, Monocytes # (Auto) 1.0, Eosinophils # (Auto) 0.2, Basophils # (Auto) 0.0, Sodium Level 138, Potassium Level 4.2, Chloride Level 101, Carbon Dioxide Level 24, Anion Gap 13, Blood Urea Nitrogen 16, Creatinine 1.10, Estimat Glomerular Filtration Rate 47, BUN/ Creatinine Ratio 15, Glucose Level 161H, Calcium Level 9.0, Magnesium Level 1.8 Microbiology 10/11/17 Influenza Types A,B Antigen (LUCHO) - Final, Complete Assessment/Plan Assessment/Plan Assess & Plan/Chief Complaint PNEUMONIA MILD CONGESTIVE HEART FAILURE ATRIAL FIBRILLATION PARKINSON'S DISEASE HYPOTHYROIDISM CHRONIC CONSTIPATION GENERALIZED ANXIETY INSOMNIA PERIPHERAL NEUROPATHY DIABETES MELLITUS HYPERTENSION PNEUMONIA - PT ON IV ANTIBIOTICS - PNEUMONIA PROTOCOL, MONITOR SERIAL CHEST XRAYS. MILD CONGESTIVE HEART FAILURE - PT GIVEN IV LASIX CONTINUE TO MONITOR SYMPTOMS ATRIAL FIBRILLATION - RATE CONTROLLED - CONTINUE DIGOXIN, TOPROL, MONITOR SYMPTOMS. PARKINSON'S DISEASE - RESUMED NEUPRO - MONITOR SYMPTOMS - SUPPORTIVE CARE. HYPOTHYROIDISM - RESUMED SYNTHROID AT CURRENT HOME DOSING. CHRONIC CONSTIPATION - COLACE AND MIRALAX GENERALIZED ANXIETY - RESUMED HOME MEDICATIONS. INSOMNIA - VALIUM PRN AT HS. PERIPHERAL NEUROPATHY - PT TAKES GABAPENTIN AND WE WILL RESUME THIS MEDICATION. DIABETES MELLITUS - RESUME LONG ACTING INSULIN AND HOLD SLIDING SCALE INSULIN. HYPERTENSION - RESUME METOPROLOL. DVT PROPHYLAXIS WITH PRADAXA AND SCD'S GI PROPHYLAXIS WITH PEPCID Clinical Quality Measures Admission Status Admission Dx PNEUMONIA MILD CONGESTIVE HEART FAILURE ATRIAL FIBRILLATION PARKINSON'S DISEASE HYPOTHYROIDISM CHRONIC CONSTIPATION GENERALIZED ANXIETY INSOMNIA PERIPHERAL NEUROPATHY DIABETES MELLITUS HYPERTENSION DVT/VTE Risk/Contraindication: Risk Factor Score Per Nursin RFS Level Per Nursing on Admit: 4+=Very High NUNO FENTON MD October 12, 2017 08:32
[2017-10-12] MEDS ORDERED: [UNRECOGNIZED DRUG - REMARK] TP SCH (08:59)
[2017-10-12] MEDS ORDERED: LEVOTHYROXINE 75 MCG (LEVOTHROID) TABLET PO SCH (09:00)
[2017-10-12] MEDS ORDERED: DIGOXIN 0.125 MG (LANOXIN) TAB PO SCH (09:00)
[2017-10-12] MEDS ORDERED: NON-FORMULARY MEDICATION 1 EA EA (Amlodipine Besylate 10 MG) PO SCH (09:00)
[2017-10-12] MEDS ORDERED: SERTRALINE 50 MG (ZOLOFT) TABLET PO SCH (09:00)
[2017-10-12] MEDS ORDERED: FAMOTIDINE 20 MG (PEPCID) TABLET PO SCH (09:00)
[2017-10-12] MEDS: MAGNESIUM OXIDE (MAG-OX)400 MG TAB PO SCH ×2 (09:04→22:23)
[2017-10-12] MEDS: DOCUSATE SODIUM 100 MG (COLACE) CAP PO PRN (09:04)
[2017-10-12] MEDS: DABIGATRAN 75 MG (PRADAXA) CAPSULE PO SCH ×2 (09:04→22:22)
[2017-10-12] MEDS: inSUlin DETERMIR 1 UNIT/0.01 ML (LEVEMIR) CHARGE PER UNIT SQ SCH ×2 (09:04→23:02)
[2017-10-12] MEDS: DIGOXIN 0.125 MG (LANOXIN) TAB PO SCH (09:04)
[2017-10-12] MEDS: GABAPENTIN 300 MG (NEURONTIN) CAP PO SCH ×2 (09:04→13:00)
[2017-10-12] MEDS: amLODIPine 10 MG (NORVASC) TAB PO SCH (09:04)
[2017-10-12] MEDS: meTOprolol TARTRATE 50 MG (LOPRESSOR) TAB PO SCH ×2 (09:07→22:23)
--- NOTE | 2017-10-12 09:42 | Diagnostic Imaging Report ---
INDICATION: Pneumonia and hypoxemia. Comparison made with prior examination 10/11/17. FINDINGS: There is cardiomegaly. There is some venous congestion. There are bilateral upper lobe infiltrates. There are small bilateral pleural effusions. There is no pneumothorax. Mediastinum is unremarkable. IMPRESSION: Bilateral upper lobe infiltrate suspect for pneumonia. Cardiomegaly and some venous congestion with small bilateral pleural effusions. Dictated by: Dictated on workstation # [id number]
--- NOTE | 2017-10-12 11:22 | Physician Query Clarification ---
PQ-CHF Specificity The medical record reflects the following clinical scenario: History/Risk Factors: Atrial Fibrillation Hypoxemia Clinical Findings: BNP 269.9, Mild respiratory distress, decreased breath sounds, Mild central vascular congestion per chest x ray 10/11. Mild CHF per H&P. Treatment: IV Lasix given-fluid rate decreased from 120 to 75ML/HR (per H&P). Question: Can you further specify the acuity &/or type of CHF per the clinical indicators above? Please document a response below PHYSICIAN RESPONSE Acuity: Acute Type: Systolic In responding to this query, please exercise your independent professional judgment. The purpose of this communication is to more accurately reflect the complexity of your patients condition. The fact that a question is asked does not imply that any particular answer is desired or expected. Thank you for your timely response to this clarification. Requestors name: Mackenzie Arrington [facility] Phone # ext [phone] or [phone] THIS PHYSICIAN QUERY FORM IS A PERMANENT PART OF THE MEDICAL RECORD MACKENZIE ARRINGTON October 12, 2017 11:22 NUNO FENTON MD October 15, 2017 15:19
[2017-10-12] MEDS: SERTRALINE 50 MG (ZOLOFT) TABLET PO SCH (22:22)
[2017-10-12] MEDS: ACETAMINOPHEN 500 MG TAB (TYLENOL) PO PRN (22:23)
[2017-10-12] MEDS: FAMOTIDINE 20 MG (PEPCID) TABLET PO SCH (22:23)
[2017-10-12] MEDS: GABAPENTIN 600 MG (NEURONTIN) TAB PO SCH (22:23)
[2017-10-12] MEDS: DIAZEPAM 5 MG (VALIUM) TABLET PO SCH (22:24)
[2017-10-12] MEDS: ARTIFICAL TEARS 0.4 ML UNIT DOSE (REFRESH PLUS) OU SCH (22:31)
[2017-10-12] MEDS: NEUPRO 6 MG/24 HR TD SCH (22:33)
[2017-10-12] MEDS: [UNRECOGNIZED DRUG - REMARK] TP SCH (22:33)
[2017-10-13] VITALS (16 sets, daily range): BP systolic 107–185; BP diastolic 40–78
[2017-10-13] MEDS: RT-ALBUTEROL/IPRATROPIUM 3 ML (DUONEB) VIAL INH SCH ×6 (01:28→21:17)
[2017-10-13] MEDS: 1/2 NS W/KCL 20 MEQ/L 1,000 ML IV SCH (04:02)
[2017-10-13] MEDS: inSUlin ASPART (NovoLOG) 1 UNIT/0.01 ML (CHARGE PER UNIT) SC SCH ×4 (05:35→22:49)
[2017-10-13] MEDS: LEVOTHYROXINE 75 MCG (LEVOTHROID) TABLET PO SCH (05:42)
[2017-10-13] MEDS: ACETAMINOPHEN 500 MG TAB (TYLENOL) PO PRN (06:22)
--- NOTE | 2017-10-13 08:11 | Progress Note (SOAP) ---
Subjective Time Seen by Provider: 08:05 Subjective/Events-last exam Patient feeling a little better today. Patient breathing a little better today. Patient had a better night sleep. Diagnosis pneumonia Focused Exam Lactate Level 10/11/17 08:20: Lactic Acid Level 1.39 Objective Exam Vital Signs Date Time Temp Pulse Resp B/P (MAP) Pulse Ox O2 Delivery O2 Flow Rate FiO2 10/13/17 06:55 91 High Flow N/C 6.00 10/13/17 04:00 97.9 53 20 145/69 (94) 95 NIV CPAP 8.00 10/13/17 01:28 91 NIV CPAP 8.00 10/13/17 00:30 89 NIV CPAP 5.00 10/13/17 00:00 97.3 65 20 166/70 (102) 93 NIV CPAP 8.00 10/12/17 23:00 99.0 10/12/17 22:23 100.9 10/12/17 22:20 100.9 70 20 170/72 (104) 94 Nasal Cannula 5.00 10/12/17 21:40 89 Nasal Cannula 4.00 10/12/17 21:00 NIV CPAP 10/12/17 19:37 100.9 67 18 162/74 (103) 95 NIV CPAP 2.00 10/12/17 19:21 84 NIV CPAP 2.00 10/12/17 16:19 97.8 72 20 164/63 (96) 91 NIV CPAP 2.00 10/12/17 14:24 91 NIV CPAP 2.00 10/12/17 12:00 96.5 72 18 155/69 (97) 94 Nasal Cannula 2.00 10/12/17 10:39 94 Nasal Cannula 2.00 10/12/17 09:00 94 NIV Bilevel I & O 10/13/17 07:00 Intake Total 2220 ml Output Total 1000 ml Balance 1220 ml Capillary Refill : Less Than 3 Seconds General Appearance: No Apparent Distress, WD/WN HEENT: Normal ENT Inspection Neck: Normal Inspection Respiratory: No Accessory Muscle Use, No Respiratory Distress, Decreased Breath Sounds Results Lab Laboratory Tests 10/12/17 11:05: Glucometer 301H 10/12/17 16:14: Glucometer 163H 10/12/17 21:08: Glucometer 226H 10/12/17 22:54: Glucometer 236H 10/13/17 05:07: Glucometer 111H Microbiology 10/11/17 Blood Culture - Preliminary, Resulted No growth 10/11/17 Influenza Types A,B Antigen (LUCHO) - Final, Complete Assessment/Plan Assessment/Plan Assess & Plan/Chief Complaint Pneumonia. Mild CHF. Atrial fibrillation. Hypothyroid. Chronic constipation. Insomnia. Parkinson disease. Is feeling a little better today Clinical Quality Measures DVT/VTE Risk/Contraindication: Risk Factor Score Per Nursin RFS Level Per Nursing on Admit: 4+=Very High MELISSA BURGOS DO October 13, 2017 08:11
[2017-10-13] MEDS ORDERED: SALINE NASAL SPRAY (OCEAN) 45 ML BTL PRN (08:30)
[2017-10-13 08:40] LABS: BASOPHILS % (AUTO) 0 % (0-10); EOSINOPHILS # (AUTO) 0.5 10^3/uL (0.0-0.3); EOSINOPHILS % (AUTO) 6 % (0-10); HEMATOCRIT 30 % (35-52); HEMOGLOBIN 9.4 G/DL (11.5-16.0); LYMPHOCYTES % (AUTO) 12 % (12-44); MEAN CORPUSCULAR HEMOGLOBIN 26 PG (25-34); MEAN CORPUSCULAR HGB CONC 32 G/DL (32-36); MEAN CORPUSCULAR VOLUME 82 FL (80-99); MEAN PLATELET VOLUME 9.4 FL (7.4-10.4); MONOCYTES # (AUTO) 0.8 X 10^3 (0.0-1.0); MONOCYTES % (AUTO) 9 % (0-12); NEUTROPHILS # (AUTO) 6.4 X 10^3 (1.8-7.8); NEUTROPHILS % (AUTO) 73 % (42-75); PLATELET COUNT 206 10^3/uL (130-400); RED BLOOD COUNT 3.63 10^6/uL (4.35-5.85); WHITE BLOOD COUNT 8.7 10^3/uL (4.3-11.0)
[2017-10-13] MEDS ORDERED: LEVOFLOXACIN 750 MG/D5W 150 ML PRE-MIX IV SCH (09:00)
[2017-10-13 09:06] LABS: CREATININE SERUM 1.07 MG/DL (0.60-1.30); POTASSIUM 4.8 MMOL/L (3.6-5.0)
--- NOTE | 2017-10-13 09:06 | Diagnostic Imaging Report ---
INDICATION: Pneumonia and hypoxemia. Time of exam: 8:33 AM Correlation is made with prior study one day earlier. The heart is enlarged but stable. Bilateral upper lobe infiltrates, greatest on the right persists particularly in the right upper lobe. Lower lung swanson are clear. There may be trace pleural fluid bilaterally. No pneumothorax is seen. IMPRESSION: Overall stable appearance of the chest when compared with exam one day earlier. Dictated by: Dictated on workstation # [id number]
[2017-10-13] MEDS: DABIGATRAN 75 MG (PRADAXA) CAPSULE PO SCH ×2 (10:13→21:00)
[2017-10-13] MEDS: GABAPENTIN 300 MG (NEURONTIN) CAP PO SCH ×2 (10:13→14:38)
[2017-10-13] MEDS: DIGOXIN 0.125 MG (LANOXIN) TAB PO SCH (10:13)
[2017-10-13] MEDS: MAGNESIUM OXIDE (MAG-OX)400 MG TAB PO SCH ×2 (10:14→21:00)
[2017-10-13] MEDS: FUROSEMIDE 40 MG (LASIX) TAB PO SCH (10:14)
[2017-10-13] MEDS: meTOprolol TARTRATE 50 MG (LOPRESSOR) TAB PO SCH ×2 (10:14→21:00)
[2017-10-13] MEDS: inSUlin DETERMIR 1 UNIT/0.01 ML (LEVEMIR) CHARGE PER UNIT SQ SCH ×2 (10:14→22:50)
[2017-10-13] MEDS: amLODIPine 10 MG (NORVASC) TAB PO SCH (10:14)
[2017-10-13] MEDS: FUROSEMIDE 20 MG (LASIX) TAB PO SCH (15:57)
--- NOTE | 2017-10-13 16:37 | Diagnostic Imaging Report ---
Indication: Shortness of breath Portable chest at 4:22 PM There are infiltrates present in the right upper and right lower lobes. There is some faint infiltrate in the left perihilar region. Impression: Bilateral pulmonary infiltrates appear similar to earlier in the day. There is no effusion or pneumothorax. Dictated by: Dictated on workstation # [id number]
[2017-10-13 16:39] LABS: HEMOGLOBIN 10.5 G/DL (11.5-16.0); MEAN PLATELET VOLUME 9.3 FL (7.4-10.4); RED BLOOD COUNT 3.94 10^6/uL (4.35-5.85); RED CELL DISTRIBUTION WIDTH 22.1 % (10.0-14.5); WHITE BLOOD COUNT 10.6 10^3/uL (4.3-11.0)
[2017-10-13 17:01] LABS: ALBUMIN 3.8 GM/DL (3.2-4.5); BILIRUBIN,TOTAL 1.5 MG/DL (0.1-1.0); CALCIUM 9.5 MG/DL (8.5-10.1); CREATININE SERUM 1.15 MG/DL (0.60-1.30); POTASSIUM 5.4 MMOL/L (3.6-5.0); TOTAL PROTEIN 7.6 GM/DL (6.4-8.2)
[2017-10-13] MEDS ORDERED: FUROSEMIDE 40 MG/4 ML INJ (LASIX) IVP NR (17:45)
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
[2017-10-13] MEDS ORDERED: VANCOMYCIN 1500 MG/NS 500 ML IVPB IV SCH ×2 (18:15)
[2017-10-13] MEDS ORDERED: VANCOMYCIN INJECTION 1,000 MG in NS (IVPB) 250 ML IV SCH (19:30)
[2017-10-13] MEDS: DIAZEPAM 5 MG (VALIUM) TABLET PO SCH (21:00)
[2017-10-13] MEDS: [UNRECOGNIZED DRUG - REMARK] TP SCH (21:00)
[2017-10-13] MEDS: GABAPENTIN 600 MG (NEURONTIN) TAB PO SCH (21:00)
[2017-10-13] MEDS: SERTRALINE 50 MG (ZOLOFT) TABLET PO SCH (21:00)
[2017-10-13] MEDS: NEUPRO 6 MG/24 HR TD SCH (21:00)
[2017-10-13] MEDS: FAMOTIDINE 20 MG (PEPCID) TABLET PO SCH (21:00)
[2017-10-13 21:32] LABS: ABG BASE EXCESS 1.6 MMOL/L (-2.5-2.5); ABG OXYGEN SATURATION 100 % (94-100); ABG PCO2 45 MMHG (35-45); ABG PH 7.39 (7.37-7.43); ABG PO2 149 MMHG (79-93); ABG TCO2 27.3 MMOL/L (21.0-31.0)
[2017-10-13 21:35] LABS: ALLENS TEST POSITIVE; INSPIRED O2 70% BIPAP; VENTILATOR NO
[2017-10-13 21:36] LABS: PATIENT TEMP 99.7
[2017-10-13] MEDS: ARTIFICAL TEARS 0.4 ML UNIT DOSE (REFRESH PLUS) OU SCH (22:44)
[2017-10-14] VITALS (24 sets, daily range): BP systolic 132–165; BP diastolic 0–96
[2017-10-14] MEDS: RT-ALBUTEROL/IPRATROPIUM 3 ML (DUONEB) VIAL INH SCH ×5 (01:08→18:56)
[2017-10-14 05:06] LABS: BASOPHILS % (AUTO) 0 % (0-10); EOSINOPHILS # (AUTO) 0.4 10^3/uL (0.0-0.3); EOSINOPHILS % (AUTO) 5 % (0-10); HEMATOCRIT 26 % (35-52); HEMOGLOBIN 8.2 G/DL (11.5-16.0); LYMPHOCYTES # (AUTO) 1.1 X 10^3 (1.0-4.0); LYMPHOCYTES % (AUTO) 16 % (12-44); MEAN CORPUSCULAR HEMOGLOBIN 26 PG (25-34); MEAN CORPUSCULAR HGB CONC 31 G/DL (32-36); MEAN CORPUSCULAR VOLUME 82 FL (80-99); MEAN PLATELET VOLUME 9.4 FL (7.4-10.4); MONOCYTES # (AUTO) 0.6 X 10^3 (0.0-1.0); MONOCYTES % (AUTO) 8 % (0-12); NEUTROPHILS # (AUTO) 4.9 X 10^3 (1.8-7.8); NEUTROPHILS % (AUTO) 70 % (42-75); PLATELET COUNT 227 10^3/uL (130-400)
[2017-10-14 05:31] LABS: CALCIUM 8.9 MG/DL (8.5-10.1); CREATININE SERUM 1.13 MG/DL (0.60-1.30); MAGNESIUM 2.2 MG/DL (1.8-2.4); PHOSPHORUS 3.9 MG/DL (2.3-4.7); POTASSIUM 4.4 MMOL/L (3.6-5.0)
--- NOTE | 2017-10-14 05:53 | Pulmonary Progress Note ---
Subjective Time Seen by Provider: 08:50 Subjective/Events-last exam c/o SOB and NPC Focused Exam Lactate Level 10/11/17 08:20: Lactic Acid Level 1.39 10/13/17 18:20: Lactic Acid Level 1.02 Exam Exam Vital Signs Date Time Temp Pulse Resp B/P (MAP) Pulse Ox O2 Delivery O2 Flow Rate FiO2 10/14/17 05:00 49 25 145/54 (84) 98 NIV Bilevel 40.00 10/14/17 04:04 49 14 97 40.00 10/14/17 04:00 NIV Bilevel 40 10/14/17 04:00 52 12 146/49 (81) 97 NIV Bilevel 40.00 10/14/17 03:00 47 14 143/44 (77) 97 NIV Bilevel 40.00 10/14/17 02:00 46 15 140/47 (78) 98 NIV Bilevel 40.00 10/14/17 01:09 45 10 98 NIV Bilevel 40.00 10/14/17 01:09 45 14 98 45.00 10/14/17 01:00 44 10/14/17 01:00 44 12 132/50 (77) 98 NIV Bilevel 45.00 10/14/17 00:00 NIV Bilevel 70 10/14/17 00:00 46 16 136/42 (73) 98 NIV Bilevel 45.00 10/13/17 23:00 50 27 132/47 (75) 96 NIV Bilevel 45.00 10/13/17 22:55 49 30 125/43 (70) 99 NIV Bilevel 45.00 10/13/17 22:55 50 13 98 60.00 10/13/17 22:00 50 10 129/44 (72) 98 NIV Bilevel 60.00 10/13/17 21:17 52 16 98 60.00 10/13/17 21:00 49 11 135/49 (77) 99 NIV Bilevel 60.00 10/13/17 20:00 NIV Bilevel 70 10/13/17 20:00 99.7 52 10 136/48 (77) 99 NIV Bilevel 60.00 10/13/17 19:50 50 15 99 60.00 10/13/17 19:00 54 10/13/17 19:00 54 16 135/40 (71) 98 NIV Bilevel 60.00 10/13/17 18:29 49 27 98 70.00 10/13/17 18:15 NIV Bilevel 70 10/13/17 18:00 52 15 145/51 (82) 98 NIV Bilevel 70.00 10/13/17 17:45 NIV Bilevel 70.00 10/13/17 17:15 100.1 54 19 159/57 (91) 99 NIV Bilevel 80.00 10/13/17 16:26 59 94 80.00 10/13/17 15:55 98.6 59 31 157/78 (104) 85 Nasal Cannula 10.00 10/13/17 15:55 72 NIV CPAP 2.00 10/13/17 12:00 98.0 58 18 185/76 (112) 93 NIV CPAP 7.00 10/13/17 11:15 95 High Flow N/C 6.00 10/13/17 08:15 Nasal Cannula 7.00 10/13/17 08:00 97.6 55 17 147/66 (93) 94 NIV CPAP 7.00 10/13/17 06:55 91 High Flow N/C 6.00 I & O 10/14/17 07:00 Intake Total 1400 ml Output Total 1200 ml Balance 200 ml General Appearance: No Apparent Distress, WD/WN HEENT: Normal ENT Inspection Neck: Normal Inspection Respiratory: No Accessory Muscle Use, No Respiratory Distress, Decreased Breath Sounds Cardiovascular: Systolic Murmur, Irregularly Irregular Capillary Refill: Less Than 3 Seconds Gastrointestinal: normal bowel sounds, non tender, soft Extremity: Normal Capillary Refill, Pedal Edema Neurologic/Psychiatric: Alert, Oriented x3, Normal Mood/Affect Skin: Other (PT SWEATING) Results Lab Laboratory Tests 10/12/17 05:58 10/13/17 08:29 10/13/17 16:34 10/14/17 03:55 Assessment/Plan Assessment/Plan Acute on chronic respiratory failure last EF 03/08 was 60% -Hep lock IVF -Will give lasix 80mg IV x 1 -BiPAP QHS and PRN Worsening pneumonia with fever -Add vanco, pt has multiple allergies -repan culture pending Hx of Parkinson's hx of afib 233 FREDERICK SEN DO October 14, 2017 05:53
[2017-10-14] MEDS ORDERED: FUROSEMIDE 40 MG/4 ML INJ (LASIX) IVP NR (06:00)
[2017-10-14] MEDS ORDERED: MAGNESIUM 1 GM/100 ML IVPB 100 ML IV SCH (06:00)
[2017-10-14] MEDS ORDERED: POTASSIUM CL 10MEQ/50ML IVPB 50 ML IV SCH (06:00)
[2017-10-14] MEDS ORDERED: FUROSEMIDE 40 MG/4 ML INJ (LASIX) ONE (06:23)
[2017-10-14] MEDS: inSUlin ASPART (NovoLOG) 1 UNIT/0.01 ML (CHARGE PER UNIT) SC SCH ×4 (06:31→23:48)
[2017-10-14] MEDS: LEVOTHYROXINE 75 MCG (LEVOTHROID) TABLET PO SCH (06:31)
[2017-10-14 06:46] LABS: BILIRUBIN,URINE NEGATIVE (NEGATIVE); CLARITY,URINE VERY CLOUDY; GLUCOSE, URINE (UA) NEGATIVE (NEGATIVE); KETONES,URINE NEGATIVE (NEGATIVE); LEUKOCYTE ESTERASE ,URINE 3+ (NEGATIVE); NITRITE,URINE POSITIVE (NEGATIVE); PH,URINE 5 (5-9); PROTEIN,URINE 2+ (NEGATIVE); UROBILINOGEN,URINE NORMAL (NORMAL)
[2017-10-14 06:52] LABS: COLOR,URINE OTHER
[2017-10-14 06:54] LABS: BACTERIA,URINE LARGE /HPF; WBC,URINE 50-100 /HPF
--- NOTE | 2017-10-14 08:09 | Progress Note ---
Subjective Date Seen by Provider: October 14, 2017 Time Seen by Provider: 09:00 Subjective/Events-last exam PT IS AN 82 Y/O FEMALE WHO IS KNOWN TO ME FROM CLINIC. SHE HAS RECENTLY BEEN HOSPITALIZED FOR ANEMIA AND GENERALIZED WEAKNESS. SHE RESIDES AT A JAIL. HER FAMILY REPORTS THAT SHE WAS HAVING QUITE A BIT OF TROUBLE BREATHING AND WAS TRANSFERRED UP TO ICU AFTER HAVING THE WORSENING SHORTNESS OF BREATH AND HER SON REPORTS THAT HE IS DOING MUCH BETTER TODAY. Review of Systems General: No Fatigue, No Malaise HEENT: No Head Aches Pulmonary: Dyspnea, Cough Cardiovascular: No: Chest Pain Gastrointestinal: No: Nausea, Abdominal Pain Neurological: Weakness; No: Confusion Focused Exam Lactate Level 10/11/17 08:20: Lactic Acid Level 1.39 10/13/17 18:20: Lactic Acid Level 1.02 Objective Exam Last Set of Vital Signs Vital Signs Date Time Temp Pulse Resp B/P (MAP) Pulse Ox O2 Delivery O2 Flow Rate FiO2 10/14/17 06:55 97 High Flow N/C 6.00 10/14/17 06:50 50 14 10/14/17 06:00 144/47 (79) 10/14/17 04:00 40 10/13/17 20:00 99.7 Capillary Refill : Less Than 3 Seconds I&O Intake and Output 10/14/17 00:00 Intake Total 2600 ml Output Total 1150 ml Balance 1450 ml Intake Oral 750 ml IV Total 1850 ml Output Urine Total 1150 ml # Bowel Movements 1 General: Alert, Oriented X3, Cooperative Neck: Supple Lungs: Other (FAINT CRACKLES IN BASES, ) Heart: Regular Rate Abdomen: Normal Bowel Sounds, Soft, No Tenderness Psych/Mental Status: Mental Status NL, Mood NL Results Lab Laboratory Tests 10/13/17 08:29: White Blood Count 8.7, Red Blood Count 3.63L, Hemoglobin 9.4L, Hematocrit 30L, Mean Corpuscular Volume 82, Mean Corpuscular Hemoglobin 26, Mean Corpuscular Hemoglobin Concent 32, Red Cell Distribution Width 22.0H, Platelet Count 206, Mean Platelet Volume 9.4, Neutrophils (%) (Auto) 73, Lymphocytes (%) (Auto) 12, Monocytes (%) (Auto) 9, Eosinophils (%) (Auto) 6, Basophils (%) (Auto) 0, Neutrophils # (Auto) 6.4, Lymphocytes # (Auto) 1.0, Monocytes # (Auto) 0.8, Eosinophils # (Auto) 0.5H, Basophils # (Auto) 0.0, Sodium Level 136, Potassium Level 4.8, Chloride Level 102, Carbon Dioxide Level 25, Anion Gap 9, Blood Urea Nitrogen 17, Creatinine 1.07, Estimat Glomerular Filtration Rate 49, BUN/ Creatinine Ratio 16, Glucose Level 137H, Calcium Level 9.0 10/13/17 12:07: Glucometer 276H 10/13/17 15:51: Glucometer 211H 10/13/17 16:34: White Blood Count 10.6, Red Blood Count 3.94L, Hemoglobin 10.5L, Hematocrit 32L , Mean Corpuscular Volume 82, Mean Corpuscular Hemoglobin 27, Mean Corpuscular Hemoglobin Concent 33, Red Cell Distribution Width 22.1H, Platelet Count 202, Mean Platelet Volume 9.3, Sodium Level 134L, Potassium Level 5.4H, Chloride Level 100, Carbon Dioxide Level 24, Anion Gap 10, Blood Urea Nitrogen 18, Creatinine 1.15, Estimat Glomerular Filtration Rate 45, BUN/Creatinine Ratio 16 , Glucose Level 169H, Calcium Level 9.5, Total Bilirubin 1.5H, Aspartate Amino Transf (AST/SGOT) 27, Alanine Aminotransferase (ALT/SGPT) 16, Alkaline Phosphatase 92, Total Protein 7.6, Albumin 3.8 10/13/17 18:20: Lactic Acid Level 1.02, B-Type Natriuretic Peptide 502.0H 10/13/17 21:26: Blood Gas Puncture Site RIGHT RADIAL, Blood Gas Patient Temperature 99.7, Arterial Blood pH 7.39, Arterial Blood Partial Pressure CO2 45, Arterial Blood Partial Pressure O2 149H, Arterial Blood HCO3 26, Arterial Blood Total CO2 27.3 , Arterial Blood Oxygen Saturation 100, Arterial Blood Base Excess 1.6, Felipe Test POSITIVE, Blood Gas Ventilator Setting NO, Blood Gas Inspired Oxygen 70% BIPAP 10/14/17 03:55: White Blood Count 7.0, Red Blood Count 3.20L, Hemoglobin 8.2#L, Hematocrit 26L, Mean Corpuscular Volume 82, Mean Corpuscular Hemoglobin 26, Mean Corpuscular Hemoglobin Concent 31L, Red Cell Distribution Width 22.0H, Platelet Count 227, Mean Platelet Volume 9.4, Neutrophils (%) (Auto) 70, Lymphocytes (%) (Auto) 16, Monocytes (%) (Auto) 8, Eosinophils (%) (Auto) 5, Basophils (%) (Auto) 0, Neutrophils # (Auto) 4.9, Lymphocytes # (Auto) 1.1, Monocytes # (Auto) 0.6, Eosinophils # (Auto) 0.4H, Basophils # (Auto) 0.0, Sodium Level 136, Potassium Level 4.4, Chloride Level 103, Carbon Dioxide Level 22, Anion Gap 11, Blood Urea Nitrogen 18, Creatinine 1.13, Estimat Glomerular Filtration Rate 46, BUN/ Creatinine Ratio 16, Glucose Level 126H, Calcium Level 8.9, Phosphorus Level 3.9 , Magnesium Level 2.2 10/14/17 06:25: Glucometer 129H 10/14/17 06:30: Urine Color OTHERH, Urine Clarity VERY CLOUDYH, Urine pH 5, Urine Specific [place] 1.010L, Urine Protein 2+H, Urine Glucose (UA) NEGATIVE, Urine Ketones NEGATIVE, Urine Nitrite POSITIVEH, Urine Bilirubin NEGATIVE, Urine Urobilinogen NORMAL, Urine Leukocyte Esterase 3+H, Urine RBC (Auto) 5+H, Urine RBC 10-25H, Urine WBC 50-100H, Urine Squamous Epithelial Cells 5-10, Urine Crystals NONE, Urine Bacteria LARGEH, Urine Casts PRESENT, Urine Hyaline Casts 5-10H, Urine Mucus NEGATIVE, Urine Culture Indicated YES Microbiology 10/11/17 Blood Culture - Preliminary, Resulted No growth 10/11/17 Influenza Types A,B Antigen (LUCHO) - Final, Complete Assessment/Plan Assessment/Plan Assess & Plan/Chief Complaint PNEUMONIA MILD CONGESTIVE HEART FAILURE ATRIAL FIBRILLATION PARKINSON'S DISEASE HYPOTHYROIDISM CHRONIC CONSTIPATION GENERALIZED ANXIETY INSOMNIA PERIPHERAL NEUROPATHY DIABETES MELLITUS HYPERTENSION PNEUMONIA - PT ON IV ANTIBIOTICS - PNEUMONIA PROTOCOL, MONITOR SERIAL CHEST XRAYS. MILD CONGESTIVE HEART FAILURE - PT GIVEN IV LASIX CONTINUE TO MONITOR SYMPTOMS ATRIAL FIBRILLATION - RATE CONTROLLED - CONTINUE DIGOXIN, TOPROL, MONITOR SYMPTOMS. PARKINSON'S DISEASE - RESUMED NEUPRO - MONITOR SYMPTOMS - SUPPORTIVE CARE. HYPOTHYROIDISM - RESUMED SYNTHROID AT CURRENT HOME DOSING. CHRONIC CONSTIPATION - COLACE AND MIRALAX GENERALIZED ANXIETY - RESUMED HOME MEDICATIONS. INSOMNIA - VALIUM PRN AT HS. PERIPHERAL NEUROPATHY - PT TAKES GABAPENTIN AND WE WILL RESUME THIS MEDICATION. DIABETES MELLITUS - RESUME LONG ACTING INSULIN AND HOLD SLIDING SCALE INSULIN. HYPERTENSION - RESUME METOPROLOL. DVT PROPHYLAXIS WITH PRADAXA AND SCD'S GI PROPHYLAXIS WITH PEPCID Clinical Quality Measures Admission Status Admission Dx PNEUMONIA MILD CONGESTIVE HEART FAILURE ATRIAL FIBRILLATION PARKINSON'S DISEASE HYPOTHYROIDISM CHRONIC CONSTIPATION GENERALIZED ANXIETY INSOMNIA PERIPHERAL NEUROPATHY DIABETES MELLITUS HYPERTENSION DVT/VTE Risk/Contraindication: Risk Factor Score Per Nursin RFS Level Per Nursing on Admit: 4+=Very High NUNO FENTON MD October 14, 2017 08:09
[2017-10-14] MEDS: DABIGATRAN 75 MG (PRADAXA) CAPSULE PO SCH ×2 (08:29→23:41)
[2017-10-14] MEDS: amLODIPine 10 MG (NORVASC) TAB PO SCH (08:29)
[2017-10-14] MEDS: DIGOXIN 0.125 MG (LANOXIN) TAB PO SCH (08:29)
[2017-10-14] MEDS: GABAPENTIN 300 MG (NEURONTIN) CAP PO SCH ×2 (08:29→13:22)
[2017-10-14] MEDS: meTOprolol TARTRATE 50 MG (LOPRESSOR) TAB PO SCH ×2 (08:29→23:42)
[2017-10-14] MEDS: MAGNESIUM OXIDE (MAG-OX)400 MG TAB PO SCH ×2 (08:29→23:42)
[2017-10-14] MEDS: inSUlin DETERMIR 1 UNIT/0.01 ML (LEVEMIR) CHARGE PER UNIT SQ SCH ×2 (08:29→23:48)
[2017-10-14] MEDS: ACETAMINOPHEN 500 MG TAB (TYLENOL) PO PRN ×2 (08:38→18:15)
--- NOTE | 2017-10-14 09:02 | Diagnostic Imaging Report ---
INDICATION: Dyspnea. COMPARISON: 10/13/2017. FINDINGS: There is increasing diffuse bilateral airspace disease, right greater than left. Some underlying central pulmonary venous congestion cannot be excluded. The appear to be small bilateral pleural effusions. There is no pneumothorax. There is cardiomegaly. The mediastinum is unremarkable. IMPRESSION: Diffuse bilateral airspace disease, right greater than left, with small bilateral effusions. Cardiomegaly. Some underlying central pulmonary venous congestion cannot be excluded. Dictated by: Dictated on workstation # [id number]
[2017-10-14] MEDS: FUROSEMIDE 20 MG (LASIX) TAB PO SCH (16:27)
[2017-10-14] MEDS: VANCOMYCIN 1250 MG/NS 250 ML IVPB IV SCH ×2 (18:16)
[2017-10-14] MEDS: [UNRECOGNIZED DRUG - REMARK] TP SCH (21:00)
[2017-10-14] MEDS: ARTIFICAL TEARS 0.4 ML UNIT DOSE (REFRESH PLUS) OU SCH (23:41)
[2017-10-14] MEDS: SERTRALINE 50 MG (ZOLOFT) TABLET PO SCH (23:41)
[2017-10-14] MEDS: GABAPENTIN 600 MG (NEURONTIN) TAB PO SCH (23:41)
[2017-10-14] MEDS: FAMOTIDINE 20 MG (PEPCID) TABLET PO SCH (23:42)
[2017-10-14] MEDS: NEUPRO 6 MG/24 HR TD SCH (23:42)
[2017-10-14] MEDS: DIAZEPAM 5 MG (VALIUM) TABLET PO SCH (23:51)
[2017-10-15] VITALS (12 sets, daily range): BP systolic 137–179; BP diastolic 49–76
[2017-10-15] MEDS: RT-ALBUTEROL/IPRATROPIUM 3 ML (DUONEB) VIAL INH SCH ×5 (03:08→20:27)
[2017-10-15] MEDS: ACETAMINOPHEN 500 MG TAB (TYLENOL) PO PRN (03:43)
[2017-10-15 04:17] LABS: BASOPHILS % (AUTO) 0 % (0-10); EOSINOPHILS # (AUTO) 0.6 10^3/uL (0.0-0.3); EOSINOPHILS % (AUTO) 6 % (0-10); HEMATOCRIT 32 % (35-52); HEMOGLOBIN 10.2 G/DL (11.5-16.0); LYMPHOCYTES # (AUTO) 1.3 X 10^3 (1.0-4.0); LYMPHOCYTES % (AUTO) 13 % (12-44); MEAN CORPUSCULAR HEMOGLOBIN 26 PG (25-34); MEAN CORPUSCULAR HGB CONC 32 G/DL (32-36); MEAN CORPUSCULAR VOLUME 82 FL (80-99); MONOCYTES # (AUTO) 0.9 X 10^3 (0.0-1.0); MONOCYTES % (AUTO) 9 % (0-12); NEUTROPHILS # (AUTO) 7.4 X 10^3 (1.8-7.8); NEUTROPHILS % (AUTO) 72 % (42-75); PLATELET COUNT 288 10^3/uL (130-400); RED BLOOD COUNT 3.93 10^6/uL (4.35-5.85); RED CELL DISTRIBUTION WIDTH 21.9 % (10.0-14.5); WHITE BLOOD COUNT 10.3 10^3/uL (4.3-11.0)
[2017-10-15 04:46] LABS: CALCIUM 10.1 MG/DL (8.5-10.1); CREATININE SERUM 1.18 MG/DL (0.60-1.30); MAGNESIUM 2.2 MG/DL (1.8-2.4); PHOSPHORUS 2.9 MG/DL (2.3-4.7); POTASSIUM 4.5 MMOL/L (3.6-5.0)
--- NOTE | 2017-10-15 06:29 | Progress Note ---
Subjective Date Seen by Provider: October 15, 2017 Time Seen by Provider: 06:20 Subjective/Events-last exam PT REPORTS THAT SHE IS FEELING FATIGUED BUT IMPROVED - SHE REPORTS SHE HAS SHORTNESS OF BREATH. SHE DID NOT SLEEP WELL AT NIGHT LAST NIGHT. SHE IS WONDERING ABOUT MEDICATION TO AIDE SLEEP. Review of Systems General: No Chills; Fatigue HEENT: No Head Aches Pulmonary: Dyspnea, Cough Cardiovascular: No: Chest Pain, Palpitations Gastrointestinal: No: Nausea, Abdominal Pain Neurological: Weakness Focused Exam Lactate Level 10/13/17 18:20: Lactic Acid Level 1.02 Objective Exam Last Set of Vital Signs Vital Signs Date Time Temp Pulse Resp B/P (MAP) Pulse Ox O2 Delivery O2 Flow Rate FiO2 10/15/17 06:00 56 16 140/49 (79) 95 High Flow N/C 7.00 10/14/17 16:00 97.8 10/14/17 04:00 40 Capillary Refill : Less Than 3 Seconds I&O Intake and Output 10/15/17 00:00 Intake Total 1160 ml Output Total 4450 ml Balance -3290 ml Intake Oral 1160 ml Output Urine Total 4450 ml General: Alert, Oriented X3, Cooperative Neck: Supple Lungs: Other (FAINT CRACKLES IN BASES, ) Heart: Regular Rate Abdomen: Normal Bowel Sounds, Soft, No Tenderness Psych/Mental Status: Mental Status NL, Mood NL Results Lab Laboratory Tests 10/14/17 06:30: Urine Color OTHERH, Urine Clarity VERY CLOUDYH, Urine pH 5, Urine Specific [place] 1.010L, Urine Protein 2+H, Urine Glucose (UA) NEGATIVE, Urine Ketones NEGATIVE, Urine Nitrite POSITIVEH, Urine Bilirubin NEGATIVE, Urine Urobilinogen NORMAL, Urine Leukocyte Esterase 3+H, Urine RBC (Auto) 5+H, Urine RBC 10-25H, Urine WBC 50-100H, Urine Squamous Epithelial Cells 5-10, Urine Crystals NONE, Urine Bacteria LARGEH, Urine Casts PRESENT, Urine Hyaline Casts 5-10H, Urine Mucus NEGATIVE, Urine Culture Indicated YES 10/14/17 11:04: Glucometer 114H 10/14/17 16:26: Glucometer 150H 10/14/17 23:40: Glucometer 232H 10/15/17 03:59: White Blood Count 10.3, Red Blood Count 3.93L, Hemoglobin 10.2#L, Hematocrit 32L , Mean Corpuscular Volume 82, Mean Corpuscular Hemoglobin 26, Mean Corpuscular Hemoglobin Concent 32, Red Cell Distribution Width 21.9H, Platelet Count 288, Mean Platelet Volume 9.0, Neutrophils (%) (Auto) 72, Lymphocytes (%) (Auto) 13, Monocytes (%) (Auto) 9, Eosinophils (%) (Auto) 6, Basophils (%) (Auto) 0, Neutrophils # (Auto) 7.4, Lymphocytes # (Auto) 1.3, Monocytes # (Auto) 0.9, Eosinophils # (Auto) 0.6H, Basophils # (Auto) 0.0, Sodium Level 138, Potassium Level 4.5, Chloride Level 101, Carbon Dioxide Level 25, Anion Gap 12, Blood Urea Nitrogen 23H, Creatinine 1.18, Estimat Glomerular Filtration Rate 44, BUN/ Creatinine Ratio 19, Glucose Level 128H, Calcium Level 10.1, Phosphorus Level 2.9, Magnesium Level 2.2 Microbiology 10/13/17 Blood Culture - Preliminary, Resulted No growth 10/14/17 Urine Culture - Preliminary, Resulted Sent To [facility] Assessment/Plan Assessment/Plan Assess & Plan/Chief Complaint PNEUMONIA MILD CONGESTIVE HEART FAILURE ATRIAL FIBRILLATION PARKINSON'S DISEASE HYPOTHYROIDISM CHRONIC CONSTIPATION GENERALIZED ANXIETY INSOMNIA PERIPHERAL NEUROPATHY DIABETES MELLITUS HYPERTENSION PNEUMONIA - PT ON IV ANTIBIOTICS - PNEUMONIA PROTOCOL, MONITOR SERIAL CHEST XRAYS - TRANSFER TO 4TH FLOOR TODAY. - CHEST XRAY TOMORROW. MILD CONGESTIVE HEART FAILURE - PT GIVEN IV LASIX CONTINUE TO MONITOR SYMPTOMS ATRIAL FIBRILLATION - RATE CONTROLLED - CONTINUE DIGOXIN, TOPROL, MONITOR SYMPTOMS. PARKINSON'S DISEASE - RESUMED NEUPRO - MONITOR SYMPTOMS - SUPPORTIVE CARE. HYPOTHYROIDISM - RESUMED SYNTHROID AT CURRENT HOME DOSING. CHRONIC CONSTIPATION - COLACE AND MIRALAX GENERALIZED ANXIETY - RESUMED HOME MEDICATIONS. INSOMNIA - VALIUM PRN AT HS. PERIPHERAL NEUROPATHY - PT TAKES GABAPENTIN AND WE WILL RESUME THIS MEDICATION. DIABETES MELLITUS - RESUME LONG ACTING INSULIN AND HOLD SLIDING SCALE INSULIN. HYPERTENSION - RESUME METOPROLOL. DVT PROPHYLAXIS WITH PRADAXA AND SCD'S GI PROPHYLAXIS WITH PEPCID Clinical Quality Measures Admission Status Admission Dx PNEUMONIA MILD CONGESTIVE HEART FAILURE ATRIAL FIBRILLATION PARKINSON'S DISEASE HYPOTHYROIDISM CHRONIC CONSTIPATION GENERALIZED ANXIETY INSOMNIA PERIPHERAL NEUROPATHY DIABETES MELLITUS HYPERTENSION DVT/VTE Risk/Contraindication: Risk Factor Score Per Nursin RFS Level Per Nursing on Admit: 4+=Very High NUNO FENTON MD October 15, 2017 06:29
[2017-10-15] MEDS: LEVOTHYROXINE 75 MCG (LEVOTHROID) TABLET PO SCH (06:30)
--- NOTE | 2017-10-15 07:01 | Pulmonary Progress Note ---
Subjective Time Seen by Provider: 07:01 Subjective/Events-last exam PT is doing better. Still c/o SOB Focused Exam Lactate Level 10/13/17 18:20: Lactic Acid Level 1.02 Exam Exam Vital Signs Date Time Temp Pulse Resp B/P (MAP) Pulse Ox O2 Delivery O2 Flow Rate FiO2 10/15/17 06:00 56 16 140/49 (79) 95 High Flow N/C 7.00 10/15/17 05:00 63 23 150/53 (85) 93 High Flow N/C 7.00 10/15/17 04:00 58 25 160/57 (91) 91 High Flow N/C 7.00 10/15/17 03:08 95 High Flow N/C 4.00 10/15/17 03:00 53 14 166/56 (92) 94 Nasal Cannula 4.00 10/15/17 02:00 61 10 169/72 (104) 93 Nasal Cannula 4.00 10/15/17 01:00 55 10/15/17 01:00 55 27 153/59 (90) 93 Nasal Cannula 4.00 10/15/17 00:00 62 25 171/56 (94) 91 Nasal Cannula 4.00 10/15/17 00:00 Nasal Cannula 5.00 10/14/17 23:00 57 16 165/95 (118) 94 Nasal Cannula 4.00 10/14/17 22:00 60 25 92 Nasal Cannula 5.00 10/14/17 21:00 56 17 95 Nasal Cannula 5.00 10/14/17 20:00 58 17 95 Nasal Cannula 5.00 10/14/17 20:00 Nasal Cannula 5.00 10/14/17 19:00 57 10/14/17 19:00 57 15 152/65 (94) 95 Nasal Cannula 5.00 10/14/17 18:56 96 High Flow N/C 5.00 10/14/17 18:00 52 26 148/49 (82) 96 Nasal Cannula 5.00 10/14/17 17:00 49 18 143/49 (80) 97 Nasal Cannula 5.00 10/14/17 16:00 97.8 51 25 149/0 (49) 97 Nasal Cannula 5.00 10/14/17 16:00 Nasal Cannula 5.00 10/14/17 15:00 51 14 137/46 (76) 95 Nasal Cannula 5.00 10/14/17 14:00 50 9 145/50 (81) 97 Nasal Cannula 5.00 10/14/17 13:51 94 High Flow N/C 6.00 10/14/17 13:00 48 10/14/17 13:00 50 16 137/96 (110) 99 Nasal Cannula 5.00 10/14/17 12:00 Nasal Cannula 5.00 10/14/17 12:00 50 14 137/46 (76) 98 NIV Bilevel 40.00 10/14/17 11:00 52 12 141/48 (79) 97 NIV Bilevel 40.00 10/14/17 10:20 94 High Flow N/C 6.00 10/14/17 10:00 50 12 140/43 (75) 98 NIV Bilevel 40.00 10/14/17 09:00 55 15 150/57 (88) 96 NIV Bilevel 40.00 10/14/17 08:00 Nasal Cannula 5.00 10/14/17 08:00 56 18 151/56 (87) 98 NIV Bilevel 40.00 10/14/17 07:00 53 10/14/17 07:00 54 7 156/49 (84) 97 NIV Bilevel 40.00 I & O 10/15/17 07:00 Intake Total 1160 ml Output Total 3800 ml Balance -2640 ml General Appearance: No Apparent Distress, WD/WN HEENT: Normal ENT Inspection Neck: Normal Inspection Respiratory: No Accessory Muscle Use, No Respiratory Distress, Decreased Breath Sounds Cardiovascular: Systolic Murmur, Irregularly Irregular Capillary Refill: Less Than 3 Seconds Gastrointestinal: normal bowel sounds, non tender, soft Extremity: Normal Capillary Refill, Pedal Edema Neurologic/Psychiatric: Alert, Oriented x3, Normal Mood/Affect Skin: Other (PT SWEATING) Results Lab Laboratory Tests 10/13/17 08:29 10/13/17 16:34 10/14/17 03:55 10/15/17 03:59 Assessment/Plan Assessment/Plan Acute on chronic respiratory failure last EF 03/08 was 60% -Hep lock IVF -BiPAP QHS and PRN -Continue lasix Worsening pneumonia with fever -Add vanco, pt has multiple allergies -repan culture pending Hx of Parkinson's hx of afib 233 FREDERICK SEN DO October 15, 2017 07:01
--- NOTE | 2017-10-15 07:37 | Diagnostic Imaging Report ---
INDICATION: Followup pneumonia. COMPARISON: 10/14/2017 FINDINGS: Single frontal radiographic view of the chest was obtained and demonstrates mild overall improved aeration bilaterally, most conspicuous within the right lower lung field. There are probable residual small bibasilar effusions and residual bilateral infiltrates. There is no pneumothorax. Cardiac silhouette remains enlarged. Note is made of calcified aortic atherosclerosis. Bony structures show no gross acute abnormalities. IMPRESSION: 1. Overall improved aeration bilaterally, but with residual probable bibasilar effusions and bilateral infiltrates. 2. Cardiomegaly. Dictated by: Dictated on workstation # [id number]
[2017-10-15] MEDS: inSUlin ASPART (NovoLOG) 1 UNIT/0.01 ML (CHARGE PER UNIT) SC SCH ×4 (08:03→22:10)
[2017-10-15] MEDS: DABIGATRAN 75 MG (PRADAXA) CAPSULE PO SCH ×2 (08:42→20:41)
[2017-10-15] MEDS: DIGOXIN 0.125 MG (LANOXIN) TAB PO SCH (08:43)
[2017-10-15] MEDS: LEVOFLOXACIN 750 MG TAB (LEVAQUIN) PO SCH (08:43)
[2017-10-15] MEDS: MAGNESIUM OXIDE (MAG-OX)400 MG TAB PO SCH ×2 (08:43→20:41)
[2017-10-15] MEDS: amLODIPine 10 MG (NORVASC) TAB PO SCH (08:43)
[2017-10-15] MEDS: FUROSEMIDE 40 MG (LASIX) TAB PO SCH (08:43)
[2017-10-15] MEDS: meTOprolol TARTRATE 50 MG (LOPRESSOR) TAB PO SCH ×2 (08:43→20:41)
[2017-10-15] MEDS: GABAPENTIN 300 MG (NEURONTIN) CAP PO SCH ×2 (08:43→14:00)
[2017-10-15] MEDS: inSUlin DETERMIR 1 UNIT/0.01 ML (LEVEMIR) CHARGE PER UNIT SQ SCH ×2 (08:44→22:10)
[2017-10-15] MEDS ORDERED: TROUGH ORDER-PHARMACY XX NR (17:00)
[2017-10-15] MEDS: FUROSEMIDE 20 MG (LASIX) TAB PO SCH (17:18)
[2017-10-15] MEDS: VANCOMYCIN 1250 MG/NS 250 ML IVPB IV SCH ×2 (18:28)
[2017-10-15] MEDS: FAMOTIDINE 20 MG (PEPCID) TABLET PO SCH (20:41)
[2017-10-15] MEDS: ARTIFICAL TEARS 0.4 ML UNIT DOSE (REFRESH PLUS) OU SCH (20:41)
[2017-10-15] MEDS: SERTRALINE 50 MG (ZOLOFT) TABLET PO SCH (20:41)
[2017-10-15] MEDS: DIAZEPAM 5 MG (VALIUM) TABLET PO SCH (20:41)
[2017-10-15] MEDS: GABAPENTIN 600 MG (NEURONTIN) TAB PO SCH (20:41)
[2017-10-15] MEDS: NEUPRO 6 MG/24 HR TD SCH (20:41)
[2017-10-15] MEDS: [UNRECOGNIZED DRUG - REMARK] TP SCH (20:44)
[2017-10-15] MEDS ORDERED: LORazepam INJ 2 MG/ML (ATIVAN) VIAL ONE (21:07)
[2017-10-15] MEDS ORDERED: morphine INJ 4 MG/ML 1 ML (VIAL/SYRINGE) IVP PRN (21:15)
[2017-10-15] MEDS ORDERED: IBUPROFEN TABLET 200 MG TAB PO PRN (21:15)
[2017-10-15] MEDS ORDERED: LORazepam INJ 2 MG/ML (ATIVAN) VIAL IVP PRN (21:15)
[2017-10-16] VITALS: BP 112/55
[2017-10-16 03:30] VITALS: BP 119/58
[2017-10-16] MEDS: RT-ALBUTEROL/IPRATROPIUM 3 ML (DUONEB) VIAL INH SCH ×7 (05:15→22:26)
[2017-10-16] MEDS: inSUlin ASPART (NovoLOG) 1 UNIT/0.01 ML (CHARGE PER UNIT) SC SCH ×4 (05:35→21:16)
[2017-10-16] MEDS: LEVOTHYROXINE 75 MCG (LEVOTHROID) TABLET PO SCH (05:36)
[2017-10-16 06:40] LABS: BASOPHILS # (AUTO) 0.1 10^3/uL (0.0-0.1); BASOPHILS % (AUTO) 1 % (0-10); EOSINOPHILS # (AUTO) 0.1 10^3/uL (0.0-0.3); EOSINOPHILS % (AUTO) 2 % (0-10); HEMATOCRIT 27 % (35-52); HEMOGLOBIN 8.4 G/DL (11.5-16.0); LYMPHOCYTES # (AUTO) 1.1 X 10^3 (1.0-4.0); LYMPHOCYTES % (AUTO) 18 % (12-44); MEAN CORPUSCULAR HEMOGLOBIN 26 PG (25-34); MEAN CORPUSCULAR HGB CONC 31 G/DL (32-36); MEAN CORPUSCULAR VOLUME 83 FL (80-99); MEAN PLATELET VOLUME 9.2 FL (7.4-10.4); MONOCYTES # (AUTO) 0.6 X 10^3 (0.0-1.0); MONOCYTES % (AUTO) 10 % (0-12); NEUTROPHILS # (AUTO) 4.3 X 10^3 (1.8-7.8); NEUTROPHILS % (AUTO) 69 % (42-75); PLATELET COUNT 276 10^3/uL (130-400); RED BLOOD COUNT 3.29 10^6/uL (4.35-5.85); RED CELL DISTRIBUTION WIDTH 22.3 % (10.0-14.5); WHITE BLOOD COUNT 6.2 10^3/uL (4.3-11.0)
[2017-10-16 07:01] LABS: CALCIUM 9.6 MG/DL (8.5-10.1); CREATININE SERUM 1.21 MG/DL (0.60-1.30)
[2017-10-16 07:48] VITALS: BP 151/67
[2017-10-16] MEDS: meTOprolol TARTRATE 50 MG (LOPRESSOR) TAB PO SCH ×2 (10:05→21:16)
[2017-10-16] MEDS: DIGOXIN 0.125 MG (LANOXIN) TAB PO SCH (10:05)
[2017-10-16] MEDS: FUROSEMIDE 40 MG (LASIX) TAB PO SCH (10:05)
[2017-10-16] MEDS: DABIGATRAN 75 MG (PRADAXA) CAPSULE PO SCH ×2 (10:05→21:16)
[2017-10-16] MEDS: inSUlin DETERMIR 1 UNIT/0.01 ML (LEVEMIR) CHARGE PER UNIT SQ SCH ×2 (10:06→21:15)
[2017-10-16] MEDS: MAGNESIUM OXIDE (MAG-OX)400 MG TAB PO SCH ×2 (10:06→21:16)
[2017-10-16] MEDS: amLODIPine 10 MG (NORVASC) TAB PO SCH (10:06)
[2017-10-16] MEDS: GABAPENTIN 300 MG (NEURONTIN) CAP PO SCH ×2 (10:06→13:07)
[2017-10-16 12:00] VITALS: BP 133/65
--- NOTE | 2017-10-16 13:36 | Progress Note-Hospitalist ---
Subjective HPI/CC On Admission Date Seen by Provider: October 16, 2017 Time Seen by Provider: 10:30 Subjective/Events-last exam Patient declined significantly last night and 0345 hrs. they called me and she wanted to be DO NOT RESUSCITATE Patient denies any current pain Initiated morphine and Ativan as needed Son talked to me out in the [place] for 10 minutes with the nurse Andra and he is really struggling with the impending of which she is fully aware of and she wants to keep fighting even to the last minute and with the BiPAP on and the only thing that is supporting her life at this time is supported by her son because she wants to fight until the last minute of her life. Patient appears to be very end-stage and close to and once BiPAP was discontinued she will likely have respiratory failure and have a significant changes status and comatose status. Family is coming to see her one last time and then BiPAP will be discontinued. Review of Systems Pulmonary: Dyspnea Cardiovascular: Orthopnea Focused Exam Lactate Level 10/13/17 18:20: Lactic Acid Level 1.02 Objective Exam Vital Signs Vital Signs Date Time Temp Pulse Resp B/P (MAP) Pulse Ox O2 Delivery O2 Flow Rate FiO2 10/16/17 12:00 96.1 49 13 133/65 (87) 98 NIV Bilevel 10/16/17 11:02 50.00 10/15/17 15:15 48 Capillary Refill : Less Than 3 Seconds General Appearance: Anxious, Chronically ill, Obese, Other (end stage status) Respiratory: Crackles, Decreased Breath Sounds Neurologic/Psychiatric: Alert, Depressed Affect Results/Procedures Lab Laboratory Tests 10/16/17 05:47 Patient resulted labs reviewed. Assessment/Plan Assessment and Plan Assess & Plan/Chief Complaint Assessment per PCP: PNEUMONIA MILD CONGESTIVE HEART FAILURE ATRIAL FIBRILLATION PARKINSON'S DISEASE HYPOTHYROIDISM CHRONIC CONSTIPATION GENERALIZED ANXIETY INSOMNIA PERIPHERAL NEUROPATHY DIABETES MELLITUS HYPERTENSION Plan: Comfort measures DNR End of life Impending once biPAP removed Clinical Quality Measures DVT/VTE Risk/Contraindication: Risk Factor Score Per Nursin RFS Level Per Nursing on Admit: 4+=Very High DARNELL HIRSCH DO October 16, 2017 13:36
[2017-10-16 16:26] VITALS: BP 137/74
[2017-10-16] MEDS: FUROSEMIDE 20 MG (LASIX) TAB PO SCH (16:36)
[2017-10-16] MEDS: VANCOMYCIN 1250 MG/NS 250 ML IVPB IV SCH ×2 (18:27)
[2017-10-16 20:50] VITALS: BP 153/67
[2017-10-16] MEDS: [UNRECOGNIZED DRUG - REMARK] TP SCH (21:16)
[2017-10-16] MEDS: SERTRALINE 50 MG (ZOLOFT) TABLET PO SCH (21:16)
[2017-10-16] MEDS: FAMOTIDINE 20 MG (PEPCID) TABLET PO SCH (21:16)
[2017-10-16] MEDS: GABAPENTIN 600 MG (NEURONTIN) TAB PO SCH (21:16)
[2017-10-16] MEDS: ARTIFICAL TEARS 0.4 ML UNIT DOSE (REFRESH PLUS) OU SCH (21:16)
[2017-10-16] MEDS: DIAZEPAM 5 MG (VALIUM) TABLET PO SCH (21:16)
[2017-10-16] MEDS: NEUPRO 6 MG/24 HR TD SCH (21:17)
[2017-10-17 00:44] VITALS: BP 139/64
[2017-10-17] MEDS: RT-ALBUTEROL/IPRATROPIUM 3 ML (DUONEB) VIAL INH SCH ×6 (02:10→22:58)
[2017-10-17 03:35] VITALS: BP 168/67
[2017-10-17 03:43] LABS: BASOPHILS # (AUTO) 0.1 10^3/uL (0.0-0.1); BASOPHILS % (AUTO) 1 % (0-10); EOSINOPHILS # (AUTO) 0.5 10^3/uL (0.0-0.3); EOSINOPHILS % (AUTO) 8 % (0-10); HEMATOCRIT 28 % (35-52); HEMOGLOBIN 8.5 G/DL (11.5-16.0); LYMPHOCYTES # (AUTO) 1.4 X 10^3 (1.0-4.0); LYMPHOCYTES % (AUTO) 23 % (12-44); MEAN CORPUSCULAR HEMOGLOBIN 26 PG (25-34); MEAN CORPUSCULAR HGB CONC 31 G/DL (32-36); MEAN CORPUSCULAR VOLUME 83 FL (80-99); MONOCYTES # (AUTO) 0.7 X 10^3 (0.0-1.0); MONOCYTES % (AUTO) 11 % (0-12); NEUTROPHILS # (AUTO) 3.5 X 10^3 (1.8-7.8); NEUTROPHILS % (AUTO) 57 % (42-75); PLATELET COUNT 276 10^3/uL (130-400); RED BLOOD COUNT 3.32 10^6/uL (4.35-5.85); RED CELL DISTRIBUTION WIDTH 21.5 % (10.0-14.5); WHITE BLOOD COUNT 6.1 10^3/uL (4.3-11.0)
[2017-10-17 04:02] LABS: CALCIUM 9.5 MG/DL (8.5-10.1); CREATININE SERUM 1.02 MG/DL (0.60-1.30); POTASSIUM 4.5 MMOL/L (3.6-5.0)
[2017-10-17] MEDS: inSUlin ASPART (NovoLOG) 1 UNIT/0.01 ML (CHARGE PER UNIT) SC SCH ×4 (06:02→21:14)
[2017-10-17 08:00] VITALS: BP 127/52
[2017-10-17] MEDS: meTOprolol TARTRATE 50 MG (LOPRESSOR) TAB PO SCH ×2 (08:45→21:05)
[2017-10-17] MEDS: FUROSEMIDE 40 MG (LASIX) TAB PO SCH (08:50)
[2017-10-17] MEDS: MAGNESIUM OXIDE (MAG-OX)400 MG TAB PO SCH ×2 (08:50→21:05)
[2017-10-17] MEDS: LEVOTHYROXINE 75 MCG (LEVOTHROID) TABLET PO SCH (08:50)
[2017-10-17] MEDS: GABAPENTIN 300 MG (NEURONTIN) CAP PO SCH ×2 (08:50→16:07)
[2017-10-17] MEDS: LEVOFLOXACIN 750 MG TAB (LEVAQUIN) PO SCH (08:50)
[2017-10-17] MEDS: DIGOXIN 0.125 MG (LANOXIN) TAB PO SCH (08:51)
[2017-10-17] MEDS: DABIGATRAN 75 MG (PRADAXA) CAPSULE PO SCH ×2 (08:51→21:05)
[2017-10-17] MEDS: inSUlin DETERMIR 1 UNIT/0.01 ML (LEVEMIR) CHARGE PER UNIT SQ SCH ×2 (08:51→21:05)
[2017-10-17] MEDS: amLODIPine 10 MG (NORVASC) TAB PO SCH (08:51)
--- NOTE | 2017-10-17 12:15 | Progress Note-Hospitalist ---
Subjective HPI/CC On Admission Date Seen by Provider: October 17, 2017 Time Seen by Provider: 10:30 Subjective/Events-last exam Patient off BiPAP and now on 4 L by nasal cannula Overall very weak and 10 family members in the room with her Will provide a bath today at her request Denies any pain Overall stable but prognosis is extremely poor Review of Systems General: Fatigue Pulmonary: Dyspnea, Cough Objective Exam Vital Signs Vital Signs Date Time Temp Pulse Resp B/P (MAP) Pulse Ox O2 Delivery O2 Flow Rate FiO2 10/17/17 10:24 95 High Flow N/C 5.00 10/17/17 10:18 54 15 10/17/17 08:00 97.5 127/52 (77) 10/15/17 15:15 48 Capillary Refill : Less Than 3 Seconds General Appearance: No Apparent Distress, WD/WN, Chronically ill, Obese Respiratory: Crackles, Decreased Breath Sounds Cardiovascular: No Edema, Irregularly Irregular Neurologic/Psychiatric: Alert, Oriented x3, No Motor/Sensory Deficits, Depressed Affect Results/Procedures Lab Laboratory Tests 10/17/17 03:25 Patient resulted labs reviewed. Assessment/Plan Assessment and Plan Assess & Plan/Chief Complaint Assessment per PCP: PNEUMONIA MILD CONGESTIVE HEART FAILURE ATRIAL FIBRILLATION PARKINSON'S DISEASE HYPOTHYROIDISM CHRONIC CONSTIPATION GENERALIZED ANXIETY INSOMNIA PERIPHERAL NEUROPATHY DIABETES MELLITUS HYPERTENSION Plan: Comfort measures DNR End of life Off biPAP and patient currently stable for now Diagnosis/Problems Diagnosis/Problems (1) Pneumonia Status: Acute Qualifiers: Pneumonia type: due to unspecified organism Laterality: right Lung location: lower lobe of lung Qualified Codes: J18.1 - Lobar pneumonia, unspecified organism (2) Sepsis Status: Acute (3) Pulmonary edema Status: Acute (4) CAD (coronary artery disease) Status: Chronic Qualifiers: Coronary Disease-Associated Artery/Lesion type: [place] artery [place] vs. transplanted heart: [place] heart Associated angina: with stable angina Qualified Codes: I25.118 - Atherosclerotic heart disease of [place] coronary artery with other forms of angina pectoris (5) Respiratory failure Status: Acute (6) UTI (urinary tract infection) Status: Acute Qualifiers: Urinary tract infection type: site unspecified Hematuria presence: without hematuria Qualified Codes: N39.0 - Urinary tract infection, site not specified (7) Poor prognosis Status: Chronic Clinical Quality Measures DVT/VTE Risk/Contraindication: Risk Factor Score Per Nursin RFS Level Per Nursing on Admit: 4+=Very High DARNELL HIRSCH DO October 17, 2017 12:15
[2017-10-17 15:36] VITALS: BP_SYST 153; BP_SYST 168; BP_DIAS 65; BP_DIAS 72
[2017-10-17] MEDS: FUROSEMIDE 20 MG (LASIX) TAB PO SCH (16:07)
[2017-10-17] MEDS: VANCOMYCIN 1250 MG/NS 250 ML IVPB IV SCH ×2 (17:18)
[2017-10-17] MEDS: SERTRALINE 50 MG (ZOLOFT) TABLET PO SCH (21:05)
[2017-10-17] MEDS: DIAZEPAM 5 MG (VALIUM) TABLET PO SCH (21:05)
[2017-10-17] MEDS: GABAPENTIN 600 MG (NEURONTIN) TAB PO SCH (21:05)
[2017-10-17] MEDS: FAMOTIDINE 20 MG (PEPCID) TABLET PO SCH (21:05)
[2017-10-17] MEDS: ARTIFICAL TEARS 0.4 ML UNIT DOSE (REFRESH PLUS) OU SCH (21:06)
[2017-10-17] MEDS: [UNRECOGNIZED DRUG - REMARK] TP SCH (21:06)
[2017-10-17] MEDS: NEUPRO 6 MG/24 HR TD SCH (21:06)
[2017-10-18 00:04] VITALS: BP 110/41
[2017-10-18] MEDS: RT-ALBUTEROL/IPRATROPIUM 3 ML (DUONEB) VIAL INH SCH ×6 (02:25→21:58)
[2017-10-18] MEDS: inSUlin ASPART (NovoLOG) 1 UNIT/0.01 ML (CHARGE PER UNIT) SC SCH ×4 (05:41→20:59)
[2017-10-18] MEDS: LEVOTHYROXINE 75 MCG (LEVOTHROID) TABLET PO SCH (05:56)
[2017-10-18 07:25] VITALS: BP 134/62
[2017-10-18] MEDS: meTOprolol TARTRATE 50 MG (LOPRESSOR) TAB PO SCH ×2 (09:15→20:51)
[2017-10-18] MEDS: DIGOXIN 0.125 MG (LANOXIN) TAB PO SCH (09:24)
[2017-10-18] MEDS: DABIGATRAN 75 MG (PRADAXA) CAPSULE PO SCH ×2 (09:24→20:51)
[2017-10-18] MEDS: MAGNESIUM OXIDE (MAG-OX)400 MG TAB PO SCH ×2 (09:24→20:51)
[2017-10-18] MEDS: FUROSEMIDE 40 MG (LASIX) TAB PO SCH (09:24)
[2017-10-18] MEDS: amLODIPine 10 MG (NORVASC) TAB PO SCH (09:24)
[2017-10-18] MEDS: GABAPENTIN 300 MG (NEURONTIN) CAP PO SCH ×2 (09:24→14:04)
[2017-10-18] MEDS: inSUlin DETERMIR 1 UNIT/0.01 ML (LEVEMIR) CHARGE PER UNIT SQ SCH ×2 (09:25→20:51)
[2017-10-18] MEDS: DOCUSATE SODIUM 100 MG (COLACE) CAP PO PRN ×2 (11:37→20:51)
--- NOTE | 2017-10-18 11:56 | Progress Note-Hospitalist ---
Subjective HPI/CC On Admission Date Seen by Provider: October 18, 2017 Time Seen by Provider: 10:30 Subjective/Events-last exam Patient doing well today and MiraLAX being given since constipated Denies any pain Overall stable but poor prognosis Too weak to really move around out of bed Reviewed meds and labs Review of Systems General: Fatigue, Malaise Pulmonary: Dyspnea Objective Exam Vital Signs Vital Signs Date Time Temp Pulse Resp B/P (MAP) Pulse Ox O2 Delivery O2 Flow Rate FiO2 10/18/17 10:35 94 High Flow N/C 4.00 10/18/17 07:25 98.7 57 16 134/62 (86) 10/17/17 20:00 30 Capillary Refill : Less Than 3 Seconds General Appearance: No Apparent Distress, WD/WN, Chronically ill Respiratory: Crackles, Decreased Breath Sounds Cardiovascular: No Edema, Irregularly Irregular Neurologic/Psychiatric: Alert, Oriented x3, No Motor/Sensory Deficits, Depressed Affect Results/Procedures Lab Patient resulted labs reviewed. Assessment/Plan Assessment and Plan Assess & Plan/Chief Complaint Assessment per PCP: PNEUMONIA MILD CONGESTIVE HEART FAILURE ATRIAL FIBRILLATION PARKINSON'S DISEASE HYPOTHYROIDISM CHRONIC CONSTIPATION GENERALIZED ANXIETY INSOMNIA PERIPHERAL NEUROPATHY DIABETES MELLITUS HYPERTENSION Plan: Comfort measures while treatment continues DNR End of life status Off biPAP and patient currently stable for now Diagnosis/Problems Diagnosis/Problems (1) Pneumonia Status: Acute Qualifiers: Pneumonia type: due to unspecified organism Laterality: right Lung location: lower lobe of lung Qualified Codes: J18.1 - Lobar pneumonia, unspecified organism (2) Sepsis Status: Acute (3) Pulmonary edema Status: Acute (4) CAD (coronary artery disease) Status: Chronic Qualifiers: Coronary Disease-Associated Artery/Lesion type: [place] artery [place] vs. transplanted heart: [place] heart Associated angina: with stable angina Qualified Codes: I25.118 - Atherosclerotic heart disease of [place] coronary artery with other forms of angina pectoris (5) Respiratory failure Status: Acute (6) UTI (urinary tract infection) Status: Acute Qualifiers: Urinary tract infection type: site unspecified Hematuria presence: without hematuria Qualified Codes: N39.0 - Urinary tract infection, site not specified (7) Poor prognosis Status: Chronic Clinical Quality Measures DVT/VTE Risk/Contraindication: Risk Factor Score Per Nursin RFS Level Per Nursing on Admit: 4+=Very High DARNELL HIRSCH DO October 18, 2017 11:56
[2017-10-18] MEDS: FUROSEMIDE 20 MG (LASIX) TAB PO SCH (16:25)
[2017-10-18 16:59] VITALS: BP 139/63
[2017-10-18] MEDS ORDERED: TROUGH ORDER-PHARMACY XX NR (17:00)
[2017-10-18] MEDS: VANCOMYCIN 1250 MG/NS 250 ML IVPB IV SCH ×2 (18:09)
[2017-10-18] MEDS: NEUPRO 6 MG/24 HR TD SCH (20:51)
[2017-10-18] MEDS: ARTIFICAL TEARS 0.4 ML UNIT DOSE (REFRESH PLUS) OU SCH (20:51)
[2017-10-18] MEDS: GABAPENTIN 600 MG (NEURONTIN) TAB PO SCH (20:51)
[2017-10-18] MEDS: SERTRALINE 50 MG (ZOLOFT) TABLET PO SCH (20:51)
[2017-10-18] MEDS: [UNRECOGNIZED DRUG - REMARK] TP SCH (20:51)
[2017-10-18] MEDS: FAMOTIDINE 20 MG (PEPCID) TABLET PO SCH (20:51)
[2017-10-18] MEDS: DIAZEPAM 5 MG (VALIUM) TABLET PO SCH (20:51)
[2017-10-18 23:54] VITALS: BP 136/61
[2017-10-19] MEDS: RT-ALBUTEROL/IPRATROPIUM 3 ML (DUONEB) VIAL INH SCH ×6 (02:09→22:52)
[2017-10-19] MEDS: LEVOTHYROXINE 75 MCG (LEVOTHROID) TABLET PO SCH (06:04)
[2017-10-19] MEDS: inSUlin ASPART (NovoLOG) 1 UNIT/0.01 ML (CHARGE PER UNIT) SC SCH ×4 (06:04→20:23)
[2017-10-19] MEDS ORDERED: VANCOMYCIN 1250 MG/NS 250 ML IVPB IV SCH ×2 (07:00)
[2017-10-19 07:55] VITALS: BP 140/66
[2017-10-19] MEDS: GABAPENTIN 300 MG (NEURONTIN) CAP PO SCH ×2 (08:16→13:30)
[2017-10-19] MEDS: DIGOXIN 0.125 MG (LANOXIN) TAB PO SCH (08:16)
[2017-10-19] MEDS: DABIGATRAN 75 MG (PRADAXA) CAPSULE PO SCH ×2 (08:16→20:23)
[2017-10-19] MEDS: MAGNESIUM OXIDE (MAG-OX)400 MG TAB PO SCH ×2 (08:16→20:23)
[2017-10-19] MEDS: FUROSEMIDE 40 MG (LASIX) TAB PO SCH (08:16)
[2017-10-19] MEDS: meTOprolol TARTRATE 50 MG (LOPRESSOR) TAB PO SCH ×2 (08:16→20:23)
[2017-10-19] MEDS: amLODIPine 10 MG (NORVASC) TAB PO SCH (08:16)
[2017-10-19] MEDS: inSUlin DETERMIR 1 UNIT/0.01 ML (LEVEMIR) CHARGE PER UNIT SQ SCH ×2 (08:17→20:23)
--- NOTE | 2017-10-19 08:54 | Progress Note ---
Subjective Date Seen by Provider: October 19, 2017 Time Seen by Provider: 08:10 Subjective/Events-last exam PT IS SITTING UP AT BEDSIDE GETTING READY TO TAKE HER MORNING MEDICATIONS. SHE REPORTS THAT SHE IS FEELING FINE THIS MORNING. NURSING STAFF NOTES THAT SHE WAS THE NURSE YESTERDAY AND ANIA DID WELL YESTERDAY, THE ONLY CONCERN WAS FOR CONSTIPATION. Review of Systems General: Fatigue HEENT: No Head Aches Pulmonary: Dyspnea; No Cough Cardiovascular: No: Chest Pain, Palpitations Gastrointestinal: Constipation; No: Nausea, Abdominal Pain Genitourinary: Other (DIAZ IN PLACE) Neurological: Weakness; No: Confusion Objective Exam Last Set of Vital Signs Vital Signs Date Time Temp Pulse Resp B/P (MAP) Pulse Ox O2 Delivery O2 Flow Rate FiO2 10/19/17 07:55 98.6 58 18 140/66 (90) 97 High Flow N/C 4.00 10/18/17 20:00 30 Capillary Refill : Less Than 3 Seconds I&O Intake and Output 10/19/17 00:00 Intake Total 1420 ml Output Total 1180 ml Balance 240 ml Intake Oral 1420 ml Output Urine Total 1180 ml General: Alert, Oriented X3, Cooperative HEENT: Atraumatic, PERRLA, Mucous Memb Moist/[place] Neck: Supple Lungs: Other (IMPROVED AIR MOVEMENT THROUGHOUT WITH SLIGHT CRACKLES IN BASES BILATERALLY) Heart: Regular Rate, Other (II/ TRICIA) Abdomen: Normal Bowel Sounds, Soft, No Tenderness Psych/Mental Status: Mental Status NL, Mood NL Results Lab Laboratory Tests 10/18/17 10:52: Glucometer 256H 10/18/17 16:00: Glucometer 220H 10/18/17 17:16: Vancomycin Level Trough 20.8H 10/18/17 20:56: Glucometer 277H 10/19/17 05:42: Glucometer 204H Microbiology 10/13/17 Blood Culture - Preliminary, Resulted No growth 10/14/17 Urine Culture - Final, Complete Escherichia coli See Comments Assessment/Plan Assessment/Plan Assess & Plan/Chief Complaint PNEUMONIA MILD CONGESTIVE HEART FAILURE ATRIAL FIBRILLATION PARKINSON'S DISEASE HYPOTHYROIDISM CHRONIC CONSTIPATION GENERALIZED ANXIETY INSOMNIA PERIPHERAL NEUROPATHY DIABETES MELLITUS HYPERTENSION CONSTIPATION PNEUMONIA - PT ON IV ANTIBIOTICS - PNEUMONIA PROTOCOL, IMPROVING CHEST XRAYS - PT TO FINISH ANTIBIOTICS ON 10/20/17 MILD CONGESTIVE HEART FAILURE - PT GIVEN IV LASIX CONTINUE TO MONITOR SYMPTOMS - REMOVE DIAZ TODAY ATRIAL FIBRILLATION - RATE CONTROLLED - CONTINUE DIGOXIN, TOPROL, MONITOR SYMPTOMS. PARKINSON'S DISEASE - RESUMED NEUPRO - MONITOR SYMPTOMS - SUPPORTIVE CARE. HYPOTHYROIDISM - RESUMED SYNTHROID AT CURRENT HOME DOSING. CHRONIC CONSTIPATION - COLACE AND MIRALAX - GIVE DOSE OF DULCOLAX SUPPOSITORY TODAY GENERALIZED ANXIETY - RESUMED HOME MEDICATIONS. INSOMNIA - VALIUM PRN AT HS. PERIPHERAL NEUROPATHY - PT TAKES GABAPENTIN AND WE WILL RESUME THIS MEDICATION. DIABETES MELLITUS - RESUMED LONG ACTING INSULIN AND HOLD SLIDING SCALE INSULIN. HYPERTENSION - RESUMED METOPROLOL. DVT PROPHYLAXIS WITH PRADAXA AND SCD'S GI PROPHYLAXIS WITH PEPCID Clinical Quality Measures Admission Status Admission Dx PNEUMONIA MILD CONGESTIVE HEART FAILURE ATRIAL FIBRILLATION PARKINSON'S DISEASE HYPOTHYROIDISM CHRONIC CONSTIPATION GENERALIZED ANXIETY INSOMNIA PERIPHERAL NEUROPATHY DIABETES MELLITUS HYPERTENSION DVT/VTE Risk/Contraindication: Risk Factor Score Per Nursin RFS Level Per Nursing on Admit: 4+=Very High NUNO FENTON MD October 19, 2017 08:54
[2017-10-19] MEDS: BISACODYL 10 MG SUPP (DULCOLAX) PR NR ×2 (10:44→11:00)
[2017-10-19] MEDS: FUROSEMIDE 20 MG (LASIX) TAB PO SCH (16:40)
[2017-10-19] MEDS: ACETAMINOPHEN 500 MG TAB (TYLENOL) PO PRN (16:40)
[2017-10-19] MEDS: GABAPENTIN 600 MG (NEURONTIN) TAB PO SCH (20:22)
[2017-10-19] MEDS: SERTRALINE 50 MG (ZOLOFT) TABLET PO SCH (20:22)
[2017-10-19] MEDS: ARTIFICAL TEARS 0.4 ML UNIT DOSE (REFRESH PLUS) OU SCH (20:23)
[2017-10-19] MEDS: FAMOTIDINE 20 MG (PEPCID) TABLET PO SCH (20:23)
[2017-10-19] MEDS: [UNRECOGNIZED DRUG - REMARK] TP SCH (20:23)
[2017-10-19] MEDS: DIAZEPAM 5 MG (VALIUM) TABLET PO SCH (20:23)
[2017-10-19] MEDS: NEUPRO 6 MG/24 HR TD SCH (20:23)
[2017-10-20] VITALS: BP 158/69
[2017-10-20] MEDS: RT-ALBUTEROL/IPRATROPIUM 3 ML (DUONEB) VIAL INH SCH ×3 (01:42→11:05)
[2017-10-20] MEDS: inSUlin ASPART (NovoLOG) 1 UNIT/0.01 ML (CHARGE PER UNIT) SC SCH ×2 (05:48→11:32)
[2017-10-20] MEDS: LEVOTHYROXINE 75 MCG (LEVOTHROID) TABLET PO SCH (05:48)
--- NOTE | 2017-10-20 06:41 | Pulmonary Progress Note ---
Subjective Time Seen by Provider: 06:40 Subjective/Events-last exam No complications noted. Exam Exam Vital Signs Date Time Temp Pulse Resp B/P (MAP) Pulse Ox O2 Delivery O2 Flow Rate FiO2 10/20/17 05:50 60 20 94 45.00 10/20/17 01:42 40 20 99 50.00 10/20/17 00:00 96.5 43 17 158/69 (98) 99 NIV Bilevel 50.00 12.00 10/19/17 22:52 70 20 95 50.00 10/19/17 20:00 High Flow N/C 6.00 10/19/17 19:14 94 Nasal Cannula 6.00 10/19/17 16:50 99.0 60 22 94 NIV Bilevel 50.00 12.00 10/19/17 15:53 57 26 83 50.00 10/19/17 14:05 90 Nasal Cannula 4.00 10/19/17 10:21 92 Nasal Cannula 4.00 10/19/17 09:00 High Flow N/C 6.00 10/19/17 07:55 98.6 58 18 140/66 (90) 97 High Flow N/C 4.00 I & O 10/20/17 07:00 Intake Total 1112.5 ml Output Total 525 ml Balance 587.5 ml General Appearance: No Apparent Distress, WD/WN, Chronically ill HEENT: Normal ENT Inspection Neck: Normal Inspection Respiratory: Crackles, Decreased Breath Sounds Cardiovascular: No Edema, Irregularly Irregular Capillary Refill: Less Than 3 Seconds Gastrointestinal: normal bowel sounds, non tender, soft Extremity: Normal Capillary Refill, Pedal Edema Neurologic/Psychiatric: Alert, Oriented x3, No Motor/Sensory Deficits, Depressed Affect Skin: Other (PT SWEATING) Assessment/Plan Assessment/Plan Acute on chronic respiratory failure last EF 03/08 was 60% -BiPAP QHS and PRN -Continue lasix -Repeat CXR Hx of Parkinson's hx of afib labs and radiology reviewed. Will repeat CXR. 232 FREDERICK SEN DO October 20, 2017 06:40
[2017-10-20 08:00] VITALS: BP 148/67
--- NOTE | 2017-10-20 08:56 | Discharge Summary ---
Diagnosis/Chief Complaint Date of Admission October 11, 2017 at 09:20 Date of Discharge Discharge Date: October 20, 2017 Discharge Time: 11:00 Admission Diagnosis Admission Diagnosis PNEUMONIA MILD CONGESTIVE HEART FAILURE ATRIAL FIBRILLATION PARKINSON'S DISEASE HYPOTHYROIDISM CHRONIC CONSTIPATION GENERALIZED ANXIETY INSOMNIA PERIPHERAL NEUROPATHY DIABETES MELLITUS HYPERTENSION CONSTIPATION URINARY TRACT INFECTION WITH ECOLI Discharge Diagnosis PNEUMONIA MILD CONGESTIVE HEART FAILURE ATRIAL FIBRILLATION PARKINSON'S DISEASE HYPOTHYROIDISM CHRONIC CONSTIPATION GENERALIZED ANXIETY INSOMNIA PERIPHERAL NEUROPATHY DIABETES MELLITUS HYPERTENSION CONSTIPATION URINARY TRACT INFECTION WITH ECOLI Reason Hospital Visit PT IS AN 82 Y/O FEMALE WHO IS KNOWN TO ME FROM PREVIOUS HOSPITALIZATION. THE PT IS ON BIPAP AND THE HISTORY IS A COMBINATION OF INTERVIEW OF THE PT AND HER SON. SHE REPORTS THAT SHE WAS NOT FEELING WELL ON WEDNESDAY AND HAD BEEN PROGRESSIVELY FEELING WORSE ON WEDNESDAY. THIS MORNING SHE WAS EVALUATED BY THE NURSE AT [facility] AND FOUND TO HAVE ELEVATED TEMPERATURE, HYPOXIA AND REQUESTED THAT SHE BE SENT TO THE HOSPITAL EMERGENCY DEPARTMENT FOR ACUTE EVALUATION. SHE WAS FOUND TO HAVE ACUTE PNEUMONIA ON EVALUATION. Discharge Summary Consultations PULMONOLOGY Discharge Physical Examination Allergies: Coded Allergies: iodine (Verified Allergy, Severe, BLISTERS, 12/13/13) neomycin (Verified Allergy, Severe, SWELLING, PAIN, RASH, ITCHING, 12/13/13 ) THIS WAS ADMINISTERED AN EAR DROP, EARS AND HEAD SWELLED AND TURNED RED CAUSING PAIN AND RASH WITH ITCHING cephalexin (Unverified Allergy, Mild, 08/19/08) phenylalanine (Verified Allergy, Mild, 04/25/16) pregabalin (Verified Allergy, Mild, SWELLING AND WEIGHT GAIN, 12/13/13) brompheniramine (Verified Allergy, Unknown, VISION PROBLEMS, 12/13/13) dextromethorphan (Verified Allergy, Unknown, 03/30/06) penicillin G (Verified Allergy, Unknown, RASH, 12/13/13) phenylpropanolamine (Verified Allergy, Unknown, 03/30/06) pseudoephedrine (Verified Allergy, Unknown, 03/30/06) simvastatin (Verified Allergy, Unknown, EXTREME WEAKNESS AND PAIN IN LEGS , 12/13/13) sulfamethoxazole (Verified Allergy, Unknown, 03/03/16) thimerosal (Verified Allergy, Unknown, RASH WITH PAIN AND ITCHING, 12/13/13 ) trimethoprim (Verified Allergy, Unknown, 03/03/16) codeine (Verified Adverse Reaction, Mild, TRIPLE VISION, 06/05/15) hydrocodone (Verified Adverse Reaction, Mild, VISION PROBLEMS, 06/05/15) Uncoded Allergies: TAPE (Allergy, Unknown, RASH, 12/13/13) Vitals & I&Os Vital Signs Date Time Temp Pulse Resp B/P (MAP) Pulse Ox O2 Delivery O2 Flow Rate FiO2 10/20/17 08:08 60 20 96 45.00 10/20/17 00:00 96.5 158/69 (98) NIV Bilevel 10/18/17 20:00 30 General Appearance: Alert, Oriented X3, Cooperative HEENT: Atraumatic, PERRLA, Mucous Memb Moist/[place] Respiratory: Other (IMPROVED AIR MOVEMENT THROUGHOUT WITH SLIGHT CRACKLES IN BASES BILATERALLY) Cardiovascular: Regular Rate, Other (II/ TRICIA) Abdominal: Normal Bowel Sounds, Soft, No Tenderness Psych/Mental Status: Mental Status NL, Mood NL Hospital Course PNEUMONIA MILD CONGESTIVE HEART FAILURE ATRIAL FIBRILLATION PARKINSON'S DISEASE HYPOTHYROIDISM CHRONIC CONSTIPATION GENERALIZED ANXIETY INSOMNIA PERIPHERAL NEUROPATHY DIABETES MELLITUS HYPERTENSION CONSTIPATION URINARY TRACT INFECTION PNEUMONIA - PT ON IV ANTIBIOTICS - PNEUMONIA PROTOCOL, IMPROVING CHEST XRAYS - PT TO FINISH ANTIBIOTICS ON 10/20/17 MILD CONGESTIVE HEART FAILURE - PT GIVEN IV LASIX CONTINUE TO MONITOR SYMPTOMS - REMOVE DIAZ TODAY ATRIAL FIBRILLATION - RATE CONTROLLED - CONTINUE DIGOXIN, TOPROL, MONITOR SYMPTOMS. PARKINSON'S DISEASE - RESUMED NEUPRO - MONITOR SYMPTOMS - SUPPORTIVE CARE. HYPOTHYROIDISM - RESUMED SYNTHROID AT CURRENT HOME DOSING. CHRONIC CONSTIPATION - COLACE AND MIRALAX - GIVE DOSE OF DULCOLAX SUPPOSITORY TODAY GENERALIZED ANXIETY - RESUMED HOME MEDICATIONS. INSOMNIA - VALIUM PRN AT HS. PERIPHERAL NEUROPATHY - PT TAKES GABAPENTIN AND WE WILL RESUME THIS MEDICATION. DIABETES MELLITUS - RESUMED LONG ACTING INSULIN AND HOLD SLIDING SCALE INSULIN. HYPERTENSION - RESUMED METOPROLOL. UTI - STARTED ON NITROFURANTOIN TODAY - CONTINUE X 7 MORE DAYS DVT PROPHYLAXIS WITH PRADAXA AND SCD'S GI PROPHYLAXIS WITH PEPCID DC TO RESIDENTIAL TODAY Pending Labs Laboratory Tests 10/20/17 05:39: Glucometer 112 Discharge Condition at discharge IMPROVED Instructions to patient/family Please see electronic discharge instructions given to patient. Discharge Medications Reviewed and agree with Discharge Medication list on patient's Discharge Instruction sheet Clinical Quality Measures DVT/VTE Risk/Contraindication: Risk Factor Score Per Nursin RFS Level Per Nursing on Admit: 4+=Very High NUNO FENTON MD October 20, 2017 08:56
[2017-10-20] MEDS ORDERED: NITR50CA PO ×2 (08:59)
[2017-10-20] MEDS ORDERED: NITROFURANTOIN 50 MG (MACRODANTIN) CAP PO SCH (09:00)
--- NOTE | 2017-10-20 09:01 | Discharge Inst-Skilled Nursing ---
Discharge Inst-Skilled NF Patient Instructions Patient Problems: PNEUMONIA MILD CONGESTIVE HEART FAILURE ATRIAL FIBRILLATION PARKINSON'S DISEASE HYPOTHYROIDISM CHRONIC CONSTIPATION GENERALIZED ANXIETY INSOMNIA PERIPHERAL NEUROPATHY DIABETES MELLITUS HYPERTENSION CONSTIPATION URINARY TRACT INFECTION WITH ECOLI Consult/Follow Up/Orders Follow Up Appt.: 1 WK WITH [facility] Skilled NF Admit to: [facility] Certification (SNF) I certify that SNF services are required to be given on an inpatient basis because of the above named patient's need for senior care care on a continuing basis for the conditions(s) for which he/she was receiving inpatient hospital services prior to his/her transfer to the SNF. Snf Facility Order: Nursing Services, Newborn Photographer-Evaluate & Treat, Physical Therapy-Evaluate & Treat Discharge Diet: ADA Diet Daily Activity as Tolerated: Yes New & Resume Previous Orders Nuno Alvarez October 20, 2017 08:59 Medication List: Active Scripts Active Nitrofurantoin (Nitrofurantoin Macrocrystal) 50 Mg Capsule 100 Mg PO BID Reported Biofreeze (Menthol) 118 Ml Gel..ml. TP QID PRN Imodium A-D (Loperamide HCl) 2 Mg Tablet 2 Mg PO QID PRN Melatonin 5 Mg Capsule 5 Mg PO HS Gabapentin 300 Mg Capsule 300 Mg PO BID Gabapentin 600 Mg Tablet 600 Mg PO HS Levemir (Insulin Determir) 1,000 Units/10 Ml Soln 8 Units SQ BID Mucinex (Guaifenesin) 600 Mg Tab.er.12h 600 Mg PO Q12H PRN Tylenol Extra Strength (Acetaminophen) 500 Mg Tablet 500 Mg PO Q4H PRN Hyoscyamine Sulfate 0.125 Mg Tab.subl 0.125 Mg SL Q2H PRN Systane Balance (Propylene Glycol) 10 Ml Drops 1 Drop OU HS Metoprolol Tartrate 100 Mg Tablet 100 Mg PO BID HOLD IF HR <50 Albuterol Sulfate 2.5 Mg/3 Ml Vial.neb 2.5 Mg NEB UD PRN Zofran (Ondansetron HCl) 4 Mg Tab 4 Mg PO Q6H PRN Lasix (Furosemide) 20 Mg Tablet 20 Mg PO 1600 Iprat-Albut 0.5-3(2.5) mg/3 ml (Ipratropium/Albuterol Sulfate) 3 Ml Ampul.neb 3 Ml IH Q4H PRN Miralax (Polyethylene Glycol 3350) 17 Gm Powd.pack 17 Gm PO DAILY PRN Zoloft (Sertraline HCl) 50 Mg Tablet 50 Mg PO DAILY Colace (Docusate Sodium) 100 Mg Capsule 100 Mg PO BID PRN Humalog (Insulin Lispro) 100 Unit/1 Ml Vial SQ TID 201-250 = 3 UNITS 251-300 = 5 UNITS 301-350 = 7 UNITS 351-400 = 9 UNITS ABOVE 400 NOTIFY PCP Potassium Chloride 10 Meq Tablet.er 10 Meq PO BID Amlodipine Besylate 10 Mg Tablet 10 Mg PO DAILY Diazepam 5 Mg Tablet 5 Mg PO HS Fluticasone Propionate 16 Gm [place].susp 2 Sprays NSEACH DAILY PRN Lisinopril 10 Mg Tablet 10 Mg PO DAILY Metformin HCl 1,000 Mg Tablet 1,000 Mg PO BID Acetaminophen 325 Mg Tablet 650 Mg PO Q4H PRN TAKES 2 (325MG) TABLETS Digoxin 125 Mcg Tablet 125 Mcg PO DAILY HOLD IF HR <50 Pradaxa (Dabigatran Etexilate Mesylate) 75 Mg Capsule 75 Mg PO BID Neupro (Rotigotine) 1 Each Patch.td24 1 Patch TD HS 6MG/24HR Glimepiride 4 Mg Tablet 8 Mg PO DAILY TAKES 2 (4MG) TABLETS Levothyroxine Sodium 75 Mcg Tablet 75 Mcg PO DAILY Cetirizine HCl 10 Mg Tablet 10 Mg PO HS PRN Furosemide 40 Mg Tablet 40 Mg PO DAILY Lab results: Laboratory Tests Test 10/19/17 10:34 10/19/17 15:42 10/19/17 20:19 10/20/17 05:39 Range/Units Glucometer 299 H 272 H 136 H 112 H 70-110 MG/DL My orders: Orders - NUNO ALVAREZ MD Nitrofurantoin Capsule (Macrodantin Caps (10/20/17 09:00) Chest 1 View, Ap/Pa Only (10/20/17 06:38) Attending [facility] (10/20/17 08:57) NUNO ALVAREZ MD October 20, 2017 09:00
[2017-10-20] MEDS: amLODIPine 10 MG (NORVASC) TAB PO SCH (09:05)
[2017-10-20] MEDS: MAGNESIUM OXIDE (MAG-OX)400 MG TAB PO SCH (09:05)
[2017-10-20] MEDS: meTOprolol TARTRATE 50 MG (LOPRESSOR) TAB PO SCH (09:05)
[2017-10-20] MEDS: DIGOXIN 0.125 MG (LANOXIN) TAB PO SCH (09:05)
[2017-10-20] MEDS: FUROSEMIDE 40 MG (LASIX) TAB PO SCH (09:05)
[2017-10-20] MEDS: inSUlin DETERMIR 1 UNIT/0.01 ML (LEVEMIR) CHARGE PER UNIT SQ SCH (09:05)
[2017-10-20] MEDS: GABAPENTIN 300 MG (NEURONTIN) CAP PO SCH ×2 (09:05→12:04)
[2017-10-20] MEDS: DABIGATRAN 75 MG (PRADAXA) CAPSULE PO SCH (09:05)
--- NOTE | 2017-10-20 11:45 | Diagnostic Imaging Report ---
Indication: Shortness of breath. Time of exam: 9:28 AM Correlation is made with prior study from 10/15/2017. The heart is enlarged. Bilateral pulmonary infiltrates do appear to be improved and partially cleared. There appears to be some residual infiltrate in the lung bases. Upper lobes demonstrate some improved aeration. There are small bilateral pleural effusions. There is a vertically oriented line along the left chest wall. This may represent a skin fold. A small pneumothorax cannot be entirely excluded, as no definite lung markings are noted beyond the line. Followup is recommended. No other abnormalities are seen. Impression: 1. Overall improved aeration of both lungs with clearing of upper lobe infiltrates when compared with examination from 5 days earlier. There continue to be small bilateral pleural effusions. 2. Vertically oriented lucency along the lateral left chest wall, as described, indeterminate between skin fold versus a small pneumothorax. Followup is recommended. Dictated by: Dictated on workstation # [id number]
--- NOTE | 2017-10-21 10:47 | Physician Query Clarification ---
PQ-Conflicting Diagnosis Admission/Discharge Admission Date: October 11, 2017 at 09:20 Discharge Date: October 20, 2017 at 15:05 The medical record reflects the following clinical scenario: History/Risk Factors: Pneumonia, COPD, Diabetes, Acute systolic CHF Clinical Findings: WBC 7.8, Lactic acid 1.39, T 97.5, P 53, R 22, BP 181/58 Treatment: IV Vancomycin Question: Do you agree with the impression of the Sepsis per Dr. Oliveira and Dr. Mcclelland. Please document a response below and if agree please indicated if it was present on admission or not PHYSICIAN RESPONSE Do you agree w/Consulting Dx?: Yes In responding to this query, please exercise your independent professional judgment. The purpose of this communication is to more accurately reflect the complexity of your patients condition. The fact that a question is asked does not imply that any particular answer is desired or expected. Thank you for your timely response to this clarification. Requestors name: Dina THIS PHYSICIAN QUERY FORM IS A PERMANENT PART OF THE MEDICAL RECORD DINA SCOTT October 21, 2017 10:47 NUNO FENTON MD Oct 26, 2017 08:27
--- NOTE | 2017-10-21 10:52 | Physician Query Clarification ---
PQ-Conflicting Diagnosis Admission/Discharge Admission Date: October 11, 2017 at 09:20 Discharge Date: October 20, 2017 at 15:05 The medical record reflects the following clinical scenario: History/Risk Factors: Pneumonia, Acute systolic CHF, Diabetes, HTN Clinical Findings: SOB, wheezing, O2 sats 82% on room air Treatment: Bipap Question: Do you agree with the impression of the acute on chronic respiratory failure per Dr. Vazquez. Please document a response below. PHYSICIAN RESPONSE Do you agree w/Consulting Dx?: Yes In responding to this query, please exercise your independent professional judgment. The purpose of this communication is to more accurately reflect the complexity of your patients condition. The fact that a question is asked does not imply that any particular answer is desired or expected. Thank you for your timely response to this clarification. Requestors name: Dina THIS PHYSICIAN QUERY FORM IS A PERMANENT PART OF THE MEDICAL RECORD DINA SCOTT October 21, 2017 10:52 NUNO FENTON MD Oct 26, 2017 08:27
[2017-11-05] MEDS ORDERED: DICL100G18 TP (14:46)
[2017-11-05] MEDS ORDERED: METO50TA15 PO (14:46)
[2017-11-05] MEDS ORDERED: TRAM50TA2 PO (14:46)
[2017-11-09] MEDS ORDERED: NITR100C PO (08:34)
== END 2017-10-20 15:05 | DRG 871 ==
LOC: EDUNIT# 08:12 → ER 08:13 → 4TH 09:20 → ICU 10-13 17:15 → 4TH 10-15 09:45
PROVIDERS: ADMIT Family Medicine; ATTEND Family Medicine
DX: A41.9 Sepsis, unspecified organism (principal); J18.9 Pneumonia, unspecified organism; J44.0 Chronic obstructive pulmonary disease with (acute) lower respiratory infection; I11.0 Hypertensive heart disease with heart failure; I50.21 Acute systolic (congestive) heart failure; J96.20 Acute and chronic respiratory failure, unspecified whether with hypoxia or hypercapnia; I48.91 Unspecified atrial fibrillation; R00.1 Bradycardia, unspecified; Z66 Do not resuscitate; G20 Parkinson's disease; E11.42 Type 2 diabetes mellitus with diabetic polyneuropathy; E11.51 Type 2 diabetes mellitus with diabetic peripheral angiopathy without gangrene; G47.00 Insomnia, unspecified; E03.9 Hypothyroidism, unspecified; F41.1 Generalized anxiety disorder; K59.09 Other constipation; G47.30 Sleep apnea, unspecified; I27.20 Pulmonary hypertension, unspecified; I25.10 Atherosclerotic heart disease of native coronary artery without angina pectoris; I25.2 Old myocardial infarction; E78.00 Pure hypercholesterolemia, unspecified; I69.898 Other sequelae of other cerebrovascular disease; R26.89 Other abnormalities of gait and mobility; G25.81 Restless legs syndrome; F32.9 Major depressive disorder, single episode, unspecified; M25.511 Pain in right shoulder; K21.9 Gastro-esophageal reflux disease without esophagitis; M54.9 Dorsalgia, unspecified; M19.91 Primary osteoarthritis, unspecified site; Z99.81 Dependence on supplemental oxygen
CPT/HCPCS: 36415; 36600; 71045; 80048; 80053; 80162; 80202; 81000; 82805; 82962; 83605; 83735; 83880; 84100; 84484; 85025; 85027; 85610; 85730; 86141; 87040; 87077; 87088; 87186; 87804; 93005; 94640; 94660; 94664; 94760; 96361; 96365; 96366; 96375

== ENCOUNTER 2017-10-23 16:29 | Inpatient (IN) | payer MEDICARE, OTHER, MEDICAID ==
[~2017-10-23] VITALS: Ht 165.1 cm; Wt 84.5 kg
[~2017-10-23 16:29] MED LIST changes: +LOPE-134 PO; +MELA5CAP PO; +MENT118G TP; +NITR50CA PO
[2017-10-23] MEDS ORDERED: RT-ALBUTEROL SULF 2.5 MG/3 ML PRE-MIX VIAL INH STA (16:36)
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
[2017-10-23] MEDS ORDERED: LEVOFLOXACIN IV 750 MG/150 ML (LEVAQUIN) BAG IV ONE (16:45)
[2017-10-23] MEDS ORDERED: ACETAMINOPHEN 500 MG TAB (TYLENOL) PO PRN ×2 (16:45→20:45)
[2017-10-23 16:48] LABS: BASOPHILS # (AUTO) 0.1 10^3/uL (0.0-0.1); BASOPHILS % (AUTO) 1 % (0-10); EOSINOPHILS # (AUTO) 0.4 10^3/uL (0.0-0.3); EOSINOPHILS % (AUTO) 5 % (0-10); HEMATOCRIT 30 % (35-52); HEMOGLOBIN 9.3 G/DL (11.5-16.0); LYMPHOCYTES # (AUTO) 2.2 X 10^3 (1.0-4.0); LYMPHOCYTES % (AUTO) 28 % (12-44); MEAN CORPUSCULAR HEMOGLOBIN 26 PG (25-34); MEAN CORPUSCULAR HGB CONC 31 G/DL (32-36); MEAN CORPUSCULAR VOLUME 83 FL (80-99); MEAN PLATELET VOLUME 8.7 FL (7.4-10.4); MONOCYTES # (AUTO) 0.6 X 10^3 (0.0-1.0); MONOCYTES % (AUTO) 7 % (0-12); NEUTROPHILS # (AUTO) 4.8 X 10^3 (1.8-7.8); NEUTROPHILS % (AUTO) 60 % (42-75); PLATELET COUNT 439 10^3/uL (130-400); RED BLOOD COUNT 3.59 10^6/uL (4.35-5.85); RED CELL DISTRIBUTION WIDTH 21.4 % (10.0-14.5); WHITE BLOOD COUNT 8.1 10^3/uL (4.3-11.0)
[2017-10-23 16:56] LABS: ABG OXYGEN SATURATION 99 % (94-100); ABG PCO2 42 MMHG (35-45); ABG PH 7.47 (7.37-7.43); ABG PO2 111 MMHG (79-93); ABG TCO2 30.9 MMOL/L (21.0-31.0); ALLENS TEST POSITIVE; INSPIRED O2 10 L; VENTILATOR NO
[2017-10-23 16:57] LABS: PATIENT TEMP 99.2
[2017-10-23 16:59] LABS: INR 1.7 (0.8-1.4); PROTHROMBIN TIME PATIENT 19.7 SEC (12.2-14.7)
[2017-10-23 17:09] LABS: ALBUMIN 3.6 GM/DL (3.2-4.5); BILIRUBIN,TOTAL 0.4 MG/DL (0.1-1.0); CALCIUM 9.7 MG/DL (8.5-10.1); CREATININE SERUM 1.52 MG/DL (0.60-1.30); POTASSIUM 4.9 MMOL/L (3.6-5.0)
[2017-10-23 17:15] LABS: DIGOXIN 0.9 NG/ML (0.80-2.00)
[2017-10-23] MEDS ORDERED: FUROSEMIDE 40 MG/4 ML INJ (LASIX) IVP ONE (17:45)
[2017-10-23] MEDS ORDERED: oxyCODONE/APAP 5/325MG (PERCOCET 5) TABLET PO ONE (17:45)
--- NOTE | 2017-10-23 17:46 | Diagnostic Imaging Report ---
INDICATION: Respiratory distress. COMPARISON: 10/20/2017. EXAMINATION: Single view of the chest was obtained. FINDINGS: There has been continued improvement with clearing of the lungs, bilaterally. There continues to be moderate alveolar infiltrate in the right lower lobe. Small bibasilar pleural effusions remain present. No pneumothorax. Heart remains enlarged. IMPRESSION: 1. Continued overall improvement with better aeration and decreasing infiltrate. 2. Continued right basilar alveolar infiltrate with small bibasilar pleural effusions. Dictated by: Dictated on workstation # [id number]
[2017-10-23] MEDS ORDERED: CATHETER FLUSH 10 ML SYR IV PRN (18:45)
[2017-10-23 20:00] VITALS: BP 156/67
[2017-10-23] MEDS ORDERED: RT-ALBUTEROL/IPRATROPIUM 3 ML (DUONEB) VIAL INH PRN (20:15)
[2017-10-23] MEDS ORDERED: HYDROcodone/APAP 5 MG/325 MG (LORTAB) TAB PO PRN (20:45)
[2017-10-23] MEDS ORDERED: ONDANSETRON 4 MG/2 ML (SDV) Z0FRAN IV PRN (20:45)
[2017-10-23] MEDS ORDERED: meTOprolol TARTRATE 50 MG (LOPRESSOR) TAB PO SCH (21:00)
[2017-10-23] MEDS: RT-ALBUTEROL/IPRATROPIUM 3 ML (DUONEB) VIAL INH SCH (21:24)
[2017-10-23 22:33] VITALS: BP 156/67
[2017-10-23] MEDS: GABAPENTIN 300 MG (NEURONTIN) CAP PO SCH (22:38)
[2017-10-23] MEDS: DIAZEPAM 5 MG (VALIUM) TABLET PO SCH (22:38)
[2017-10-23] MEDS: KCL 20 MEQ TAB (K-DUR) PO SCH (22:46)
[2017-10-23] MEDS: inSUlin DETERMIR 1 UNIT/0.01 ML (LEVEMIR) CHARGE PER UNIT SQ SCH (22:46)
[2017-10-23] MEDS: SERTRALINE 50 MG (ZOLOFT) TABLET PO SCH (22:46)
[2017-10-23] MEDS: inSUlin ASPART (NovoLOG) 1 UNIT/0.01 ML (CHARGE PER UNIT) SC SCH (22:46)
[2017-10-23] MEDS: CATHETER FLUSH 10 ML SYR IV SCH (22:47)
[2017-10-23] MEDS: DABIGATRAN 75 MG (PRADAXA) CAPSULE PO SCH (22:47)
[2017-10-23 22:50] VITALS: BP 100/54
[2017-10-23] MEDS: FUROSEMIDE 40 MG/4 ML INJ (LASIX) IV SCH (23:23)
[2017-10-24] MEDS: RT-ALBUTEROL/IPRATROPIUM 3 ML (DUONEB) VIAL INH SCH ×6 (01:33→22:13)
[2017-10-24 03:41] VITALS: BP 132/60
[2017-10-24 04:37] LABS: BASOPHILS # (AUTO) 0.1 10^3/uL (0.0-0.1); BASOPHILS % (AUTO) 1 % (0-10); EOSINOPHILS # (AUTO) 0.4 10^3/uL (0.0-0.3); EOSINOPHILS % (AUTO) 6 % (0-10); HEMATOCRIT 29 % (35-52); HEMOGLOBIN 8.9 G/DL (11.5-16.0); LYMPHOCYTES # (AUTO) 1.5 X 10^3 (1.0-4.0); LYMPHOCYTES % (AUTO) 25 % (12-44); MEAN CORPUSCULAR HEMOGLOBIN 26 PG (25-34); MEAN CORPUSCULAR HGB CONC 31 G/DL (32-36); MEAN CORPUSCULAR VOLUME 83 FL (80-99); MEAN PLATELET VOLUME 8.5 FL (7.4-10.4); MONOCYTES # (AUTO) 0.6 X 10^3 (0.0-1.0); MONOCYTES % (AUTO) 11 % (0-12); NEUTROPHILS # (AUTO) 3.2 X 10^3 (1.8-7.8); NEUTROPHILS % (AUTO) 56 % (42-75); PLATELET COUNT 397 10^3/uL (130-400); RED BLOOD COUNT 3.46 10^6/uL (4.35-5.85); RED CELL DISTRIBUTION WIDTH 21.5 % (10.0-14.5); WHITE BLOOD COUNT 5.7 10^3/uL (4.3-11.0)
[2017-10-24 04:59] LABS: CALCIUM 9.2 MG/DL (8.5-10.1); CREATININE SERUM 1.49 MG/DL (0.60-1.30); POTASSIUM 4.2 MMOL/L (3.6-5.0)
[2017-10-24] MEDS: inSUlin ASPART (NovoLOG) 1 UNIT/0.01 ML (CHARGE PER UNIT) SC SCH ×4 (05:13→21:46)
[2017-10-24 06:41] VITALS: BP 150/68
[2017-10-24] MEDS: FUROSEMIDE 40 MG/4 ML INJ (LASIX) IV SCH (06:43)
[2017-10-24] MEDS: CATHETER FLUSH 10 ML SYR IV SCH ×3 (06:43→21:53)
[2017-10-24 07:23] LABS: BILIRUBIN,URINE NEGATIVE (NEGATIVE); CLARITY,URINE CLEAR; COLOR,URINE YELLOW; GLUCOSE, URINE (UA) NEGATIVE (NEGATIVE); KETONES,URINE NEGATIVE (NEGATIVE); LEUKOCYTE ESTERASE ,URINE 1+ (NEGATIVE); NITRITE,URINE NEGATIVE (NEGATIVE); PH,URINE 8 (5-9); PROTEIN,URINE NEGATIVE (NEGATIVE); UROBILINOGEN,URINE NORMAL (NORMAL)
[2017-10-24 07:32] LABS: BACTERIA,URINE TRACE /HPF; RBC,URINE RARE /HPF; SQUAMOUS EPITHELIAL CELL,UR 25-50 /HPF
[2017-10-24] MEDS ORDERED: PATIENT MAY USE OWN MED,SINGLE MED PO SCH (07:45)
[2017-10-24 08:00] VITALS: BP 136/60
[2017-10-24] MEDS ORDERED: DIGOXIN 0.125 MG (LANOXIN) TAB PO SCH (09:00)
[2017-10-24] MEDS: KCL 20 MEQ TAB (K-DUR) PO SCH ×2 (09:45→21:45)
[2017-10-24] MEDS: DABIGATRAN 75 MG (PRADAXA) CAPSULE PO SCH ×2 (09:45→21:45)
[2017-10-24] MEDS: inSUlin DETERMIR 1 UNIT/0.01 ML (LEVEMIR) CHARGE PER UNIT SQ SCH ×2 (09:45→21:46)
[2017-10-24] MEDS: GABAPENTIN 300 MG (NEURONTIN) CAP PO SCH ×3 (09:45→21:45)
--- NOTE | 2017-10-24 10:58 | History & Physical-Hospitalist ---
History of Present Illness HPI/Chief Complaint The patient is a frail 82-year-old white female who been discharged on the after treatment for pneumonia and reported mild heart failure. halfway staff noticed increased edema with increasing shortness of breath and declining oxygen level per report and transfer her to the emergency room. She is a very poor historian and was able to add very little despite an alert appearance. She has a history of reported Parkinson's and likely dementia. She denied chest pain and could not tell me why she had been transported back to the hospital. She denies any problems with increased cough and sputum production chills or fever but her history is somewhat suspect. In the emergency room it was noted that her BNP level was 1300 where she appears to have a baseline level in the 400 range when likely compensated. She has chronic atrial fibrillation. I was contacted by nursing staff that while she was alert and oriented and eating she had heart rates in the mid 30s to low 40s so her metoprolol has been held and this morning her heart rate is in the 60s. There is been no reported past history of syncope. She is also on digoxin with low therapeutic level which will be held as well. She received an IV dose of Lasix with over a liter output with incontinence. She currently denies shortness of breath sitting upright during the interview and did not appear to be in acute distress. Date Seen 10/24/17 Time Seen by Provider: 09:15 Attending Physician Bernadine Alvarez MD PCP Bernadine Alvarez MD Referring Physician Date of Admission Oct 23, 2017 at 18:01 Home Medications & Allergies Home Medications Reviewed patient Home Medication Reconciliation performed by pharmacy medication reconciliations phlebotomy technician and/or nursing. Patients Allergies have been reviewed. Allergies Allergies Coded Allergies iodine (Verified Allergy, Severe, BLISTERS, 12/13/13) neomycin (Verified Allergy, Severe, SWELLING, PAIN, RASH, ITCHING, 12/13/13) THIS WAS ADMINISTERED AN EAR DROP, EARS AND HEAD SWELLED AND TURNED RED CAUSING PAIN AND RASH WITH ITCHING cephalexin (Unverified Allergy, Mild, 08/19/08) phenylalanine (Verified Allergy, Mild, 04/25/16) pregabalin (Verified Allergy, Mild, SWELLING AND WEIGHT GAIN, 12/13/13) brompheniramine (Verified Allergy, Unknown, VISION PROBLEMS, 12/13/13) dextromethorphan (Verified Allergy, Unknown, 03/30/06) penicillin G (Verified Allergy, Unknown, RASH, 12/13/13) phenylpropanolamine (Verified Allergy, Unknown, 03/30/06) pseudoephedrine (Verified Allergy, Unknown, 03/30/06) simvastatin (Verified Allergy, Unknown, EXTREME WEAKNESS AND PAIN IN LEGS, ) sulfamethoxazole (Verified Allergy, Unknown, 03/03/16) thimerosal (Verified Allergy, Unknown, RASH WITH PAIN AND ITCHING, 12/13/13) trimethoprim (Verified Allergy, Unknown, 03/03/16) codeine (Verified Adverse Reaction, Mild, TRIPLE VISION, 06/05/15) hydrocodone (Verified Adverse Reaction, Mild, VISION PROBLEMS, 06/05/15) Uncoded Allergies TAPE ( Allergy, Unknown, RASH, 12/13/13) Past Svvgobv-Icrozb-Oslpgp Hx Past Med/Social Hx: Reviewed and Corrections made Patient Social History Alcohol Use: Denies Use Recreational Drug Use: No Smoking Status: Never a Smoker 2nd Hand Smoke Exposure: No Physical Abuse Screen: No Sexual Abuse: No Recent Foreign Travel: No Contact w/other who traveled: No Recent Hopitalizations: Yes (esbl urine) Recent Infectious Disease Expo: No Immunizations Up To Date Tetanus Booster (TDap): Unknown Date of Pneumonia Vaccine: Mar 06, 2016 Date of Influenza Vaccine: Feb 21, 2017 Seasonal Allergies Seasonal Allergies: No Past Medical History Surgeries: Appendectomy, Cardiac, Coronary Stent, Eye Surgery, Hysterectomy, Nose, Orthopedic, Rectal, Tubal Ligation Respiratory: Asthma, COPD, Pneumonia, Sleep Apnea Currently Using CPAP: Yes (at [facility]) Currently Using BIPAP: No Cardiac: Atrial Fibrillation, Chronic Edema/Swelling, Coronary Artery Disease, Heart Attack, High Cholesterol, Hypertension, Irregular Heartbeat, Peripheral Vascular Neurological: Neuropathy, Parkinson's Disease, Stroke, TIA : No Reproductive: Yes Sexually Transmitted Disease: No HIV/AIDS: No Female Reproductive Disorders: Denies Hysterectomy, Menopausal Genitourinary: UTI-Chronic Gastrointestinal: Gastroesophageal Reflux, Gastrointestinal Bleed, Diverticulosis, Hemorrhoids, Polyps, Esophagitis, Hiatal Hernia, Ulcer Musculoskeletal: Degenerate Disk Disease, Arthritis, Chronic Back Pain Endocrine: Hypothyroidsim, Diabetes, Non-Insulin dep HEENT: Cataract Loss of Vision: Denies Psychosocial: Sleep Difficulties, Anxiety, Depression History of Blood Disorders: Yes Adverse Reaction to Blood [place]: No Family History Alcoholism 19 FATHER G8 BROTHER (2 OF HER 4 BROTHERS) Arthritis 19 FATHER 19 MOTHER (AUNTS AND UNCLES WELL) Cardiovascular disease 19 FATHER G8 BROTHER Cataracts G8 BROTHER Colon cancer G8 BROTHER Completed stroke 19 FATHER Deafness or hearing loss G8 BROTHER Dementia 19 MOTHER FH: alcohol abuse FH: cancer 19 MOTHER (MOTHER WAS 1 OF 7 ALL DIAGNOSED WITH CANCER EXCEPT FOR MOTHER) Glaucoma G8 BROTHER Hypercholesterolemia G8 BROTHER Hypertension G8 BROTHER Infertility G8 BROTHER Kidney disease Myocardial infarction 19 FATHER Neoplasm Prostate cancer G8 BROTHER Thyroid disease G8 BROTHER Heart Disease, Hypertension, Stroke, Other Conditions/Hx Review of Systems ROS-Unable to Obtain: History suspect likely due to underlying dementia Constitutional: see HPI Physical Exam Physical Exam Vital Signs Vital Signs - First Documented 10/23/17 10/23/17 16:30 18:50 Temp 99.2 Pulse 54 Resp 24 B/P (MAP) 179/61 (100) Pulse Ox 98 O2 Delivery Simple Mask O2 Flow Rate 10.00 FiO2 30 Capillary Refill : Less Than 3 Seconds General Appearance: No Apparent Distress, Obese Neck: Full Range of Motion, Normal Inspection, Non Tender, Supple Respiratory: Chest Non Tender, No Accessory Muscle Use, No Respiratory Distress , Rales (Fine rales noted in both bases chest is clear otherwise.) Cardiovascular: No Gallop, No JVD, Irregularly Irregular, Other (Soft left lower sternal border 2/6 systolic murmur noted.) Gastrointestinal: Normal Bowel Sounds, No Organomegaly, No Pulsatile Mass, Non Tender, Soft Extremity: Swelling (1+ edema noted to the upper tibia bilaterally no evidence for inflammation or ulceration.) Skin: Pallor Results Results/Procedures Labs Laboratory Tests 10/23/17 16:35 10/24/17 04:27 Patient resulted labs reviewed. Assessment/Plan Admission Diagnosis A/P 1. Likely acute on chronic diastolic heart failure improved with IV Lasix. Due to baseline urinary incontinence and risk for irritation well on IV diuretic therapy in the hospital Gordon catheter benefits outweighed by potential infection risk we'll place Gordon and continue daily IV Lasix. 2. Chronic atrial fibrillation INR slightly low 1.7 will increase Coumadin dose. 3. Reported Parkinson's disease continue medication 4. Type II diabetes mellitus continue baseline twice a day Levemir and start before meals NovoLog supplemented by sliding scale. 5. Persistent basilar infiltrate patient was started on Levaquin although I suspect that heart failure is more likely than pneumonia exacerbation. Chest x- ray also appears slightly improved from infiltrate standpoint. 6. Significant bradycardia suspect underlying sick sinus syndrome aggravated by beta jackelyn and digoxin therapy. We'll discontinue medications and would recommend resuming only of tachycardia becomes an issue. Admission Status: Inpatient Order (span 2 midnights) Reason for Inpatient Admission: See admission diagnosis Clinical Quality Measures DVT/VTE Risk/Contraindication: Risk Factor Score Per Nursin RFS Level Per Nursing on Admit: 4+=Very High BERTRAND IBARRA MD Oct 24, 2017 10:58
[2017-10-24 12:00] VITALS: BP 138/65
[2017-10-24 16:00] VITALS: BP 143/67
[2017-10-24 19:50] VITALS: BP 179/73
[2017-10-24] MEDS ORDERED: [UNRECOGNIZED DRUG - REMARK] TP SCH (20:59)
[2017-10-24] MEDS ORDERED: NEUPRO 6 MG/24 HR TOP SCH (21:00)
[2017-10-24] MEDS: SERTRALINE 50 MG (ZOLOFT) TABLET PO SCH (21:45)
[2017-10-24] MEDS: DIAZEPAM 5 MG (VALIUM) TABLET PO SCH (21:46)
[2017-10-25] VITALS: BP 144/69
[2017-10-25] MEDS: RT-ALBUTEROL/IPRATROPIUM 3 ML (DUONEB) VIAL INH SCH ×3 (01:10→09:46)
[2017-10-25 04:00] VITALS: BP 166/68
[2017-10-25 06:45] LABS: BASOPHILS % (AUTO) 1 % (0-10); EOSINOPHILS # (AUTO) 0.4 10^3/uL (0.0-0.3); EOSINOPHILS % (AUTO) 6 % (0-10); HEMATOCRIT 30 % (35-52); HEMOGLOBIN 9.5 G/DL (11.5-16.0); LYMPHOCYTES # (AUTO) 1.2 X 10^3 (1.0-4.0); LYMPHOCYTES % (AUTO) 17 % (12-44); MEAN CORPUSCULAR HEMOGLOBIN 26 PG (25-34); MEAN CORPUSCULAR HGB CONC 32 G/DL (32-36); MEAN CORPUSCULAR VOLUME 83 FL (80-99); MEAN PLATELET VOLUME 8.6 FL (7.4-10.4); MONOCYTES # (AUTO) 0.7 X 10^3 (0.0-1.0); MONOCYTES % (AUTO) 9 % (0-12); NEUTROPHILS # (AUTO) 5.1 X 10^3 (1.8-7.8); NEUTROPHILS % (AUTO) 68 % (42-75); PLATELET COUNT 442 10^3/uL (130-400); RED BLOOD COUNT 3.65 10^6/uL (4.35-5.85); RED CELL DISTRIBUTION WIDTH 21.4 % (10.0-14.5); WHITE BLOOD COUNT 7.5 10^3/uL (4.3-11.0)
[2017-10-25] MEDS: CATHETER FLUSH 10 ML SYR IV SCH ×2 (06:45→13:51)
[2017-10-25] MEDS: inSUlin ASPART (NovoLOG) 1 UNIT/0.01 ML (CHARGE PER UNIT) SC SCH ×2 (06:46→11:02)
[2017-10-25 07:04] LABS: CALCIUM 9.3 MG/DL (8.5-10.1); CREATININE SERUM 1.19 MG/DL (0.60-1.30); POTASSIUM 4.3 MMOL/L (3.6-5.0)
[2017-10-25 08:05] VITALS: BP 143/66
[2017-10-25] MEDS ORDERED: FUROSEMIDE 40 MG/4 ML INJ (LASIX) IVP SCH (09:00)
--- NOTE | 2017-10-25 09:25 | Discharge Summary ---
Diagnosis/Chief Complaint Date of Admission Oct 23, 2017 at 18:01 Date of Discharge Discharge Date: Oct 25, 2017 Discharge Time: 11:00 Admission Diagnosis Admission Diagnosis MILD CONGESTIVE HEART FAILURE ATRIAL FIBRILLATION PNEUMONIA PARKINSON'S DISEASE HYPOTHYROIDISM CHRONIC CONSTIPATION GENERALIZED ANXIETY INSOMNIA PERIPHERAL NEUROPATHY DIABETES MELLITUS HYPERTENSION CONSTIPATION Discharge Diagnosis MILD CONGESTIVE HEART FAILURE ATRIAL FIBRILLATION PNEUMONIA PARKINSON'S DISEASE HYPOTHYROIDISM CHRONIC CONSTIPATION GENERALIZED ANXIETY INSOMNIA PERIPHERAL NEUROPATHY DIABETES MELLITUS HYPERTENSION CONSTIPATION Reason Hospital Visit The patient is a frail 82-year-old white female who been discharged on the after treatment for pneumonia and reported mild heart failure. residential staff noticed increased edema with increasing shortness of breath and declining oxygen level per report and transfer her to the emergency room. She is a very poor historian and was able to add very little despite an alert appearance. She has a history of reported Parkinson's and likely dementia. She denied chest pain and could not tell me why she had been transported back to the hospital. She denies any problems with increased cough and sputum production chills or fever but her history is somewhat suspect. In the emergency room it was noted that her BNP level was 1300 where she appears to have a baseline level in the 400 range when likely compensated. She has chronic atrial fibrillation. I was contacted by nursing staff that while she was alert and oriented and eating she had heart rates in the mid 30s to low 40s so her metoprolol has been held and this morning her heart rate is in the 60s. There is been no reported past history of syncope. She is also on digoxin with low therapeutic level which will be held as well. She received an IV dose of Lasix with over a liter output with incontinence. She currently denies shortness of breath sitting upright during the interview and did not appear to be in acute distress. Discharge Summary Discharge Physical Examination Allergies: Coded Allergies: iodine (Verified Allergy, Severe, BLISTERS, 12/13/13) neomycin (Verified Allergy, Severe, SWELLING, PAIN, RASH, ITCHING, 12/13/13 ) THIS WAS ADMINISTERED AN EAR DROP, EARS AND HEAD SWELLED AND TURNED RED CAUSING PAIN AND RASH WITH ITCHING cephalexin (Unverified Allergy, Mild, 08/19/08) phenylalanine (Verified Allergy, Mild, 04/25/16) pregabalin (Verified Allergy, Mild, SWELLING AND WEIGHT GAIN, 12/13/13) brompheniramine (Verified Allergy, Unknown, VISION PROBLEMS, 12/13/13) dextromethorphan (Verified Allergy, Unknown, 03/30/06) penicillin G (Verified Allergy, Unknown, RASH, 12/13/13) phenylpropanolamine (Verified Allergy, Unknown, 03/30/06) pseudoephedrine (Verified Allergy, Unknown, 03/30/06) simvastatin (Verified Allergy, Unknown, EXTREME WEAKNESS AND PAIN IN LEGS , 12/13/13) sulfamethoxazole (Verified Allergy, Unknown, 03/03/16) thimerosal (Verified Allergy, Unknown, RASH WITH PAIN AND ITCHING, 12/13/13 ) trimethoprim (Verified Allergy, Unknown, 03/03/16) codeine (Verified Adverse Reaction, Mild, TRIPLE VISION, 06/05/15) hydrocodone (Verified Adverse Reaction, Mild, VISION PROBLEMS, 06/05/15) Uncoded Allergies: TAPE (Allergy, Unknown, RASH, 12/13/13) Vitals & I&Os General Appearance: Alert, Oriented X3, Cooperative HEENT: Atraumatic, PERRLA, Mucous Memb Moist/[place] Respiratory: Normal Air Movement, Other (FAINT CRACKLES IN BASES BILATERALLY) Cardiovascular: Other (IRREGULARLY IRREGULAR) Abdominal: Normal Bowel Sounds, Soft, No Tenderness Extremities: No Clubbing, No Cyanosis, Other (TRACE EDEMA BILATERAL LOWER EXTREMITIES) Skin: No Breakdown Neuro: Cranial Nerves 3-12 NL Psych/Mental Status: Mental Status NL, Mood NL Hospital Course MILD CONGESTIVE HEART FAILURE ATRIAL FIBRILLATION PNEUMONIA PARKINSON'S DISEASE HYPOTHYROIDISM CHRONIC CONSTIPATION GENERALIZED ANXIETY INSOMNIA PERIPHERAL NEUROPATHY DIABETES MELLITUS HYPERTENSION CONSTIPATION Pending Labs Discharge Condition at discharge STABLE Instructions to patient/family Please see electronic discharge instructions given to patient. Discharge Medications Reviewed and agree with Discharge Medication list on patient's Discharge Instruction sheet Clinical Quality Measures DVT/VTE Risk/Contraindication: Risk Factor Score Per Nursin RFS Level Per Nursing on Admit: 4+=Very High NUNO FENTON MD Oct 25, 2017 09:25
[2017-10-25] MEDS ORDERED: METO50TA15 PO ×2 (09:29)
--- NOTE | 2017-10-25 09:31 | Discharge Inst-Skilled Nursing ---
Discharge Inst-Skilled NF Patient Instructions Patient Problems: MILD CONGESTIVE HEART FAILURE ATRIAL FIBRILLATION PNEUMONIA PARKINSON'S DISEASE HYPOTHYROIDISM CHRONIC CONSTIPATION GENERALIZED ANXIETY INSOMNIA PERIPHERAL NEUROPATHY DIABETES MELLITUS HYPERTENSION CONSTIPATION Consult/Follow Up/Orders Follow Up Appt.: FOLLOW UP WITH ELICEO VALENCIA IN 1 WEEK FOLLOW UP WITH CARDIOLOGY - DR. CASTILLO IN 1 WEEK PT NEEDS APPT WITH DR. PANTOJA - re- URINARY RETENTION SYMPTOMS Skilled NF Admit to: [facility] Certification (SNF) I certify that SNF services are required to be given on an inpatient basis because of the above named patient's need for [place] [facility] care on a continuing basis for the conditions(s) for which he/she was receiving inpatient hospital services prior to his/her transfer to the SNF. Group Home Facility Order: Nursing Services, [place] [facility]-Evaluate & Treat, Physical Therapy-Evaluate & Treat Discharge Diet: ADA Diet Daily Activity as Tolerated: Yes New & Resume Previous Orders New & Resume Previous Orders RESUME PREVIOUS SNF ORDERS LEAVE DIAZ X 5 DAYS - THEN DC DIAZ CATHETER Nuno Alvarez Oct 25, 2017 09:30 Medication List: Active Scripts Active Metoprolol Tartrate 50 Mg Tablet 50 Mg PO BID HOLD IF HEART RATE IS LESS THAN 50 Nitrofurantoin (Nitrofurantoin Macrocrystal) 50 Mg Capsule 100 Mg PO BID Reported Biofreeze (Menthol) 118 Ml Gel..ml. TP QID PRN Imodium A-D (Loperamide HCl) 2 Mg Tablet 2 Mg PO QID PRN Melatonin 5 Mg Capsule 5 Mg PO HS Gabapentin 300 Mg Capsule 300 Mg PO BID Gabapentin 600 Mg Tablet 600 Mg PO HS Levemir (Insulin Determir) 1,000 Units/10 Ml Soln 8 Units SQ BID Mucinex (Guaifenesin) 600 Mg Tab.er.12h 600 Mg PO Q12H PRN Tylenol Extra Strength (Acetaminophen) 500 Mg Tablet 500 Mg PO Q4H PRN Hyoscyamine Sulfate 0.125 Mg Tab.subl 0.125 Mg SL Q2H PRN Systane Balance (Propylene Glycol) 10 Ml Drops 1 Drop OU HS Metoprolol Tartrate 100 Mg Tablet 100 Mg PO BID HOLD IF HR <50 Albuterol Sulfate 2.5 Mg/3 Ml Vial.neb 2.5 Mg NEB UD PRN Zofran (Ondansetron HCl) 4 Mg Tab 4 Mg PO Q6H PRN Lasix (Furosemide) 20 Mg Tablet 20 Mg PO 1600 Iprat-Albut 0.5-3(2.5) mg/3 ml (Ipratropium/Albuterol Sulfate) 3 Ml Ampul.neb 3 Ml IH Q4H PRN Miralax (Polyethylene Glycol 3350) 17 Gm Powd.pack 17 Gm PO DAILY PRN Zoloft (Sertraline HCl) 50 Mg Tablet 50 Mg PO DAILY Colace (Docusate Sodium) 100 Mg Capsule 100 Mg PO BID PRN Humalog (Insulin Lispro) 100 Unit/1 Ml Vial SQ TID 201-250 = 3 UNITS 251-300 = 5 UNITS 301-350 = 7 UNITS 351-400 = 9 UNITS ABOVE 400 NOTIFY PCP Potassium Chloride 10 Meq Tablet.er 10 Meq PO BID Amlodipine Besylate 10 Mg Tablet 10 Mg PO DAILY Diazepam 5 Mg Tablet 5 Mg PO HS Fluticasone Propionate 16 Gm [place].susp 2 Sprays NSEACH DAILY PRN Acetaminophen 325 Mg Tablet 650 Mg PO Q4H PRN TAKES 2 (325MG) TABLETS Digoxin 125 Mcg Tablet 125 Mcg PO DAILY HOLD IF HR <50 Pradaxa (Dabigatran Etexilate Mesylate) 75 Mg Capsule 75 Mg PO BID Neupro (Rotigotine) 1 Each Patch.td24 1 Patch TD HS 6MG/24HR Glimepiride 4 Mg Tablet 8 Mg PO DAILY TAKES 2 (4MG) TABLETS Levothyroxine Sodium 75 Mcg Tablet 75 Mcg PO DAILY Cetirizine HCl 10 Mg Tablet 10 Mg PO HS PRN Furosemide 40 Mg Tablet 40 Mg PO DAILY Lab results: Laboratory Tests Test 10/24/17 10:19 10/24/17 16:36 10/24/17 20:48 10/24/17 21:25 Range/Units Glucometer 261 H 181 H 73 152 H 70-110 MG/DL Test 10/25/17 00:25 10/25/17 06:20 10/25/17 06:22 Range/Units Glucometer 341 H 262 H 70-110 MG/DL White Blood Count 7.5 4.3-11.0 10^3/uL Red Blood Count 3.65 L 4.35-5.85 10^6/uL Hemoglobin 9.5 L 11.5-16.0 G/DL Hematocrit 30 L 35-52 % Mean Corpuscular Volume 83 80-99 FL Mean Corpuscular Hemoglobin 26 25-34 PG Mean Corpuscular Hemoglobin Concent 32 32-36 G/DL Red Cell Distribution Width 21.4 H 10.0-14.5 % Platelet Count 442 H 130-400 10^3/uL Mean Platelet Volume 8.6 7.4-10.4 FL Neutrophils (%) (Auto) 68 42-75 % Lymphocytes (%) (Auto) 17 12-44 % Monocytes (%) (Auto) 9 0-12 % Eosinophils (%) (Auto) 6 0-10 % Basophils (%) (Auto) 1 0-10 % Neutrophils # (Auto) 5.1 1.8-7.8 X 10^3 Lymphocytes # (Auto) 1.2 1.0-4.0 X 10^3 Monocytes # (Auto) 0.7 0.0-1.0 X 10^3 Eosinophils # (Auto) 0.4 H 0.0-0.3 10^3/uL Basophils # (Auto) 0.0 0.0-0.1 10^3/uL Sodium Level 142 135-145 MMOL/L Potassium Level 4.3 3.6-5.0 MMOL/L Chloride Level 106 98-107 MMOL/L Carbon Dioxide Level 25 21-32 MMOL/L Anion Gap 11 5-14 MMOL/L Blood Urea Nitrogen 19 H 7-18 MG/DL Creatinine 1.19 0.60-1.30 MG/DL Estimat Glomerular Filtration Rate 43 BUN/Creatinine Ratio 16 Glucose Level 242 H 70-105 MG/DL Calcium Level 9.3 8.5-10.1 MG/DL Magnesium Level 2.0 1.8-2.4 MG/DL My orders: Orders - NUNO ALVAREZ MD Attending Discharge Inpt/Inobs (10/25/17 09:29) NUNO ALVAREZ MD Oct 25, 2017 09:31
[2017-10-25] MEDS: inSUlin DETERMIR 1 UNIT/0.01 ML (LEVEMIR) CHARGE PER UNIT SQ SCH (09:55)
[2017-10-25] MEDS: DABIGATRAN 75 MG (PRADAXA) CAPSULE PO SCH (09:55)
[2017-10-25] MEDS: GABAPENTIN 300 MG (NEURONTIN) CAP PO SCH ×2 (09:55→12:03)
[2017-10-25] MEDS: KCL 20 MEQ TAB (K-DUR) PO SCH (09:55)
[2017-11-05] MEDS ORDERED: DICL100G18 TP (14:46)
[2017-11-05] MEDS ORDERED: METO50TA15 PO (14:46)
[2017-11-05] MEDS ORDERED: TRAM50TA2 PO (14:46)
[2017-11-09] MEDS ORDERED: NITR100C PO (08:34)
== END 2017-10-25 14:32 | DRG 291 ==
LOC: EDUNIT# 16:29 → ER 16:30 → 4TH 18:01
PROVIDERS: ADMIT Internal Medicine; ATTEND Family Medicine
DX: I11.0 Hypertensive heart disease with heart failure (principal); I50.33 Acute on chronic diastolic (congestive) heart failure; J18.9 Pneumonia, unspecified organism; J44.0 Chronic obstructive pulmonary disease with (acute) lower respiratory infection; R06.03 Acute respiratory distress; R00.1 Bradycardia, unspecified; I49.5 Sick sinus syndrome; I48.2 Chronic atrial fibrillation; Z66 Do not resuscitate; G20 Parkinson's disease; F02.80 Dementia in other diseases classified elsewhere, unspecified severity, without behavioral disturbance, psychotic disturbance, mood disturbance, and anxiety; G47.00 Insomnia, unspecified; R32 Unspecified urinary incontinence; E11.42 Type 2 diabetes mellitus with diabetic polyneuropathy; E11.51 Type 2 diabetes mellitus with diabetic peripheral angiopathy without gangrene; I25.10 Atherosclerotic heart disease of native coronary artery without angina pectoris; I25.2 Old myocardial infarction; E03.9 Hypothyroidism, unspecified; G47.30 Sleep apnea, unspecified; I27.20 Pulmonary hypertension, unspecified; E78.00 Pure hypercholesterolemia, unspecified; I69.898 Other sequelae of other cerebrovascular disease; R26.89 Other abnormalities of gait and mobility; G25.81 Restless legs syndrome; F32.9 Major depressive disorder, single episode, unspecified; K59.09 Other constipation; K21.9 Gastro-esophageal reflux disease without esophagitis; F41.9 Anxiety disorder, unspecified; Z79.01 Long term (current) use of anticoagulants; Z95.5 Presence of coronary angioplasty implant and graft
CPT/HCPCS: 36415; 71045; 80048; 80053; 80162; 81000; 82805; 82962; 83605; 83735; 83880; 85025; 85610; 85730; 86141; 87040; 93005; 94640; 94660; 94760; 96365; 96375

== ENCOUNTER → 2017-11-04 | Outpatient (CLI) | payer MEDICARE, OTHER, MEDICAID ==
[~2017-11-04] MED LIST changes: +DICL100G18 TP; +METO50TA15 PO; +NITR100C PO
--- NOTE | 2017-11-04 09:55 | Diagnostic Imaging Report ---
EXAMINATION: Magnetic resonance imaging of the right knee without intravenous contrast DATE: 11/04/2017 9:26 AM COMPARISON: None. INDICATION: 82-year-old female, right knee pain. History of fall out of bed. TECHNIQUE: Multiplanar, multisequence non contrast enhanced MR imaging was accomplished. FINDINGS: There are limitations of the exam relating to low [id number] ratio. MENISCI: The medial meniscus is grossly intact. There is a longitudinal horizontal type tear involving the anterior horn, body, and posterior horn of the lateral meniscus. LIGAMENTS AND TENDONS: The anterior and posterior cruciate ligaments are intact. There is thickening and increased signal of the medial collateral ligament compatible with low-grade sprain injury. There is subjacent soft tissue edema on both sides of the superficial component of the medial collateral ligament. The iliotibial band, mid third lateral capsular ligament, fibular collateral ligament, biceps femoris tendon and conjoined tendon are intact. The quadriceps tendon and patella ligament are intact. JOINT: There appears to be moderate patellofemoral compartment joint space loss. There is irregularity of the cartilage of the lateral femoral condyle. There is no large knee joint effusion. There is no visible intra-articular body. BONE: There is unremarkable bone marrow signal. Specifically, negative for fracture, osteomyelitis, osteonecrosis, or marrow replacing process. BURSAE AND SOFT TISSUES: There is a Craft's cyst measuring 2.3 x 1.6 by centimeter in size. There is nonspecific prominent posterior subcutaneous edema which is partially visualized. IMPRESSION: 1. Limitations of the exam relating to low [id number]-[id number] ratio. 2. Longitudinal horizontal type tear involving the anterior horn, body, and posterior horn of the lateral meniscus. Grossly intact medial meniscus. 3. Intact anterior and posterior cruciate ligaments. Low-grade sprain injury of the superficial component of the medial collateral ligament complex. 4. Moderate patellofemoral and mild lateral compartment osteoarthritis. No knee joint effusion. 5. No acute fracture, bone contusion, or evidence of osteonecrosis. 6. Craft's cyst. 7. Partially visualized prominent posterior subcutaneous edema which is nonspecific. Dictated by: Dictated on workstation # [id number]
== END ==
LOC: RAD 08:02
PROVIDERS: ATTEND Nurse Practitioner Family
DX: S83.281A Other tear of lateral meniscus, current injury, right knee, initial encounter (principal); S83.91XA Sprain of unspecified site of right knee, initial encounter; M17.11 Unilateral primary osteoarthritis, right knee; M71.21 Synovial cyst of popliteal space [Baker], right knee; W06.XXXA Fall from bed, initial encounter
CPT/HCPCS: 73721

== ENCOUNTER 2018-02-06 22:56 | Inpatient (IN) | payer OTHER, MEDICARE, MEDICAID ==
[~2018-02-06] VITALS: Ht 167.6 cm; Wt 94.3 kg
[~2018-02-06 22:56] MED LIST changes: -AMLO10TA2 PO; +AMLO10TA6 PO; -IPRA3AMP IH; +IPRA3AMP31 IH; +METF-397 PO; +METF-399 PO; -METF10002 PO; -METF500T5 PO; -SENN1TAB6 PO; +SENN1TAB7 PO
[2018-02-06] MEDS ORDERED: ACETAMINOPHEN 500 MG TAB (TYLENOL) PO PRN (23:15)
[2018-02-06] MEDS ORDERED: LEVOFLOXACIN 750 MG/150 ML IV 150 ML IV ONE (23:15)
[2018-02-06] MEDS ORDERED: RT-ALBUTEROL/IPRATROPIUM 3 ML (DUONEB) VIAL INH ONE (23:15)
[2018-02-06] MEDS ORDERED: NS IV 1000 ML 1,500 ML IV PRN (23:15)
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
[2018-02-06 23:40] LABS: ABG BASE EXCESS 2.7 MMOL/L (-2.5-2.5); ABG OXYGEN SATURATION 94 % (94-100); ABG PCO2 43 MMHG (35-45); ABG PH 7.42 (7.37-7.43); ABG PO2 77 MMHG (79-93); ABG TCO2 27.7 MMOL/L (21.0-31.0); ALLENS TEST YES-POS
[2018-02-06 23:41] LABS: INSPIRED O2 40%; PATIENT TEMP 101.7; VENTILATOR NO
[2018-02-06 23:45] LABS: BASOPHILS % (AUTO) 0 % (0-10); EOSINOPHILS # (AUTO) 0.2 10^3/uL (0.0-0.3); EOSINOPHILS % (AUTO) 2 % (0-10); HEMATOCRIT 34 % (35-52); HEMOGLOBIN 10.9 G/DL (11.5-16.0); LYMPHOCYTES % (AUTO) 20 % (12-44); MEAN CORPUSCULAR HEMOGLOBIN 27 PG (25-34); MEAN CORPUSCULAR HGB CONC 32 G/DL (32-36); MEAN CORPUSCULAR VOLUME 82 FL (80-99); MEAN PLATELET VOLUME 9.7 FL (7.4-10.4); MONOCYTES % (AUTO) 10 % (0-12); NEUTROPHILS # (AUTO) 6.6 X 10^3 (1.8-7.8); NEUTROPHILS % (AUTO) 67 % (42-75); PLATELET COUNT 222 10^3/uL (130-400); RED BLOOD COUNT 4.11 10^6/uL (4.35-5.85); WHITE BLOOD COUNT 9.7 10^3/uL (4.3-11.0)
[2018-02-06 23:55] LABS: INR 1.3 (0.8-1.4); PROTHROMBIN TIME PATIENT 16.6 SEC (12.2-14.7)
[2018-02-07] VITALS (8 sets, daily range): BP systolic 121–158; BP diastolic 49–115
[2018-02-07 00:03] LABS: ALBUMIN 3.6 GM/DL (3.2-4.5); BILIRUBIN,TOTAL 0.5 MG/DL (0.1-1.0); CALCIUM 9.2 MG/DL (8.5-10.1); CREATININE SERUM 1.31 MG/DL (0.60-1.30); POTASSIUM 4.2 MMOL/L (3.6-5.0); TOTAL PROTEIN 6.5 GM/DL (6.4-8.2)
[2018-02-07 01:40] LABS: BILIRUBIN,URINE NEGATIVE (NEGATIVE); CLARITY,URINE CLEAR; COLOR,URINE YELLOW; GLUCOSE, URINE (UA) 3+ (NEGATIVE); KETONES,URINE NEGATIVE (NEGATIVE); LEUKOCYTE ESTERASE ,URINE NEGATIVE (NEGATIVE); NITRITE,URINE NEGATIVE (NEGATIVE); PH,URINE 5 (5-9); PROTEIN,URINE NEGATIVE (NEGATIVE); UROBILINOGEN,URINE NORMAL (NORMAL)
[2018-02-07 01:58] LABS: BACTERIA,URINE NEGATIVE /HPF; RBC,URINE 0-2 /HPF
[2018-02-07] MEDS ORDERED: 1/2 NS W/KCL 20 MEQ/L 1,000 ML IV ONE (02:19)
[2018-02-07] MEDS ORDERED: LORazepam INJ 2 MG/ML (ATIVAN) VIAL IV PRN (02:30)
[2018-02-07] MEDS ORDERED: ONDANSETRON 4 MG/2 ML (SDV) Z0FRAN IV PRN (02:30)
[2018-02-07] MEDS ORDERED: ACETAMINOPHEN 500 MG TAB (TYLENOL) PO PRN (02:30)
[2018-02-07] MEDS ORDERED: CATHETER FLUSH 10 ML SYR IV PRN (02:30)
[2018-02-07] MEDS: 1/2 NS W/KCL 20 MEQ/L 1,000 ML IV SCH ×3 (02:32→17:07)
[2018-02-07] MEDS ORDERED: RT-ALBUTEROL/IPRATROPIUM 3 ML (DUONEB) VIAL INH PRN (04:00)
[2018-02-07] MEDS: inSUlin ASPART (NovoLOG) 1 UNIT/0.01 ML (CHARGE PER UNIT) SC SCH ×4 (05:17→20:29)
[2018-02-07] MEDS: CATHETER FLUSH 10 ML SYR IV SCH ×3 (05:18→20:30)
[2018-02-07 06:24] LABS: BASOPHILS % (AUTO) 0 % (0-10); EOSINOPHILS # (AUTO) 0.2 10^3/uL (0.0-0.3); EOSINOPHILS % (AUTO) 2 % (0-10); HEMATOCRIT 31 % (35-52); HEMOGLOBIN 9.8 G/DL (11.5-16.0); LYMPHOCYTES # (AUTO) 1.4 X 10^3 (1.0-4.0); LYMPHOCYTES % (AUTO) 22 % (12-44); MEAN CORPUSCULAR HEMOGLOBIN 26 PG (25-34); MEAN CORPUSCULAR HGB CONC 31 G/DL (32-36); MEAN CORPUSCULAR VOLUME 83 FL (80-99); MEAN PLATELET VOLUME 9.5 FL (7.4-10.4); MONOCYTES # (AUTO) 0.6 X 10^3 (0.0-1.0); MONOCYTES % (AUTO) 10 % (0-12); NEUTROPHILS # (AUTO) 4.1 X 10^3 (1.8-7.8); NEUTROPHILS % (AUTO) 65 % (42-75); PLATELET COUNT 200 10^3/uL (130-400); RED BLOOD COUNT 3.76 10^6/uL (4.35-5.85); RED CELL DISTRIBUTION WIDTH 18.1 % (10.0-14.5); WHITE BLOOD COUNT 6.3 10^3/uL (4.3-11.0)
[2018-02-07 06:48] LABS: CALCIUM 8.8 MG/DL (8.5-10.1); CREATININE SERUM 1.11 MG/DL (0.60-1.30); POTASSIUM 4.1 MMOL/L (3.6-5.0)
--- NOTE | 2018-02-07 07:16 | Diagnostic Imaging Report ---
Clinical indication: Patient with shortness of air. Exam: Portable chest x-ray upright view. Comparisons: Chest x-ray dated 01/19/2018. Findings: Stable cardiomegaly with no significant pulmonary vascular congestion. There is slight increased lung airspace opacities involving the right lung base and left superior perihilar region. There is no pleural effusion or pneumothorax. There are degenerative spurs involving the thoracic spine. Impression: 1: Slight increased airspace opacities involving the right lung base and left superior perihilar region which may be related to infectious etiology. Follow up chest x-ray in 2 - 4 weeks is suggested to evaluate for interval resolution of this finding. 2: Stable cardiomegaly with no significant pulmonary vascular congestion. Dictated by: Dictated on workstation # [id number]
[2018-02-07] MEDS: RT-ALBUTEROL/IPRATROPIUM 3 ML (DUONEB) VIAL INH SCH ×5 (07:22→22:41)
[2018-02-07] MEDS: GABAPENTIN 300 MG (NEURONTIN) CAP PO SCH ×2 (08:29→20:29)
[2018-02-07] MEDS: amLODIPine 10 MG (NORVASC) TAB PO SCH (08:29)
[2018-02-07] MEDS: DABIGATRAN 75 MG (PRADAXA) CAPSULE PO SCH ×2 (08:30→20:29)
[2018-02-07] MEDS: SERTRALINE 50 MG (ZOLOFT) TABLET PO SCH (08:30)
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
[2018-02-07] MEDS: MEROPENEM 500 MG in NS (IVPB) 100 ML IV SCH ×2 (10:10→16:33)
[2018-02-07] MEDS ORDERED: PROP10DR2 OU (10:19)
[2018-02-07] MEDS ORDERED: INSU100V6 SC (10:19)
[2018-02-07] MEDS: LACTOBACILLUS ACIDOPHILUS (PROBIOTIC) CAPSULE PO SCH ×2 (11:28→16:08)
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
[2018-02-07] MEDS ORDERED: inSUlin DETERMIR 1 UNIT/0.01 ML (LEVEMIR) CHARGE PER UNIT SQ SCH (21:00)
[2018-02-08] VITALS: BP 148/59
[2018-02-08] MEDS: MEROPENEM 500 MG in NS (IVPB) 100 ML IV SCH ×2 (01:49→10:42)
[2018-02-08] MEDS: RT-ALBUTEROL/IPRATROPIUM 3 ML (DUONEB) VIAL INH SCH ×3 (02:22→11:09)
[2018-02-08 04:00] VITALS: BP 152/64
[2018-02-08] MEDS: LACTOBACILLUS ACIDOPHILUS (PROBIOTIC) CAPSULE PO SCH ×2 (06:26→11:13)
[2018-02-08] MEDS: inSUlin ASPART (NovoLOG) 1 UNIT/0.01 ML (CHARGE PER UNIT) SC SCH ×2 (06:26→11:12)
[2018-02-08] MEDS: CATHETER FLUSH 10 ML SYR IV SCH (06:29)
--- NOTE | 2018-02-08 07:25 | Pulmonary Progress Note ---
Sepsis Event Evaluation Height, Weight, BMI Height: 5'6.00" Weight: 208lbs. 14.4oz. 94.049880gh; 28.7 BMI Method:Estimated Focused Exam Lactate Level 02/06/18 23:20: Lactic Acid Level 1.56 Exam Exam Vital Signs Date Time Temp Pulse Resp B/P (MAP) Pulse Ox O2 Delivery O2 Flow Rate FiO2 02/08/18 06:35 92 NIV CPAP 10.00 02/08/18 04:00 100.0 58 16 152/64 (93) 93 NIV Bilevel 02/08/18 02:22 90 NIV CPAP 10.00 02/08/18 00:00 99.6 66 20 148/59 (88) 93 NIV Bilevel 02/07/18 22:42 90 Vapotherm 25.00 50 02/07/18 20:00 Vapotherm 50.00 40 02/07/18 19:56 99.7 63 22 148/62 (90) 93 Vapotherm 50.00 25.00 02/07/18 19:12 92 Vapotherm 25.00 50 02/07/18 18:34 97.6 02/07/18 18:14 100.9 02/07/18 17:07 100.7 02/07/18 16:34 100.9 02/07/18 16:32 100.9 02/07/18 16:16 100.3 02/07/18 16:08 101.6 02/07/18 15:53 101.6 66 24 158/70 (99) 93 Vapotherm 50.00 25.00 02/07/18 14:52 88 Vapotherm 25.00 40 02/07/18 12:41 98.6 63 22 134/62 (86) 93 Vapotherm 40.00 25.00 02/07/18 08:35 Vapotherm 25.00 40 02/07/18 08:34 61 02/07/18 08:26 97.8 55 20 144/69 (94) 94 Vapotherm 40.00 25.00 I & O 02/08/18 07:00 Intake Total 3130 ml Output Total 1650 ml Balance 1480 ml Height & Weight Height: 5'6.00" Weight: 208lbs. 14.4oz. 94.555600bd; 28.7 BMI Method:Estimated General Appearance: Anxious, Obese HEENT: PERRL/EOMI, Normal ENT Inspection, Pharynx Normal; No Moist Mucous Membranes Neck: Full Range of Motion, Normal Inspection, Non Tender Respiratory: Chest Non Tender, No Accessory Muscle Use, No Respiratory Distress , Decreased Breath Sounds, Expiration, Wheezing (Few scattered) Cardiovascular: Regular Rate, Rhythm, Normal Peripheral Pulses, Other ( Bilateral lower pedal slight edema) Capillary Refill: Less Than 3 Seconds Extremity: Normal Capillary Refill, Non Tender, No Calf Tenderness, Pedal Edema (Bilateral, slight) Neurologic/Psychiatric: Alert, Oriented x3, No Motor/Sensory Deficits, Normal Mood/Affect Results Lab Laboratory Tests 02/06/18 23:25 02/07/18 05:32 Assessment/Plan Assessment/Plan Acute on chronic respiratory failure last EF 03/08 was 60% -BiPAP QHS and PRN Pneumonia with sepsis -Currently on Levaquin and merrem Anemia -Monitor Hx of Parkinson's hx of afib FREDERICK SEN DO Feb 08, 2018 07:25
[2018-02-08 08:00] VITALS: BP 146/65
[2018-02-08] MEDS: DABIGATRAN 75 MG (PRADAXA) CAPSULE PO SCH (08:18)
[2018-02-08] MEDS: amLODIPine 10 MG (NORVASC) TAB PO SCH (08:18)
[2018-02-08] MEDS: GABAPENTIN 300 MG (NEURONTIN) CAP PO SCH (08:18)
[2018-02-08] MEDS: SERTRALINE 50 MG (ZOLOFT) TABLET PO SCH (08:18)
--- NOTE | 2018-02-08 08:29 | Progress Note ---
Subjective Date Seen by Provider: Feb 08, 2018 Time Seen by Provider: 08:50 Subjective/Events-last exam see dc summary Review of Systems General: Fatigue Focused Exam Lactate Level 02/06/18 23:20: Lactic Acid Level 1.56 Objective Exam Last Set of Vital Signs Vital Signs Date Time Temp Pulse Resp B/P (MAP) Pulse Ox O2 Delivery O2 Flow Rate FiO2 02/08/18 06:35 92 NIV CPAP 10.00 02/08/18 04:00 100.0 58 16 152/64 (93) 02/07/18 22:42 50 Capillary Refill : Less Than 3 Seconds I&O Intake and Output 02/08/18 00:00 Intake Total 4530 ml Output Total 1850 ml Balance 2680 ml Intake Oral 1680 ml IV Total 2850 ml Output Urine Total 1850 ml Daily Weight Change No General: Alert Results Lab Laboratory Tests 02/07/18 10:58: Glucometer 224H 02/07/18 13:05: B-Type Natriuretic Peptide 276.9H 02/07/18 16:05: Glucometer 218H 02/07/18 20:17: Glucometer 310H 02/08/18 06:13: Glucometer 169H Microbiology 02/06/18 Blood Culture - Preliminary, Resulted No growth Assessment/Plan Assessment/Plan Assess & Plan/Chief Complaint SEE DISCHARGE SUMMARY Clinical Quality Measures DVT/VTE Risk/Contraindication: Risk Factor Score Per Nursin RFS Level Per Nursing on Admit: 4+=Very High NUNO FENTON MD Feb 08, 2018 08:29
[2018-02-08] MEDS ORDERED: LACT1CAP7 PO (09:33)
[2018-02-08] MEDS ORDERED: LEVO500T2 PO (09:33)
--- NOTE | 2018-02-08 09:36 | Discharge Inst-Skilled Nursing ---
Discharge Inst-Skilled NF Patient Instructions Patient Problems: pneumonia copd chf hypertension generalized weakness Consult/Follow Up/Orders Follow Up Appt.: 02/17/18 at 1:30pm [facility] Skilled NF Admit to: Via [facility] Certification (SNF) I certify that SNF services are required to be given on an inpatient basis because of the above named patient's need for retirement care on a continuing basis for the conditions(s) for which he/she was receiving inpatient hospital services prior to his/her transfer to the SNF. Assisted Facility Order: Nursing Services, Home Agent-Evaluate & Treat, Physical Therapy-Evaluate & Treat Discharge Diet: Low Sodium Diet Daily Activity as Tolerated: Yes New & Resume Previous Orders Nuno Roma Antonio Feb 08, 2018 09:34 Medication List: Active Scripts Active Levaquin (Levofloxacin) 500 Mg Tablet 500 Mg PO Q48H Acidophilus-Pectin Capsule (Lactobacillus Acidophilus/Pect) 1 Each Capsule 2 Each PO TIDWM Reported Lantus (Insulin Glargine,Hum.rec.anlog) 100 Unit/1 Ml Vial 10 Units SC BID Systane Ultra 0.4-0.3% Eye Drp (Propylene Glycol/Peg 400) 10 Ml Drops 1 Drop OU HS Voltaren (Diclofenac Sodium) 100 Gm Gel..gram. 4 Gm TP QID RIGHT KNEE PAIN Tramadol HCl 50 Mg Tablet 50-100 Mg PO Q6H PRN RIGHT KNEE PAIN Biofreeze (Menthol) 118 Ml Gel..ml. TP QID PRN Imodium A-D (Loperamide HCl) 2 Mg Tablet 2 Mg PO QID PRN Melatonin 5 Mg Capsule 10 Mg PO HS Gabapentin 300 Mg Capsule 300 Mg PO 0800,1600 Gabapentin 600 Mg Tablet 600 Mg PO HS Mucinex (Guaifenesin) 600 Mg Tab.er.12h 600 Mg PO Q12H PRN Tylenol Extra Strength (Acetaminophen) 500 Mg Tablet 500 Mg PO Q4H PRN Hyoscyamine Sulfate 0.125 Mg Tab.subl 0.125 Mg SL Q2H PRN Albuterol Sulfate 2.5 Mg/3 Ml Vial.neb 2.5 Mg NEB Q4H PRN Zofran (Ondansetron HCl) 4 Mg Tab 4 Mg PO Q6H PRN Lasix (Furosemide) 20 Mg Tablet 20 Mg PO 1600 Iprat-Albut 0.5-3(2.5) mg/3 ml (Ipratropium/Albuterol Sulfate) 3 Ml Ampul.neb 3 Ml IH Q4H PRN Miralax (Polyethylene Glycol 3350) 17 Gm Powd.pack 17 Gm PO DAILY PRN Zoloft (Sertraline HCl) 50 Mg Tablet 50 Mg PO DAILY Colace (Docusate Sodium) 100 Mg Capsule 100 Mg PO BID PRN Humalog (Insulin Lispro) 100 Unit/1 Ml Vial SQ TID 201-250 = 3 UNITS 251-300 = 5 UNITS 301-350 = 7 UNITS 351-400 = 9 UNITS ABOVE 400 NOTIFY PCP Potassium Chloride 10 Meq Tablet.er 10 Meq PO BID Amlodipine Besylate 10 Mg Tablet 10 Mg PO DAILY Diazepam 5 Mg Tablet 5 Mg PO HS Fluticasone Propionate 16 Gm [place].susp 1 [place] NSEACH DAILY PRN Acetaminophen 325 Mg Tablet 650 Mg PO Q4H PRN TAKES 2 (325MG) TABLETS Pradaxa (Dabigatran Etexilate Mesylate) 75 Mg Capsule 75 Mg PO BID Neupro (Rotigotine) 1 Each Patch.td24 1 Patch TD HS 6MG/24HR Glimepiride 4 Mg Tablet 8 Mg PO DAILY TAKES 2 (4MG) TABLETS Levothyroxine Sodium 75 Mcg Tablet 75 Mcg PO DAILY Cetirizine HCl 10 Mg Tablet 10 Mg PO HS PRN Furosemide 40 Mg Tablet 40 Mg PO DAILY Lab results: Laboratory Tests Test 02/07/18 10:58 02/07/18 13:05 02/07/18 16:05 02/07/18 20:17 Range/Units Glucometer 224 H 218 H 310 H 70-110 MG/DL B-Type Natriuretic Peptide 276.9 H <100.0 PG/ML Test 02/08/18 06:13 Range/Units Glucometer 169 H 70-110 MG/DL My orders: Orders - NUNO FENTON MD Chest Pa/Lat (2 View) (02/08/18 08:27) Attending Discharge Inpt/Inobs (02/08/18 09:30) NUNO FENTON MD Feb 08, 2018 09:36
--- NOTE | 2018-02-08 09:39 | Discharge Summary ---
Diagnosis/Chief Complaint Date of Admission Feb 07, 2018 at 00:35 Date of Discharge Discharge Date: Feb 08, 2018 Discharge Time: 1100 Admission Diagnosis Admission Diagnosis PNEUMONIA COPD EXACERBATION HYPERTENSION ANXIETY CONGESTIVE HEART FAILURE DIABETES MELLITUS Discharge Diagnosis PNEUMONIA COPD EXACERBATION HYPERTENSION ANXIETY CONGESTIVE HEART FAILURE DIABETES MELLITUS Reason Hospital Visit PT IS AN 82 Y/O FEMALE WHO IS WELL KNOWN TO ME FROM CLINIC. ANIA WAS APPARENTLY NOT FEELING WELL AND WAS SENT TO THE ER VIA AMBULANCE DUE TO RESPIRATORY DISTRESS. Discharge Summary Discharge Physical Examination Allergies: Coded Allergies: iodine (Verified Allergy, Severe, BLISTERS, 12/13/13) neomycin (Verified Allergy, Severe, SWELLING, PAIN, RASH, ITCHING, 12/13/13 ) THIS WAS ADMINISTERED AN EAR DROP, EARS AND HEAD SWELLED AND TURNED RED CAUSING PAIN AND RASH WITH ITCHING cephalexin (Unverified Allergy, Mild, 08/19/08) phenylalanine (Verified Allergy, Mild, 04/25/16) pregabalin (Verified Allergy, Mild, SWELLING AND WEIGHT GAIN, 12/13/13) brompheniramine (Verified Allergy, Unknown, VISION PROBLEMS, 12/13/13) dextromethorphan (Verified Allergy, Unknown, 03/30/06) penicillin G (Verified Allergy, Unknown, RASH, 12/13/13) phenylpropanolamine (Verified Allergy, Unknown, 03/30/06) pseudoephedrine (Verified Allergy, Unknown, 03/30/06) simvastatin (Verified Allergy, Unknown, EXTREME WEAKNESS AND PAIN IN LEGS , 12/13/13) sulfamethoxazole (Verified Allergy, Unknown, 03/03/16) thimerosal (Verified Allergy, Unknown, RASH WITH PAIN AND ITCHING, 12/13/13 ) trimethoprim (Verified Allergy, Unknown, 03/03/16) codeine (Verified Adverse Reaction, Mild, TRIPLE VISION, 06/05/15) hydrocodone (Verified Adverse Reaction, Mild, VISION PROBLEMS, 06/05/15) Uncoded Allergies: TAPE (Allergy, Unknown, RASH, 12/13/13) Vitals & I&Os General Appearance: Alert, Oriented X3, Cooperative HEENT: Atraumatic Respiratory: Other (DECREASED IN BASES BILATERALLY) Cardiovascular: Other (II/ TRICIA) Abdominal: Normal Bowel Sounds, Soft, No Tenderness Extremities: Other (TRACE EDEMA BILATERAL LOWER EXTREMITIES) Skin: No Rashes Psych/Mental Status: Mental Status NL, Mood NL Hospital Course PNEUMONIA COPD EXACERBATION HYPERTENSION ANXIETY CONGESTIVE HEART FAILURE DIABETES MELLITUS PNEUMONIA AND COPD EXACERBATION - PT ON PNEUMONIA PROTOCOL, CONTINUE WITH IV ANTIBIOTICS, BREATHING TREATMENTS AND CPAP AT HS AND OXYGEN VIA VAPOTHERM DURING DAY. PT'S IV CAME OUT AND DESPITE MY RECOMMENDATIONS, SHE REFUSED TO HAVE THE IV REPLACED, SHE STILL NEEDED TIME IN THE HOSPITAL, BUT DUE TO HER REFUSAL, SHE WAS CHANGED TO ORAL ANTIBIOTICS, WHICH IS SUB-OPTIMAL CARE, BUT SHE REFUSED IV OF ANY KIND TO BE PLACED AND THUS SHE WAS DISCHARGED ON ORAL ANTIBIOTICS. HYPERTENSION AND CHRONIC CHF - CONTINUE HOME REGIMEN - DISCUSSED WITH CARDIOLOGY - AT THIS TIME A CONSULTATION IS NOT NEEDED. ANXIETY AND INSOMNIA - CHRONIC - CONTINUE WITH HOME REGIMEN. DIABETES MELLITUS - RESUME HOME MEDICATIONS AND MONITOR FSBS. Pending Labs Discharge Condition at discharge FAIR Instructions to patient/family Please see electronic discharge instructions given to patient. Discharge Medications Reviewed and agree with Discharge Medication list on patient's Discharge Instruction sheet Clinical Quality Measures DVT/VTE Risk/Contraindication: Risk Factor Score Per Nursin RFS Level Per Nursing on Admit: 4+=Very High NUNO FENTON MD Feb 08, 2018 09:39
[2018-02-08] MEDS: 1/2 NS W/KCL 20 MEQ/L 1,000 ML IV SCH (10:42)
--- NOTE | 2018-02-08 12:13 | Diagnostic Imaging Report ---
EXAMINATION: Portable erect AP chest at 10:38 a.m. INDICATION: Pneumonia. FINDINGS: The cardiomegaly noted on the prior exam of 02/06/2018 is again evident and no different. In the interval since the prior study, left lower lobe atelectasis/infiltrate and a [id number] left pleural effusion have developed. The vague areas of increased density in the left perihilar region and right lung base seen previously are again evident and no different. The lungs are otherwise generally clear. The mediastinum is not widened. The osseous structures are intact. IMPRESSION: The appearance of the chest has worsened since the prior study as left lower lobe pneumonia/atelectasis and a [id number] left pleural effusion have developed. A followup exam would be recommended for continued evaluation. Dictated by: Dictated on workstation # [id number]
[2018-02-08] MEDS ORDERED: LEVOFLOXACIN 750 MG/D5W 150 ML PRE-MIX IV SCH (21:00)
--- NOTE | 2018-02-09 15:39 | Physician Query Clarification ---
PQ-Conflicting Diagnosis Admission/Discharge Admission Date: Feb 07, 2018 at 00:35 Discharge Date: Feb 08, 2018 at 13:15 The medical record reflects the following clinical scenario: History/Risk Factors: pneumonia Clinical Findings: p02 [id number], sob Treatment: BiPAP Question: Do you agree with the impression of the acute on chronic respiratory failure per Dr. Vazquez. Please document a response below. PHYSICIAN RESPONSE Do you agree w/Consulting Dx?: Yes In responding to this query, please exercise your independent professional judgment. The purpose of this communication is to more accurately reflect the complexity of your patients condition. The fact that a question is asked does not imply that any particular answer is desired or expected. Thank you for your timely response to this clarification. Requestors name: [ ] Phone # [ ] THIS PHYSICIAN QUERY FORM IS A PERMANENT PART OF THE MEDICAL RECORD JOSEPH RUBALCAVA Feb 09, 2018 15:39 NUNO FENTON MD Feb 16, 2018 10:04
[2018-02-10] MEDS ORDERED: LEVOFLOXACIN 750 MG TAB (LEVAQUIN) PO SCH (11:00)
--- NOTE | 2018-02-18 10:21 | Physician Query Clarification ---
PQ-Conflicting Diagnosis Admission/Discharge Admission Date: Feb 07, 2018 at 00:35 Discharge Date: Feb 08, 2018 at 13:15 The medical record reflects the following clinical scenario: History/Risk Factors: fever, short of breath Clinical Findings: pneumonia, respiratory failure Treatment: Levaquin Question: Do you agree with the impression of the sepsis per Dr. Vazquez consult and ED record. Please document a response below. PHYSICIAN RESPONSE Do you agree w/Consulting Dx?: Yes In responding to this query, please exercise your independent professional judgment. The purpose of this communication is to more accurately reflect the complexity of your patients condition. The fact that a question is asked does not imply that any particular answer is desired or expected. Thank you for your timely response to this clarification. Requestors name: [ ] Phone # [ ] THIS PHYSICIAN QUERY FORM IS A PERMANENT PART OF THE MEDICAL RECORD JOSEPH RUBALCAVA Feb 18, 2018 10:21 NUNO FENTON MD Feb 18, 2018 10:54
== END 2018-02-08 13:15 | DRG 871 ==
LOC: EDUNIT# 22:56 → ER 22:57 → 4TH 02-07 00:35
PROVIDERS: ADMIT Internal Medicine; ATTEND Internal Medicine
DX: A41.9 Sepsis, unspecified organism (principal); J18.9 Pneumonia, unspecified organism; J44.0 Chronic obstructive pulmonary disease with (acute) lower respiratory infection; J44.1 Chronic obstructive pulmonary disease with (acute) exacerbation; J96.20 Acute and chronic respiratory failure, unspecified whether with hypoxia or hypercapnia; G47.30 Sleep apnea, unspecified; I48.91 Unspecified atrial fibrillation; D64.9 Anemia, unspecified; Z66 Do not resuscitate; I25.10 Atherosclerotic heart disease of native coronary artery without angina pectoris; I25.2 Old myocardial infarction; E78.00 Pure hypercholesterolemia, unspecified; I11.0 Hypertensive heart disease with heart failure; I50.9 Heart failure, unspecified; E11.51 Type 2 diabetes mellitus with diabetic peripheral angiopathy without gangrene; I69.998 Other sequelae following unspecified cerebrovascular disease; R26.81 Unsteadiness on feet; E11.42 Type 2 diabetes mellitus with diabetic polyneuropathy; G20 Parkinson's disease; I27.20 Pulmonary hypertension, unspecified; K21.9 Gastro-esophageal reflux disease without esophagitis; G25.81 Restless legs syndrome; M19.91 Primary osteoarthritis, unspecified site; Z79.4 Long term (current) use of insulin; E03.9 Hypothyroidism, unspecified; F41.9 Anxiety disorder, unspecified; F32.9 Major depressive disorder, single episode, unspecified; Z95.5 Presence of coronary angioplasty implant and graft; Z87.11 Personal history of peptic ulcer disease
CPT/HCPCS: 36415; 36600; 51702; 71045; 80048; 80053; 81000; 82805; 82962; 83605; 83880; 85025; 85610; 85730; 87040; 87088; 94640; 94760; 96361; 96365

== ENCOUNTER 2018-04-17 14:27 | Emergency (ER) | payer OTHER, MEDICARE, MEDICAID ==
[~2018-04-17] VITALS: Ht 152.4 cm; Wt 90.7 kg
[~2018-04-17 14:27] MED LIST changes: +INSU100V6 SC; +LACT1CAP7 PO; +PROP10DR2 OU; -SENN-140 PO; +SENN-141 PO
--- OUTSIDE RECORDS SUMMARY | 2018-04-17 14:35 | XMS REPORT | CCD ---
Author Author Betty Blackman MD, [facility] Address [address] [place] [address] Phone Care Team Providers Care Mentally Impaired Teacher Name Role Phone PP Unavailable CCM Unavailable Summary Purpose Interface Exchange Insurance Providers Payer name Policy type / Coverage type Covered libertarian ID Effective Begin Date Effective End Date WPS Medicare Part B Medicare Part B [id number] 2017 Unknown Cign[employer] Medicare Part B [id number] 2017 Unknown [employer] - Primary Medicare Part B [id number] 2017 Unknown Family history Brother Diagnosis Age [...] Social History data Allergies, Adverse Reactions, Alerts Substance Reaction Codes Entered Date Inactivated Date Status * OTHER REACTION - SEE ANSWER BOX Unknown 07/28/2017 No Inactive Date Active Lyrica RxNorm: 112659 07/28/2017 No Inactive Date Active dextromethorphan RxNorm: 3289 07/28/2017 No Inactive Date Active cephalexin RxNorm: 2231 07/28/2017 No Inactive Date Active CODEINE RxNorm: 2670 07/28/2017 No Inactive Date Active hydrocodone Unknown 07/28/2017 No Inactive Date Active NEOMYCIN RxNorm: 7299 07/28/2017 No Inactive Date Active IODINE; IODINE CONTAINING Unknown 07/28/2017 No Inactive Date Active Penicillin Unknown 07/28/2017 No Inactive Date Active Past Medical History Illness Codes Condition Status Onset Date Resolved Date Essential (primary) hypertension ICD-9: 401.1 ICD-10: I10 Active 06/04/2017 Unknown 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 Active 12/16/2017 Unknown Type 2 diabetes mellitus without complications ICD-9: 250.00 ICD-10: E11.9 Active 11/16/2017 Unknown Chronic systolic (congestive) heart failure ICD-9: 428.22 ICD-10: I50.22 Active 02/17/2018 Unknown Pain in right shoulder ICD-9: 719.41 ICD-10: M25.511 Active 02/17/2018 Unknown Chronic atrial fibrillation ICD-9: 427.31 ICD-10: I48.2 Active 12/16/2017 Unknown Cough ICD-9: 786.2 ICD-10: R05 Active 01/19/2018 Unknown Other emphysema ICD-9 : 492.8 ICD-10: J43.8 Active 12/16/2017 Unknown Pain in right knee ICD -9: 719.46 ICD-10: M25.561 Active 11/16/2017 Unknown Diabetes Unknown Active 11/16/2017 Unknown Bradycardia, unspecified ICD-9: 427.89 ICD-10: R00.1 Active 11/02/2017 Unknown Encounter for follow-up examination after completed treatment for conditions other than malignant neoplasm ICD-9: V67.9 ICD-10: Z09 Active 11/02/2017 Unknown Contusion of left thigh, initial encounter ICD-9: 924.00 ICD-10: S70.12XA Active 08/10/2017 Unknown Weakness ICD-9: 780.79 ICD-10: R53.1 Active 06/04/2017 Unknown Problems Condition Codes Effective Dates Condition Status Essential (primary) hypertension ICD-9: 401.1 ICD-10: I10 06/04/2017 Active 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 12/16/2017 Active Type 2 diabetes mellitus without complications ICD-9: 250.00 ICD-10: E11.9 11/16/2017 Active Chronic systolic (congestive) heart failure ICD-9: 428.22 ICD-10: I50.22 02/17/2018 Active Pain in right shoulder ICD-9: 719.41 ICD-10: M25.511 02/17/2018 Active Chronic atrial fibrillation ICD-9: 427.31 ICD-10: I48.2 12/16/2017 Active Cough ICD-9: 786.2 ICD-10: R05 01/19/2018 Active Other emphysema ICD-9 : 492.8 ICD-10: J43.8 12/16/2017 Active Pain in right knee ICD -9: 719.46 ICD-10: M25.561 11/16/2017 Active Diabetes Unknown 11/16/2017 Active Bradycardia, unspecified ICD-9: 427.89 ICD-10: R00.1 11/02/2017 Active Encounter for follow-up examination after completed treatment for conditions other than malignant neoplasm ICD-9: V67.9 ICD-10: Z09 11/02/2017 Active Contusion of left thigh, initial encounter ICD-9: 924.00 ICD-10: S70.12XA 08/10/2017 Active Weakness ICD-9: 780.79 ICD-10: R53.1 06/04/2017 Active Medications Medication Codes Instructions Start Date Stop Date Status Fill Instructions Lactobacillus acidophilus 100 mg (1 billion cell) capsule RxNorm: 504822 2 Capsule (s) PO TID with meals 04/13/2018 No Stop Date Active diazepam 5 mg tablet RxNorm: 366478 1 Tablet(s) PO QHS as needed 04/07/2018 08/04/2018 Active Flagyl 500 mg tablet RxNorm: 759654 1 Tablet(s) PO TID 201704/05/2018 Inactive gabapentin 300 mg capsule RxNorm: 621630 300 MG PO BID@0700,1300 03/18/2018 No Stop Date Active Lactobacillus acidophilus 100 mg (1 billion cell) capsule RxNorm: 613005 2 Capsule (s) PO TID with meals 03/17/2018 No Stop Date Active Linzess 72 mcg capsule RxNorm: 5574610 1 Capsule(s) PO daily 07/14/2018 Active BenGay Ultra Strength 4 %-30 %-10 % topical cream RxNorm: 893627 TOP USE FOUR TIMES DAILY ON RIGHT KNEE 03/17/2018 No Stop Date Active Lactobacillus acidophilus 100 mg (1 billion cell) capsule RxNorm: 681325 2 Capsule (s) PO TID with meals 02/22/20182017 Inactive tramadol 50 mg tablet RxNorm: 512924 1-2 Tablet(s) PO Q6 as needed 02/17/2018 No Stop Date Active Zyrtec 10 mg tablet RxNorm: 0339473 1 Tablet(s) PO QHS allergies 02/17/2018 No Stop Date Active gabapentin 300 mg capsule RxNorm: 991087 1 Capsule(s) PO BID and 600mg hs 02/17/2018 03/17/2018 Inactive Lantus U-100 Insulin 100 unit/mL subcutaneous solution RxNorm: 165382 10 Unit(s) SQ BID 01/07/2018 01/01/2019 Active vcv needs vials Lantus Solostar U-100 Insulin 100 unit/mL (3 mL) subcutaneous pen RxNorm: 287911 10 Unit(s) SQ BID 01/07/2018 Inactive Levemir U-100 Insulin 100 unit/mL subcutaneous solution RxNorm: 932633 10 Unit(s) SQ BID 01/07/2018 01/07/2018 Inactive 30 day supply Lantus U-100 Insulin 100 unit/mL subcutaneous solution RxNorm: 162938 10 Unit(s) SQ BID 01/07/2018 01/06/2018 Inactive Synthroid 75 mcg tablet RxNorm: 202601 TAKE 1 TABLET BY MOUTH DAILY 12/21/2017 12/15/2018 Active Generic For:*SYNTHROID 0.075MG TAB 12/21/2017 8:48:14 AM ALF NEEDS JACKIE Humalog U-100 Insulin 100 unit/mL subcutaneous solution RxNorm: 474557 INJECT SUBCUTANEOUSLY PER SLIDING THREE TIMES DAILY 12/16/2017 06/13/2018 Active 2017 8:51:49 AM Pradaxa 75 mg capsule RxNorm: 8936468 1 Capsule(s) PO BID 201706/11/2018 Active Lasix 40 mg tablet RxNorm: 345045 Take 1 tab in the morning and 1/2 tab in evening 12/06/2017 No Stop Date Active SAVINGS FOR NON-COVERED MEDICATIONS Claims: BIN: [id number], PCN: [id number], GROUP: [id number], Patient ID: [id number] Phone; Questions: [facility] [phone] Norvasc 10 mg tablet RxNorm: 155505 TAKE ONE (1) TABLET BY MOUTH DAILY 11/25/2017 01/05/2018 Inactive Generic For:NORVASC 10MG TAB 11/25/2017 4:26:12 PM potassium chloride ER 10 mEq tablet,extended release RxNorm: 338010 1 Tablet(s) PO BID 11/23/2017 03/22/2018 Inactive Lasix 20 mg tablet RxNorm: 311993 TAKE 1 TABLET BY MOUTH EVERY DAY 11/23/2017 02/16/2018 Inactive Generic For:LASIX 20 MG TABLET 11/23/2017 9:11:33 AM Levemir U-100 Insulin 100 unit/mL subcutaneous solution RxNorm: 425352 10 Unit(s) SQ BID 11/16/2017 01/06/2018 Inactive diazepam 5 mg tablet RxNorm: 431781 1 Tablet(s) PO QHS as needed 10/26/2017 02/21/2018 Inactive diazepam 5 mg tablet RxNorm: 009397 1 Tablet(s) PO QHS as needed 09/29/2017 10/25/2017 Inactive Ambien 5 mg tablet RxNorm: 949060 1 Tablet(s) PO QHS for insomnia 08/04/2017 02/21/2018 Inactive diazepam 5 mg tablet RxNorm: 901905 1 Tablet(s) PO QHS as needed 06/14/2017 09/11/2017 Inactive diazepam 5 mg tablet RxNorm: 514741 1 Tablet(s) PO QHS as needed 06/09/2017 06/13/2017 Inactive Mucinex 600 mg tablet, extended release RxNorm: 281231 1 Tablet(s) PO Q12H as needed congestion No Start Date Active Systane Balance 0.6 % eye drops RxNorm: 2760488 1 Drop(s) both eyes ophthalmic ( eye) daily No Start Date Active Miralax 17 gram/dose oral powder RxNorm: 700864 17 Gram(s) PO daily as needed constipation No Start Date Active ipratropium-albuterol 0.5 mg-3 mg(2.5 mg base)/3 mL nebulization soln RxNorm: 5550120 1 INH Q4H as needed No Start Date Active Acetaminophen Pain Relief 500 mg tablet RxNorm: 257475 2 Tablet(s) PO Q6 as needed fever No Start Date Active metformin 1,000 mg tablet RxNorm: 589203 1 Tablet(s) PO BID No Start Date Active digoxin 125 mcg tablet RxNorm: 549145 1 Tablet(s) PO daily No Start Date Active albuterol sulfate 2.5 mg/3 mL (0.083 %) solution for nebulization RxNorm: 836757 1 INH as needed for cough/wheezes No Start Date Active Colace 100 mg capsule RxNorm: 2091542 1 Capsule(s) PO BID as needed constipation No Start Date Active Zofran 4 mg tablet RxNorm: 235069 1 Tablet(s) PO Q6 as needed nausea No Start Date Active Amaryl 4 mg tablet RxNorm: 291927 2 Tablet(s) PO daily No Start Date Active melatonin 10 mg tablet RxNorm: 3942126 1 Tablet(s) PO QHS No Start Date Active Hyomax 0.125 mg tablet RxNorm: 9234953 1 Tablet(s) SL Q2H as needed for secretions No Start Date Active acetaminophen 500 mg tablet RxNorm: 282362 1 Tablet(s) PO Q4H as needed for pain No Start Date Active Flonase Allergy Relief 50 mcg/actuation nasal spray, suspension RxNorm: 9878933 2 [place] each nostril NASAL daily as needed for allergies No Start Date Active Neupro 6 mg/24 hour transdermal 24 hour patch RxNorm: 063417 1 Patch TD daily for Parkinson's No Start Date Active morphine 100 mg/5 mL oral concentrate RxNorm: 833841 1/2 Milliliter(s) SL as needed every 15 min for air hunger/severe pain/anxiety No Start Date Active Plavix 75 mg tablet RxNorm: 565769 1 Tablet(s) PO QHS No Start Date Active Zoloft 50 mg tablet RxNorm: 951220 1 Tablet(s) PO daily No Start Date Active metoprolol tartrate 100 mg tablet RxNorm: 206430 1 Tablet(s) PO BID No Start Date Active lisinopril 10 mg tablet RxNorm: 032622 1 Tablet(s) PO daily No Start Date Active acetaminophen 325 mg tablet RxNorm: 831427 2 Tablet(s) PO or one 650 mg rectal suppository every 4 hours as needed for fever/mild pain No Start Date Active Aspirin Low Dose 81 mg tablet,delayed release RxNorm: 474502 1 Tablet(s) PO daily No Start Date Active Voltaren 1 % topical gel RxNorm: 343343 1 TOP Q6 as needed No Start Date Active loperamide 2 mg tablet RxNorm: 291500 1 Tablet(s) PO QID as needed No Start Date Active Lactobacillus acidophilus 100 mg (1 billion cell) capsule RxNorm: 250607 2 Capsule (s) PO TID with meals No Start Date 2017 Inactive Lactobacillus acidophilus 10 billion cell capsule RxNorm: 3773057 2 Capsule(s) PO TID No Start Date 02/22/2018 Inactive potassium chloride ER 10 mEq tablet,extended release RxNorm: 974721 1 Tablet(s) PO BID No Start Date 11/22/2017 Inactive Lasix 40 mg tablet RxNorm: 831570 1 Tablet(s) PO daily No Start Date 12/05/2017 Inactive Pradaxa 75 mg capsule RxNorm: 6798288 1 Capsule(s) PO BID No Start Date 12/13/2017 Inactive tramadol 50 mg tablet RxNorm: 983272 2 Tablet(s) PO Q6 as needed No Start Date 02/16/2018 Inactive Ambien 5 mg tablet RxNorm: 503116 1 Tablet(s) PO QHS for insomnia No Start Date 08/03/2017 Inactive Norvasc 10 mg tablet RxNorm: 790921 1 Tablet(s) PO daily No Start Date 11/24/2017 Inactive Levemir U-100 Insulin 100 unit/mL subcutaneous solution RxNorm: 973376 8 Unit(s) SQ BID No Start Date 11/15/2017 Inactive gabapentin 300 mg capsule RxNorm: 692071 1 Capsule(s) PO BID No Start Date 02/16/2018 Inactive Zyrtec 10 mg tablet RxNorm: 3316610 1 Tablet(s) PO QHS as needed allergies No Start Date 02/16/2018 Inactive Humalog U-100 Insulin 100 unit/mL subcutaneous solution RxNorm: 691451 1 injection SQ TID per sliding scale; If BS 201-250 give 3 units, 251-300 give 5 units, 301-350 give 7 units, 351-400 give 9 units No Start Date 12/15/2017 Inactive Lantus Solostar U-100 Insulin subcutaneous RxNorm: subcutaneous No Start Date 01/06/2018 Inactive Lasix 20 mg tablet RxNorm: 601538 1 Tablet(s) PO daily No Start Date 11/22/2017 Inactive Synthroid 75 mcg tablet RxNorm: 703277 1 Tablet(s) PO daily No Start Date 12/20/2017 Inactive BenGay Ultra Strength 4 %-30 %-10 % topical cream RxNorm: 520743 TOP USE FOUR TIMES DAILY ON RIGHT KNEE No Start Date Inactive Medication Administered No Medication Administered data Immunizations No Immunization data Assessments Condition Codes Effective Dates Type 2 diabetes mellitus without complications ICD-10: E11.9 ICD-9: 250.00 03/17/2018 Essential (primary) hypertension ICD-10: I10 ICD-9: 401.1 03/17/2018 Insomnia due to medical condition ICD-10: G47.01 ICD-9: 327.01 03/17/2018 Pain in right shoulder ICD-10: M25.511 ICD-9: 719.41 02/17/2018 Chronic systolic (congestive) heart failure ICD-10: I50.22 ICD-9: 428.22 02/17/2018 Chronic atrial fibrillation ICD-10: I48.2 ICD-9: 427.31 01/19/2018 Cough ICD-10: R05 ICD-9: 786.2 01/19/2018 Other emphysema ICD-10: J43.8 ICD-9: 492.8 01/19/2018 Pain in right knee ICD-10: M25.561 ICD-9: 719.46 12/16/2017 Bradycardia, unspecified ICD-10: R00.1 ICD-9: 427.89 11/02/2017 Encounter for follow-up examination after completed treatment for conditions other than malignant neoplasm ICD-10: Z09 ICD-9: V67.9 11/02/2017 Contusion of left thigh, initial encounter ICD-10: S70.12XA ICD-9: 924.00 08/10/2017 Weakness ICD-10: R53.1 ICD-9: 780.79 07/16/2017 Reason For Visit Reason For Visit Effective Dates Notes elbow pain 03/17/2018 elbow pain 02/17/2018 fever 01/19/2018 edema 12/16/2017 bilataral legs/feet Hospital Follow Up 11/16/2017 Hospital Follow Up 11/02/2017 skin lesion 08/10/2017 gait abnormality 07/16/2017 gait abnormality 06/04/2017 Results Observation Observation Code Item Item Code Result Date Digoxin Ord9 DIGOXIN 1.2 NG/ML 11/02/2017 Review of Systems System Result Effective Dates Constitutional recent illness 03/17/2018 Constitutional No chills 03/17/2018 Constitutional No diaphoresis 03/17/2018 Constitutional No fever 03/17/2018 Eyes No blindness 03/17/2018 Ears/Nose/Throat/Neck nasal allergies Ears/Nose/Throat/Neck No nasal discharge 03/17/2018 Ears/Nose/Throat/Neck No sore throat Ears/Nose/Throat/Neck No sinus congestion 03/17/2018 Cardiovascular No chest pain/pressure Cardiovascular No dyspnea 03/17/2018 Respiratory No chest congestion 2017 Respiratory cough 03/17/2018 Respiratory No dyspnea 03/17/2018 Gastrointestinal No abdominal pain 2017 Gastrointestinal No constipation 2017 Gastrointestinal No diarrhea 03/17/2018 Genitourinary/Nephrology dysuria 2017 Musculoskeletal stiffness 03/17/2018 Musculoskeletal arthralgia(s) 03/17/2018 Dermatologic No rash 03/17/2018 Neurologic No alteration of consciousness 03/17/2018 Neurologic No mental status change 2017 Psychiatric No depression 03/17/2018 Constitutional recent illness 02/17/2018 Constitutional No chills 02/17/2018 Constitutional No diaphoresis 02/17/2018 Constitutional No fever 02/17/2018 Eyes No blindness 02/17/2018 Ears/Nose/Throat/Neck nasal allergies Ears/Nose/Throat/Neck No nasal discharge 02/17/2018 Ears/Nose/Throat/Neck No sinus congestion 02/17/2018 Ears/Nose/Throat/Neck No sore throat Cardiovascular No chest pain/pressure Cardiovascular No dyspnea 02/17/2018 Respiratory No chest congestion 2017 Respiratory cough 02/17/2018 Respiratory No dyspnea 02/17/2018 Gastrointestinal No abdominal pain 2017 Gastrointestinal No constipation 2017 Gastrointestinal No diarrhea 02/17/2018 Genitourinary/Nephrology dysuria 2017 Musculoskeletal arthralgia(s) 02/17/2018 Dermatologic No rash 02/17/2018 Neurologic No alteration of consciousness 02/17/2018 Neurologic No mental status change 2017 Psychiatric No depression 02/17/2018 Musculoskeletal stiffness 02/17/2018 Constitutional recent illness 01/19/2018 Constitutional No chills 01/19/2018 Constitutional No diaphoresis 01/19/2018 Constitutional No fever 01/19/2018 Eyes No eye erythema 01/19/2018 Ears/Nose/Throat/Neck nasal allergies Ears/Nose/Throat/Neck No nasal discharge 01/19/2018 Ears/Nose/Throat/Neck postnasal drip Ears/Nose/Throat/Neck No sinus congestion 01/19/2018 Ears/Nose/Throat/Neck No sore throat Cardiovascular No chest pain/pressure Cardiovascular No dyspnea 01/19/2018 Respiratory cough 01/19/2018 Respiratory No chest congestion 2017 Respiratory No dyspnea 01/19/2018 Gastrointestinal No abdominal pain 2017 Gastrointestinal No constipation 2017 Gastrointestinal No diarrhea 01/19/2018 Genitourinary/Nephrology dysuria 2017 Musculoskeletal arthralgia(s) 01/19/2018 Dermatologic No rash 01/19/2018 Neurologic No alteration of consciousness 01/19/2018 Neurologic No mental status change 2017 Constitutional No recent illness 2017 Constitutional No chills 12/16/2017 Constitutional No diaphoresis 12/16/2017 Constitutional No fever 12/16/2017 Eyes No blindness 12/16/2017 Ears/Nose/Throat/Neck No nasal allergies 12/16/2017 Ears/Nose/Throat/Neck No nasal discharge 12/16/2017 Cardiovascular No chest pain/pressure Respiratory No cough 12/16/2017 Respiratory No dyspnea 12/16/2017 Gastrointestinal No abdominal pain 2017 Gastrointestinal No constipation 2017 Gastrointestinal No diarrhea 12/16/2017 Gastrointestinal No nausea 12/16/2017 Gastrointestinal No vomiting 12/16/2017 Musculoskeletal arthralgia(s) 12/16/2017 Dermatologic No rash 12/16/2017 Neurologic No alteration of consciousness 12/16/2017 Psychiatric No anxiety 12/16/2017 Musculoskeletal stiffness 12/16/2017 Constitutional fatigue 12/16/2017 Constitutional No recent illness 2017 Constitutional No chills 11/16/2017 Constitutional No diaphoresis 11/16/2017 Constitutional No fever 11/16/2017 Eyes No blindness 11/16/2017 Ears/Nose/Throat/Neck No nasal allergies 11/16/2017 Ears/Nose/Throat/Neck No nasal discharge 11/16/2017 Cardiovascular No chest pain/pressure Respiratory No cough 11/16/2017 Respiratory No dyspnea 11/16/2017 Gastrointestinal No abdominal pain 2017 Gastrointestinal No constipation 2017 Gastrointestinal No diarrhea 11/16/2017 Gastrointestinal No nausea 11/16/2017 Gastrointestinal No vomiting 11/16/2017 Musculoskeletal arthralgia(s) 11/16/2017 Dermatologic No rash 11/16/2017 Neurologic No alteration of consciousness 11/16/2017 Psychiatric No anxiety 11/16/2017 Constitutional recent illness 11/02/2017 Constitutional No chills 11/02/2017 Constitutional No diaphoresis 11/02/2017 Constitutional No fever 11/02/2017 Eyes No eye erythema 11/02/2017 Ears/Nose/Throat/Neck No nasal allergies 11/02/2017 Ears/Nose/Throat/Neck No nasal discharge 11/02/2017 Cardiovascular No chest pain/pressure 04/2018 Respiratory No cough 11/02/2017 Respiratory No dyspnea 11/02/2017 Gastrointestinal No abdominal pain 2017 Gastrointestinal No constipation 2017 Gastrointestinal No diarrhea 11/02/2017 Gastrointestinal No nausea 11/02/2017 Gastrointestinal No vomiting 11/02/2017 Musculoskeletal arthralgia(s) 11/02/2017 Dermatologic No rash 11/02/2017 Neurologic No alteration of consciousness 11/02/2017 Psychiatric No anxiety 11/02/2017 Constitutional No recent illness 2017 Constitutional No chills 08/10/2017 Constitutional No diaphoresis 08/10/2017 Constitutional No fever 08/10/2017 Eyes No eye erythema 08/10/2017 Ears/Nose/Throat/Neck No nasal discharge 08/10/2017 Cardiovascular No chest pain/pressure Cardiovascular No dyspnea 08/10/2017 Respiratory No cough 08/10/2017 Respiratory No chest congestion 2017 Respiratory No dyspnea 08/10/2017 Gastrointestinal No abdominal pain 2017 Gastrointestinal No constipation 2017 Gastrointestinal No diarrhea 08/10/2017 Musculoskeletal joint complaint 2017 Dermatologic ecchymosis 08/10/2017 Neurologic No alteration of consciousness 08/10/2017 Neurologic No mental status change 2017 Constitutional No recent illness 2017 Constitutional No chills 07/16/2017 Constitutional No diaphoresis 07/16/2017 Constitutional No fever 07/16/2017 Eyes No eye erythema 07/16/2017 Ears/Nose/Throat/Neck No nasal allergies 07/16/2017 Ears/Nose/Throat/Neck No nasal discharge 07/16/2017 Cardiovascular No chest pain/pressure Respiratory No cough 07/16/2017 Respiratory No dyspnea 07/16/2017 Gastrointestinal No abdominal pain 2017 Gastrointestinal No constipation 2017 Gastrointestinal No diarrhea 07/16/2017 Gastrointestinal No nausea 07/16/2017 Gastrointestinal No vomiting 07/16/2017 Musculoskeletal arthralgia(s) 07/16/2017 Dermatologic No rash 07/16/2017 Neurologic No alteration of consciousness 07/16/2017 Constitutional No recent illness 2017 Constitutional No [...] 1994 Constitutional general appearance Overall: well developed 03/17/2018 None Full Exam - General 1994 Constitutional general appearance Overall: in no acute distress 03/17/2018 None Full Exam - General 1994 Constitutional general appearance Overall: well nourished 03/17/2018 None Full Exam - General 1994 Eyes conjunctiva /eyelids Overall: conjunctiva clear 03/17/2018 None Full Exam - General 1994 Eyes conjunctiva /eyelids Overall: cornea clear 03/17/2018 None Full Exam - General 1994 Eyes conjunctiva /eyelids Overall: eyelids normal 03/17/2018 None Full Exam - General 1994 Eyes pupils and irises Overall: pupils equal, round, reactive to light and accomodation 03/17/2018 None Full Exam - General 1994 Ears/Nose/Throat otoscopic exam Overall: tympanic membranes clear 03/17/2018 None Full Exam - General 1994 Ears/Nose/Throat otoscopic exam External auditory canal: partial cerumen occlusion 03/17/2018 None Full Exam - General 1994 Ears/Nose/Throat lips/teeth/gingiva Overall: benign lips 03/17/2018 None Full Exam - General 1994 Ears/Nose/Throat oral cavity/pharynx/larynx Overall: oral mucosa clear 03/17/2018 None Full Exam - General 1994 Respiratory auscultation Overall: breath sounds clear bilaterally 03/17/2018 None Full Exam - General 1994 Respiratory auscultation Diffuse: diminished 03/17/2018 None Full Exam - General 1994 Respiratory respiratory effort/rhythm Overall: no retractions 03/17/2018 None Full Exam - General 1994 Respiratory respiratory effort/rhythm Overall: normal rate 03/17/2018 None Full Exam - General 1994 Cardiovascular auscultation of heart Rate: regular rate 03/17/2018 None Full Exam - General 1994 Cardiovascular auscultation of heart Rhythm: irregularly irregular rhythm 03/17/2018 None Full Exam - General 1994 Abdomen abdominal exam Overall: no tenderness 03/17/2018 None Full Exam - General 1994 Abdomen abdominal exam Overall: normal bowel sounds 03/17/2018 None Full Exam - General 1994 Musculoskeletal upper extremity Palpation - shoulder: tenderness @ bicipital groove 03/17/2018 None Full Exam - General 1994 Musculoskeletal head and neck Overall: head atraumatic 03/17/2018 None Full Exam - General 1994 Neurologic cranial nerves Overall: crainial nerves 2 - 12 grossly intact 03/17/2018 None Full Exam - General 1994 Psychiatric orientation/consciousness Overall: oriented to person, place and time 03/17/2018 None Full Exam - General 1994 Psychiatric mood and affect Overall: normal mood and affect 03/17/2018 None Full Exam - General 1994 Constitutional general appearance Overall: well developed 02/17/2018 None Full Exam - General 1994 Constitutional general appearance Overall: in no acute distress 02/17/2018 None Full Exam - General 1994 Constitutional general appearance Overall: well nourished 02/17/2018 None Full Exam - General 1994 Eyes conjunctiva /eyelids Overall: conjunctiva clear 02/17/2018 None Full Exam - General 1994 Eyes conjunctiva /eyelids Overall: cornea clear 02/17/2018 None Full Exam - General 1994 Eyes conjunctiva /eyelids Overall: eyelids normal 02/17/2018 None Full Exam - General 1994 Eyes pupils and irises Overall: pupils equal, round, reactive to light and accomodation 02/17/2018 None Full Exam - General 1994 Ears/Nose/Throat otoscopic exam Overall: tympanic membranes clear 02/17/2018 None Full Exam - General 1994 Ears/Nose/Throat otoscopic exam External auditory canal: partial cerumen occlusion 02/17/2018 None Full Exam - General 1994 Ears/Nose/Throat lips/teeth/gingiva Overall: benign lips 02/17/2018 None Full Exam - General 1994 Ears/Nose/Throat oral cavity/pharynx/larynx Overall: oral mucosa clear 02/17/2018 None Full Exam - General 1994 Respiratory auscultation Overall: breath sounds clear bilaterally 02/17/2018 None Full Exam - General 1994 Respiratory auscultation Diffuse: diminished 02/17/2018 None Full Exam - General 1994 Respiratory respiratory effort/rhythm Overall: no retractions 02/17/2018 None Full Exam - General 1994 Respiratory respiratory effort/rhythm Overall: normal rate 02/17/2018 None Full Exam - General 1994 Cardiovascular auscultation of heart Rate: regular rate 02/17/2018 None Full Exam - General 1994 Cardiovascular auscultation of heart Rhythm: irregularly irregular rhythm 02/17/2018 None Full Exam - General 1994 Abdomen abdominal exam Overall: no tenderness 02/17/2018 None Full Exam - General 1994 Abdomen abdominal exam Overall: normal bowel sounds 02/17/2018 None Full Exam - General 1994 Musculoskeletal head and neck Overall: head atraumatic 02/17/2018 None Full Exam - General 1994 Neurologic cranial nerves Overall: crainial nerves 2 - 12 grossly intact 02/17/2018 None Full Exam - General 1994 Psychiatric orientation/consciousness Overall: oriented to person, place and time 02/17/2018 None Full Exam - General 1994 Psychiatric mood and affect Overall: normal mood and affect 02/17/2018 None Full Exam - General 1994 Musculoskeletal upper extremity Palpation - shoulder: tenderness @ bicipital groove 02/17/2018 None Full Exam - General 1994 Constitutional general appearance Overall: well developed 01/19/2018 None Full Exam - General 1994 Constitutional general appearance Overall: in no acute distress 01/19/2018 None Full Exam - General 1994 Constitutional general appearance Overall: well nourished 01/19/2018 None Full Exam - General 1994 Eyes conjunctiva /eyelids Overall: conjunctiva clear 01/19/2018 None Full Exam - General 1994 Eyes conjunctiva /eyelids Overall: cornea clear 01/19/2018 None Full Exam - General 1994 Eyes conjunctiva /eyelids Overall: eyelids normal 01/19/2018 None Full Exam - General 1994 Eyes pupils and irises Overall: pupils equal, round, reactive to light and accomodation 01/19/2018 None Full Exam - General 1994 Ears/Nose/Throat otoscopic exam Overall: tympanic membranes clear 01/19/2018 None Full Exam - General 1994 Ears/Nose/Throat otoscopic exam External auditory canal: partial cerumen occlusion 01/19/2018 None Full Exam - General 1994 Ears/Nose/Throat lips/teeth/gingiva Overall: benign lips 01/19/2018 None Full Exam - General 1994 Ears/Nose/Throat oral cavity/pharynx/larynx Overall: oral mucosa clear 01/19/2018 None Full Exam - General 1994 Respiratory auscultation Diffuse: diminished 01/19/2018 None Full Exam - General 1994 Respiratory respiratory effort/rhythm Overall: no retractions 01/19/2018 None Full Exam - General 1994 Respiratory respiratory effort/rhythm Overall: normal rate 01/19/2018 None Full Exam - General 1994 Cardiovascular auscultation of heart Rate: regular rate 01/19/2018 None Full Exam - General 1994 Cardiovascular auscultation of heart Rhythm: irregularly irregular rhythm 01/19/2018 None Full Exam - General 1994 Abdomen abdominal exam Overall: no tenderness 01/19/2018 None Full Exam - General 1994 Abdomen abdominal exam Overall: normal bowel sounds 01/19/2018 None Full Exam - General 1994 Musculoskeletal head and neck Overall: head atraumatic 01/19/2018 None Full Exam - General 1994 Neurologic cranial nerves Overall: crainial nerves 2 - 12 grossly intact 01/19/2018 None Full Exam - General 1994 Psychiatric orientation/consciousness Overall: oriented to person, place and time 01/19/2018 None Full Exam - General 1994 Psychiatric mood and affect Overall: normal mood and affect 01/19/2018 None Full Exam - General 1994 Respiratory auscultation Overall: breath sounds clear bilaterally 01/19/2018 None Full Exam - General 1994 Constitutional general appearance Overall: well developed 12/16/2017 None Full Exam - General 1994 Constitutional general appearance Overall: in no acute distress 12/16/2017 None Full Exam - General 1994 Constitutional general appearance Overall: well nourished 12/16/2017 None Full Exam - General 1994 Eyes conjunctiva /eyelids Overall: conjunctiva clear 12/16/2017 None Full Exam - General 1994 Eyes conjunctiva /eyelids Overall: cornea clear 12/16/2017 None Full Exam - General 1994 Eyes conjunctiva /eyelids Overall: eyelids normal 12/16/2017 None Full Exam - General 1994 Eyes pupils and irises Overall: pupils equal, round, reactive to light and accomodation 12/16/2017 None Full Exam - General 1994 Ears/Nose/Throat otoscopic exam Overall: tympanic membranes clear 12/16/2017 None Full Exam - General 1994 Ears/Nose/Throat otoscopic exam External auditory canal: partial cerumen occlusion 12/16/2017 None Full Exam - General 1994 Ears/Nose/Throat lips/teeth/gingiva Overall: benign lips 12/16/2017 None Full Exam - General 1994 Ears/Nose/Throat oral cavity/pharynx/larynx Overall: oral mucosa clear 12/16/2017 None Full Exam - General 1994 Respiratory auscultation Diffuse: diminished 12/16/2017 None Full Exam - General 1994 Respiratory respiratory effort/rhythm Overall: no retractions 12/16/2017 None Full Exam - General 1994 Respiratory respiratory effort/rhythm Overall: normal rate 12/16/2017 None Full Exam - General 1994 Abdomen abdominal exam Overall: no tenderness 12/16/2017 None Full Exam - General 1994 Abdomen abdominal exam Overall: normal bowel sounds 12/16/2017 None Full Exam - General 1994 Musculoskeletal head and neck Overall: head atraumatic 12/16/2017 None Full Exam - General 1994 Neurologic cranial nerves Overall: crainial nerves 2 - 12 grossly intact 12/16/2017 None Full Exam - General 1994 Psychiatric orientation/consciousness Overall: oriented to person, place and time 12/16/2017 None Full Exam - General 1994 Psychiatric mood and affect Overall: normal mood and affect 12/16/2017 None Full Exam - General 1994 Musculoskeletal lower extremity Palpation - knee: anserine bursa tenderness 12/16/2017 None Full Exam - General 1994 Cardiovascular auscultation of heart Rate: regular rate 12/16/2017 None Full Exam - General 1994 Cardiovascular auscultation of heart Rhythm: irregularly irregular rhythm 12/16/2017 None Full Exam - General 1994 Constitutional general appearance Overall: well developed 11/16/2017 None Full Exam - General 1994 Constitutional general appearance Overall: in no acute distress 11/16/2017 None Full Exam - General 1994 Constitutional general appearance Overall: well nourished 11/16/2017 None Full Exam - General 1994 Eyes conjunctiva /eyelids Overall: conjunctiva clear 11/16/2017 None Full Exam - General 1994 Eyes conjunctiva /eyelids Overall: cornea clear 11/16/2017 None Full Exam - General 1994 Eyes conjunctiva /eyelids Overall: eyelids normal 11/16/2017 None Full Exam - General 1994 Eyes pupils and irises Overall: pupils equal, round, reactive to light and accomodation 11/16/2017 None Full Exam - General 1994 Ears/Nose/Throat otoscopic exam Overall: tympanic membranes clear 11/16/2017 None Full Exam - General 1994 Ears/Nose/Throat otoscopic exam External auditory canal: partial cerumen occlusion 11/16/2017 None Full Exam - General 1994 Ears/Nose/Throat lips/teeth/gingiva Overall: benign lips 11/16/2017 None Full Exam - General 1994 Ears/Nose/Throat oral cavity/pharynx/larynx Overall: oral mucosa clear 11/16/2017 None Full Exam - General 1994 Respiratory auscultation Diffuse: diminished 11/16/2017 None Full Exam - General 1994 Respiratory respiratory effort/rhythm Overall: no retractions 11/16/2017 None Full Exam - General 1994 Respiratory respiratory effort/rhythm Overall: normal rate 11/16/2017 None Full Exam - General 1994 Cardiovascular auscultation of heart Rate: regular rate 11/16/2017 None Full Exam - General 1994 Abdomen abdominal exam Overall: no tenderness 11/16/2017 None Full Exam - General 1994 Abdomen abdominal exam Overall: normal bowel sounds 11/16/2017 None Full Exam - General 1994 Musculoskeletal head and neck Overall: head atraumatic 11/16/2017 None Full Exam - General 1994 Neurologic cranial nerves Overall: crainial nerves 2 - 12 grossly intact 11/16/2017 None Full Exam - General 1994 Psychiatric orientation/consciousness Overall: oriented to person, place and time 11/16/2017 None Full Exam - General 1994 Psychiatric mood and affect Overall: normal mood and affect 11/16/2017 None Full Exam - General 1994 Constitutional general appearance Overall: well developed 11/02/2017 None Full Exam - General 1994 Constitutional general appearance Overall: in no acute distress 11/02/2017 None Full Exam - General 1994 Constitutional general appearance Overall: well nourished 11/02/2017 None Full Exam - General 1994 Eyes conjunctiva /eyelids Overall: conjunctiva clear 11/02/2017 None Full Exam - General 1994 Eyes conjunctiva /eyelids Overall: cornea clear 11/02/2017 None Full Exam - General 1994 Eyes conjunctiva /eyelids Overall: eyelids normal 11/02/2017 None Full Exam - General 1994 Eyes pupils and irises Overall: pupils equal, round, reactive to light and accomodation 11/02/2017 None Full Exam - General 1994 Ears/Nose/Throat otoscopic exam Overall: tympanic membranes clear 11/02/2017 None Full Exam - General 1994 Ears/Nose/Throat otoscopic exam External auditory canal: partial cerumen occlusion 11/02/2017 None Full Exam - General 1994 Ears/Nose/Throat lips/teeth/gingiva Overall: benign lips 11/02/2017 None Full Exam - General 1994 Ears/Nose/Throat oral cavity/pharynx/larynx Overall: oral mucosa clear 11/02/2017 None Full Exam - General 1994 Respiratory auscultation Diffuse: diminished 11/02/2017 None Full Exam - General 1994 Respiratory respiratory effort/rhythm Overall: no retractions 11/02/2017 None Full Exam - General 1994 Respiratory respiratory effort/rhythm Overall: normal rate 11/02/2017 None Full Exam - General 1994 Abdomen abdominal exam Overall: no tenderness 11/02/2017 None Full Exam - General 1994 Abdomen abdominal exam Overall: normal bowel sounds 11/02/2017 None Full Exam - General 1994 Musculoskeletal head and neck Overall: head atraumatic 11/02/2017 None Full Exam - General 1994 Neurologic cranial nerves Overall: crainial nerves 2 - 12 grossly intact 11/02/2017 None Full Exam - General 1994 Psychiatric orientation/consciousness Overall: oriented to person, place and time 11/02/2017 None Full Exam - General 1994 Psychiatric mood and affect Overall: normal mood and affect 11/02/2017 None Full Exam - General 1994 Cardiovascular auscultation of heart Rate: bradycardia 11/02/2017 None Full Exam - General 1994 Constitutional general appearance Overall: well developed 08/10/2017 None Full Exam - General 1994 Constitutional general appearance Overall: in no acute distress 08/10/2017 None Full Exam - General 1994 Constitutional general appearance Overall: well nourished 08/10/2017 None Full Exam - General 1994 Eyes conjunctiva /eyelids Overall: conjunctiva clear 08/10/2017 None Full Exam - General 1994 Ears/Nose/Throat oral cavity/pharynx/larynx Overall: oral mucosa clear 08/10/2017 None Full Exam - General 1994 Ears/Nose/Throat lips/teeth/gingiva Overall: benign lips 08/10/2017 None Full Exam - General 1994 Respiratory respiratory effort/rhythm Overall: no retractions 08/10/2017 None Full Exam - General 1994 Respiratory respiratory effort/rhythm Overall: normal rate 08/10/2017 None Full Exam - General 1994 Respiratory auscultation Overall: breath sounds clear bilaterally 08/10/2017 None Full Exam - General 1994 Cardiovascular auscultation of heart Rhythm: irregularly irregular rhythm 08/10/2017 None Full Exam - General 1994 Cardiovascular auscultation of heart Rate: regular rate 08/10/2017 None Full Exam - General 1994 Cardiovascular auscultation of heart Murmur: previously known murmur unchanged 08/10/2017 None Full Exam - General 1994 Musculoskeletal head and neck Overall: head atraumatic 08/10/2017 None Full Exam - General 1994 Integument inspection of skin Location: left leg 08/10/2017 just above the medial knee - hematoma noted approximately 1 inch in diameter Full Exam - General 1994 Psychiatric orientation/consciousness Oriented to person: yes 08/10/2017 None Full Exam - General 1994 Psychiatric orientation/consciousness Oriented to place: yes 08/10/2017 None Full Exam - General 1994 Psychiatric orientation/consciousness Level of consciousness: alert 08/10/2017 None Full Exam - General 1994 Psychiatric mood and affect Overall: normal mood and affect 08/10/2017 None Full Exam - General 1994 Constitutional general appearance Overall: well developed 07/16/2017 None Full Exam - General 1994 Constitutional general appearance Overall: in no acute distress 07/16/2017 None Full Exam - General 1994 Constitutional general appearance Overall: well nourished 07/16/2017 None Full Exam - General 1994 Eyes conjunctiva /eyelids Overall: conjunctiva clear 07/16/2017 None Full Exam - General 1994 Eyes conjunctiva /eyelids Overall: cornea clear 07/16/2017 None Full Exam - General 1994 Eyes conjunctiva /eyelids Overall: eyelids normal 07/16/2017 None Full Exam - General 1994 Eyes pupils and irises Overall: pupils equal, round, reactive to light and accomodation 07/16/2017 None Full Exam - General 1994 Ears/Nose/Throat otoscopic exam Overall: tympanic membranes clear 07/16/2017 None Full Exam - General 1994 Ears/Nose/Throat otoscopic exam External auditory canal: partial cerumen occlusion 07/16/2017 None Full Exam - General 1995 Ears/Nose/Throat lips/teeth/gingiva Overall: benign lips 07/16/2017 None Full Exam - General 1994 Ears/Nose/Throat oral cavity/pharynx/larynx Overall: oral mucosa clear 07/16/2017 None Full Exam - General 1994 Respiratory auscultation Diffuse: diminished 07/16/2017 None Full Exam - General 1994 Respiratory respiratory effort/rhythm Overall: no retractions 07/16/2017 None Full Exam - General 1994 Respiratory respiratory effort/rhythm Overall: normal rate 07/16/2017 None Full Exam - General 1994 Cardiovascular auscultation of heart Rate: regular rate 07/16/2017 None Full Exam - General 1994 Abdomen abdominal exam Overall: no tenderness 07/16/2017 None Full Exam - General 1994 Abdomen abdominal exam Overall: normal bowel sounds 07/16/2017 None Full Exam - General 1994 Musculoskeletal head and neck Overall: head atraumatic 07/16/2017 None Full Exam - General 1994 Neurologic cranial nerves Overall: crainial nerves 2 - 12 grossly intact 07/16/2017 None Full Exam - General 1994 Psychiatric orientation/consciousness Overall: oriented to person, place and time 07/16/2017 None Full Exam - General 1994 Psychiatric mood and affect Overall: normal mood and affect 07/16/2017 None Full Exam - General 1994 Constitutional [...] No Procedures data Vital Signs Date Vital 03/17/2018 Blood Pressure 1: 112/64 Code : 8480-6 Heart Rate 1: 95 bpm Height: Respiratory Rate: 18 bpm SpO2: 95% Weight: 02/17/2018 Blood Pressure 1: 160/70 Code : 8480-6 Heart Rate 1: 82 bpm Height: SpO2: 94% Weight: 01/19/2018 Blood Pressure 1: 144/60 Code : 8480-6 Heart Rate 1: 73 bpm Height: SpO2: 93% Temperature: 37.2 (C) / 98.9 (F) Weight: 12/16/2017 Blood Pressure 1: 130/70 Code : 8480-6 Heart Rate 1: 87 bpm Height: SpO2: 95% Weight: 11/16/2017 Blood Pressure 1: 140/70 Code : 8480-6 Heart Rate 1: 63 bpm Height: SpO2: 94% Weight: 11/02/2017 Blood Pressure 1: 144/80 Code : 8480-6 Heart Rate 1: 56 bpm Height: SpO2: 95% Weight: 08/10/2017 Blood Pressure 1: 122/74 Code : 8480-6 Heart Rate 1: 55 bpm Height: SpO2: 96% Weight: 07/16/2017 Blood Pressure 1: 142/68 Code : 8480-6 Heart Rate 1: 91 bpm Height: SpO2: 96% Weight: 06/04/2017 Blood Pressure 1: 134/86 Code : 8480-6 Heart Rate 1: 86 bpm Height: SpO2: 96% Weight: Functional Status No Functional Status data History of Present Illness Symptom Name Status Result Effective Date Notes elbow pain Location on the right 03/17/2018 None elbow pain Quality intermittent 03/17/2018 None elbow pain Onset and Resolution worsening 03/17/2018 None elbow pain Onset of Symptom 2-3 weeks ago 03/17/2018 None elbow pain Pertinent Findings decreased range of motion 03/17/2018 None elbow pain Pertinent Findings numbness 03/17/2018 None elbow pain Pertinent Findings pain with movement 03/17/2018 None shoulder pain Location on the right shoulder 03/17/2018 None shoulder pain Quality intermittent 03/17/2018 None shoulder pain Onset and Resolution ongoing 03/17/2018 None shoulder pain Onset of Symptom 2-3 weeks ago 03/17/2018 None shoulder pain Frequency of Episodes daily 03/17/2018 None shoulder pain Pertinent Findings limited range of motion 03/17/2018 None elbow pain Location on the right 02/17/2018 None elbow pain Quality intermittent 02/17/2018 None elbow pain Onset and Resolution worsening 02/17/2018 None elbow pain Onset of Symptom 2-3 weeks ago 02/17/2018 None elbow pain Pertinent Findings decreased range of motion 02/17/2018 None elbow pain Pertinent Findings numbness 02/17/2018 None elbow pain Pertinent Findings pain with movement 02/17/2018 None shoulder pain Location on the right shoulder 02/17/2018 None shoulder pain Quality intermittent 02/17/2018 None shoulder pain Onset and Resolution ongoing 02/17/2018 None shoulder pain Onset of Symptom 2-3 weeks ago 02/17/2018 None shoulder pain Frequency of Episodes daily 02/17/2018 None shoulder pain Pertinent Findings limited range of motion 02/17/2018 None fever Quality relapsing 01/19/2018 None fever Onset and Resolution sudden in onset 01/19/2018 None fever Onset of Symptom 2 days ago 01/19/2018 None fever Temperature 99 degrees 01/19/2018 None fever Temperature 100 degrees 01/19/2018 None fever Pertinent Findings cough 01/19/2018 None fever Pertinent Findings chills 01/19/2018 None cough Location in the throat 01/19/2018 None cough Quality constant 01/19/2018 None cough Onset and Resolution sudden in onset 01/19/2018 None urinary retention/hesitancy Quality constant 01/19/2018 None urinary retention/hesitancy Quality reduced force of stream 01/19/2018 None knee pain Location on the right 12/16/2017 None edema Quality worsening 12/16/2017 None edema Onset and Resolution ongoing 12/16/2017 None edema Onset of Symptom _ months ago 12/16/2017 None edema Pertinent Findings Denies dyspnea 12/16/2017 None knee pain Pertinent Findings decreased range of motion 12/16/2017 None knee pain Pertinent Findings pain with movement 12/16/2017 None Hospital Follow Up _ pneumonia 11/16/2017 None Hospital Follow Up Quality intermittent 11/16/2017 None Hospital Follow Up Pertinent Findings Denies pain 11/16/2017 None knee pain Location on the right 11/16/2017 None knee pain Quality worsening 11/16/2017 None knee pain Onset of Symptom 2 weeks ago 11/16/2017 None knee pain Pertinent Findings decreased range of motion 11/16/2017 None knee pain Pertinent Findings pain with movement 11/16/2017 None knee pain Pertinent Findings sensation of buckling 11/16/2017 None Hospital Follow Up _ cardiac disease 11/02/2017 None Hospital Follow Up _ pneumonia 11/02/2017 None Hospital Follow Up Quality acute 11/02/2017 None Hospital Follow Up Severity moderate 11/02/2017 None Hospital Follow Up Pertinent Findings Denies fever 11/02/2017 None skin lesion Onset and Resolution sudden in onset 08/10/2017 None skin lesion Onset of Symptom _ weeks ago 08/10/2017 None skin lesion Location Left Knee 08/10/2017 None skin lesion Quality firm 08/10/2017 None gait abnormality Onset and Resolution ongoing 07/16/2017 None gait abnormality Pertinent Findings motor weakness 07/16/2017 None hypertension Quality chronic 07/16/2017 None hypertension Quality stable 07/16/2017 None hypertension Onset of Symptom during adulthood 07/16/2017 None hypertension Pertinent Findings Denies dyspnea 07/16/2017 None gait abnormality Onset and Resolution ongoing 06/04/2017 None gait abnormality Pertinent Findings motor weakness 06/04/2017 None wheezing Quality intermittent 06/04/2017 None wheezing Pertinent Findings Denies chills 06/04/2017 None wheezing Pertinent Findings Denies cough 06/04/2017 None Advance Directives No Advance Directive data Encounters Encounter Performer Location Codes [id number]) [id number] EST. 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 PATIENT, LEVEL IV Diagnosis: Essential (primary) hypertension[ICD10: I10] Diagnosis: Type 2 diabetes mellitus without complications[ICD10: E11.9] Diagnosis: Pain in right shoulder[ICD10: M25.511] Diagnosis: Chronic systolic (congestive) heart failure[ICD10: I50.22] Bernadine Alvarez MD , [facility] CPT-4: 42353 02/17/2018 [id number] EST. PATIENT, LEVEL IV Diagnosis: Essential (primary) hypertension[ICD10: I10] Diagnosis: Chronic atrial fibrillation[ICD10: I48.2] Diagnosis: Other emphysema[ICD10: J43.8] Diagnosis: Cough[ICD10: R05] Betty Alvarez MD, [facility] CPT-4: 21813 01/19/2018 ([id number]) [id number] EST. 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 PATIENT, LEVEL IV Diagnosis: Essential (primary) hypertension[ICD10: I10] Diagnosis: Type 2 diabetes mellitus without complications[ICD10: E11.9] Diagnosis: Pain in right knee[ICD10: M25.561] Bernadine Alvarez MD, [facility] CPT-4: 15712 11/16/2017 [id number] EST. PATIENT, LEVEL III Diagnosis: Essential (primary) hypertension[ICD10: I10] Diagnosis: Type 2 diabetes mellitus without complications[ICD10: E11.9] Diagnosis: Bradycardia, unspecified[ICD10: R00.1] Diagnosis: Encounter for follow-up examination after completed treatment for conditions other than malignant neoplasm[ICD10: Z09] [facility] CPT-4: 38697 11/02/2017 [id number] EST. PATIENT, LEVEL III Diagnosis: Contusion of left thigh, initial encounter[ICD10: S70.12XA] [facility] CPT-4: 71671 08/10/2017 [id number] EST. PATIENT, LEVEL III Diagnosis: Essential (primary) hypertension[ICD10: I10] Diagnosis: Weakness[ICD10: R53.1] [facility] CPT-4: 83346 07/16/2017 OFFICE VISIT, NEW - LEVEL 3 Diagnosis: Essential (primary) hypertension[ICD10: I10] Diagnosis: Weakness[ICD10: R53.1] [facility] CPT-4: 10563 06/04/2017 Plan of Care Planned Activity Notes Codes Status Date Referral: [facility] WPt[facility]:[phone] Referral Completed 04/06/2018 Care Plan: Referral Order SNOMED-CT : [id number] Pending 03/18/2018 Visit Plan: Diabetes Mellitus - controlled - per recent FSBS reports. I have recommended for the patient to have follow up labs prior to the next office visit. The patient has been instructed to continue with current medications as previously directed, continue with regular FSBS monitoring to assure continued control of diabetes. Pt to call for any acute concerns, complaints, or if the blood glucose readings are starting to become less controlled. I have recommended a referral to dr. kearns for port placement - due to severely difficult to get IV's Hypertension - well controlled - continue with current medications, continue with no added salt diet. Pt has been encouraged to exercise daily. The pt has been advised to call the office if there are any acute concerns about change in blood pressure readings at home. Insomnia - continue with current regimen 03/17/2018 Appointment: Bernadine Alvarez WPtel: [address] [place], [place] [phone] (15 min) Moderate 03/17/2018 Patient Education: Patient Medication Summary Completed 03/17/2018 Patient Education: Diabetes Completed 03/17/2018 Visit Plan: Hypertension - well controlled - continue with current medications, continue with no added salt diet. Pt has been encouraged to exercise daily. The pt has been advised to call the office if there are any acute concerns about change in blood pressure readings at home. Diabetes Mellitus - controlled - per recent FSBS reports. I have recommended for the patient to have follow up labs prior to the next office visit. The patient has been instructed to continue with current medications as previously directed, continue with regular FSBS monitoring to assure continued control of diabetes. Pt to call for any acute concerns, complaints, or if the blood glucose readings are starting to become less controlled. Congestive heart failure - chronic - continue with lasix but change time of lasix to 40mg AM and 20mg at 1300. Right shoulder pain - voltaren gel to right shoulder 02/17/2018 Appointment: Bernadine Alvarez WPtel: [phone] [phone] (15 min) Moderate 02/17/2018 Patient Education: Patient Medication Summary Completed 02/17/2018 Patient Education: Diabetes Completed 02/17/2018 Appointment: Betty Blackman WPtel: [phone] (15 min) Moderate 02/03/2018 Visit Plan: Hypertension - well controlled - continue with current medications, continue with no added salt diet. Pt has been encouraged to exercise daily. The pt has been advised to call the office if there are any acute concerns about change in blood pressure readings at home. Atrial Fibrillation - pt on chronic anticoagulation and is currently rate controlled. The pt is to have labs done as appropriate to monitor medication levels and is to report if they start to feel as if their heart rate is becoming uncontrolled. Emphysema/cough - chronic - continue current treatment plan, pt is to notify clinic if symptoms worsen, or with any acute changes, questions, or concerns. 01/19/2018 Appointment: Betty Blackman WPtel: [phone] [facility] (30 min) Complex 01/19/2018 Patient Education: Patient Medication Summary Completed 01/19/2018 Visit Plan: Hypertension - well controlled - continue with current medications, continue with no added salt diet. Pt has been encouraged to exercise daily. The pt has been advised to call the office if there are any acute concerns about change in blood pressure readings at home. I have made a call to [facility] to discuss the knee brace as well as getting some therapy for strengthening to make her feel better. I have written RX for the knee brace and for therapy and sent the faxes to [facility]. The nurse from [facility] will [facility] and help to facilitate the brace and therapy for Gracy. I have given a copy of the brace RX to the patient's son. RX for voltaren gel to be applied from 4 inches above and below knee and all around her knee. Insomnia - change to melatonin xr 10mg nightly. Atrial Fibrillation - pt on chronic anticoagulation and is currently rate controlled. The pt is to have labs done as appropriate to monitor medication levels and is to report if they start to feel as if their heart rate is becoming uncontrolled. 12/16/2017 [phone] ([facility] Moderate 12/16/2017 Patient Education: Patient Medication Summary Completed 12/16/2017 Visit Plan: Hypertension - well controlled - continue with current medications, continue with no added salt diet. Pt has been encouraged to exercise daily. The pt has been advised to call the office if there are any acute concerns about change in blood pressure readings at home. Diabetes Mellitus - Uncontrolled - per recent FSBS reports. I have recommended for the patient to have follow up labs prior to the next office visit. The patient has been instructed to continue with current medications as previously directed, continue with regular FSBS monitoring to assure continued control of diabetes. Pt to call for any acute concerns, complaints, or if the blood glucose readings are starting to become less controlled. I have recommended for the patient to follow more strictly to the diabetic diet as discussed in clinic to allow for greater blood glucose control. Right knee pain - Meniscal tear - compression sleeve and voltaren gel to knee. 11/16/2017 App[facility]ment: [phone] ([facility] min) Moderate 11/16/2017 Patient Education: Patient Medication Summary Completed 11/16/2017 Visit Plan: Hypertension - well controlled - continue with current medications, continue with no added salt diet. Pt has been encouraged to exercise daily. The pt has been advised to call the office if there are any acute concerns about change in blood pressure readings at home. Diabetes Mellitus - I have recommended for the patient to have follow up labs prior to the next office visit. The patient has been instructed to continue with current medications as previously directed, continue with regular FSBS monitoring to assure continued control of diabetes. Pt to call for any acute concerns, complaints, or if the blood glucose readings are starting to become less controlled. I have recommended for the patient to follow more strictly to the diabetic diet as discussed in clinic to allow for greater blood glucose control. Hospital follow up - This was a follow up appointment from the patient' s hospitalization during which time Dr. Alvarez formulated the assessment and plan for the follow up on this patient's medical condition. 11/02/2017 Appointment: Betty Blackmanl: [phone] [facility] (15 min) Moderate 11/02/2017 Patient Education: Patient Medication Summary Completed 11/02/2017 [phone] [place] (30 min) Complex 10/28/2017 Appointment: Betty Blackmantel: [facility] (30 min) Complex 09/03/2017 Visit Plan: Left leg hematoma - no erythema or warmth noted - will have pt and nursing staff monitor the area - they are to notify clinic if symptoms do not improve, if they worsen, or with any changes, questions, or concerns. 08/10/2017 Appointment: Betty [facility]mantel: [phone] [facility] [place] (30 min) Complex 08/10/2017 Patient Education: Patient Medication Summary Completed 08/10/2017 Visit Plan: Hypertension - well controlled - continue with current medications, continue with no added salt diet. Pt has been encouraged to exercise daily. The pt has been advised to call the office if there are any acute concerns about change in blood pressure readings at home. 07/16/2017 Appointment: Betty Blackmantel: [phone] [facility] (30 min) Complex 07/16/2017 Patient Education: Patient Medication Summary Completed 07/16/2017 Visit Plan: Hypertension - well controlled - [...] or concerns. 06/04/2017 Appointment: Betty Blackman [facility]el: [phone] [facility] New Patient 06/04/2017 Patient Education: Patient Medication Summary Completed 06/04/2017 Referral: [facility] WPtel:[phone] Referral Appointment Requested Instructions Comment . Hypertension - well controlled - continue with current medications, continue with no added salt diet. Pt has been encouraged to exercise daily. The pt has been advised to call the office if there are any acute concerns about change in blood pressure readings at home. I have made a call to [facility] to discuss the knee brace as well as getting some therapy for strengthening to make her feel better. I have written RX for the knee brace and for therapy and sent the faxes to [facility]. The nurse from [facility] will [facility] and help to facilitate the brace and therapy for Gracy. I have given a copy of the brace RX to the patient's son. RX for voltaren gel to be applied from 4 inches above and below knee and all around her knee. Insomnia - change to melatonin xr 10mg nightly. Atrial Fibrillation - pt on chronic anticoagulation and is currently rate controlled. The pt is to have labs done as appropriate to monitor medication levels and is to report if they start to feel as if their heart rate is becoming uncontrolled. . Hypertension - well controlled - continue with current medications, continue with no added salt diet. Pt has been encouraged to exercise daily. The pt has been advised to call the office if there are any acute concerns about change in blood pressure readings at home. Atrial Fibrillation - pt on chronic anticoagulation and is currently rate controlled. The pt is to have labs done as appropriate to monitor medication levels and is to report if they start to feel as if their heart rate is becoming uncontrolled. Emphysema/cough - chronic - continue current treatment plan, pt is to notify clinic if symptoms worsen, or with any acute changes, questions, or concerns. . Hypertension - well controlled - continue with current medications, continue with no added salt diet. Pt has been encouraged to exercise daily. The pt has been advised to call the office if there are any acute concerns about change in blood pressure readings at home. . Hypertension - well controlled - continue [...] notify clinic with any changes or concerns. . Hypertension - well controlled - continue with current medications, continue with no added salt diet. Pt has been encouraged to exercise daily. The pt has been advised to call the office if there are any acute concerns about change in blood pressure readings at home. Diabetes Mellitus - I have recommended for the patient to have follow up labs prior to the next office visit. The patient has been instructed to continue with current medications as previously directed, continue with regular FSBS monitoring to assure continued control of diabetes. Pt to call for any acute concerns, complaints, or if the blood glucose readings are starting to become less controlled. I have recommended for the patient to follow more strictly to the diabetic diet as discussed in clinic to allow for greater blood glucose control. Hospital follow up - This was a follow up appointment from the patient's hospitalization during which time Dr. Alvarez formulated the assessment and plan for the follow up on this patient's medical condition. . Diabetes Mellitus - controlled - per recent FSBS reports. I have recommended for the patient to have follow up labs prior to the next office visit. The patient has been instructed to continue with current medications as previously directed, continue with regular FSBS monitoring to assure continued control of diabetes. Pt to call for any acute concerns, complaints, or if the blood glucose readings are starting to become less controlled. I have recommended a referral to dr. kearns for port placement - due to severely difficult to get IV's Hypertension - well controlled - continue with current medications, continue with no added salt diet. Pt has been encouraged to exercise daily. The pt has been advised to call the office if there are any acute concerns about change in blood pressure readings at home. Insomnia - continue with current regimen . Left leg hematoma - no erythema or warmth noted - will have pt and nursing staff monitor the area - they are to notify clinic if symptoms do not improve, if they worsen, or with any changes, questions, or concerns. . Hypertension - well controlled - continue with current medications, continue with no added salt diet. Pt has been encouraged to exercise daily. The pt has been advised to call the office if there are any acute concerns about change in blood pressure readings at home. Diabetes Mellitus - Uncontrolled - per recent FSBS reports. I have recommended for the patient to have follow up labs prior to the next office visit. The patient has been instructed to continue with current medications as previously directed, continue with regular FSBS monitoring to assure continued control of diabetes. Pt to call for any acute concerns, complaints, or if the blood glucose readings are starting to become less controlled. I have recommended for the patient to follow more strictly to the diabetic diet as discussed in clinic to allow for greater blood glucose control. Right knee pain - Meniscal tear - compression sleeve and voltaren gel to knee. . Hypertension - well controlled - continue with current medications, continue with no added salt diet. Pt has been encouraged to exercise daily. The pt has been advised to call the office if there are any acute concerns about change in blood pressure readings at home. Diabetes Mellitus - controlled - per recent FSBS reports. I have recommended for the patient to have follow up labs prior to the next office visit. The patient has been instructed to continue with current medications as previously directed, continue with regular FSBS monitoring to assure continued control of diabetes. Pt to call for any acute concerns, complaints, or if the blood glucose readings are starting to become less controlled. Congestive heart failure - chronic - continue with lasix but change time of lasix to 40mg AM and 20mg at 1300. Right shoulder pain - voltaren gel to right shoulder
--- OUTSIDE RECORDS SUMMARY | 2018-04-17 14:36 | XMS REPORT | CCD ---
Author Author Betty Blackman MD, [facility] Address [address] [place] [address] Phone Care Team Providers [employer] Name Role Phone PP Unavailable CCM Unavailable Summary Purpose Interface Exchange Insurance Providers Payer name Policy type / Coverage type Covered democrat ID Effective Begin Date Effective End Date WPS Medicare Part B Medicare Part B [id number] 2017 Unknown Cigna Medicare Part B [id number] 2017 Unknown [employer] - Primary Medicare Part B [id number] 2017 Unknown Family history Brother Diagnosis Age [...] 07/28/2017 No Inactive Date Active Lyrica RxNorm: 959850 07/28/2017 No Inactive Date Active dextromethorphan RxNorm: [...] Fill Instructions diazepam 5 mg tablet RxNorm: 068105 1 Tablet(s) PO QHS as needed 04/07/2018 08/04/2018 Active Flagyl 500 mg tablet RxNorm: 979864 1 Tablet(s) PO TID 201704/05/2018 Inactive gabapentin 300 mg capsule RxNorm: 393503 300 MG PO BID@0700,1300 03/18/2018 No Stop Date Active Lactobacillus acidophilus 100 mg (1 billion cell) capsule RxNorm: 808244 2 Capsule (s) PO TID with meals 03/17/2018 No Stop Date Active Linzess 72 mcg capsule RxNorm: 2238009 1 Capsule(s) PO daily 07/14/2018 Active BenGay Ultra Strength 4 %-30 %-10 % topical cream RxNorm: 328992 TOP USE FOUR TIMES DAILY ON RIGHT KNEE 03/17/2018 No Stop Date Active Lactobacillus acidophilus 100 mg (1 billion cell) capsule RxNorm: 801670 2 Capsule (s) PO TID with meals 02/22/20182017 Inactive tramadol 50 mg tablet RxNorm: 011524 1-2 Tablet(s) PO Q6 as needed 02/17/2018 No Stop Date Active Zyrtec 10 mg tablet RxNorm: 7792272 1 Tablet(s) PO QHS allergies 02/17/2018 No Stop Date Active gabapentin 300 mg capsule RxNorm: 944742 1 Capsule(s) PO BID and 600mg hs 02/17/2018 03/17/2018 Inactive Lantus U-100 Insulin 100 unit/mL subcutaneous solution RxNorm: 953053 10 Unit(s) SQ BID 01/07/2018 01/01/2019 Active vcv needs vials Lantus Solostar U-100 Insulin 100 unit/mL (3 mL) subcutaneous pen RxNorm: 130825 10 Unit(s) SQ BID 01/07/2018 Inactive Levemir U-100 Insulin 100 unit/mL subcutaneous solution RxNorm: 524803 10 Unit(s) SQ BID 01/07/2018 01/07/2018 Inactive 30 day supply Lantus U-100 Insulin 100 unit/mL subcutaneous solution RxNorm: 642174 10 Unit(s) SQ BID 01/07/2018 01/06/2018 Inactive Synthroid 75 mcg tablet RxNorm: 321478 TAKE 1 TABLET BY MOUTH DAILY 12/21/2017 12/15/2018 Active Generic For:*SYNTHROID 0.075MG TAB 12/21/2017 8:48:14 AM ASSISTED NEEDS JACKIE Humalog U-100 Insulin 100 unit/mL subcutaneous solution RxNorm: 173185 INJECT SUBCUTANEOUSLY PER SLIDING THREE TIMES DAILY 12/16/2017 06/13/2018 Active 2017 8:51:49 AM Pradaxa 75 mg capsule RxNorm: 0302887 1 Capsule(s) PO BID 201706/11/2018 Active Lasix 40 mg tablet RxNorm: 719606 Take 1 tab in the morning and 1/2 tab in evening 12/06/2017 No Stop Date Active SAVINGS FOR NON-COVERED MEDICATIONS Claims: BIN: [id number], PCN: [id number], GROUP: [id number], Patient ID: [id number] Phone; Questions: [facility] [phone] Norvasc 10 mg tablet RxNorm: 627545 TAKE ONE (1) TABLET BY MOUTH DAILY 11/25/2017 01/05/2018 Inactive Generic For:NORVASC 10MG TAB 11/25/2017 4:26:12 PM potassium chloride ER 10 mEq tablet,extended release RxNorm: 645495 1 Tablet(s) PO BID 11/23/2017 03/22/2018 Inactive Lasix 20 mg tablet RxNorm: 271267 TAKE 1 TABLET BY MOUTH EVERY DAY 11/23/2017 02/16/2018 Inactive Generic For:LASIX 20 MG TABLET 11/23/2017 9:11:33 AM Levemir U-100 Insulin 100 unit/mL subcutaneous solution RxNorm: 670504 10 Unit(s) SQ BID 11/16/2017 01/06/2018 Inactive diazepam 5 mg tablet RxNorm: 500184 1 Tablet(s) PO QHS as needed 10/26/2017 02/21/2018 Inactive diazepam 5 mg tablet RxNorm: 041742 1 Tablet(s) PO QHS as needed 09/29/2017 10/25/2017 Inactive Ambien 5 mg tablet RxNorm: 530812 1 Tablet(s) PO QHS for insomnia 08/04/2017 02/21/2018 Inactive diazepam 5 mg tablet RxNorm: 968033 1 Tablet(s) PO QHS as needed 06/14/2017 09/11/2017 Inactive diazepam 5 mg tablet RxNorm: 039203 1 Tablet(s) PO QHS as needed 06/09/2017 06/13/2017 Inactive Mucinex 600 mg tablet, extended release RxNorm: 330130 1 Tablet(s) PO Q12H as needed congestion No Start Date Active Systane Balance 0.6 % eye drops RxNorm: 0310125 1 Drop(s) both eyes ophthalmic ( eye) daily No Start Date Active Miralax 17 gram/dose oral powder RxNorm: 225333 17 Gram(s) PO daily as needed constipation No Start Date Active ipratropium-albuterol 0.5 mg-3 mg(2.5 mg base)/3 mL nebulization soln RxNorm: 4111491 1 INH Q4H as needed No Start Date Active Acetaminophen Pain Relief 500 mg tablet RxNorm: 034526 2 Tablet(s) PO Q6 as needed fever No Start Date Active metformin 1,000 mg tablet RxNorm: 405994 1 Tablet(s) PO BID No Start Date Active digoxin 125 mcg tablet RxNorm: 444419 1 Tablet(s) PO daily No Start Date Active albuterol sulfate 2.5 mg/3 mL (0.083 %) solution for nebulization RxNorm: 976252 1 INH as needed for cough/wheezes No Start Date Active Colace 100 mg capsule RxNorm: 3207239 1 Capsule(s) PO BID as needed constipation No Start Date Active Zofran 4 mg tablet RxNorm: 171103 1 Tablet(s) PO Q6 as needed nausea No Start Date Active Amaryl 4 mg tablet RxNorm: 121425 2 Tablet(s) PO daily No Start Date Active melatonin 10 mg tablet RxNorm: 2107942 1 Tablet(s) PO QHS No Start Date Active Hyomax 0.125 mg tablet RxNorm: 0153099 1 Tablet(s) SL Q2H as needed for secretions No Start Date Active acetaminophen 500 mg tablet RxNorm: 375528 1 Tablet(s) PO Q4H as needed for pain No Start Date Active Flonase Allergy Relief 50 mcg/actuation nasal spray, suspension RxNorm: 0080622 2 Iselin each nostril NASAL daily as needed for allergies No Start Date Active Neupro 6 mg/24 hour transdermal 24 hour patch RxNorm: 229977 1 Patch TD daily for Parkinson's No Start Date Active morphine 100 mg/5 mL oral concentrate RxNorm: 669943 1/2 Milliliter(s) SL as needed every 15 min for air hunger/severe pain/anxiety No Start Date Active Plavix 75 mg tablet RxNorm: 393692 1 Tablet(s) PO QHS No Start Date Active Zoloft 50 mg tablet RxNorm: 957668 1 Tablet(s) PO daily No Start Date Active metoprolol tartrate 100 mg tablet RxNorm: 664096 1 Tablet(s) PO BID No Start Date Active lisinopril 10 mg tablet RxNorm: 734446 1 Tablet(s) PO daily No Start Date Active acetaminophen 325 mg tablet RxNorm: 967768 2 Tablet(s) PO or one 650 mg rectal suppository every 4 hours as needed for fever/mild pain No Start Date Active Aspirin Low Dose 81 mg tablet,delayed release RxNorm: 326862 1 Tablet(s) PO daily No Start Date Active Voltaren 1 % topical gel RxNorm: 699282 1 TOP Q6 as needed No Start Date Active loperamide 2 mg tablet RxNorm: 034256 1 Tablet(s) PO QID as needed No Start Date Active Lactobacillus acidophilus 100 mg (1 billion cell) capsule RxNorm: 942572 2 Capsule (s) PO TID with meals No Start Date 2017 Inactive Lactobacillus acidophilus 10 billion cell capsule RxNorm: 7667277 2 Capsule(s) PO TID No Start Date 02/22/2018 Inactive potassium chloride ER 10 mEq tablet,extended release RxNorm: 233984 1 Tablet(s) PO BID No Start Date 11/22/2017 Inactive Lasix 40 mg tablet RxNorm: 1 Tablet(s) PO daily No Start Date 12/05/2017 Inactive Pradaxa 75 mg capsule RxNorm: 0397852 1 Capsule(s) PO BID No Start Date 12/13/2017 Inactive tramadol 50 mg tablet RxNorm: 463711 2 Tablet(s) PO Q6 as needed No Start Date 02/16/2018 Inactive Ambien 5 mg tablet RxNorm: 697879 1 Tablet(s) PO QHS for insomnia No Start Date 08/03/2017 Inactive Norvasc 10 mg tablet RxNorm: 288387 1 Tablet(s) PO daily No Start Date 11/24/2017 Inactive Levemir U-100 Insulin 100 unit/mL subcutaneous solution RxNorm: 785331 8 Unit(s) SQ BID No Start Date 11/15/2017 Inactive gabapentin 300 mg capsule RxNorm: 847893 1 Capsule(s) PO BID No Start Date 02/16/2018 Inactive Zyrtec 10 mg tablet RxNorm: 3266324 1 Tablet(s) PO QHS as needed allergies No Start Date 02/16/2018 Inactive Humalog U-100 Insulin 100 unit/mL subcutaneous solution RxNorm: 882853 1 injection SQ TID per sliding scale; If BS 201-250 give 3 units, 251-300 give 5 units, 301-350 give 7 units, 351-400 give 9 units No Start Date 12/15/2017 Inactive Lantus Solostar U-100 Insulin subcutaneous RxNorm: subcutaneous No Start Date 01/06/2018 Inactive Lasix 20 mg tablet RxNorm: 1 Tablet(s) PO daily No Start Date 11/22/2017 Inactive Synthroid 75 mcg tablet RxNorm: 472622 1 Tablet(s) PO daily No Start Date 12/20/2017 Inactive BenGay Ultra Strength 4 %-30 %-10 % topical cream RxNorm: 231641 TOP USE FOUR TIMES DAILY ON RIGHT [...] occlusion 07/16/2017 None Full Exam - General 1994 Ears/Nose/Throat lips/teeth/gingiva Overall: benign lips 07/16/2017 None [...] data Encounters Encounter Performer Location Codes Date ([id number]) 86484 EST. 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 PATIENT, LEVEL IV Diagnosis: Essential (primary) hypertension[ICD10: I10] Diagnosis: Type 2 diabetes mellitus without complications[ICD10: E11.9] Diagnosis: Pain in right shoulder[ICD10: M25.511] Diagnosis: Chronic systolic (congestive) heart failure[ICD10: I50.22] Bernadine Alvarez MD , [facility] CPT-4: 38633 02/17/2018 49577 EST. PATIENT, LEVEL IV Diagnosis: Essential (primary) hypertension[ICD10: I10] Diagnosis: Chronic atrial fibrillation[ICD10: I48.2] Diagnosis: Other emphysema[ICD10: J43.8] Diagnosis: Cough[ICD10: R05] Betty Alvarez MD, [facility] CPT-4: 85480 01/19/2018 ([id number]) 39294 EST. 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 PATIENT, LEVEL IV Diagnosis: Essential (primary) hypertension[ICD10: I10] Diagnosis: Type 2 diabetes mellitus without complications[ICD10: E11.9] Diagnosis: Pain in right knee[ICD10: M25.561] Bernadine Alvarez MD, [facility] CPT-4: 40062 11/16/2017 05574 EST. PATIENT, LEVEL III Diagnosis: Essential (primary) hypertension[ICD10: I10] Diagnosis: Type 2 diabetes mellitus without complications[ICD10: E11.9] Diagnosis: Bradycardia, unspecified[ICD10: R00.1] Diagnosis: Encounter for follow-up examination after completed treatment for conditions other than malignant neoplasm[ICD10: Z09] Betty Alvarez MD, [facility] CPT-4: 80465 11/02/2017 79742 EST. PATIENT, LEVEL III Diagnosis: Contusion of left thigh, initial encounter[ICD10: S70.12XA] [facility] CPT-4: 73048 08/10/2017 17939 EST. PATIENT, LEVEL III Diagnosis: Essential (primary) hypertension[ICD10: I10] Diagnosis: Weakness[ICD10: R53.1] [facility] CPT-4: 98962 07/16/2017 OFFICE VISIT, NEW - LEVEL 3 Diagnosis: Essential (primary) hypertension[ICD10: I10] Diagnosis: Weakness[ICD10: R53.1] [facility] CPT-4: 46633 06/04/2017 Plan of Care Planned Activity Notes Codes Status Date Referral: [facility] WPtel:[phone] Referral Completed 04/06/2018 Care Plan: Referral Order SNOMED-CT : [id number] Pending 03/18/2018 Visit Plan: Diabetes Mellitus - [...] current regimen 03/17/2018 Appointment: Bernadine Alvarez WPtel: [address] [place], [place] [phone] (15 min) Moderate 03/17/2018 Patient Education: Patient [...] right shoulder 02/17/2018 Appointment: Bernadine Alvarez WPtel: [phone] [facility] (15 min) Moderate 02/17/2018 Patient Education: Patient Medication Summary Completed 02/17/2018 Patient Education: Diabetes Completed 02/17/2018 Appointment: Betty Blackman WPtel: [phone] [facility] (15 min) Moderate 02/03/2018 Visit Plan: Hypertension [...] concerns. 01/19/2018 Appointment: Betty Blackman WPtel: [phone] [facility] (30 min) Complex 01/19/2018 Patient Education: Patient [...] discuss with the therapy dept at the [facility] and help to facilitate the brace and [...] becoming uncontrolled. 12/16/2017 [facility]ment[facility] [phone] [facility] ([facility] min) Moderate 12/16/2017 Patient Education: Patient [...] to knee. 11/16/2017 App[facility]ment[facility] [phone] [facility] (15 min) Moderate 11/16/2017 Patient Education: Patient [...] this patient's medical condition. 11/02/2017 Appointment: Betty Blackman WPtel: [phone] [facility] [place] (15 min) Moderate 11/02/2017 Patient Education: Patient Medication Summary Completed 11/02/2017 Appointment: Betty Blackman WPtel: [phone] [facility] [place] (30 min) Complex 10/28/2017 Appointment: Betty Blackman WPtel: [phone] [facility] [place] (30 min) Complex 09/03/2017 Visit Plan: Left leg hematoma - no erythema or warmth noted - will have pt and nursing staff monitor the area - they are to notify clinic if symptoms do not improve, if they worsen, or with any changes, questions, or concerns. 08/10/2017 Appointment: Betty Blackman WPtel: [phone] [facility] [place] (30 min) Complex 08/10/2017 Patient Education: Patient Medication Summary Completed 08/10/2017 Visit Plan: Hypertension - well controlled - continue with current medications, continue with no added salt diet. Pt has been encouraged to exercise daily. The pt has been advised to call the office if there are any acute concerns about change in blood pressure readings at home. 07/16/2017 Appointment: Betty Blackman WPtel: [phone] [facility] [place] (30 min) Complex 07/16/2017 Patient Education: Patient [...] with any changes or concerns. 06/04/2017 Appointment[facility] Yehuda [facility] [phone] [facility] New Patient 06/04/2017 Patient Education: Patient Medication Summary Completed 06/04/2017 Referral: [facility] WPtel:[phone] Referral Appointment Requested Instructions Comment . Hypertension [...] discuss with the therapy dept at the [facility] and help to facilitate the brace and [...]
--- OUTSIDE RECORDS SUMMARY | 2018-04-17 14:37 | XMS REPORT | CCD ---
Author Author Betty Blackman MD, [facility] Address [address] [place] [address] Phone Care Team Providers Care Flight Coordinator Name Role Phone PP Unavailable CCM Unavailable Summary Purpose Interface Exchange Insurance Providers Payer name Policy type / Coverage type Covered democrat ID Effective Begin Date Effective End Date WPS Medicare Part B Medicare Part B [id number] 2017 Unknown Cigna Medicare Part B [id number] 2017 Unknown [employer] - Primary Medicare Part B [id number] 2017 Unknown Family history Brother Diagnosis Age [...] 07/28/2017 No Inactive Date Active Lyrica RxNorm: 384047 07/28/2017 No Inactive Date Active dextromethorphan RxNorm: [...] Codes Condition Status Onset Date Resolved Date Chronic systolic (congestive) heart failure ICD-9: 428.22 ICD-10: I50.22 Active 02/17/2018 Unknown Essential (primary) hypertension ICD-9: 401.1 ICD-10: I10 Active 06/04/2017 Unknown Pain in right shoulder ICD-9: 719.41 ICD-10: M25.511 Active 02/17/2018 Unknown Type 2 diabetes mellitus without complications ICD-9: 250.00 ICD-10: E11.9 Active 11/16/2017 Unknown Chronic atrial fibrillation ICD-9: 427.31 ICD-10: I48.2 Active 12/16/2017 Unknown Cough ICD-9: 786.2 ICD-10: R05 Active 01/19/2018 Unknown 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 Active 12/16/2017 Unknown Other emphysema ICD-9 : 492.8 ICD-10: [...] Problems Condition Codes Effective Dates Condition Status Chronic systolic (congestive) heart failure ICD-9: 428.22 ICD-10: I50.22 02/17/2018 Active Essential (primary) hypertension ICD-9: 401.1 ICD-10: I10 06/04/2017 Active Pain in right shoulder ICD-9: 719.41 ICD-10: M25.511 02/17/2018 Active Type 2 diabetes mellitus without complications ICD-9: 250.00 ICD-10: E11.9 11/16/2017 Active Chronic atrial fibrillation ICD-9: 427.31 ICD-10: I48.2 12/16/2017 Active Cough ICD-9: 786.2 ICD-10: R05 01/19/2018 Active 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 12/16/2017 Active Other emphysema ICD-9 : 492.8 ICD-10: [...] 100 mg (1 billion cell) capsule RxNorm: 210654 2 Capsule (s) PO TID with meals 03/17/2018 No Stop Date Active Linzess 72 mcg capsule RxNorm: 0031076 1 Capsule(s) PO daily 07/14/2018 Active BenGay Ultra Strength 4 %-30 %-10 % topical cream RxNorm: 707550 TOP USE FOUR TIMES DAILY ON RIGHT KNEE 03/17/2018 No Stop Date Active Lactobacillus acidophilus 100 mg (1 billion cell) capsule RxNorm: 587039 2 Capsule (s) PO TID with meals 02/22/20182017 Inactive tramadol 50 mg tablet RxNorm: 719842 1-2 Tablet(s) PO Q6 as needed 02/17/2018 No Stop Date Active gabapentin 300 mg capsule RxNorm: 745904 1 Capsule(s) PO BID and 600mg hs 02/17/2018 No Stop Date Active Zyrtec 10 mg tablet RxNorm: 6949348 1 Tablet(s) PO QHS allergies 02/17/2018 No Stop Date Active Lantus U-100 Insulin 100 unit/mL subcutaneous solution RxNorm: 844261 10 Unit(s) SQ BID 01/07/2018 01/01/2019 Active vcv needs vials Lantus Solostar U-100 Insulin 100 unit/mL (3 mL) subcutaneous pen RxNorm: 690669 10 Unit(s) SQ BID 01/07/2018 Inactive Levemir U-100 Insulin 100 unit/mL subcutaneous solution RxNorm: 307222 10 Unit(s) SQ BID 01/07/2018 01/07/2018 Inactive 30 day supply Lantus U-100 Insulin 100 unit/mL subcutaneous solution RxNorm: 548110 10 Unit(s) SQ BID 01/07/2018 01/06/2018 Inactive Synthroid 75 mcg tablet RxNorm: 180763 TAKE 1 TABLET BY MOUTH DAILY 12/21/2017 12/15/2018 Active Generic For:*SYNTHROID 0.075MG TAB 12/21/2017 8:48:14 AM JAIL NEEDS JACKIE Humalog U-100 Insulin 100 unit/mL subcutaneous solution RxNorm: 159409 INJECT SUBCUTANEOUSLY PER SLIDING THREE TIMES DAILY 12/16/2017 06/13/2018 Active 2017 8:51:49 AM Pradaxa 75 mg capsule RxNorm: 2938779 1 Capsule(s) PO BID 201706/11/2018 Active Lasix 40 mg tablet RxNorm: 120218 Take 1 tab in the morning and 1/2 tab in evening 12/06/2017 No Stop Date Active SAVINGS FOR NON-COVERED MEDICATIONS Claims: BIN: [id number], PCN: [id number], GROUP: [id number], Patient ID: [id number] Phone; Questions: [facility] [phone] Norvasc 10 mg tablet RxNorm: 509031 TAKE ONE (1) TABLET BY MOUTH DAILY 11/25/2017 01/05/2018 Inactive Generic For:NORVASC 10MG TAB 11/25/2017 4:26:12 PM potassium chloride ER 10 mEq tablet,extended release RxNorm: 769749 1 Tablet(s) PO BID 11/23/2017 03/22/2018 Active Lasix 20 mg tablet RxNorm: 193493 TAKE 1 TABLET BY MOUTH EVERY DAY 11/23/2017 02/16/2018 Inactive Generic For:LASIX 20 MG TABLET 11/23/2017 9:11:33 AM Levemir U-100 Insulin 100 unit/mL subcutaneous solution RxNorm: 886739 10 Unit(s) SQ BID 11/16/2017 01/06/2018 Inactive diazepam 5 mg tablet RxNorm: 072073 1 Tablet(s) PO QHS as needed 10/26/2017 02/21/2018 Inactive diazepam 5 mg tablet RxNorm: 329397 1 Tablet(s) PO QHS as needed 09/29/2017 10/25/2017 Inactive Ambien 5 mg tablet RxNorm: 126630 1 Tablet(s) PO QHS for insomnia 08/04/2017 02/21/2018 Inactive diazepam 5 mg tablet RxNorm: 093210 1 Tablet(s) PO QHS as needed 06/14/2017 09/11/2017 Inactive diazepam 5 mg tablet RxNorm: 776289 1 Tablet(s) PO QHS as needed 06/09/2017 06/13/2017 Inactive Mucinex 600 mg tablet, extended release RxNorm: 625580 1 Tablet(s) PO Q12H as needed congestion No Start Date Active Systane Balance 0.6 % eye drops RxNorm: 5401793 1 Drop(s) both eyes ophthalmic ( eye) daily No Start Date Active Miralax 17 gram/dose oral powder RxNorm: 937386 17 Gram(s) PO daily as needed constipation No Start Date Active ipratropium-albuterol 0.5 mg-3 mg(2.5 mg base)/3 mL nebulization soln RxNorm: 6914655 1 INH Q4H as needed No Start Date Active Acetaminophen Pain Relief 500 mg tablet RxNorm: 764246 2 Tablet(s) PO Q6 as needed fever No Start Date Active metformin 1,000 mg tablet RxNorm: 589816 1 Tablet(s) PO BID No Start Date Active digoxin 125 mcg tablet RxNorm: 238302 1 Tablet(s) PO daily No Start Date Active albuterol sulfate 2.5 mg/3 mL (0.083 %) solution for nebulization RxNorm: 670557 1 INH as needed for cough/wheezes No Start Date Active Colace 100 mg capsule RxNorm: 3239538 1 Capsule(s) PO BID as needed constipation No Start Date Active Zofran 4 mg tablet RxNorm: 842041 1 Tablet(s) PO Q6 as needed nausea No Start Date Active Amaryl 4 mg tablet RxNorm: 658597 2 Tablet(s) PO daily No Start Date Active melatonin 10 mg tablet RxNorm: 5953822 1 Tablet(s) PO QHS No Start Date Active Hyomax 0.125 mg tablet RxNorm: 7526725 1 Tablet(s) SL Q2H as needed for secretions No Start Date Active acetaminophen 500 mg tablet RxNorm: 605925 1 Tablet(s) PO Q4H as needed for pain No Start Date Active Flonase Allergy Relief 50 mcg/actuation nasal spray, suspension RxNorm: 1414916 2 [place] each nostril NASAL daily as needed for allergies No Start Date Active Neupro 6 mg/24 hour transdermal 24 hour patch RxNorm: 191547 1 Patch TD daily for Parkinson's No Start Date Active morphine 100 mg/5 mL oral concentrate RxNorm: 725941 1/2 Milliliter(s) SL as needed every 15 min for air hunger/severe pain/anxiety No Start Date Active Plavix 75 mg tablet RxNorm: 552636 1 Tablet(s) PO QHS No Start Date Active Zoloft 50 mg tablet RxNorm: 017879 1 Tablet(s) PO daily No Start Date Active metoprolol tartrate 100 mg tablet RxNorm: 402514 1 Tablet(s) PO BID No Start Date Active lisinopril 10 mg tablet RxNorm: 746295 1 Tablet(s) PO daily No Start Date Active acetaminophen 325 mg tablet RxNorm: 675425 2 Tablet(s) PO or one 650 mg rectal suppository every 4 hours as needed for fever/mild pain No Start Date Active Aspirin Low Dose 81 mg tablet,delayed release RxNorm: 431558 1 Tablet(s) PO daily No Start Date Active Voltaren 1 % topical gel RxNorm: 182993 1 TOP Q6 as needed No Start Date Active loperamide 2 mg tablet RxNorm: 661289 1 Tablet(s) PO QID as needed No Start Date Active Lactobacillus acidophilus 100 mg (1 billion cell) capsule RxNorm: 011845 2 Capsule (s) PO TID with meals No Start Date 2017 Inactive Lactobacillus acidophilus 10 billion cell capsule RxNorm: 0254274 2 Capsule(s) PO TID No Start Date 02/22/2018 Inactive potassium chloride ER 10 mEq tablet,extended release RxNorm: 210703 1 Tablet(s) PO BID No Start Date 11/22/2017 Inactive Lasix 40 mg tablet RxNorm: 042833 1 Tablet(s) PO daily No Start Date 12/05/2017 Inactive Pradaxa 75 mg capsule RxNorm: 5323404 1 Capsule(s) PO BID No Start Date 12/13/2017 Inactive tramadol 50 mg tablet RxNorm: 746532 2 Tablet(s) PO Q6 as needed No Start Date 02/16/2018 Inactive Ambien 5 mg tablet RxNorm: 507614 1 Tablet(s) PO QHS for insomnia No Start Date 08/03/2017 Inactive Norvasc 10 mg tablet RxNorm: 986919 1 Tablet(s) PO daily No Start Date 11/24/2017 Inactive Levemir U-100 Insulin 100 unit/mL subcutaneous solution RxNorm: 994445 8 Unit(s) SQ BID No Start Date 11/15/2017 Inactive gabapentin 300 mg capsule RxNorm: 612331 1 Capsule(s) PO BID No Start Date 02/16/2018 Inactive Zyrtec 10 mg tablet RxNorm: 9993222 1 Tablet(s) PO QHS as needed allergies No Start Date 02/16/2018 Inactive Humalog U-100 Insulin 100 unit/mL subcutaneous solution RxNorm: 474483 1 injection SQ TID per sliding scale; If BS 201-250 give 3 units, 251-300 give 5 units, 301-350 give 7 units, 351-400 give 9 units No Start Date 12/15/2017 Inactive Lantus Solostar U-100 Insulin subcutaneous RxNorm: subcutaneous No Start Date 01/06/2018 Inactive Lasix 20 mg tablet RxNorm: 882627 1 Tablet(s) PO daily No Start Date 11/22/2017 Inactive Synthroid 75 mcg tablet RxNorm: 284832 1 Tablet(s) PO daily No Start Date 12/20/2017 Inactive BenGay Ultra Strength 4 %-30 %-10 % topical cream RxNorm: 230942 TOP USE FOUR TIMES DAILY ON RIGHT KNEE No Start Date Inactive Medication Administered No Medication Administered data Immunizations No Immunization data Assessments Condition Codes Effective Dates Pain in right shoulder ICD-10: M25.511 ICD-9: 719.41 02/17/2018 Chronic systolic (congestive) heart failure ICD-10: I50.22 ICD-9: 428.22 02/17/2018 Type 2 diabetes mellitus without complications ICD-10: E11.9 ICD-9: 250.00 02/17/2018 Essential (primary) hypertension ICD-10: I10 ICD-9: 401.1 02/17/2018 Chronic atrial fibrillation ICD-10: I48.2 ICD-9: 427.31 01/19/2018 Cough ICD-10: R05 ICD-9: 786.2 01/19/2018 Other emphysema ICD-10: J43.8 ICD-9: 492.8 01/19/2018 Pain in right knee ICD-10: M25.561 ICD-9: 719.46 12/16/2017 Insomnia due to medical condition ICD-10: G47.01 ICD-9: 327.01 12/16/2017 Bradycardia, unspecified ICD-10: R00.1 ICD-9: 427.89 11/02/2017 Encounter for follow-up examination after completed treatment for conditions other than malignant neoplasm ICD-10: Z09 ICD-9: V67.9 11/02/2017 Contusion of left thigh, initial encounter ICD-10: S70.12XA ICD-9: 924.00 08/10/2017 Weakness ICD-10: R53.1 ICD-9: 780.79 07/16/2017 Reason For Visit Reason For Visit Effective Dates Notes elbow pain 02/17/2018 fever 01/19/2018 edema 12/16/2017 bilataral legs/feet Hospital Follow Up 11/16/2017 Hospital Follow Up 11/02/2017 skin lesion 08/10/2017 gait abnormality 07/16/2017 gait abnormality 06/04/2017 Results Observation Observation Code Item Item Code Result Date Digoxin Ord9 DIGOXIN 1.2 NG/ML 11/02/2017 Review of Systems System Result Effective Dates Constitutional recent illness 02/17/2018 Constitutional No chills [...] No Procedures data Vital Signs Date Vital 02/17/2018 Blood Pressure 1: 160/70 Code : [...] Notes elbow pain Location on the right 02/17/2018 [...] data Encounters Encounter Performer Location Codes Date EST. PATIENT, LEVEL IV Diagnosis: Essential (primary) hypertension[ICD10: I10] Diagnosis: Type 2 diabetes mellitus without complications[ICD10: E11.9] Diagnosis: Pain in right shoulder[ICD10: M25.511] Diagnosis: Chronic systolic (congestive) heart failure[ICD10: I50.22] Bernadine Alvarez MD , [facility] CPT-4: 90568 02/17/2018 72516 EST. PATIENT, LEVEL IV Diagnosis: Essential (primary) hypertension[ICD10: I10] Diagnosis: Chronic atrial fibrillation[ICD10: I48.2] Diagnosis: Other emphysema[ICD10: J43.8] Diagnosis: Cough[ICD10: R05] Betty Alvarez MD, [facility] CPT-4: 64026 01/19/2018 ([id number]) 41752 EST. PATIENT, LEVEL IV Diagnosis: Essential (primary) hypertension[ICD10: I10] Diagnosis: Pain in right knee[ICD10: M25.561] Diagnosis: Insomnia due to medical condition[ICD10: G47.01] Diagnosis: Chronic atrial fibrillation[ICD10: I48.2] Diagnosis: Other emphysema[ICD10: J43.8] Bernadine Alvarez MD, [facility] CPT- 4: 96987 12/16/2017 ([id number]) 40115 EST. PATIENT, LEVEL IV Diagnosis: Essential (primary) hypertension[ICD10: I10] Diagnosis: Type 2 diabetes mellitus without complications[ICD10: E11.9] Diagnosis: Pain in right knee[ICD10: M25.561] Bernadine Alvarez MD, [facility] CPT-4: 30004 11/16/2017 94816 EST. PATIENT, LEVEL III Diagnosis: Essential (primary) hypertension[ICD10: I10] Diagnosis: Type 2 diabetes mellitus without complications[ICD10: E11.9] Diagnosis: Bradycardia, unspecified[ICD10: R00.1] Diagnosis: Encounter for follow-up examination after completed treatment for conditions other than malignant neoplasm[ICD10: Z09] Betty Alvarez MD, [facility] CPT-4: 78310 11/02/2017 73711 EST. PATIENT, LEVEL III Diagnosis: Contusion of left thigh, initial encounter[ICD10: S70.12XA] Betty Alvarez MD, [facility] CPT-4: 03295 08/10/2017 63811 EST. PATIENT, LEVEL III Diagnosis: Essential (primary) hypertension[ICD10: I10] Diagnosis: Weakness[ICD10: R53.1] Betty Alvarez MD, [facility] CPT-4: 68901 07/16/2017 OFFICE VISIT, NEW - LEVEL 3 Diagnosis: Essential (primary) hypertension[ICD10: I10] Diagnosis: Weakness[ICD10: R53.1] Betty Alvarez MD, [facility] CPT-4: 01938 06/04/2017 Plan of Care Planned Activity Notes [...] right shoulder 02/17/2018 Appointment: Bernadine Alvarez WPtel: [phone] [facility] (15 min) Moderate 02/17/2018 Patient Education: Patient Medication Summary Completed 02/17/2018 Patient Education: Diabetes Completed 02/17/2018 Appointment: Betty Blackman WPtel: [phone] [facility] (15 min) Moderate 02/03/2018 Visit Plan: [...] concerns. 01/19/2018 Appointment: Betty Blackman WPtel: [phone] [facility] (30 min) Complex 01/19/2018 Patient Education: [...] uncontrolled. 12/16/2017 Appointment: Bernadine Alvarez WPtel: [phone] [facility] (15 min) Moderate 12/16/2017 Patient Education: Patient [...] knee. 11/16/2017 [facility]ment[phone] ([facility] min) Moderate 11/16/2017 Patient Education: Patient [...] this patient's medical condition. 11/02/2017 [phone] [place] (15 min) Moderate 11/02/2017 Patient Education: Patient Medication Summary Completed 11/02/2017 [phone] [facility] [place] (30 min) Complex 10/28/2017 [phone] [place] (30 min) Complex 09/03/2017 Visit Plan: Left leg hematoma - no erythema or warmth noted - will have pt and nursing staff monitor the area - they are to notify clinic if symptoms do not improve, if they worsen, or with any changes, questions, or concerns. 08/10/2017 [facility]ment[phone] [facility] [place] (30 min) Complex 08/10/2017 Patient Education: [...] at home. 07/16/2017 [phone] [facility] ([facility] min) Complex 07/16/2017 Patient Education: Patient [...] concerns. 06/04/2017 [facility]ment: [phone] [facility] [place] New Patient 06/04/2017 Patient Education: Patient Medication [...] up on this patient's medical condition. . Left leg hematoma - no erythema [...]
--- OUTSIDE RECORDS SUMMARY | 2018-04-17 14:38 | XMS REPORT | CCD ---
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 Name Role Phone PP Unavailable CCM Unavailable Summary Purpose Interface Exchange Insurance Providers Payer name Policy type / Coverage type Covered constitution party ID Effective Begin Date Effective End Date WPS Medicare Part B Medicare Part B [id number] 2017 Unknown Cigna Medicare Part B [id number] 2017 Unknown [employer] - Primary Medicare Part B [id number] 2017 Unknown Family history Brother Diagnosis Age [...] 07/28/2017 No Inactive Date Active Lyrica RxNorm: 579660 07/28/2017 No Inactive Date Active dextromethorphan RxNorm: [...] Condition Status Onset Date Resolved Date Chronic atrial fibrillation ICD-9: 427.31 ICD-10: I48.2 Active 12/16/2017 Unknown Essential (primary) hypertension ICD-9: 401.1 ICD-10: I10 Active 06/04/2017 Unknown 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 Active 12/16/2017 Unknown Other emphysema ICD-9 : 492.8 ICD-10: J43.8 Active 12/16/2017 Unknown Pain in right knee ICD -9: 719.46 ICD-10: M25.561 Active 11/16/2017 Unknown Diabetes Unknown Active 11/16/2017 Unknown Type 2 diabetes mellitus without complications ICD-9: 250.00 ICD-10: E11.9 Active 11/16/2017 Unknown Bradycardia, unspecified ICD-9: 427.89 ICD-10: R00.1 Active 11/02/2017 Unknown Encounter for follow-up examination after completed treatment for conditions other than malignant neoplasm ICD-9: V67.9 ICD-10: Z09 Active 11/02/2017 Unknown Contusion of left thigh, initial encounter ICD-9: 924.00 ICD-10: S70.12XA Active 08/10/2017 Unknown Weakness ICD-9: 780.79 ICD-10: R53.1 Active 06/04/2017 Unknown Problems Condition Codes Effective Dates Condition Status Chronic atrial fibrillation ICD-9: 427.31 ICD-10: I48.2 12/16/2017 Active Essential (primary) hypertension ICD-9: 401.1 ICD-10: I10 06/04/2017 Active 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 12/16/2017 Active Other emphysema ICD-9 : 492.8 ICD-10: J43.8 12/16/2017 Active Pain in right knee ICD -9: 719.46 ICD-10: M25.561 11/16/2017 Active Diabetes Unknown 11/16/2017 Active Type 2 diabetes mellitus without complications ICD-9: 250.00 ICD-10: E11.9 11/16/2017 Active Bradycardia, unspecified ICD-9: 427.89 ICD-10: R00.1 11/02/2017 Active Encounter for follow-up examination after completed treatment for conditions other than malignant neoplasm ICD-9: V67.9 ICD-10: Z09 11/02/2017 Active Contusion of left thigh, initial encounter ICD-9: 924.00 ICD-10: S70.12XA 08/10/2017 Active Weakness ICD-9: 780.79 ICD-10: R53.1 06/04/2017 Active Medications Medication Codes Instructions Start Date Stop Date Status Fill Instructions Levemir U-100 Insulin 100 unit/mL subcutaneous solution RxNorm: 706353 10 Unit(s) SQ BID 01/07/2018 01/07/2018 Inactive 30 day supply Lantus U-100 Insulin 100 unit/mL subcutaneous solution RxNorm: 742306 10 Unit(s) SQ BID 01/07/2018 05/06/2018 Active Lantus Solostar U-100 Insulin 100 unit/mL (3 mL) subcutaneous pen RxNorm: 043050 10 Unit(s) SQ BID 01/07/2018 Inactive Synthroid 75 mcg tablet RxNorm: 375831 TAKE 1 TABLET BY MOUTH DAILY 12/21/2017 12/15/2018 Active Generic For:*SYNTHROID 0.075MG TAB 12/21/2017 8:48:14 AM P[facility]ITENTI[facility] NEEDS JACKIE Humalog U-100 Insulin 100 unit/mL subcutaneous solution RxNorm: 853610 INJECT SUBCUTANEOUSLY PER SLIDING THREE TIMES DAILY 12/16/2017 06/13/2018 Active 2017 8:51:49 AM Pradaxa 75 mg capsule RxNorm: 6878747 1 Capsule(s) PO BID 201706/11/2018 Active Lasix 40 mg tablet RxNorm: 031414 Take 1 tab in the morning and 1/2 tab in evening 12/06/2017 No Stop Date Active SAVINGS FOR NON-COVERED MEDICATIONS Claims: BIN: [id number], PCN: BNRX, GROUP: [id number], Patient ID: [id number] Phone; Questions: YourRx [phone] Norvasc 10 mg tablet RxNorm: 065734 TAKE ONE (1) TABLET BY MOUTH DAILY 11/25/2017 01/05/2018 Inactive Generic For:NORVASC 10MG TAB 11/25/2017 4:26:12 PM potassium chloride ER 10 mEq tablet,extended release RxNorm: 822516 1 Tablet(s) PO BID 11/23/2017 03/22/2018 Active Lasix 20 mg tablet RxNorm: 692779 TAKE 1 TABLET BY MOUTH EVERY DAY 11/23/2017 11/17/2018 Active Generic For:LASIX 20 MG TABLET 11/23/2017 9:11:33 AM Levemir U-100 Insulin 100 unit/mL subcutaneous solution RxNorm: 688237 10 Unit(s) SQ BID 11/16/2017 01/06/2018 Inactive diazepam 5 mg tablet RxNorm: 265705 1 Tablet(s) PO QHS as needed 10/26/2017 02/21/2018 Active diazepam 5 mg tablet RxNorm: 576461 1 Tablet(s) PO QHS as needed 09/29/2017 10/25/2017 Inactive Ambien 5 mg tablet RxNorm: 999231 1 Tablet(s) PO QHS for insomnia 08/04/2017 No Stop Date Active diazepam 5 mg tablet RxNorm: 393594 1 Tablet(s) PO QHS as needed 06/14/2017 09/11/2017 Inactive diazepam 5 mg tablet RxNorm: 951826 1 Tablet(s) PO QHS as needed 06/09/2017 06/13/2017 Inactive Mucinex 600 mg tablet, extended release RxNorm: 643771 1 Tablet(s) PO Q12H as needed congestion No Start Date Active Systane Balance 0.6 % eye drops RxNorm: 8966606 1 Drop(s) both eyes ophthalmic ( eye) daily No Start Date Active Miralax 17 gram/dose oral powder RxNorm: 511891 17 Gram(s) PO daily as needed constipation No Start Date Active ipratropium-albuterol 0.5 mg-3 mg(2.5 mg base)/3 mL nebulization soln RxNorm: 2398985 1 INH Q4H as needed No Start Date Active Acetaminophen Pain Relief 500 mg tablet RxNorm: 371167 2 Tablet(s) PO Q6 as needed fever No Start Date Active metformin 1,000 mg tablet RxNorm: 388814 1 Tablet(s) PO BID No Start Date Active digoxin 125 mcg tablet RxNorm: 751643 1 Tablet(s) PO daily No Start Date Active albuterol sulfate 2.5 mg/3 mL (0.083 %) solution for nebulization RxNorm: 824333 1 INH as needed for cough/wheezes No Start Date Active Colace 100 mg capsule RxNorm: 9572652 1 Capsule(s) PO BID as needed constipation No Start Date Active Zofran 4 mg tablet RxNorm: 629781 1 Tablet(s) PO Q6 as needed nausea No Start Date Active Amaryl 4 mg tablet RxNorm: 872121 2 Tablet(s) PO daily No Start Date Active Hyomax 0.125 mg tablet RxNorm: 3166611 1 Tablet(s) SL Q2H as needed for secretions No Start Date Active acetaminophen 500 mg tablet RxNorm: 798252 1 Tablet(s) PO Q4H as needed for pain No Start Date Active Flonase Allergy Relief 50 mcg/actuation nasal spray, suspension RxNorm: 8308180 2 Wade each nostril NASAL daily as needed for allergies No Start Date Active Neupro 6 mg/24 hour transdermal 24 hour patch RxNorm: 470734 1 Patch TD daily for Parkinson's No Start Date Active morphine 100 mg/5 mL oral concentrate RxNorm: 269303 1/2 Milliliter(s) SL as needed every 15 min for air hunger/severe pain/anxiety No Start Date Active Plavix 75 mg tablet RxNorm: 475797 1 Tablet(s) PO QHS No Start Date Active gabapentin 300 mg capsule RxNorm: 865802 1 Capsule(s) PO BID No Start Date Active Zoloft 50 mg tablet RxNorm: 165599 1 Tablet(s) PO daily No Start Date Active Zyrtec 10 mg tablet RxNorm: 6452709 1 Tablet(s) PO QHS as needed allergies No Start Date Active metoprolol tartrate 100 mg tablet RxNorm: 219076 1 Tablet(s) PO BID No Start Date Active lisinopril 10 mg tablet RxNorm: 311084 1 Tablet(s) PO daily No Start Date Active acetaminophen 325 mg tablet RxNorm: 540240 2 Tablet(s) PO or one 650 mg rectal suppository every 4 hours as needed for fever/mild pain No Start Date Active Aspirin Low Dose 81 mg tablet,delayed release RxNorm: 280475 1 Tablet(s) PO daily No Start Date Active potassium chloride ER 10 mEq tablet,extended release RxNorm: 953775 1 Tablet(s) PO BID No Start Date 11/22/2017 Inactive Lasix 40 mg tablet RxNorm: 699539 1 Tablet(s) PO daily No Start Date 12/05/2017 Inactive Pradaxa 75 mg capsule RxNorm: 9277757 1 Capsule(s) PO BID No Start Date 12/13/2017 Inactive Ambien 5 mg tablet RxNorm: 036156 1 Tablet(s) PO QHS for insomnia No Start Date 08/03/2017 Inactive Norvasc 10 mg tablet RxNorm: 713027 1 Tablet(s) PO daily No Start Date 11/24/2017 Inactive Levemir U-100 Insulin 100 unit/mL subcutaneous solution RxNorm: 899224 8 Unit(s) SQ BID No Start Date 11/15/2017 Inactive Humalog U-100 Insulin 100 unit/mL subcutaneous solution RxNorm: 759984 1 injection SQ TID per sliding scale; If BS 201-250 give 3 units, 251-300 give 5 units, 301-350 give 7 units, 351-400 give 9 units No Start Date 12/15/2017 Inactive Lantus Solostar U-100 Insulin subcutaneous RxNorm: subcutaneous No Start Date 01/06/2018 Inactive Lasix 20 mg tablet RxNorm: 446405 1 Tablet(s) PO daily No Start Date 11/22/2017 Inactive Synthroid 75 mcg tablet RxNorm: 205054 1 Tablet(s) PO daily No Start Date 12/20/2017 Inactive Medication Administered No Medication Administered data Immunizations No Immunization data Assessments Condition Codes Effective Dates Other emphysema ICD-10: J43.8 ICD-9: 492.8 12/16/2017 Pain in right knee ICD-10: M25.561 ICD-9: 719.46 12/16/2017 Chronic atrial fibrillation ICD-10: I48.2 ICD-9: 427.31 12/16/2017 Insomnia due to medical condition ICD-10: G47.01 ICD-9: 327.01 12/16/2017 Essential (primary) hypertension ICD-10: I10 ICD-9: 401.1 12/16/2017 Type 2 diabetes mellitus without complications ICD-10: E11.9 ICD-9: 250.00 11/16/2017 Bradycardia, unspecified ICD-10: R00.1 ICD-9: 427.89 11/02/2017 Encounter for follow-up examination after completed treatment for conditions other than malignant neoplasm ICD-10: Z09 ICD-9: V67.9 11/02/2017 Contusion of left thigh, initial encounter ICD-10: S70.12XA ICD-9: 924.00 08/10/2017 Weakness ICD-10: R53.1 ICD-9: 780.79 07/16/2017 Reason For Visit Reason For Visit Effective Dates Notes edema 12/16/2017 bilataral legs/feet Hospital Follow Up [...] No Procedures data Vital Signs Date Vital 12/16/2017 Blood Pressure 1: 130/70 Code : [...] Symptom Name Status Result Effective Date Notes knee pain Location on the right 12/16/2017 [...] data Encounters Encounter Performer Location Codes Date ([id number]) 86336 EST. PATIENT, LEVEL IV Diagnosis: Essential (primary) hypertension[ICD10: I10] Diagnosis: Pain in right knee[ICD10: M25.561] Diagnosis: Insomnia due to medical condition[ICD10: G47.01] Diagnosis: Chronic atrial fibrillation[ICD10: I48.2] Diagnosis: Other emphysema[ICD10: J43.8] Bernadine Alvarez MD, [facility] CPT- 4: 48544 12/16/2017 [id number]) 32002 EST. PATIENT, LEVEL IV Diagnosis: Essential (primary) hypertension[ICD10: I10] Diagnosis: Type 2 diabetes mellitus without complications[ICD10: E11.9] Diagnosis: Pain in right knee[ICD10: M25.561] Bernadine Alvarez MD, [facility] CPT-4: 59840 11/16/2017 13240 EST. PATIENT, LEVEL III Diagnosis: Essential (primary) hypertension[ICD10: I10] Diagnosis: Type 2 diabetes mellitus without complications[ICD10: E11.9] Diagnosis: Bradycardia, unspecified[ICD10: R00.1] Diagnosis: Encounter for follow-up examination after completed treatment for conditions other than malignant neoplasm[ICD10: Z09] [facility] CPT-4: 30038 11/02/2017 71746 EST. PATIENT, LEVEL III Diagnosis: Contusion of left thigh, initial encounter[ICD10: S70.12XA] [facility] CPT-4: 67666 08/10/2017 71995 EST. PATIENT, LEVEL III Diagnosis: Essential (primary) hypertension[ICD10: I10] Diagnosis: Weakness[ICD10: R53.1] [facility] CPT-4: 52628 07/16/2017 OFFICE VISIT, NEW - LEVEL 3 Diagnosis: Essential (primary) hypertension[ICD10: I10] Diagnosis: Weakness[ICD10: R53.1] [facility] CPT-4: 51685 06/04/2017 Plan of Care Planned Activity Notes [...] discuss with the therapy dept at the retirement and help to facilitate the brace and [...] becoming uncontrolled. 12/16/2017 Appointment: [facility] ([facility] min[facility] Moderate 12/16/2017 Patient Education: [...] and voltaren gel to knee. 11/16/2017 Appointment: [facility] [phone] [facility] [place] (15 min) Moderate 11/16/2017 Patient Education: Patient [...] medical condition. 11/02/2017 Appointment: Betty Blackman [facility]el[facility] [place] ([facility] min) Moderate 11/02/2017 Patient Education: Patient Medication Summary Completed 11/02/2017 Appointment: [facility] [phone] [facility] [place] (30 min) Complex 10/28/2017 App[facility]ment: [facility] [phone] [facility] [place] ([facility] min) Complex 09/03/2017 Visit Plan: Left leg hematoma - no erythema or warmth noted - will have pt and nursing staff monitor the area - they are to notify clinic if symptoms do not improve, if they worsen, or with any changes, questions, or concerns. 08/10/2017 Appointment: Betty Blackmantel: [phone] [facility] (30 min) Complex 08/10/2017 Patient Education: Patient Medication Summary Completed 08/10/2017 Visit Plan: Hypertension - well controlled - continue with current medications, continue with no added salt diet. Pt has been encouraged to exercise daily. The pt has been advised to call the office if there are any acute concerns about change in blood pressure readings at home. 07/16/2017 Appointment: Betty Blackmantel: [phone] [facility] (30 min) Complex 07/16/2017 Patient Education: Patient [...] any changes or concerns. 06/04/2017 Appointment: Betty Blackmanl: [phone] [facility] [place] New Patient 06/04/2017 Patient Education: Patient [...] discuss with the therapy dept at the retirement and help to facilitate the brace and [...]
--- OUTSIDE RECORDS SUMMARY | 2018-04-17 14:38 | XMS REPORT | CCD ---
Author Author Betty Blackman MD, [facility] Address [address] [place] [address] Phone Care Team Providers Care Assistant Name Role Phone PP Unavailable CCM Unavailable Summary Purpose Interface Exchange Insurance Providers Payer name Policy type / Coverage type Covered green party ID Effective Begin Date Effective End Date WPS Medicare Part B Medicare Part B [id number] 2017 Unknown Cigna Medicare Part B [id number] 2017 Unknown [employer] - Primary Medicare Part B [id number] 2017 Unknown Family history Brother Diagnosis Age [...] 07/28/2017 No Inactive Date Active Lyrica RxNorm: 008214 07/28/2017 No Inactive Date Active dextromethorphan RxNorm: [...] Start Date Stop Date Status Fill Instructions Lantus U-100 Insulin 100 unit/mL subcutaneous solution RxNorm: 843318 10 Unit(s) SQ BID 01/07/2018 01/01/2019 Active vcv needs vials Levemir U-100 Insulin 100 unit/mL subcutaneous solution RxNorm: 969160 10 Unit(s) SQ BID 01/07/2018 01/07/2018 Inactive 30 day supply Lantus Solostar U-100 Insulin 100 unit/mL (3 mL) subcutaneous pen RxNorm: 569054 10 Unit(s) SQ BID 01/07/2018 Inactive Lantus U-100 Insulin 100 unit/mL subcutaneous solution RxNorm: 962378 10 Unit(s) SQ BID 01/07/2018 01/06/2018 Inactive Synthroid 75 mcg tablet RxNorm: 839618 TAKE 1 TABLET BY MOUTH DAILY 12/21/2017 12/15/2018 Active Generic For:*SYNTHROID 0.075MG TAB 12/21/2017 8:48:14 AM CORRECTION NEEDS JACKIE Humalog U-100 Insulin 100 unit/mL subcutaneous solution RxNorm: 638088 INJECT SUBCUTANEOUSLY PER SLIDING THREE TIMES DAILY 12/16/2017 06/13/2018 Active 2017 8:51:49 AM Pradaxa 75 mg capsule RxNorm: 1951143 1 Capsule(s) PO BID 201706/11/2018 Active Lasix 40 mg tablet RxNorm: 065631 Take 1 tab in the morning and 1/2 tab in evening 12/06/2017 No Stop Date Active SAVINGS FOR NON-COVERED MEDICATIONS Claims: BIN: [id number], PCN: BNRX, GROUP: [id number], Patient ID: [id number] Phone; Questions: Your[facility] [phone] Norvasc 10 mg tablet RxNorm: 748509 TAKE ONE (1) TABLET BY MOUTH DAILY 11/25/2017 01/05/2018 Inactive Generic For:NORVASC 10MG TAB 11/25/2017 4:26:12 PM potassium chloride ER 10 mEq tablet,extended release RxNorm: 793456 1 Tablet(s) PO BID 11/23/2017 03/22/2018 Active Lasix 20 mg tablet RxNorm: 359461 TAKE 1 TABLET BY MOUTH EVERY DAY 11/23/2017 11/17/2018 Active Generic For:LASIX 20 MG TABLET 11/23/2017 9:11:33 AM Levemir U-100 Insulin 100 unit/mL subcutaneous solution RxNorm: 487798 10 Unit(s) SQ BID 11/16/2017 01/06/2018 Inactive diazepam 5 mg tablet RxNorm: 395075 1 Tablet(s) PO QHS as needed 10/26/2017 02/21/2018 Active diazepam 5 mg tablet RxNorm: 977507 1 Tablet(s) PO QHS as needed 09/29/2017 10/25/2017 Inactive Ambien 5 mg tablet RxNorm: 128867 1 Tablet(s) PO QHS for insomnia 08/04/2017 No Stop Date Active diazepam 5 mg tablet RxNorm: 802766 1 Tablet(s) PO QHS as needed 06/14/2017 09/11/2017 Inactive diazepam 5 mg tablet RxNorm: 743016 1 Tablet(s) PO QHS as needed 06/09/2017 06/13/2017 Inactive Mucinex 600 mg tablet, extended release RxNorm: 580492 1 Tablet(s) PO Q12H as needed congestion No Start Date Active Systane Balance 0.6 % eye drops RxNorm: 6929660 1 Drop(s) both eyes ophthalmic ( eye) daily No Start Date Active Miralax 17 gram/dose oral powder RxNorm: 279903 17 Gram(s) PO daily as needed constipation No Start Date Active ipratropium-albuterol 0.5 mg-3 mg(2.5 mg base)/3 mL nebulization soln RxNorm: 9290014 1 INH Q4H as needed No Start Date Active Acetaminophen Pain Relief 500 mg tablet RxNorm: 463663 2 Tablet(s) PO Q6 as needed fever No Start Date Active metformin 1,000 mg tablet RxNorm: 533797 1 Tablet(s) PO BID No Start Date Active digoxin 125 mcg tablet RxNorm: 606484 1 Tablet(s) PO daily No Start Date Active albuterol sulfate 2.5 mg/3 mL (0.083 %) solution for nebulization RxNorm: 047798 1 INH as needed for cough/wheezes No Start Date Active Colace 100 mg capsule RxNorm: 1264913 1 Capsule(s) PO BID as needed constipation No Start Date Active Zofran 4 mg tablet RxNorm: 795795 1 Tablet(s) PO Q6 as needed nausea No Start Date Active Amaryl 4 mg tablet RxNorm: 369600 2 Tablet(s) PO daily No Start Date Active Hyomax 0.125 mg tablet RxNorm: 7864804 1 Tablet(s) SL Q2H as needed for secretions No Start Date Active acetaminophen 500 mg tablet RxNorm: 705026 1 Tablet(s) PO Q4H as needed for pain No Start Date Active Flonase Allergy Relief 50 mcg/actuation nasal spray, suspension RxNorm: 8869590 2 Rand each nostril NASAL daily as needed for allergies No Start Date Active Neupro 6 mg/24 hour transdermal 24 hour patch RxNorm: 541234 1 Patch TD daily for Parkinson's No Start Date Active morphine 100 mg/5 mL oral concentrate RxNorm: 483688 1/2 Milliliter(s) SL as needed every 15 min for air hunger/severe pain/anxiety No Start Date Active Plavix 75 mg tablet RxNorm: 779266 1 Tablet(s) PO QHS No Start Date Active gabapentin 300 mg capsule RxNorm: 885758 1 Capsule(s) PO BID No Start Date Active Zoloft 50 mg tablet RxNorm: 561213 1 Tablet(s) PO daily No Start Date Active Zyrtec 10 mg tablet RxNorm: 7540724 1 Tablet(s) PO QHS as needed allergies No Start Date Active metoprolol tartrate 100 mg tablet RxNorm: 855826 1 Tablet(s) PO BID No Start Date Active lisinopril 10 mg tablet RxNorm: 081571 1 Tablet(s) PO daily No Start Date Active acetaminophen 325 mg tablet RxNorm: 550371 2 Tablet(s) PO or one 650 mg rectal suppository every 4 hours as needed for fever/mild pain No Start Date Active Aspirin Low Dose 81 mg tablet,delayed release RxNorm: 312143 1 Tablet(s) PO daily No Start Date Active potassium chloride ER 10 mEq tablet,extended release RxNorm: 942421 1 Tablet(s) PO BID No Start Date 11/22/2017 Inactive Lasix 40 mg tablet RxNorm: 752170 1 Tablet(s) PO daily No Start Date 12/05/2017 Inactive Pradaxa 75 mg capsule RxNorm: 8162548 1 Capsule(s) PO BID No Start Date 12/13/2017 Inactive Ambien 5 mg tablet RxNorm: 007221 1 Tablet(s) PO QHS for insomnia No Start Date 08/03/2017 Inactive Norvasc 10 mg tablet RxNorm: 337465 1 Tablet(s) PO daily No Start Date 11/24/2017 Inactive Levemir U-100 Insulin 100 unit/mL subcutaneous solution RxNorm: 668009 8 Unit(s) SQ BID No Start Date 11/15/2017 Inactive Humalog U-100 Insulin 100 unit/mL subcutaneous solution RxNorm: 007146 1 injection SQ TID per sliding scale; If BS 201-250 give 3 units, 251-300 give 5 units, 301-350 give 7 units, 351-400 give 9 units No Start Date 12/15/2017 Inactive Lantus Solostar U-100 Insulin subcutaneous RxNorm: subcutaneous No Start Date 01/06/2018 Inactive Lasix 20 mg tablet RxNorm: 604339 1 Tablet(s) PO daily No Start Date 11/22/2017 Inactive Synthroid 75 mcg tablet RxNorm: 784492 1 Tablet(s) PO daily No Start Date [...] data Encounters Encounter Performer Location Codes Date ([id number]) 50259 EST. PATIENT, LEVEL IV Diagnosis: Essential (primary) hypertension[ICD10: I10] Diagnosis: Pain in right knee[ICD10: M25.561] Diagnosis: Insomnia due to medical condition[ICD10: G47.01] Diagnosis: Chronic atrial fibrillation[ICD10: I48.2] Diagnosis: Other emphysema[ICD10: J43.8] [facility] CPT- 4: 63550 12/16/2017 ([id number]) 97995 EST. PATIENT, LEVEL IV Diagnosis: Essential (primary) hypertension[ICD10: I10] Diagnosis: Type 2 diabetes mellitus without complications[ICD10: E11.9] Diagnosis: Pain in right knee[ICD10: M25.561] [facility] CPT-4: 88279 11/16/2017 90026 EST. PATIENT, LEVEL III Diagnosis: Essential (primary) hypertension[ICD10: I10] Diagnosis: Type 2 diabetes mellitus without complications[ICD10: E11.9] Diagnosis: Bradycardia, unspecified[ICD10: R00.1] Diagnosis: Encounter for follow-up examination after completed treatment for conditions other than malignant neoplasm[ICD10: Z09] [facility] CPT-4: 19707 11/02/2017 02613 EST. PATIENT, LEVEL III Diagnosis: Contusion of left thigh, initial encounter[ICD10: S70.12XA] Betty Alvarez MD, [facility] CPT-4: 97771 08/10/2017 27201 EST. PATIENT, LEVEL III Diagnosis: Essential (primary) hypertension[ICD10: I10] Diagnosis: Weakness[ICD10: R53.1] [facility] CPT-4: 20851 07/16/2017 OFFICE VISIT, NEW - LEVEL 3 Diagnosis: Essential (primary) hypertension[ICD10: I10] Diagnosis: Weakness[ICD10: R53.1] [facility] CPT-4: 10724 06/04/2017 Plan of Care Planned Activity Notes [...] discuss with the therapy dept at the assisted and help to facilitate the brace and [...] becoming uncontrolled. 12/16/2017 Appointment: Bernadine Alvarez WPtel: [address] [place], [place] [address] (15 min) Moderate 12/16/2017 Patient Education: Patient [...] knee. 11/16/2017 [facility]ment[phone] [facility] ([facility] Mod[facility] 11/16/2017 Patient Education: Patient [...] condition. 11/02/2017 App[facility]ment[facility] [address] [facility] [place] (15 min) Moderate 11/02/2017 Patient Education: Patient Medication Summary Completed 11/02/2017 Appointment: [facility] [facility] [place] (30 min) Complex 10/28/2017 Appointment: Betty Blackman WPtel: [facility] (30 min) Complex 09/03/2017 Visit Plan: Left leg hematoma - no erythema or warmth noted - will have pt and nursing staff monitor the area - they are to notify clinic if symptoms do not improve, if they worsen, or with any changes, questions, or concerns. 08/10/2017 Appointment: Betty Blackman WPtel: [address] [place], [place] [address] (30 min) Complex 08/10/2017 Patient Education: Patient Medication Summary Completed 08/10/2017 Visit Plan: Hypertension - well controlled - continue with current medications, continue with no added salt diet. Pt has been encouraged to exercise daily. The pt has been advised to call the office if there are any acute concerns about change in blood pressure readings at home. 07/16/2017 Appointment: Betty Blackman WPtel: [facility] (30 min) Complex 07/16/2017 Patient Education: Patient [...] or concerns. 06/04/2017 Appointment: Betty Blackman WPtel: [address] [place], [place] [phone] New Patient 06/04/2017 Patient Education: Patient Medication [...] discuss with the therapy dept at the assisted and help to facilitate the brace and [...]
--- OUTSIDE RECORDS SUMMARY | 2018-04-17 14:39 | XMS REPORT | CCD ---
Author Author Betty Blackman MD, [facility] Address [address] [place] [address] Phone Care Team Providers Care Evaporator Repairer Name Role Phone PP Unavailable CCM Unavailable Summary Purpose Interface Exchange Insurance Providers Payer name Policy type / Coverage type Covered constitution party ID Effective Begin Date Effective End Date WPS Medicare Part B Medicare Part B [id number] 2017 Unknown Cigna Medicare Part B [id number] 2017 Unknown [employer] - Primary Medicare Part B [id number] 2017 Unknown Family history Brother Diagnosis Age [...] 07/28/2017 No Inactive Date Active Lyrica RxNorm: 326929 07/28/2017 No Inactive Date Active dextromethorphan RxNorm: [...] Date Stop Date Status Fill Instructions Lantus Solostar U-100 Insulin 100 unit/mL (3 mL) subcutaneous pen RxNorm: 695944 10 Unit(s) SQ BID 01/07/2018 Active Levemir U-100 Insulin 100 unit/mL subcutaneous solution RxNorm: 185866 10 Unit(s) SQ BID 01/07/2018 01/07/2018 Inactive 30 day supply Synthroid 75 mcg tablet RxNorm: 640177 TAKE 1 TABLET BY MOUTH DAILY 12/21/2017 12/15/2018 Active Generic For:*SYNTHROID 0.075MG TAB 12/21/2017 8:48:14 AM [facility] Humalog U-100 Insulin 100 unit/mL subcutaneous solution RxNorm: 583931 INJECT SUBCUTANEOUSLY PER SLIDING THREE TIMES DAILY 12/16/2017 06/13/2018 Active 2017 8:51:49 AM Pradaxa 75 mg capsule RxNorm: 5030674 1 Capsule(s) PO BID 201706/11/2018 Active Lasix 40 mg tablet RxNorm: 377771 Take 1 tab in the morning and 1/2 tab in evening 12/06/2017 No Stop Date Active SAVINGS FOR NON-COVERED MEDICATIONS Claims: BIN: [id number], PCN: BNRX, GROUP: SRAVAN, Patient ID: [id number] Phone; Questions: Your[facility] [phone] Norvasc 10 mg tablet RxNorm: 719223 TAKE ONE (1) TABLET BY MOUTH DAILY 11/25/2017 01/05/2018 Inactive Generic For:NORVASC 10MG TAB 11/25/2017 4:26:12 PM potassium chloride ER 10 mEq tablet,extended release RxNorm: 212678 1 Tablet(s) PO BID 11/23/2017 03/22/2018 Active Lasix 20 mg tablet RxNorm: 185304 TAKE 1 TABLET BY MOUTH EVERY DAY 11/23/2017 11/17/2018 Active Generic For:LASIX 20 MG TABLET 11/23/2017 9:11:33 AM Levemir U-100 Insulin 100 unit/mL subcutaneous solution RxNorm: 994719 10 Unit(s) SQ BID 11/16/2017 01/06/2018 Inactive diazepam 5 mg tablet RxNorm: 642633 1 Tablet(s) PO QHS as needed 10/26/2017 02/21/2018 Active diazepam 5 mg tablet RxNorm: 555525 1 Tablet(s) PO QHS as needed 09/29/2017 10/25/2017 Inactive Ambien 5 mg tablet RxNorm: 651928 1 Tablet(s) PO QHS for insomnia 08/04/2017 No Stop Date Active diazepam 5 mg tablet RxNorm: 014191 1 Tablet(s) PO QHS as needed 06/14/2017 09/11/2017 Inactive diazepam 5 mg tablet RxNorm: 545947 1 Tablet(s) PO QHS as needed 06/09/2017 06/13/2017 Inactive Mucinex 600 mg tablet, extended release RxNorm: 174518 1 Tablet(s) PO Q12H as needed congestion No Start Date Active Systane Balance 0.6 % eye drops RxNorm: 8512762 1 Drop(s) both eyes ophthalmic ( eye) daily No Start Date Active Miralax 17 gram/dose oral powder RxNorm: 795475 17 Gram(s) PO daily as needed constipation No Start Date Active ipratropium-albuterol 0.5 mg-3 mg(2.5 mg base)/3 mL nebulization soln RxNorm: 9752135 1 INH Q4H as needed No Start Date Active Acetaminophen Pain Relief 500 mg tablet RxNorm: 807302 2 Tablet(s) PO Q6 as needed fever No Start Date Active metformin 1,000 mg tablet RxNorm: 691423 1 Tablet(s) PO BID No Start Date Active digoxin 125 mcg tablet RxNorm: 789024 1 Tablet(s) PO daily No Start Date Active albuterol sulfate 2.5 mg/3 mL (0.083 %) solution for nebulization RxNorm: 049337 1 INH as needed for cough/wheezes No Start Date Active Colace 100 mg capsule RxNorm: 3841854 1 Capsule(s) PO BID as needed constipation No Start Date Active Zofran 4 mg tablet RxNorm: 015623 1 Tablet(s) PO Q6 as needed nausea No Start Date Active Amaryl 4 mg tablet RxNorm: 640608 2 Tablet(s) PO daily No Start Date Active Hyomax 0.125 mg tablet RxNorm: 8852758 1 Tablet(s) SL Q2H as needed for secretions No Start Date Active acetaminophen 500 mg tablet RxNorm: 164241 1 Tablet(s) PO Q4H as needed for pain No Start Date Active Flonase Allergy Relief 50 mcg/actuation nasal spray, suspension RxNorm: 5206442 2 [place] each nostril NASAL daily as needed for allergies No Start Date Active Neupro 6 mg/24 hour transdermal 24 hour patch RxNorm: 247305 1 Patch TD daily for Parkinson's No Start Date Active morphine 100 mg/5 mL oral concentrate RxNorm: 437362 1/2 Milliliter(s) SL as needed every 15 min for air hunger/severe pain/anxiety No Start Date Active Plavix 75 mg tablet RxNorm: 833564 1 Tablet(s) PO QHS No Start Date Active gabapentin 300 mg capsule RxNorm: 388830 1 Capsule(s) PO BID No Start Date Active Zoloft 50 mg tablet RxNorm: 887950 1 Tablet(s) PO daily No Start Date Active Zyrtec 10 mg tablet RxNorm: 2213150 1 Tablet(s) PO QHS as needed allergies No Start Date Active metoprolol tartrate 100 mg tablet RxNorm: 077557 1 Tablet(s) PO BID No Start Date Active lisinopril 10 mg tablet RxNorm: 427572 1 Tablet(s) PO daily No Start Date Active acetaminophen 325 mg tablet RxNorm: 399291 2 Tablet(s) PO or one 650 mg rectal suppository every 4 hours as needed for fever/mild pain No Start Date Active Aspirin Low Dose 81 mg tablet,delayed release RxNorm: 324410 1 Tablet(s) PO daily No Start Date Active potassium chloride ER 10 mEq tablet,extended release RxNorm: 735378 1 Tablet(s) PO BID No Start Date 11/22/2017 Inactive Lasix 40 mg tablet RxNorm: 642535 1 Tablet(s) PO daily No Start Date 12/05/2017 Inactive Pradaxa 75 mg capsule RxNorm: 5571065 1 Capsule(s) PO BID No Start Date 12/13/2017 Inactive Ambien 5 mg tablet RxNorm: 598398 1 Tablet(s) PO QHS for insomnia No Start Date 08/03/2017 Inactive Norvasc 10 mg tablet RxNorm: 826491 1 Tablet(s) PO daily No Start Date 11/24/2017 Inactive Levemir U-100 Insulin 100 unit/mL subcutaneous solution RxNorm: 081192 8 Unit(s) SQ BID No Start Date 11/15/2017 Inactive Humalog U-100 Insulin 100 unit/mL subcutaneous solution RxNorm: 552585 1 injection SQ TID per sliding scale; If BS 201-250 give 3 units, 251-300 give 5 units, 301-350 give 7 units, 351-400 give 9 units No Start Date 12/15/2017 Inactive Lantus Solostar U-100 Insulin subcutaneous RxNorm: subcutaneous No Start Date 01/06/2018 Inactive Lasix 20 mg tablet RxNorm: 863532 1 Tablet(s) PO daily No Start Date 11/22/2017 Inactive Synthroid 75 mcg tablet RxNorm: 017266 1 Tablet(s) PO daily No Start Date [...] data Encounters Encounter Performer Location Codes Date (59681) 28549 EST. 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 PATIENT, LEVEL IV Diagnosis: Essential (primary) hypertension[ICD10: I10] Diagnosis: Type 2 diabetes mellitus without complications[ICD10: E11.9] Diagnosis: Pain in right knee[ICD10: M25.561] Bernadine Alvarez MD, [facility] CPT-4: 27332 11/16/2017 56818 EST. PATIENT, LEVEL III Diagnosis: Essential (primary) hypertension[ICD10: I10] Diagnosis: Type 2 diabetes mellitus without complications[ICD10: E11.9] Diagnosis: Bradycardia, unspecified[ICD10: R00.1] Diagnosis: Encounter for follow-up examination after completed treatment for conditions other than malignant neoplasm[ICD10: Z09] Betty Alvarez MD, [facility] CPT-4: 39996 11/02/2017 13229 EST. PATIENT, LEVEL III Diagnosis: Contusion of left thigh, initial encounter[ICD10: S70.12XA] Betty Alvarez MD, [facility] CPT-4: 19623 08/10/2017 66723 EST. PATIENT, LEVEL III Diagnosis: Essential (primary) hypertension[ICD10: I10] Diagnosis: Weakness[ICD10: R53.1] [facility] CPT-4: 84849 07/16/2017 OFFICE VISIT, NEW - LEVEL 3 Diagnosis: Essential (primary) hypertension[ICD10: I10] Diagnosis: Weakness[ICD10: R53.1] [facility] CPT-4: 82643 06/04/2017 Plan of Care Planned Activity Notes [...] becoming uncontrolled. 12/16/2017 Appointment: Bernadine Alvarez WPtel: [address] [place], [place] [address] (15 min) Moderate 12/16/2017 Patient Education: Patient [...] knee. 11/16/2017 [facility] [phone] [facility] ([facility]) Moderate 11/16/2017 Patient Education: [...] condition. 11/02/2017 [facility] [phone] [facility] (15 min) Moderate 11/02/2017 Patient Education: Patient Medication Summary Completed 11/02/2017 App[facility]ment: [facility] [address] [facility] [place] (30 min) Complex 10/28/2017 App[facility]ment: [facility] [phone] [facility] ([facility] min) Complex 09/03/2017 Visit Plan: Left leg hematoma - no erythema or warmth noted - will have pt and nursing staff monitor the area - they are to notify clinic if symptoms do not improve, if they worsen, or with any changes, questions, or concerns. 08/10/2017 Appointment: Betty Blackman WPtel: [phone] [facility] (30 min) Complex 08/10/2017 Patient Education: Patient [...] home. 07/16/2017 Appointment: Betty Blackman WPtel: [phone] [facility] (30 min) Complex 07/16/2017 Patient Education: Patient [...] concerns. 06/04/2017 App[facility]ment: [facility] [phone] [facility] New Patient 06/04/2017 Patient Education: Patient Medication [...]
--- OUTSIDE RECORDS SUMMARY | 2018-04-17 14:40 | XMS REPORT | CCD ---
Author Author Betty Blackman MD, [facility] Address [address] [place] [address] Phone Care Team Providers Care Drapery Maker Name Role Phone PP Unavailable CCM Unavailable Summary Purpose Interface Exchange Insurance Providers Payer name Policy type / Coverage type Covered republican ID Effective Begin Date Effective End Date WPS Medicare Part B Medicare Part B [id number] 2017 Unknown Cigna Medicare Part B [id number] 2017 Unknown [employer] - Primary Medicare Part B [id number] 2017 Unknown Family history Brother Diagnosis Age [...] 07/28/2017 No Inactive Date Active Lyrica RxNorm: 862418 07/28/2017 No Inactive Date Active dextromethorphan RxNorm: [...] U-100 Insulin 100 unit/mL subcutaneous solution RxNorm: 847394 10 Unit(s) SQ BID 01/07/2018 08/04/2018 Active 30 day supply Synthroid 75 mcg tablet RxNorm: 559071 TAKE 1 TABLET BY MOUTH DAILY 12/21/2017 12/15/2018 Active Generic For:*SYNTHROID 0.075MG TAB 12/21/2017 8:48:14 AM [facility] Humalog U-100 Insulin 100 unit/mL subcutaneous solution RxNorm: 113539 INJECT SUBCUTANEOUSLY PER SLIDING THREE TIMES DAILY 12/16/2017 06/13/2018 Active 2017 8:51:49 AM Pradaxa 75 mg capsule RxNorm: 9401858 1 Capsule(s) PO BID 201706/11/2018 Active Lasix 40 mg tablet RxNorm: 707754 Take 1 tab in the morning and 1/2 tab in evening 12/06/2017 No Stop Date Active SAVINGS FOR NON-COVERED MEDICATIONS Claims: BIN: [id number], PCN: BNRX, GROUP: [id number], Patient ID: [id number] Phone; Questions: YourRx [phone] Norvasc 10 mg tablet RxNorm: 411135 TAKE ONE (1) TABLET BY MOUTH DAILY 11/25/2017 01/05/2018 Inactive Generic For:NORVASC 10MG TAB 11/25/2017 4:26:12 PM potassium chloride ER 10 mEq tablet,extended release RxNorm: 761719 1 Tablet(s) PO BID 11/23/2017 03/22/2018 Active Lasix 20 mg tablet RxNorm: 569529 TAKE 1 TABLET BY MOUTH EVERY DAY 11/23/2017 11/17/2018 Active Generic For:LASIX 20 MG TABLET 11/23/2017 9:11:33 AM Levemir U-100 Insulin 100 unit/mL subcutaneous solution RxNorm: 154420 10 Unit(s) SQ BID 11/16/2017 01/06/2018 Inactive diazepam 5 mg tablet RxNorm: 104807 1 Tablet(s) PO QHS as needed 10/26/2017 02/21/2018 Active diazepam 5 mg tablet RxNorm: 810241 1 Tablet(s) PO QHS as needed 09/29/2017 10/25/2017 Inactive Ambien 5 mg tablet RxNorm: 780402 1 Tablet(s) PO QHS for insomnia 08/04/2017 No Stop Date Active diazepam 5 mg tablet RxNorm: 597025 1 Tablet(s) PO QHS as needed 06/14/2017 09/11/2017 Inactive diazepam 5 mg tablet RxNorm: 525658 1 Tablet(s) PO QHS as needed 06/09/2017 06/13/2017 Inactive Mucinex 600 mg tablet, extended release RxNorm: 107277 1 Tablet(s) PO Q12H as needed congestion No Start Date Active Systane Balance 0.6 % eye drops RxNorm: 9101708 1 Drop(s) both eyes ophthalmic ( eye) daily No Start Date Active Miralax 17 gram/dose oral powder RxNorm: 575816 17 Gram(s) PO daily as needed constipation No Start Date Active ipratropium-albuterol 0.5 mg-3 mg(2.5 mg base)/3 mL nebulization soln RxNorm: 3869799 1 INH Q4H as needed No Start Date Active Acetaminophen Pain Relief 500 mg tablet RxNorm: 945657 2 Tablet(s) PO Q6 as needed fever No Start Date Active metformin 1,000 mg tablet RxNorm: 090139 1 Tablet(s) PO BID No Start Date Active digoxin 125 mcg tablet RxNorm: 214951 1 Tablet(s) PO daily No Start Date Active albuterol sulfate 2.5 mg/3 mL (0.083 %) solution for nebulization RxNorm: 289944 1 INH as needed for cough/wheezes No Start Date Active Colace 100 mg capsule RxNorm: 2446021 1 Capsule(s) PO BID as needed constipation No Start Date Active Zofran 4 mg tablet RxNorm: 949973 1 Tablet(s) PO Q6 as needed nausea No Start Date Active Amaryl 4 mg tablet RxNorm: 673906 2 Tablet(s) PO daily No Start Date Active Hyomax 0.125 mg tablet RxNorm: 0465061 1 Tablet(s) SL Q2H as needed for secretions No Start Date Active acetaminophen 500 mg tablet RxNorm: 963012 1 Tablet(s) PO Q4H as needed for pain No Start Date Active Flonase Allergy Relief 50 mcg/actuation nasal spray, suspension RxNorm: 8786891 2 [place] each nostril NASAL daily as needed for allergies No Start Date Active Neupro 6 mg/24 hour transdermal 24 hour patch RxNorm: 145576 1 Patch TD daily for Parkinson's No Start Date Active morphine 100 mg/5 mL oral concentrate RxNorm: 267774 1/2 Milliliter(s) SL as needed every 15 min for air hunger/severe pain/anxiety No Start Date Active Plavix 75 mg tablet RxNorm: 937326 1 Tablet(s) PO QHS No Start Date Active gabapentin 300 mg capsule RxNorm: 946307 1 Capsule(s) PO BID No Start Date Active Zoloft 50 mg tablet RxNorm: 687733 1 Tablet(s) PO daily No Start Date Active Zyrtec 10 mg tablet RxNorm: 3238662 1 Tablet(s) PO QHS as needed allergies No Start Date Active metoprolol tartrate 100 mg tablet RxNorm: 469378 1 Tablet(s) PO BID No Start Date Active lisinopril 10 mg tablet RxNorm: 883624 1 Tablet(s) PO daily No Start Date Active acetaminophen 325 mg tablet RxNorm: 003394 2 Tablet(s) PO or one 650 mg rectal suppository every 4 hours as needed for fever/mild pain No Start Date Active Aspirin Low Dose 81 mg tablet,delayed release RxNorm: 647536 1 Tablet(s) PO daily No Start Date Active potassium chloride ER 10 mEq tablet,extended release RxNorm: 407315 1 Tablet(s) PO BID No Start Date 11/22/2017 Inactive Lasix 40 mg tablet RxNorm: 709950 1 Tablet(s) PO daily No Start Date 12/05/2017 Inactive Pradaxa 75 mg capsule RxNorm: 7262304 1 Capsule(s) PO BID No Start Date 12/13/2017 Inactive Ambien 5 mg tablet RxNorm: 393500 1 Tablet(s) PO QHS for insomnia No Start Date 08/03/2017 Inactive Norvasc 10 mg tablet RxNorm: 940414 1 Tablet(s) PO daily No Start Date 11/24/2017 Inactive Levemir U-100 Insulin 100 unit/mL subcutaneous solution RxNorm: 036398 8 Unit(s) SQ BID No Start Date 11/15/2017 Inactive Humalog U-100 Insulin 100 unit/mL subcutaneous solution RxNorm: 259736 1 injection SQ TID per sliding scale; If BS 201-250 give 3 units, 251-300 give 5 units, 301-350 give 7 units, 351-400 give 9 units No Start Date 12/15/2017 Inactive Lasix 20 mg tablet RxNorm: 079863 1 Tablet(s) PO daily No Start Date 11/22/2017 Inactive Synthroid 75 mcg tablet RxNorm: 963492 1 Tablet(s) PO daily No Start Date [...] data Encounters Encounter Performer Location Codes Date (89247) 69288 EST. 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 PATIENT, LEVEL IV Diagnosis: Essential (primary) hypertension[ICD10: I10] Diagnosis: Type 2 diabetes mellitus without complications[ICD10: E11.9] Diagnosis: Pain in right knee[ICD10: M25.561] Bernadine Alvarez MD, [facility] CPT-4: 79528 11/16/2017 78861 EST. PATIENT, LEVEL III Diagnosis: Essential (primary) hypertension[ICD10: I10] Diagnosis: Type 2 diabetes mellitus without complications[ICD10: E11.9] Diagnosis: Bradycardia, unspecified[ICD10: R00.1] Diagnosis: Encounter for follow-up examination after completed treatment for conditions other than malignant neoplasm[ICD10: Z09] Betty Alvarez MD, [facility] CPT-4: 82979 11/02/2017 73219 EST. PATIENT, LEVEL III Diagnosis: Contusion of left thigh, initial encounter[ICD10: S70.12XA] Betty Alvarez MD, [facility] CPT-4: 94771 08/10/2017 95269 EST. PATIENT, LEVEL III Diagnosis: Essential (primary) hypertension[ICD10: I10] Diagnosis: Weakness[ICD10: R53.1] Betty Alvarez MD, [facility] CPT-4: 77318 07/16/2017 OFFICE VISIT, NEW - LEVEL 3 Diagnosis: Essential (primary) hypertension[ICD10: I10] Diagnosis: Weakness[ICD10: R53.1] [facility] CPT-4: 98179 06/04/2017 Plan of Care Planned Activity Notes [...] discuss with the therapy dept at the senior living and help to facilitate the brace and [...] becoming uncontrolled. 12/16/2017 Appointment: Bernadine Alvarez WPtel: [address] [place], [place] [address] (15 min) Moderate 12/16/2017 Patient Education: Patient [...] to knee. 11/16/2017 Appointment: Bernadine Alvarez [facility]el: [facility] [place] (15 min) Moderate 11/16/2017 Patient [...] medical condition. 11/02/2017 Appointment: Betty Blackman WPtel: [facility] (15 min) Moderate 11/02/2017 Patient Education: Patient Medication Summary Completed 11/02/2017 Appointment: Betty Blackman [facility]el[facility] [place] (30 min) Complex 10/28/2017 Appointment: Betty Blackman WPtel: [facility] [place] (30 min) Complex 09/03/2017 Visit Plan: Left leg hematoma - no erythema or warmth noted - will have pt and nursing staff monitor the area - they are to notify clinic if symptoms do not improve, if they worsen, or with any changes, questions, or concerns. 08/10/2017 Appointment: Betty Blackman WPtel: [facility] [place] (30 min) Complex 08/10/2017 Patient Education: [...] home. 07/16/2017 Appointment: Betty Blackman WPtel: [phone] [facility] (30 min) Complex 07/16/2017 Patient Education: [...] or concerns. 06/04/2017 Appointment: Betty Blackman WPtel: [phone] [facility] New Patient 06/04/2017 Patient Education: Patient Medication [...] discuss with the therapy dept at the senior living and help to facilitate the brace and [...]
[2018-04-17 15:50] LABS: BASOPHILS % (AUTO) 1 % (0-10); EOSINOPHILS # (AUTO) 0.3 10^3/uL (0.0-0.3); EOSINOPHILS % (AUTO) 4 % (0-10); HEMATOCRIT 36 % (35-52); HEMOGLOBIN 11.6 G/DL (11.5-16.0); LYMPHOCYTES % (AUTO) 23 % (12-44); MEAN CORPUSCULAR HEMOGLOBIN 27 PG (25-34); MEAN CORPUSCULAR HGB CONC 32 G/DL (32-36); MEAN CORPUSCULAR VOLUME 85 FL (80-99); MEAN PLATELET VOLUME 9.6 FL (7.4-10.4); MONOCYTES # (AUTO) 0.7 X 10^3 (0.0-1.0); MONOCYTES % (AUTO) 8 % (0-12); NEUTROPHILS # (AUTO) 5.7 X 10^3 (1.8-7.8); NEUTROPHILS % (AUTO) 65 % (42-75); PLATELET COUNT 259 10^3/uL (130-400); RED BLOOD COUNT 4.26 10^6/uL (4.35-5.85); WHITE BLOOD COUNT 8.7 10^3/uL (4.3-11.0)
--- NOTE | 2018-04-17 15:52 | Diagnostic Imaging Report ---
EXAMINATION: Portable chest. COMPARISON: Prior study from January 2018. INDICATION: Fatigue and all over body pain. FINDINGS: There is stable enlargement of the cardiac silhouette. There is central pulmonary vascularity that appears within normal limits on today's exam. There is no significant effusion evident. There is no pneumothorax. There is no evidence of focal alveolar consolidation. IMPRESSION: Enlarged cardiac silhouette without evidence of failure. No alveolar consolidation or significant effusion evident on today's exam. Central pulmonary vascularity appears unremarkable. Dictated by: Dictated on workstation # [id number]
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
[2018-04-17] MEDS ORDERED: NS IV 1000 ML 1,000 ML IV ONE (16:02)
[2018-04-17 16:06] LABS: ALBUMIN 4.1 GM/DL (3.2-4.5); BILIRUBIN,TOTAL 0.3 MG/DL (0.1-1.0); CREATININE SERUM 1.52 MG/DL (0.60-1.30); MAGNESIUM 2.4 MG/DL (1.8-2.4); POTASSIUM 4.6 MMOL/L (3.6-5.0); TOTAL PROTEIN 7.9 GM/DL (6.4-8.2)
[2018-04-17 16:10] LABS: BILIRUBIN,URINE NEGATIVE (NEGATIVE); CLARITY,URINE CLEAR; COLOR,URINE YELLOW; GLUCOSE, URINE (UA) 4+ (NEGATIVE); KETONES,URINE NEGATIVE (NEGATIVE); LEUKOCYTE ESTERASE ,URINE NEGATIVE (NEGATIVE); NITRITE,URINE NEGATIVE (NEGATIVE); PH,URINE 5 (5-9); PROTEIN,URINE 1+ (NEGATIVE); UROBILINOGEN,URINE NORMAL (NORMAL)
[2018-04-17] MEDS ORDERED: inSUlin (REGULAR) HUMAN 1 UNIT/0.01 ML (CHARGE PER UNIT) IV ONE ×3 (16:15→18:45)
[2018-04-17 16:27] LABS: FREE T4 (FREE THYROXINE) 1.03 NG/DL (0.70-1.48)
[2018-04-17 16:35] LABS: BACTERIA,URINE TRACE /HPF
[2018-04-17] MEDS ORDERED: RT-ALBUTEROL/IPRATROPIUM 3 ML (DUONEB) VIAL INH ONE (17:15)
--- NOTE | 2018-04-17 17:42 | Diagnostic Imaging Report ---
PROCEDURE: CT abdomen and pelvis without contrast. TECHNIQUE: Multiple contiguous axial images were obtained through the abdomen and pelvis without the use of intravenous contrast. INDICATION: Diffuse pain. Fatigue. Hyperglycemia. COMPARISON: 02/22/2007. FINDINGS: Included portions of the lung bases show mild cardiomegaly. CT ABDOMEN: There is mild abnormal stranding of the pericolonic fat involving the distal left colon near the junction of the distal left descending and sigmoid colon. There may be a few droplets of extraluminal gas versus gas contained within small diverticuli (image 55, series 2). There is no free fluid or loculated air-fluid collection within the abdomen or pelvis. Normal appendix cannot be adequately identified, but there is no pericecal inflammation. Small bowel loops are nondistended. Hypodense bilateral renal cysts are noted. There also appears to be isodense partially exophytic structure on the right that measures 1.6 cm (image 30, series 2). The adrenal glands, spleen, pancreas and liver have an unremarkable noncontrast CT appearance. No abnormal mesenteric or retroperitoneal adenopathy is seen. There is diffuse advanced calcified aortic and coronary atherosclerosis. Bony structures show no acute abnormality. CT PELVIS: Urinary bladder is unopacified. No calculi are seen within the urinary bladder. Again, there may be small droplets of extraluminal gas versus gas contained within small diverticuli adjacent to the high sigmoid colon. There is no loculated fluid collection or free fluid within the pelvis. No abnormal lymph nodes are identified. Bony structures show no acute abnormality. IMPRESSION: 1. Mild abnormal stranding of the pericolonic fat involving the distal left colon, as described above. Findings are felt to most likely be on the basis of acute diverticulitis. Please note, colonic malignancy may also present in a similar manner. Followup with colonoscopy is recommended when clinically appropriate. 2. A few small droplets of extraluminal gas versus gas contained within small diverticuli adjacent to the colon. Again, followup is recommended. There is no loculated fluid collection to suggest abscess. 3. Hyperdense bilateral renal cysts. Additionally, there is suggestion of isodense lesion on the left. Further characterization with postcontrast CT abdomen is recommended and could be performed on a nonemergent basis. Dictated by: Dictated on workstation # [id number]
[2018-04-17] MEDS ORDERED: metroNIDAZOLE 500 MG (FLAGYL) TAB PO ONE (18:00)
[2018-04-17] MEDS ORDERED: CIPROFLOXACIN IV 400MG/200ML 200 ML IV ONE (18:00)
[2018-04-17] MEDS ORDERED: CIPR-225 PO (18:19)
[2018-04-17] MEDS ORDERED: METR500T PO (18:20)
[2018-04-17 20:00] VITALS: BP 165/80
[2018-04-20] MEDS ORDERED: LINA72CA PO (15:10)
== END 2018-04-17 20:06 | disposition home or self-care (01) ==
LOC: EDUNIT# 14:27 → ER 14:28
DX: K57.32 Diverticulitis of large intestine without perforation or abscess without bleeding (principal); J44.1 Chronic obstructive pulmonary disease with (acute) exacerbation; R53.1 Weakness; N28.9 Disorder of kidney and ureter, unspecified; E11.65 Type 2 diabetes mellitus with hyperglycemia; R73.9 Hyperglycemia, unspecified; N28.1 Cyst of kidney, acquired; G47.30 Sleep apnea, unspecified; I48.91 Unspecified atrial fibrillation; I10 Essential (primary) hypertension; I25.10 Atherosclerotic heart disease of native coronary artery without angina pectoris; E78.00 Pure hypercholesterolemia, unspecified; I73.9 Peripheral vascular disease, unspecified; G20 Parkinson's disease; K21.9 Gastro-esophageal reflux disease without esophagitis; I27.0 Primary pulmonary hypertension; G25.81 Restless legs syndrome; E03.9 Hypothyroidism, unspecified; E11.40 Type 2 diabetes mellitus with diabetic neuropathy, unspecified; F41.9 Anxiety disorder, unspecified; F32.9 Major depressive disorder, single episode, unspecified; Z80.0 Family history of malignant neoplasm of digestive organs; Z82.49 Family history of ischemic heart disease and other diseases of the circulatory system; Z86.010 Personal history of colon polyps; Z88.5 Allergy status to narcotic agent; Z87.19 Personal history of other diseases of the digestive system; Z87.440 Personal history of urinary (tract) infections; Z86.73 Personal history of transient ischemic attack (TIA), and cerebral infarction without residual deficits; Z91.041 Radiographic dye allergy status; Z88.0 Allergy status to penicillin; Z88.2 Allergy status to sulfonamides; Z88.6 Allergy status to analgesic agent; Z88.1 Allergy status to other antibiotic agents; Z88.8 Allergy status to other drugs, medicaments and biological substances; Z79.51 Long term (current) use of inhaled steroids; Z79.4 Long term (current) use of insulin; Z87.01 Personal history of pneumonia (recurrent); Z90.49 Acquired absence of other specified parts of digestive tract; Z95.5 Presence of coronary angioplasty implant and graft; Z90.710 Acquired absence of both cervix and uterus; Z98.51 Tubal ligation status
CPT/HCPCS: 36415; 71045; 74176; 80053; 81000; 82962; 83735; 83880; 84439; 84443; 85025; 86141; 87804; 94640; 96361; 96365; 96376

== ENCOUNTER 2018-04-18 10:23 | Outpatient (CLI) | payer OTHER, MEDICARE, MEDICAID ==
[~2018-04-18] VITALS: Ht 152.4 cm
[~2018-04-18 10:23] MED LIST changes: +CIPR-225 PO; +METR500T PO
[2018-04-20] MEDS ORDERED: LINA72CA PO (15:10)
== END 2018-04-18 15:15 | disposition home or self-care (01) ==
LOC: PREOP 10:23
PROVIDERS: ATTEND Surgery
DX: Z01.818 Encounter for other preprocedural examination (principal)

== ENCOUNTER 2018-04-21 06:13 | Day surgery (SDC) | payer MEDICARE, OTHER, MEDICAID ==
[~2018-04-21] VITALS: Ht 152.4 cm; Wt 89.8 kg
[~2018-04-21 06:13] MED LIST changes: +LINA72CA PO
[2018-04-21 06:25] VITALS: BP 123/71
[2018-04-21] MEDS ORDERED: LACTATED RINGERS 1,000 ML IV PRN (06:55)
[2018-04-21] MEDS ORDERED: CLINDAMYCIN 600 MG/50 ML IVPB 50 ML IV ONE (07:00)
[2018-04-21] MEDS ORDERED: proPOfol 200 MG/20 ML (DIPRIVAN) VIAL IV ONE (07:31)
[2018-04-21] MEDS ORDERED: KETAMINE HCL 100 MG/ML 5 ML VIAL ONE (07:32)
[2018-04-21] MEDS ORDERED: MIDAZOLAM 2 MG/2 ML (VERSED) VIAL ONE (07:32)
[2018-04-21] MEDS ORDERED: LIDOCAINE PF 2% 5 ML (XYLOCAINE) VIAL ONE (07:33)
[2018-04-21] MEDS ORDERED: LIDOCAINE 1% INJ 20 ML 20 ML VIAL ONE (07:40)
[2018-04-21] MEDS ORDERED: BUPIVACAINE 0.5% 30 ML (SENSORCAINE) VIAL ONE (07:40)
[2018-04-21] MEDS ORDERED: HEParin (CENTRAL IV FLUSH) 500 UNIT/5 ML SYR ONE (07:43)
[2018-04-21] MEDS ORDERED: 0.9% SODIUM CHLORIDE PF INJ 20 ML VIAL ONE (07:43)
--- NOTE | 2018-04-21 07:47 | Progress Note-Pre Operative ---
Pre-Operative Progress Note H&P Reviewed The H&P was reviewed, patient examined and no changes noted. Date Seen by Provider: Apr 21, 2018 Time Seen by Provider: 07:36 Date H&P Reviewed: Apr 21, 2018 Time H&P Reviewed: 07:36 Pre-Operative Diagnosis: poor venous access SEEMA NAYLOR DO Apr 21, 2018 07:47
--- NOTE | 2018-04-21 08:55 | Progress Note-Post Operative ---
Post-Operative Progess Note Surgeon (s)/Upper Shaper (s) Surgeon SEEMA NAYLOR DO Upper Shaper: NA Pre-Operative Diagnosis poor venous access Post-Operative Diagnosis SAME Procedure & Operative Findings Date of Procedure 04/21/18 Procedure Performed/Findings RIGHT IJ U/S GUIDED PORT PLACEMENT Anesthesia Type MAC C LOCAL Estimated Blood Loss Estimated blood loss (mL): MIN Specimens/Packing Specimens Removed NA SEEMA NAYLOR DO Apr 21, 2018 08:55
--- NOTE | 2018-04-21 08:59 | Discharge Inst-Simple/Standard ---
Discharge Inst-Standard Patient Instructions/Follow Up Plan of Care/Instructions/FU: 2 WEEKS CYNDY HAVE PORT FLUSHED ON A MONTHLY BASIS. THERE IS A STANDING ORDER FOR THIS IN SAME DAY SURGERY AT [facility]. Activity as Tolerated: No Discharge Diet: Regular Diet Other Inst to Patient Follow up Appt: Make appointment for 2 week. Instructions: No lifting greater than 10 pounds. No strenuous activity. May shower in 24 hours, no tub bath or soaking. Use incentive spirometer at home as directed. No Smoking Skin/Wound Care: YOU HAVE SPECIAL GLUE OVER INCISION IT WILL FALL OFF ON ITS OWN. YOU NEED TO PLACE ICE PACK OVER INCISION ON 15 MIN OFF 30 MIN AND REPEAT FOR FIRST 48 HOURS TO DECREASE DISCOMFORT AND EDEMA. Symptoms to Report: Appetite Changes, Extremity Discoloration, Numbness/Tingling, Swelling Increased , Bleeding Excessive, Eyesight Changes, Pain Increased, Urine Color Change, Constipation(Persistent), Fever over 101 degree F, Pain/Pressure in chest, Urinating Difficulty, Cough Up/Vomit Blood, Heart Beat Irreg/Pounding, Pain/ Pressure in jaw, Vaginal Bleeding Increase, Cramps in feet or legs, Lightheadedness, Pain/Pressure in shoulder, Diarrhea(Persistent), Memory Changes Suddenly, Questions/Concerns, Weight gain consecutive days, Dizziness/ Fainting, Nausea/Vomiting, Shortness of Breath, Weight gain over 2 pounds If questions or concerns contact your physician Or seek help at emergency department. SEEMA NAYLOR DO Apr 21, 2018 08:59
[2018-04-21] MEDS ORDERED: morphine INJ 10 MG/ML 1ML (SYR OR VIAL) IVP ONE (09:00)
[2018-04-21] MEDS ORDERED: ONDANSETRON 4 MG/2 ML (SDV) Z0FRAN IVP PRN (09:00)
[2018-04-21 09:20] VITALS: BP 134/96
[2018-04-21 09:25] VITALS: BP 134/96
--- NOTE | 2018-04-21 09:26 | Diagnostic Imaging Report ---
INDICATION: Port placement. TIME OF EXAMINATION: 09:09 a.m. COMPARISON: Correlation is made with prior study from 04/17/2018. FINDINGS: The heart is enlarged. Right chest wall port has been placed and has its tip overlying the SVC. No pneumothorax is identified. The lungs are clear. IMPRESSION: Port placement. No pneumothorax is detected. Dictated by: Dictated on workstation # [id number]
[2018-04-21 09:50] VITALS: BP 132/70
[2018-04-21 10:20] VITALS: BP 118/83
--- NOTE | 2018-04-21 10:33 | Diagnostic Imaging Report ---
INDICATION: Fluoroscopy for port placement. Fluoroscopy was provided in the OR during port placement. 12 seconds of fluoroscopy was utilized. Right chest wall Port-A-Cath has tip overlying the SVC. IMPRESSION: Fluoroscopy during port placement. Dictated by: Dictated on workstation # [id number]
--- NOTE | 2018-04-21 13:33 | Anesthesia-General Post-Op ---
MAC Patient Condition Mental Status/LOC: Same as Preop Cardiovascular: Satisfactory Nausea/Vomiting: Absent Respiratory: Satisfactory Pain: Controlled Complications: Absent Post Op Complications Complications None Follow Up Care/Instructions Patient Instructions None needed. Anesthesiology Discharge Order Discharge Order Patient is doing well, no complaints, stable vital signs, no apparent adverse anesthesia problems. No complications reported per nursing. DARWIN OLIVERA CRNA Apr 21, 2018 13:33
== END 2018-04-21 10:55 | disposition home or self-care (01) ==
LOC: SDC 06:13
PROVIDERS: ATTEND Surgery
DX: I87.2 Venous insufficiency (chronic) (peripheral) (principal); E11.9 Type 2 diabetes mellitus without complications; I10 Essential (primary) hypertension; I48.91 Unspecified atrial fibrillation; J45.909 Unspecified asthma, uncomplicated; G47.33 Obstructive sleep apnea (adult) (pediatric); J44.9 Chronic obstructive pulmonary disease, unspecified; I69.351 Hemiplegia and hemiparesis following cerebral infarction affecting right dominant side; G20 Parkinson's disease; K21.9 Gastro-esophageal reflux disease without esophagitis; K44.9 Diaphragmatic hernia without obstruction or gangrene; Z79.82 Long term (current) use of aspirin; Z79.4 Long term (current) use of insulin; Z79.899 Other long term (current) drug therapy
CPT/HCPCS: 71045; 82962; 87081

== ENCOUNTER → 2018-05-20 | Outpatient (CLI) | payer MEDICARE, OTHER, MEDICAID ==
--- NOTE | 2018-05-20 20:51 | Diagnostic Imaging Report ---
INDICATION: Dyspnea. TIME OF EXAM: 2:13 PM COMPARISON: Correlation is made with prior study from 04/21/2018. FINDINGS: Right chest wall port has tip overlying the SVC. The heart is enlarged. There is central congestion but no overt failure. Lungs are hyperinflated consistent with COPD. No effusion or pneumothorax is seen. IMPRESSION: Cardiomegaly and central congestion without evidence of overt failure. Dictated by: Dictated on workstation # [id number]
== END ==
LOC: RAD 13:36
PROVIDERS: ATTEND Nurse Practitioner Family
DX: I51.7 Cardiomegaly (principal); R06.00 Dyspnea, unspecified; R09.89 Other specified symptoms and signs involving the circulatory and respiratory systems
CPT/HCPCS: 71046

== ENCOUNTER 2018-07-28 13:16 | Emergency (ER) | payer MEDICARE, OTHER, MEDICAID ==
[~2018-07-28] VITALS: Ht 165.1 cm; Wt 90.7 kg
[~2018-07-28 13:16] MED LIST changes: -AMLO10TA6 PO; +AMLO10TA7 PO; -GABA600T2 PO; +GBPN600T PO; +SENN-229 PO; -SENN1TAB7 PO
[2018-07-28] MEDS ORDERED: RT-ALBUTEROL/IPRATROPIUM 3 ML (DUONEB) VIAL INH ONE (14:00)
[2018-07-28 14:19] LABS: BASOPHILS # (AUTO) 0.1 10^3/uL (0.0-0.1); BASOPHILS % (AUTO) 1 % (0-10); EOSINOPHILS # (AUTO) 0.3 10^3/uL (0.0-0.3); EOSINOPHILS % (AUTO) 4 % (0-10); HEMATOCRIT 34 % (35-52); HEMOGLOBIN 10.6 G/DL (11.5-16.0); LYMPHOCYTES # (AUTO) 1.6 X 10^3 (1.0-4.0); LYMPHOCYTES % (AUTO) 18 % (12-44); MEAN CORPUSCULAR HEMOGLOBIN 27 PG (25-34); MEAN CORPUSCULAR HGB CONC 32 G/DL (32-36); MEAN CORPUSCULAR VOLUME 86 FL (80-99); MONOCYTES # (AUTO) 0.8 X 10^3 (0.0-1.0); MONOCYTES % (AUTO) 9 % (0-12); NEUTROPHILS # (AUTO) 5.8 X 10^3 (1.8-7.8); NEUTROPHILS % (AUTO) 68 % (42-75); PLATELET COUNT 266 10^3/uL (130-400); RED CELL DISTRIBUTION WIDTH 17.9 % (10.0-14.5); WHITE BLOOD COUNT 8.5 10^3/uL (4.3-11.0)
--- NOTE | 2018-07-28 14:30 | NUR ---
pt son at bedside. informed of current progress and informed of pt son presence.
[2018-07-28 14:36] LABS: ALBUMIN 3.6 GM/DL (3.2-4.5); BILIRUBIN,TOTAL 0.6 MG/DL (0.1-1.0); CALCIUM 9.4 MG/DL (8.5-10.1); CREATININE SERUM 1.54 MG/DL (0.60-1.30); POTASSIUM 4.4 MMOL/L (3.6-5.0); TOTAL PROTEIN 6.9 GM/DL (6.4-8.2)
--- NOTE | 2018-07-28 15:00 | NUR ---
pt readjusted in bed and pillows placed for comfort. pt denies any current needs at this time. pt has call light within reach and pt son at bedside.
[2018-07-28] MEDS ORDERED: ACETAMINOPHEN 500 MG TAB (TYLENOL) PO ONE (15:45)
[2018-07-28] MEDS ORDERED: FUROSEMIDE 40 MG/4 ML INJ (LASIX) IVP ONE (15:45)
[2018-07-28 16:16] LABS: FREE T4 (FREE THYROXINE) 0.99 NG/DL (0.70-1.48)
--- NOTE | 2018-07-28 16:47 | Diagnostic Imaging Report ---
INDICATION: Generalized malaise. TIME OF EXAM: 02:51 p.m. Correlation is made with prior chest from 05/20/2018. FINDINGS: The heart remains enlarged. The right chest wall port has tip overlying the SVC. There is central congestion but no overt failure. No significant infiltrate is seen. There is no effusion or pneumothorax. IMPRESSION: Cardiomegaly and central congestion without evidence of overt failure. Dictated by: Dictated on workstation # [id number]
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
--- NOTE | 2018-07-28 18:43 | NUR ---
VIA [facility] RN CONTACTED FOR REPORT AT THIS TIME. DISCHARGE INSTRUCTIONS AND PT STAY INFORMATION REVIEWED WITH HER.
--- NOTE | 2018-07-28 18:43 | NUR ---
VIA [facility] CONTACTED FOR PT TRANSPORT AT THIS TIME.
[2018-07-28 20:06] VITALS: BP 143/91
== END 2018-07-28 20:06 | disposition home or self-care (01) ==
LOC: EDUNIT# 13:16 → ER 13:17
DX: J44.1 Chronic obstructive pulmonary disease with (acute) exacerbation (principal); E87.70 Fluid overload, unspecified; G47.30 Sleep apnea, unspecified; I48.91 Unspecified atrial fibrillation; I25.10 Atherosclerotic heart disease of native coronary artery without angina pectoris; I25.2 Old myocardial infarction; E78.00 Pure hypercholesterolemia, unspecified; I10 Essential (primary) hypertension; G20 Parkinson's disease; E11.51 Type 2 diabetes mellitus with diabetic peripheral angiopathy without gangrene; I73.9 Peripheral vascular disease, unspecified; K21.9 Gastro-esophageal reflux disease without esophagitis; I12.9 Hypertensive chronic kidney disease with stage 1 through stage 4 chronic kidney disease, or unspecified chronic kidney disease; E11.22 Type 2 diabetes mellitus with diabetic chronic kidney disease; N18.9 Chronic kidney disease, unspecified; G25.81 Restless legs syndrome; E03.9 Hypothyroidism, unspecified; F41.9 Anxiety disorder, unspecified; F32.9 Major depressive disorder, single episode, unspecified; Z82.49 Family history of ischemic heart disease and other diseases of the circulatory system; Z80.0 Family history of malignant neoplasm of digestive organs; Z86.010 Personal history of colon polyps; Z88.0 Allergy status to penicillin; Z86.73 Personal history of transient ischemic attack (TIA), and cerebral infarction without residual deficits; Z88.2 Allergy status to sulfonamides; Z79.4 Long term (current) use of insulin; Z77.22 Contact with and (suspected) exposure to environmental tobacco smoke (acute) (chronic); Z95.5 Presence of coronary angioplasty implant and graft; Z90.710 Acquired absence of both cervix and uterus; Z98.51 Tubal ligation status
CPT/HCPCS: 36415; 71045; 80053; 83880; 84439; 84443; 85025; 86141; 87804